=== PATIENT | male | born 1945 | race Caucasian/White ===

== ENCOUNTER → 2018-09-05 10:24 | Outpatient (CLI) | payer MEDICARE, SELFPAY ==
[2018-09-05 10:59] LABS: Basophils % 0.5 % (0.1-2.0); Eosinophils # 0.1 K/mm3 (0.0-0.4); Eosinophils % 1.2 % (0.1-12.0); Hematocrit 35.9 % (42.0-52.0); Hemoglobin 11.7 g/dL (14.1-18.0); Lymphocytes # 1.4 K/mm3 (0.7-4.5); Lymphocytes % 18.4 % (10-50); Mean Corpuscular HGB Conc 32.4 g/dL (31.8-35.4); Mean Corpuscular Hemoglobin 28.2 pg (27.0-31.2); Mean Corpuscular Volume 86.8 fl (80-94); Monocytes # 0.5 K/mm3 (0.1-1.0); Monocytes % 6.3 % (1.7-9.3); Neutrophils # 5.6 K/mm3 (1.8-7.8); Neutrophils % 73.6 % (37.0-80.0); Platelet Count 295 K/mm3 (142-424); Red Blood Count 4.14 M/mm3 (4.60-6.20); Red Cell Distribution Width 14.1 % (11.5-17.5); White Blood Count 7.6 K/mm3 (4.8-10.8)
[2018-09-05 14:27] LABS: Alanine Aminotransferase 19 U/L (12-78); Albumin/Globulin Ratio 0.5 (1.1-1.8); Alkaline Phosphatase 158 U/L (46-116); Anion Gap 16.7 mEq/L (5-15); Aspartate Amino Transferase 15 U/L (15-37); Bilirubin,Total 0.5 mg/dL (0.2-1.0); Blood Urea Nitrogen 9 mg/dL (7-18); Carbon Dioxide 27 mmol/L (21.0-32.0); Chloride 102 mmol/L (98-107); Creatinine,Serum 1.06 mg/dL (0.70-1.30); Estimated Glomerular Filt Rate 68 ml/min (>60); GFR (African American) 83 ML/MIN (>60); Globulin 3.7 gm/dl (1.3-3.2); Glucose 90 mg/dL (74-106); Potassium 3.7 mmoL/L (3.5-5.1); Sodium 142 mmol/L (136-145); Total Protein,Serum 5.7 gm/dL (6.4-8.2)
== END ==
PROVIDERS: Visit Provider Family Medicine
DX: K57.90 Diverticulosis of intestine, part unspecified, without perforation or abscess without bleeding (principal); L02.91 Cutaneous abscess, unspecified
CPT/HCPCS: 80053; 85025

== ENCOUNTER → 2019-05-04 12:18 | Outpatient (CLI) | payer MEDICARE, SELFPAY ==
--- NOTE | 2019-05-04 12:24 | XR_ITS ---
PROCEDURE: XR KNEE LT 3V CLINICAL INDICATION: KNEE PAIN COMPARISON: No exams were available for comparison FINDINGS: No fracture or dislocation. No lytic or blastic change. There is normal mineralization. There are moderate osteoarthritic changes of the medial compartment and patellofemoral joint with mild osteoarthritis of the lateral compartment. There is a small loose body in the suprapatellar region which measures 12 mm. There is generalized vascular calcification. Other findings:None. IMPRESSION: Osteoarthritis. Small loose body in the suprapatellar region Dictated by: Abhijeet Ledezma MD 05/04/2019 13:02 Electronically signed by Abhijeet Ledezma MD in [place] 05/04/2019 13:02
== END ==
PROVIDERS: PCP Nurse Practitioner Family; Visit Provider Nurse Practitioner Family
DX: M25.562 Pain in left knee (principal)
CPT/HCPCS: 73562

== ENCOUNTER → 2019-05-07 14:49 | Outpatient (CLI) | payer MEDICARE, SELFPAY ==
--- NOTE | 2019-05-07 14:52 | MR_ITS ---
PROCEDURE: MR KNEE LT WO CON CLINICAL INDICATION: KNEE PAIN Medial left knee pain, prior surgery with crunching sound, limited range of motion COMPARISON: XR KNEE LT 3V from 05/04/2019 TECHNIQUE: Routine multiplanar multi echo sequences are performed without gadolinium enhancement. FINDINGS: The posterior cruciate ligament is intact in his slightly hyper buckled with some thickening along the inferior aspect of the PCL. There is abnormal orientation of the ACL not having the normal oblique course on the sagittal images. Superior fibers are not well delineated. These findings are consistent with tear of the ACL. This may be chronic as there is not much edema in this area. The collateral ligaments have an unremarkable appearance. There is a complex tear involving the posterior horn of the medial meniscus. There are severe osteoarthritic changes. There is some thinning of the patellar cartilage. Moderate-sized knee joint effusion is present. The patellar tendon and quadriceps tendon are intact. No lateral meniscus tear. Bone marrow edema is present involving the proximal and medial aspect of the tibia which could be due to an area of bone bruising or edema from the underlying osteoarthritic change. Prominent osteophytes are present involving all 3 compartments. Subarticular cystic changes are present at the proximal tibia anteriorly and posteriorly. There are loose bodies noted within the suprapatellar effusion 1 of which measures 8 mm and another which measures 14 mm. These are along the medial aspect of the distal femur IMPRESSION: 1. Abnormal orientation of the ACL with discontinuous fibers superiorly consistent with tear of the ACL. 2. Complex tear of the posterior horn of the medial meniscus 3. Osteoarthritic change with knee joint effusion, subarticular cystic changes, and bone marrow edema of the proximal tibia medially. 4. Loose intra-articular bodies. Dictated by: Abhijeet Ledezma MD 05/08/2019 16:30 Electronically signed by Abhijeet Ledezma MD in [place] 05/09/2019 11:06
== END ==
PROVIDERS: PCP Family Medicine; Visit Provider Nurse Practitioner Family
DX: M25.562 Pain in left knee (principal)
CPT/HCPCS: 73721

== ENCOUNTER → 2019-05-21 09:59 | Outpatient (CLI) | payer MEDICARE, SELFPAY ==
--- NOTE | 2019-05-21 10:03 | XR_ITS ---
PROCEDURE: XR KNEE LT 4V CLINICAL INDICATION: Left knee pain Left knee pain COMPARISON: XR KNEE LT 3V from 05/04/2019 FINDINGS: No fracture or dislocation. No lytic or blastic change. There is normal mineralization. Osteoarthritic changes are present involving all 3 compartments greater at the medial compartment and patellofemoral joint. There is a loose body in the suprapatellar region which measures 9 mm. There may also be a loose body overlying the medial femoral condyle versus an area of sclerosis. Other findings:Vascular calcification IMPRESSION: Osteoarthritic change with at least 1 and possible 2 loose bodies Dictated by: Abhijeet Ledezma MD 05/21/2019 10:53 Electronically signed by Abhijeet Ledezma MD in [place] 05/21/2019 10:53
== END ==
PROVIDERS: PCP Family Medicine; Visit Provider Orthopaedic Surgery
DX: M25.562 Pain in left knee (principal)
CPT/HCPCS: 73564

== ENCOUNTER → 2021-06-22 06:41 | Outpatient (CLI) | payer MEDICARE, SELFPAY ==
--- NOTE | 2021-06-22 06:56 | CT_ITS ---
PROCEDURE: CT SINUS WO CON CLINICAL HISTORY: PERIORBITAL Cellulitis LT EYE COMPARISON: No exams were available for comparison TECHNIQUE: Axial images obtained with sagittal and coronal reformats. All CT scans at the facility use one or more dose reduction, viz: automated exposure control, ma/kV adjustment per patient size (including targeted exams where dose is matched to indication, i.e. head), or iterative reconstruction technique. FINDINGS: No sinus air-fluid level or significant mucosal thickening of the paranasal sinuses. No acute bony findings. No evidence of fracture or dislocation or osteomyelitis. There is mild soft tissue swelling in the left periorbital region. No postseptal soft tissue swelling. No abscess, foreign body, or other significant anomaly. IMPRESSION: Minimal soft tissue swelling in the left periorbital region. No evidence of abscess or postseptal inflammatory change. Dictated by: Abhijeet Ledezma MD 06/22/2021 13:33 Abhijeet Ledezma MD in [place] 06/22/2021 13:33
== END ==
PROVIDERS: PCP Family Medicine; Visit Provider Family Medicine
DX: L03.213 Periorbital cellulitis (principal)
CPT/HCPCS: 70486

== ENCOUNTER 2021-08-06 09:39 | Emergency (ER) | payer MEDICARE, SELFPAY ==
[2021-08-06 09:39] VITALS: BP 151/104; PULSE 98; RESP 16; TEMP 36.8; O2SAT 100; BMI 28.2
[2021-08-06 10:55] VITALS: BP 151/104; PULSE 98; RESP 16; TEMP 36.8; O2SAT 100; BMI 28.1
--- NOTE | 2021-08-06 10:56 | HMH.EDUTC ---
[facility] [place] Clinical Impression: Allergic reaction Qualifiers: Encounter type: initial encounter Qualified Code(s): T78.40XA - Allergy, unspecified, initial encounter Disposition: Home, Self-Care Condition on Discharge: Good Instructions: DI for General Allergic Reactions Additional Instructions: Drink plenty of fluids. Take tylenol or ibuprofen for pain or fever. Take the medications as directed. Follow up with your regular doctor. GO TO THE ER FOR ANY WORSENING SYMPTOMS Take benedryl regularly for the next few days. Stop the cefdinir that you started yesterday. We should hold off on any antibiotics for right now until we have a more clear explanation about what's going on with you. You really need to follow up with your primary care physician tomorrow to be reevaluated. Prescriptions: methylPREDNISolone [Medrol] 4 mg PO DIRECTED 6 Days #21 packet Transmission Status: Received by [facility] #[id number] Famotidine [Pepcid 20mg Tablet] 20 mg PO BID 10 Days #20 tab Transmission Status: Received by [facility] #[id number] Referrals: Ayush Muro MD [Primary Care Provider] - Time of Disposition: 11:38 Medical Decision Making - Medical Records Medical records reviewed: No: I reviewed the patient's medical records. - Camron Inquiry Pt receiving controlled substance: No Vital Signs: 08/06/21 09:39 08/06/21 10:55 Temperature 98.3 F 98.3 F Temperature Source Oral Oral Pulse Rate [Right Radial] 98 H 98 H Respiratory Rate 16 16 Blood Pressure [Left Arm] 151/104 H 151/104 H Blood Pressure Mean [Left Arm] 119 119 Blood Pressure Source [Left Arm] Automatic Cuff Blood Pressure Position [Left Arm] Sitting 02 Sat by Pulse Oximetry 100 100 Oxygen Delivery Method Room Air Orders (Tests/Meds): ED MEDICATIONS Discontinued Medications Generic Name Dose Route Start Last Admin Trade Name Freq PRN Reason Stop Dose Admin Diphenhydramine HCl 25 mg 08/06/21 10:57 08/06/21 11:09 Diphenhydramine 50mg/Ml Vial IM 08/06/21 10:58 25 mg ONCE ONE Administration Methylprednisolone Sodium Succinate 125 mg 08/06/21 10:57 08/06/21 11:09 Methylprednisolone Sod Succ 125mg Vial IM 08/06/21 10:58 125 mg ONCE ONE Administration [facility] [place] - General Stated complaint: facial swelling possible medication reaction Time Seen by Provider: 08/06/21 10:58 Mode of Arrival: Ambulatory Source of Information: Patient Limitations: No Limitations Description of Symptoms (Recalled from Triage Doc. by RN): Pt presents with facial swelling since Saturday night. Pt states that it worsened after taking two doses of Keflex yesterday. - History of Present Illness Provider Complaint: He states that he has been having facial swelling for the past 3 days. His swelling has been localized around both eyes. He denies any mouth or lip swelling. He saw Dr. Jacobsen yesterday for this yesterday and he was started on cefdinir. He states that after he took 2 doses of this his swelling began to worsen significantly - Related Data Previous Rx's Medication Instructions Recorded azithromycin 250 mg tablet 250 mg PO QDAY 5 Days #6 tab 07/11/19 fluticasone propionate 50 1 spray INTRANASAL QDAY #9.9 ml 07/11/19 mcg/actuation nasal spray,suspension Famotidine [Pepcid 20mg Tablet] 20 mg PO BID 10 Days #20 tab 08/06/21 methylPREDNISolone [Medrol] 4 mg PO DIRECTED 6 Days #21 08/06/21 packet Allergies Allergy/AdvReac Type Severity Reaction Status Date / Time cefdinir Allergy Other Verified 08/06/21 11:08 Sulfa (Sulfonamide Allergy Verified 08/06/21 11:08 Antibiotics) sulfacetamide AdvReac Intermediate Verified 07/11/19 13:08 [facility] History - Hepatitis A Screen Attestation statement:: This patient has been screened for Hepatitis A risk factors. I have reviewed the patient's past medical history: Yes Medical History: Denies:: Diabetes Mellitus Ty
[2021-08-06 11:39] VITALS: BP 151/104; PULSE 98; RESP 18; TEMP 36.6
== END 2021-08-06 11:50 | disposition home or self-care (01) ==
PROVIDERS: Emergency Provider Nurse Practitioner Family; PCP Family Medicine
DX: R22.0 Localized swelling, mass and lump, head (principal); T36.1X5A Adverse effect of cephalosporins and other beta-lactam antibiotics, initial encounter; Y92.019 Unspecified place in single-family (private) house as the place of occurrence of the external cause
CPT/HCPCS: 96372; 99202; G0463

== ENCOUNTER 2022-06-02 12:04 | Emergency (ER) | payer MEDICARE, SELFPAY ==
[2022-06-02 14:30] VITALS: BP 119/84; PULSE 74; RESP 18; TEMP 36.7; O2SAT 98; BMI 32.1
--- NOTE | 2022-06-02 14:48 | EXP.UTC ---
Discharge Plan Disposition Patient Disposition: Home, Self-Care Condition: Good Prescriptions Prescriptions: New clindamycin HCl 300 mg capsule 300 mg PO TID 7 Days Qty: 21 0RF Referrals Follow up/Referrals: Ayush Muro MD [Primary Care Provider] - See instructions Activity Restrictions/Add. Instructions Additional Instructions/Restrictions: Take medicaiton as prescribed Gargle warm salt water may help with mouth irritation and pain Follow up with your Dentist as soon as possible Return if needed Straight to ER if any life threatening symptoms Clinical Impressions Clinical Impression: Dental infection Instructions Patient Instructions: Clindamycin, Tooth Abscess Discharge ED Provider: Josefina Cruz [facility] HPI General Stated complaint: inflammation in lips Mode of Arrival: Ambulatory Source of Information: Patient and Spouse Limitations: No Limitations Time Seen by Provider: 06/02/22 14:48 Description of Symptoms (Recalled from Triage Doc. by RN): PATIENT C/O INFLAMMATION TO LIPS X 3 DAYS HEENT Symptoms (Recalled from RN notes): Yes Resp Symptoms (Recalled from RN notes): No Skin Symptoms (Recalled from RN notes): No MS Symptoms (Recalled from RN notes): No Functional Status (Recalled from RN notes): WNL History of Present Illness Provider Complaint: Patient state that he had his teeth cleaned last week States that after that they found he had a tooth that was going have to extracted and has an appointment with the dentist coming up but for the last 3 days he has been having some swelling and tenderness in his gum area that is swollen and starting to get worse States that he has been using peroxide in his mouth but hasnt helped much and today the swelling looked a little worse and he wanted to come in and get some antibiotics to help with the infection until he can see his dentist States that he has been using oragel for the pain and it has helped Related Data Previous Rx's Medication Instructions Recorded clindamycin HCl 300 mg capsule 300 mg PO TID 7 days #21 caps 06/02/22 Allergies Allergy/AdvReac Type Severity Reaction Status Date / Time cefdinir Allergy Other Verified 08/06/21 11:08 Sulfa (Sulfonamide Allergy Verified 08/06/21 11:08 Antibiotics) sulfacetamide AdvReac Intermediate Verified 07/11/19 13:08 Worker's Comp Is this a Worker's Comp case?: No PFSH PFS Surgical History (Updated 06/02/22 @ 14:40 by Flor Diaz RN) History of cholecystectomy Social History (Updated 06/02/22 @ 14:40 by Flor Diaz RN) Smoking Status: Never smoker alcohol intake: current substance use type: denies use current occupational status: retired and other Travel in the last 8 weeks: None household members: family housing: house caffeine: Yes ROS Obtained: Yes All systems reviewed & no additional complaints except as documented and Yes Systems reviewed as appropriate & no additional complaints except as documented Constitutional Constitutional: Reports system reviewed and no additional complaints, except as documented and Reports as per HPI ENT Ears, Nose, Mouth, and Throat: Reports system reviewed and no additional complaints, except as documented, Reports as per HPI and Reports dental pain Cardiovascular Cardiovascular: Reports system reviewed and no additional complaints, except as documented and Reports as per HPI Respiratory Respiratory: Reports system reviewed and no additional complaints, except as documented and Reports as per HPI Physical Exam General General appearance: alert and in no apparent distress Expanded ENT Exam Teeth exam: Present dental caries, gingival swelling and other (mild swelling noted in left lower gumline no swelling in lips with black tooth pain/swelling started after dental cleaning) Respiratory Respiratory exam: Present normal lung sounds bilaterally; Absent respiratory distress or wheezes Cardiovascular Card
[2022-06-02 14:57] VITALS: BP 119/84; PULSE 74; RESP 18; TEMP 36.7; O2SAT 98
== END 2022-06-02 15:20 | disposition home or self-care (01) ==
PROVIDERS: Emergency Provider Nurse Practitioner; PCP Family Medicine
DX: K04.7 Periapical abscess without sinus (principal)
CPT/HCPCS: 99212; G0463

== ENCOUNTER → 2022-10-26 09:37 | Outpatient (CLI) | payer MEDICARE, SELFPAY ==
--- NOTE | 2022-10-26 | CA_ITS ---
FINAL REPORT TECHNIQUE: Color Doppler, duplex Doppler and ugalde scale sonography of the bilateral neck arterial vasculature was performed. Velocities were measured in the carotid arteries. Stenosis evaluation based on the validated velocity criteria. CLINICAL HISTORY: Single episode of slurred speech with possible TIA. GERD. FINDINGS: The peak systolic velocity of the right common carotid artery is 92 cm/s. The peak systolic velocity of the right internal carotid artery is 82 cm/s and end diastolic velocity 15 cm/s. The ICA/CCA ratio is 1.7. A minimal amount of plaque is present. The right external carotid artery is patent. The right vertebral artery is patent with antegrade flow. The peak systolic velocity of the left common carotid artery is 68 cm/s. The peak systolic velocity of the left internal carotid artery is 82 cm/s and end diastolic velocity 21 cm/s. The ICA/CCA ratio is 1.4. A minimal amount of plaque is present. The left external carotid artery is patent.The left vertebral artery is patent with antegrade flow. IMPRESSION: Less than 50% bilateral carotid stenoses. Bilateral patent vertebral arteries with antegrade flow. If indicated, CTA or MRA could further evaluate. Reviewed, Interpreted and Dictated by Scar Raymond MD Transcribed by Vannessa Pope Authenticated and [facility]
[2022-10-26 10:25] LABS: Basophils % 0.4 % (0.1-2.0); Eosinophils # 0.1 K/mm3 (0.0-0.4); Eosinophils % 1.6 % (0.1-12.0); Hematocrit 46.3 % (42.0-52.0); Lymphocytes # 1.7 K/mm3 (0.7-4.5); Mean Corpuscular HGB Conc 32.4 g/dL (31.8-35.4); Mean Corpuscular Hemoglobin 28.8 pg (27.0-31.2); Mean Corpuscular Volume 88.7 fl (80-94); Mean Platelet Volume 7.9 fl (7.4-10.4); Monocytes # 0.3 K/mm3 (0.1-1.0); Monocytes % 5.2 % (1.7-9.3); Neutrophils # 3.9 K/mm3 (1.8-7.8); Neutrophils % 64.8 % (37.0-80.0); Platelet Count 178 K/mm3 (142-424); Red Blood Count 5.21 M/mm3 (4.60-6.20); Red Cell Distribution Width 14.2 % (11.5-17.5); White Blood Count 6.1 K/mm3 (4.8-10.8)
[2022-10-26 10:36] LABS: Alanine Aminotransferase 17 U/L (12-78); Albumin Level 3.7 g/dl (3.5-5.0); Albumin/Globulin Ratio 1.4 (1.1-1.8); Alkaline Phosphatase 65 U/L (38-126); Anion Gap 5.6 mEq/L (5-15); Aspartate Amino Transferase 21 U/L (17-59); Bilirubin,Total 1.6 mg/dl (0.2-1.3); Blood Urea Nitrogen 22 mg/dl (9-20); Calcium 8.2 mg/dl (8.4-10.2); Carbon Dioxide 29 mmol/L (22.0-30.0); Chloride 106 mmol/L (98-107); Chol/HDL Ratio 3.3 (1-3.5); Cholesterol 154 mg/dl (140-200); Estimated Glomerular Filt Rate 65 ml/min (>60); GFR (African American) 78 ML/MIN (>60); Globulin 2.6 g/dL (1.3-3.2); Glucose 189 mg/dl (74-100); HDL Cholesterol 47 mg/dl (40-60); Potassium 3.6 mmoL/L (3.5-5.1); Sodium 137 mmol/L (136-145); Total Protein,Serum 6.3 g/dl (6.3-8.2); Triglycerides 96 mg/dl (30-150); VLDL Cholesterol 19 mg/dL (0-40)
[2022-10-26 10:48] LABS: Direct LDL Cholesterol 84.71 mg/dL (100-129)
[2022-10-26 11:08] LABS: Prostate Specific Ag Screen 3.1 ng/ml (0.0-4.0); Thyroid Stimulating Hormone 3.58 uIU/mL (0.465-4.68)
== END ==
PROVIDERS: PCP Family Medicine; Visit Provider Family Medicine
DX: G45.8 Other transient cerebral ischemic attacks and related syndromes (principal); R60.9 Edema, unspecified; Z12.5 Encounter for screening for malignant neoplasm of prostate
CPT/HCPCS: 36415; 80053; 80061; 84443; 85025; 93880; G0103

== ENCOUNTER → 2022-11-12 09:32 | Outpatient (CLI) | payer MEDICARE, SELFPAY ==
--- NOTE | 2022-11-12 09:35 | ECG_ITS ---
APPROVED REPORT Exam: Resting ECG HR:66 bpm ECG Measurements Heart Rate 66 AXES NC 137 P 23 QRSd 95 QRS -16 QT 411 T 34 QTc 425 Conclusion SINUS RHYTHM MINIMAL VOLTAGE CRITERIA FOR LVH, CONSIDER NORMAL VARIANT [MEETS CRITERIA IN ONE OF: R(aVL), S(V1), R(V5), R(V5/V6)+S(V1)] NONSPECIFIC T-WAVE ABNORMALITY BORDERLINE ECG UNCONFIRMED REPORT Electronically signed by : Sam Guerrero MD 11/12/2022 19:43:26
== END ==
LOC: RT 09:35
PROVIDERS: PCP Family Medicine; Visit Provider Specialist
DX: G45.9 Transient cerebral ischemic attack, unspecified
CPT/HCPCS: 93005; 93270

== ENCOUNTER → 2022-11-20 08:48 | Outpatient (CLI) | payer MEDICARE, SELFPAY ==
--- NOTE | 2022-11-20 08:48 | MR_ITS ---
FINAL REPORT CLINICAL HISTORY: TIA/stroke. EPISODE OF DIZZINESS AND SLURRED SPEECH 3 WEEKS AGO. FINDINGS: Multi planar MR imaging was obtained through the brain without contrast. The midline structures appear intact. There is no evidence of Chiari malformation. There is moderate abnormal signal throughout the deep white matter bilaterally. There is localized abnormal signal in the deep white matter of the anterior left parietal lobe measuring up to 2.2 cm in greatest dimension. There is no corresponding decreased signal on the ADC map images. The visualized paranasal sinuses demonstrate normal signal voids. The seventh and eighth nerve root complexes are intact. IMPRESSION: 1. Moderate changes of chronic microvascular ischemia. 2. Localized focus of abnormal restricted diffusion in the deep white matter of the anterior left parietal lobe. This is favored to represent sequela of subacute ischemia. No definite evidence of acute ischemia is seen. Reviewed, Interpreted and Dictated by Scar Raymond MD Transcribed by Vanessa Childs Authenticated and [facility]
== END ==
PROVIDERS: PCP Family Medicine; Visit Provider Specialist
DX: G45.9 Transient cerebral ischemic attack, unspecified (principal)
CPT/HCPCS: 70551

== ENCOUNTER → 2022-11-23 09:29 | Outpatient (CLI) | payer MEDICARE, SELFPAY | LOC: RT 09:29 | PROVIDERS: PCP Family Medicine; Visit Provider Specialist | DX: T50.905A Adverse effect of unspecified drugs, medicaments and biological substances, initial encounter (principal); G45.8 Other transient cerebral ischemic attacks and related syndromes | CPT/HCPCS: 93306 ==

== ENCOUNTER 2023-12-04 07:21 | Day surgery (SDC) | payer MEDICARE, SELFPAY ==
[2023-12-02 12:05] VITALS: BMI 27.3
[2023-12-04 07:58] VITALS: BP 150/80; PULSE 75; RESP 18; TEMP 36.6; O2SAT 99
--- NOTE | 2023-12-04 08:07 | ECG_ITS ---
APPROVED REPORT Exam: Resting ECG HR:65 bpm ECG Measurements Heart Rate 65 AXES QRSd 106 QRS -21 QT 430 T 28 QTc 442 Conclusion ATRIAL FIBRILLATION LOW QRS VOLTAGE IN PRECORDIAL LEADS [QRS DEFLECTION < 1.0 mV IN CHEST LEADS] INCOMPLETE RIGHT BUNDLE BRANCH BLOCK [90+ ms QRS DURATION, TERMINAL R IN V1/V2, 40+ ms S IN I/aVL/V4/V5/V6] INFERIOR MYOCARDIAL INFARCTION , PROBABLY OLD [40+ ms Q WAVE AND/OR ST/T ABNORMALITY IN II/aVF] ABNORMAL ECG UNCONFIRMED REPORT Electronically signed by : Sam Guerrero MD 12/06/2023 12:25:42
--- NOTE | 2023-12-04 08:12 | CA_ITS ---
APPROVED REPORT EXAM: Comprehensive 2D, Doppler, and color-flow Echocardiogram Senior Sql Developer: RT Ragini(R) Ht: 6 ft 0 in Wt: 202lbs BSA: 2.14 BP: 142/84 mmHg Indications: AFIB, HTN, GERD Procedure After obtaining informed consent, patient underwent transesophageal echo in the [facility]. Type of Sedation : MAC Sedation was administered by Liang VillafuerteR.N.AShaheen Sedation start time: 10:10 Case end Time: 10:25 Propofol () Transesophageal probe was inserted and advanced into esophagus without difficulty by Dr. Kyree Rodriguez. The JARED was performed without complications. Synchronized Cardioversion acheived with 150 Joules after 1 attempt(s). Rhythm following Synchronized Cardioversion: Normal Sinus Rhythm Throughout the procedure, the blood pressure, pulse oximetry, cardiac rhythm, and rate were monitored. The patient tolerated the procedure without adverse effects. Recovery from conscious sedation was uneventful and vital signs were stable. Left Ventricle The left ventricle is normal size. The left ventricular systolic function is normal. The left ventricular ejection fraction is within the normal range. There is increased LV wall thickness. There is normal LV segmental wall motion. LVEF is 55%. Right Ventricle The right ventricle is normal size. The right ventricular systolic function is normal. Atria The left atrium size is normal. No thrombus is visualized in the left atrium or appendage. The right atrium size is normal. Interatrial septum is intact without evidence of ASD or PFO. Aortic Valve The aortic valve is mildly thickened. Trace aortic regurgitation. There is no aortic valvular stenosis. Mitral Valve The mitral valve leaflets are mildly thickened. No evidence of mitral valve stenosis. Mild mitral regurgitation. Tricuspid Valve The tricuspid valve leaflets are thin and pliable. Mild tricuspid regurgitation. RVSP is 17 mmHg + RA pressure. Pulmonic Valve The pulmonary valve is normal in structure. Trace pulmonic regurgitation. Great Vessels The aortic root is normal in size. The ascending aorta is normal in size. Pericardium There is no pericardial effusion. Other Information Study Quality: Adequate Conclusion Normal biventricular systolic function. Mild MR, mild TR. No evidence of LA or TOAN thrombus. Once JARED demonstrated no evidence of thrombus, the patient underwent successful DCCV with 150 J, after which she converted to normal sinus rhythm after the first shock. Post procedurally, he recovered well with no issues. He was discharged in stable condition. Electronically signed by : Lawanda Rodriguez MD 12/05/2023 00:27:50
[2023-12-04] MEDS: LACTATED RINGERS 1000ML 1,000 ML 25 ML IV (08:28)
[2023-12-04 08:54] LABS: Basophils # 0.1 K/mm3 (0-0.2); Basophils % 1.4 % (0.1-2.0); Eosinophils # 0.3 K/mm3 (0.0-0.4); Eosinophils % 4.7 % (0.1-12.0); Hematocrit 44.3 % (42.0-52.0); Hemoglobin 14.6 g/dL (14.1-18.0); Lymphocytes # 2.3 K/mm3 (0.7-4.5); Lymphocytes % 40.5 % (10-50); Mean Corpuscular Hemoglobin 29.7 pg (27.0-31.2); Mean Corpuscular Volume 89.8 fl (80-94); Mean Platelet Volume 7.7 fl (7.4-10.4); Monocytes # 0.4 K/mm3 (0.1-1.0); Monocytes % 6.6 % (1.7-9.3); Neutrophils # 2.6 K/mm3 (1.8-7.8); Neutrophils % 46.8 % (37.0-80.0); Platelet Count 178 K/mm3 (142-424); Red Blood Count 4.93 M/mm3 (4.60-6.20); Red Cell Distribution Width 14.7 % (11.5-17.5); White Blood Count 5.6 K/mm3 (4.8-10.8)
[2023-12-04 08:59] LABS: INR 1.03 (0.9-1.1); Prothrombin Time 11.1 seconds (10.1-12.5)
[2023-12-04 09:01] LABS: Anion Gap 12.7 mEq/L (5-15); Blood Urea Nitrogen 16 mg/dl (9-20); Calcium 8.6 mg/dl (8.4-10.2); Carbon Dioxide 26 mmol/L (22.0-30.0); Chloride 104 mmol/L (98-107); Creatinine Clearance Estimated 71 mL/min (50-200); Estimated Glomerular Filt Rate 65 ml/min (>60); GFR (African American) 78 ML/MIN (>60); Glucose 127 mg/dl (74-100); Potassium 3.7 mmoL/L (3.5-5.1); Sodium 139 mmol/L (136-145)
--- NOTE | 2023-12-04 09:47 | EXP.ANES.CKL ---
[facility] Disclaimer: The information contained in this section may have been updated after the patient was seen, as this information can be updated by other users. Medical History Atrial fibrillation History of gastroesophageal reflux (GERD) Hypertension Surgical History H/O removal of cyst History of surgery History of knee surgery History of cholecystectomy Family History Other Cancer Stroke Social History Smoking Status: Former smoker alcohol intake: never substance use type: denies use current occupational status: retired Travel in the last 8 weeks: None household members: family and other housing: house marital status: caffeine: Yes [facility] Anesthesia Checklist Patient Identification Patient Identification: Arm Band Structural Data Admitted From: Home Planned Operative Procedure/s: JARED/Cardioversion Consent for Planned Operative Procedure(s) Verified: Yes Verified Documents: Surgical Consent and History and Physical NPO Status Verified Time NPO: 03:00 (water) Additional verifications Anesthesia Reactions: No Airway Assessment Mallampati Score:: Class II C-Spine Mobility Assessed: Yes TMJ Mobility Assessed: Yes Dentition: Edentulous Neurological Assessment Level of Consciousness: Awake, Alert and Appropriate Anesthesia Plan Anesthesia Risk discussed: Yes Anesthesia Plan: Verified ASA Class: III Anesthesia Type: MAC
[2023-12-04] MEDS: APIXABAN 5MG TABLET 5 MG PO (09:56)
[2023-12-04 10:06] VITALS: O2SAT 100
--- NOTE | 2023-12-04 10:15 | SUR.OPER ---
1014- pt cardioverted at this time at 150j per MD. stantons
[2023-12-04 10:20] VITALS: BP 119/72; PULSE 48; RESP 16; TEMP 36.6; O2SAT 93
[2023-12-04 10:30] VITALS: BP 118/75; PULSE 48; RESP 16; O2SAT 94
[2023-12-04 10:40] VITALS: BP 139/71; PULSE 52; RESP 16; O2SAT 97
[2023-12-04 10:50] VITALS: BP 123/75; PULSE 49; RESP 18; O2SAT 97
== END 2023-12-04 10:50 | disposition home or self-care (01) ==
PROVIDERS: PCP Family Medicine; Visit Provider Internal Medicine
DX: I48.91 Unspecified atrial fibrillation (principal); I10 Essential (primary) hypertension; R90.82 White matter disease, unspecified; I99.8 Other disorder of circulatory system; I49.1 Atrial premature depolarization; G45.9 Transient cerebral ischemic attack, unspecified; Z87.891 Personal history of nicotine dependence
CPT/HCPCS: 80048; 85025; 85610; 92960; 93005; 93270; 93312; 93319

== ENCOUNTER 2024-09-21 18:05 | Emergency (ER) | payer MEDICARE, SELFPAY ==
--- NOTE | 2024-09-21 18:09 | CT_ITS ---
PROCEDURE INFORMATION: Exam: CT Head Without Contrast Exam date and time: 09/21/2024 6:41 PM Age: 78 years old Clinical indication: Other: Syncope; Additional info: Syncope, seizure like activity TECHNIQUE: Imaging protocol: Computed tomography of the head without contrast. Radiation optimization: All CT scans at this facility use at least one of these dose optimization techniques: automated exposure control; mA and/or kV adjustment per patient size (includes targeted exams where dose is matched to clinical indication); or iterative reconstruction. COMPARISON: MR HEAD/BRAIN WO CON 11/20/2022 8:58 AM FINDINGS: Brain: Atrophy and chronic small vessel ischemic changes. No hemorrhage. No mass effect or midline shift. Remote lacunar infarct in the left basal ganglia. Tiny remote right basal ganglia calcifications. Cerebral ventricles: No ventriculomegaly. Paranasal sinuses: Visualized sinuses are unremarkable. No fluid levels. Mastoid air cells: Visualized mastoid air cells are well aerated. Bones: Unremarkable. No acute fracture. Soft tissues: Unremarkable. IMPRESSION: Chronic changes in the brain but no acute intracranial abnormality.
--- NOTE | 2024-09-21 18:09 | CT_ITS ---
PROCEDURE INFORMATION: Exam: CTA Head With Contrast, Arteriography Exam date and time: 09/21/2024 6:43 PM Age: 78 years old Clinical indication: Other: Syncope, seizure like activity TECHNIQUE: Imaging protocol: Computed tomographic angiography of the head with contrast. Exam focused on the arteries. 3D rendering (Not supervised by radiologist): MIP and/or 3D reconstructed images were created by the technologist. Radiation optimization: All CT scans at this facility use at least one of these dose optimization techniques: automated exposure control; mA and/or kV adjustment per patient size (includes targeted exams where dose is matched to clinical indication); or iterative reconstruction. Contrast material: ISOVUE; Contrast volume: 80 ml; Contrast route: INTRAVENOUS (IV); COMPARISON: CT HEAD/BRAIN WO CON 09/21/2024 6:41 PM FINDINGS: ANTERIOR CIRCULATION: Right internal carotid artery: Intracranial segment is patent with no significant stenosis. No aneurysm. Right middle cerebral artery: No occlusion or significant stenosis. No aneurysm. Right anterior cerebral artery: No occlusion or significant stenosis. No aneurysm. Left internal carotid artery: Intracranial segment is patent with no significant stenosis. No aneurysm. Left middle cerebral artery: No occlusion or significant stenosis. No aneurysm. Left anterior cerebral artery: No occlusion or significant stenosis. No aneurysm. POSTERIOR CIRCULATION: Right vertebral artery: No occlusion or significant stenosis. No aneurysm. Left vertebral artery: No occlusion or significant stenosis. No aneurysm. Basilar artery: No occlusion or significant stenosis. No aneurysm. Right posterior cerebral artery: No occlusion or significant stenosis. No aneurysm. Left posterior cerebral artery: No occlusion or significant stenosis. No aneurysm. Brain: No definite mass, mass effect, or midline shift. Cerebral ventricles: No ventriculomegaly. Bones/joints: Unremarkable. No acute fracture. Soft tissues: Unremarkable. IMPRESSION: No large vessel stenosis or occlusion.
--- NOTE | 2024-09-21 18:09 | CT_ITS ---
PROCEDURE INFORMATION: Exam: CTA Chest With Contrast Exam date and time: 09/21/2024 6:47 PM Age: 78 years old Clinical indication: Other: Syncope; Additional info: Syncope, seizure like activity TECHNIQUE: Imaging protocol: Computed tomographic angiography of the chest with contrast. Exam focused on the arteries. 3D rendering (Not supervised by radiologist): MIP and/or 3D reconstructed images were created by the technologist. Radiation optimization: All CT scans at this facility use at least one of these dose optimization techniques: automated exposure control; mA and/or kV adjustment per patient size (includes targeted exams where dose is matched to clinical indication); or iterative reconstruction. Contrast material: ISOVUE; Contrast volume: 70 ml; Contrast route: INTRAVENOUS (IV); COMPARISON: CR CXR2V XR chest 2V 08/09/2018 4:11 AM FINDINGS: Pulmonary arteries: Normal. No pulmonary emboli. Aorta: Unremarkable. No aortic aneurysm. No aortic dissection. Lungs: Biapical scarring. No pneumonia. Pleural spaces: Unremarkable. No pneumothorax. No pleural effusion. Heart: Unremarkable. No cardiomegaly. No pericardial effusion. Lymph nodes: Unremarkable. No enlarged lymph nodes. Bones/joints: Unremarkable. No acute fracture. Soft tissues: Unremarkable. IMPRESSION: No acute findings.
--- NOTE | 2024-09-21 18:09 | CT_ITS ---
PROCEDURE INFORMATION: Exam: CTA Neck With Contrast Exam date and time: 09/21/2024 6:43 PM Age: 78 years old Clinical indication: Other: Syncope, seizure like activity TECHNIQUE: Imaging protocol: Computed tomographic angiography of the neck with contrast. Exam focused on the cervical segments of the vasculature. 3D rendering (Not supervised by radiologist): MIP and/or 3D reconstructed images were created by the technologist. Radiation optimization: All CT scans at this facility use at least one of these dose optimization techniques: automated exposure control; mA and/or kV adjustment per patient size (includes targeted exams where dose is matched to clinical indication); or iterative reconstruction. Contrast material: ISOVUE; Contrast volume: 80 ml; Contrast route: INTRAVENOUS (IV); COMPARISON: CT HEAD/BRAIN WO CON 09/21/2024 6:41 PM FINDINGS: Right common carotid artery: No stenosis. No dissection or occlusion. Right internal carotid artery: No stenosis of the extracranial segment. No dissection or occlusion. Right external carotid artery: No occlusion or stenosis of the origin. Left common carotid artery: No stenosis. No dissection or occlusion. Left internal carotid artery: No stenosis of the extracranial segment. No dissection or occlusion. Left external carotid artery: No occlusion or stenosis of the origin. Right vertebral artery: No stenosis. No dissection or occlusion. Left vertebral artery: No stenosis. No dissection or occlusion. Soft tissues: Normal. No significant soft tissue swelling. Bones/joints: No acute fracture. IMPRESSION: No stenosis or occlusion. REFERENCES: NASCET CRITERIA. The degree of stenosis in the cervical segment of the internal carotid artery is based on NASCET criteria. Normal is no stenosis. Mild is less than 50% stenosis. Moderate is 50-69% stenosis. Severe is 70% to 99% stenosis. Total occlusion is no detectable patent lumen.
[2024-09-21 18:10] VITALS: BP 159/88; PULSE 90; RESP 16; TEMP 36.6; O2SAT 97; BMI 27.5
--- NOTE | 2024-09-21 18:10 | ECG_ITS ---
APPROVED REPORT Exam: Resting ECG HR:85 bpm ECG Measurements Heart Rate 85 AXES CA 133 P 55 QRSd 93 QRS 9 QT 339 T 60 QTc 382 Conclusion SINUS RHYTHM INCOMPLETE RIGHT BUNDLE BRANCH BLOCK [90+ ms QRS DURATION, TERMINAL R IN V1/V2, 40+ ms S IN I/aVL/V4/V5/V6] NONSPECIFIC T-WAVE ABNORMALITY BORDERLINE ECG UNCONFIRMED REPORT Electronically signed by : DINO MARINA, 09/21/2024 23:05:03
[2024-09-21 18:17] LABS: Basophils # 0.1 K/mm3 (0-0.2); Basophils % 0.6 % (0.1-2.0); Eosinophils # 0.1 K/mm3 (0.0-0.4); Eosinophils % 1.3 % (0.1-12.0); Hematocrit 40.7 % (42.0-52.0); Hemoglobin 13.4 g/dL (14.1-18.0); Lymphocytes # 1.1 K/mm3 (0.7-4.5); Lymphocytes % 13.4 % (10-50); Mean Corpuscular HGB Conc 32.9 g/dL (31.8-35.4); Mean Corpuscular Hemoglobin 28.2 pg (27.0-31.2); Mean Corpuscular Volume 85.7 fl (80-94); Mean Platelet Volume 9.9 fl (7.4-10.4); Monocytes # 0.3 K/mm3 (0.1-1.0); Neutrophils # 6.6 K/mm3 (1.8-7.8); Neutrophils % 80.5 % (37.0-80.0); Platelet Count 161 K/mm3 (142-424); Red Blood Count 4.75 M/mm3 (4.60-6.20); Red Cell Distribution Width 13.6 % (11.5-17.5); White Blood Count 8.2 K/mm3 (4.8-10.8)
[2024-09-21 18:21] LABS: Albumin Level 4.3 g/dl (3.5-5.0); Chloride 102 mmol/L (98-107)
--- NOTE | 2024-09-21 18:21 | ED_ITS ---
Discharge Plan Disposition Chief Complaint: Syncope Prescriptions Prescriptions: No Action esomeprazole magnesium [Nexium] 20 mg capsule,delayed release(DR/EC) 20 mg PO DAILY amlodipine [Norvasc] 2.5 mg tablet 2.5 mg PO DAILY Qty: 30 3RF Eliquis 5 mg tablet 0RF Referrals Follow up/Referrals: Ayush Muro MD [Primary Care Provider] - See instructions Instructions Patient Instructions: DI for Syncope in Adults (Fainting), DI for Syncope in Children (Fainting) Print Language Print Language: Telugu Discharge ED Provider: Nikole Parrish General Adult HPI General Chief complaint: Syncope Stated complaint: Fall, Syncope, Lightheaded Time Seen by Provider: 09/21/24 18:09 Mode of Arrival: EMS Source of Information: Patient Description of Symptoms (Recalled from ER Triage Doc. by RN): States he was at a visitation when he got dizzy and the next thing he remembers is having a crowd around him. Per EMS patient had a syncopal episode and was caught by family. Related Data Home Medications ?Medication ?Instructions ?Recorded ?Confirmed esomeprazole magnesium 20 mg 20 mg PO DAILY 07/09/24 07/09/24 capsule,delayed release (Nexium) Previous Rx's ?Medication ?Instructions ?Recorded amlodipine 2.5 mg tablet (Norvasc) 2.5 mg PO DAILY #30 tabs 07/09/24 Allergies Allergy/AdvReac Type Severity Reaction Status Date / Time cefdinir Allergy Other Verified 07/09/24 13:19 Sulfa (Sulfonamide Allergy Verified 07/09/24 13:19 Antibiotics) sulfacetamide AdvReac Intermediate Verified 07/09/24 13:19 [facility] Disclaimer: The information contained in this section may have been updated after the patient was seen, as this information can be updated by other users. Medical History Atrial fibrillation History of gastroesophageal reflux (GERD) Hypertension Surgical History H/O removal of cyst History of surgery COLLAR BONE SURGERY History of knee surgery LEFT History of cholecystectomy Family History Other Cancer Stroke Social History Smoking Status: Former smoker alcohol intake: never substance use type: denies use current occupational status: retired Travel in the last 8 weeks: None household members: family and other housing: house marital status: caffeine: Yes Have you lived/traveled outside [place] in past 30 days?: No Contact w/someone who lives/traveled outside [place] past 30 days?: No Exposure to someone with infectious disease in past 14 days?: No Do you have a fever (greater than 100.4 F or 38 C)?: No Have you tested positive for COVID-19: No Exposed to someone with COVID-19 in past 14 days?: No Do you have a sore throat?: No Do you have a cough?: No Do you have any weakness?: No Do you have any diarrhea?: No Are you experiencing any unusual bleeding?: No Do you have any muscle aches/pain?: No Do you have any abdominal pain?: No Are you experiencing loss of taste or smell?: No Other Medical History Have you received the Pneumonia Vaccine: No Medical Decision Making Medical Records Screening: Per USPSTF and CDC recommendations, given the prevalence of disease in our region, it is our hospital?s policy to screen for HIV and viral Hepatitis for all patients aged 18 and over and those with ongoing risk factors. Vital Signs: 09/21/24 18:10 Temperature 97.9 F Temperature Source Oral Pulse Rate [Radial] 90 Respiratory Rate 16 Blood Pressure [Right Arm] 159/88 H Blood Pressure Mean [Right Arm] 111 Blood Pressure Source [Right Arm] Automatic Cuff Blood Pressure Position [Right Arm] Sitting 02 Sat by Pulse Oximetry 97 Oxygen Delivery Method Room Air Lab Data Lab Results 09/21/24 17:51: WBC 8.2, RBC 4.75, Hgb 13.4 L, Hct 40.7 L, MCV 85.7, MCH 28.2, MCHC 32.9, RDW 13.6, Plt Count 161, MPV 9.9, Neut % (Auto) 80.5 H, Lymph % (Auto) 13.4, [place] % (Auto) 4.0, Eos % (Auto) 1.3, Baso % (Auto) 0.6, Neut # (Auto) 6.6, Lymph # (Auto) 1.1, [place] # (Auto) 0.3, Eos # (Auto) 0.1, Baso # (Auto) 0.1, Sodium 137, Potassium 4.1, Chloride 102, Carbon Dioxide 27, Anion Gap 12.1, BUN 21 H, Creatinine 1.50 H, Estimated Creat Clear 52, Estimated GFR 45 L, Est GFR ( Amer) 55 L, Glucose 146 H, Calcium 8.6, Magnesium 1.9, T otal Bilirubin 1.4 H, AST 23, ALT 19, Alkaline Phosphatase 91, Troponin I < 0.01, NT-Pro-B Natriuret Pep 304, Total Protein 7.2, Albumin 4.3, Globulin 2.9, Albumin/Globulin Ratio 1.5 09/21/24 17:51 09/21/24 17:51 Orders (Tests/Meds): ED MEDICATIONS Generic Name Dose Route Start Last Admin Trade Name Freq PRN Reason Stop Dose Admin Sodium Chloride 10 ml 09/21/24 18:48 09/21/24 18:48 Sodium Chloride 0.9% 10ml Syr (Rad Only) IV 10/21/24 18:47 10 ml NEEDED PRN Administration Maintain IV Site Discontinued Medications Generic Name Dose Route Start Last Admin Trade Name Freq PRN Reason Stop Dose Admin Iopamidol 150 ml 09/21/24 18:48 09/21/24 18:49 Iopamidol-370 (76%);100ml Bottle IV 09/21/24 18:49 150 ml ONCE ONE Administration Sodium Chloride 100 ml 09/21/24 18:48 09/21/24 18:49 0.9 % Sodium Chloride 50 Ml Vial IV 09/21/24 18:49 100 ml ONCE ONE Administration ORDERS Category Date Time Status CT angio chest PE protocol Stat Cat Scan 09/21/24 18:[address] angio head Stat Cat Scan 09/21/24 18:[address] angio neck Stat Cat Scan 09/21/24 18:[address] head/brain wo con Stat Cat Scan 09/21/24 18:09 Taken BNP [NT Pro Brain Natriuretic Pep.] Stat Lab 09/21/24 17:51 Completed Complete Blood Count Auto Diff Stat Lab 09/21/24 17:51 Completed Comprehensive Metabolic Panel Stat Lab 09/21/24 17:51 Completed MAG [Magnesium] Stat Lab 09/21/24 17:51 Completed Trop I [Troponin I] Stat Lab 09/21/24 17:51 Completed Troponin I Q3H Lab 09/21/24 21:15 Ordered Troponin I Q3H Lab 09/22/24 00:15 Ordered
[2024-09-21 18:22] LABS: Potassium 4.1 mmoL/L (3.5-5.1); Sodium 137 mmol/L (136-145)
[2024-09-21 18:24] LABS: Alanine Aminotransferase 19 U/L (12-78); Albumin/Globulin Ratio 1.5 (1.1-1.8); Alkaline Phosphatase 91 U/L (38-126); Anion Gap 12.1 mEq/L (5-15); Aspartate Amino Transferase 23 U/L (17-59); Bilirubin,Total 1.4 mg/dl (0.2-1.3); Blood Urea Nitrogen 21 mg/dl (9-20); Carbon Dioxide 27 mmol/L (22.0-30.0); Creatinine Clearance Estimated 52 mL/min (50-200); Estimated Glomerular Filt Rate 45 ml/min (>60); GFR (African American) 55 ML/MIN (>60); Globulin 2.9 g/dL (1.3-3.2); Total Protein,Serum 7.2 g/dl (6.3-8.2)
[2024-09-21 18:25] LABS: Calcium 8.6 mg/dl (8.4-10.2); Glucose 146 mg/dl (74-100); Magnesium 1.9 mg/dl (1.6-2.3)
--- NOTE | 2024-09-21 18:25 | PC.NURSE ---
Dr Parrish at bedside. Also notified Daniela in Radiology that MD does not want to wait on lab, want to go to scan papa
[2024-09-21 18:30] VITALS: BP 161/91; PULSE 85; O2SAT 97
[2024-09-21 18:34] LABS: NT Pro Brain Natriuretic Pep. 304 pg/mL (0-450)
[2024-09-21 18:37] LABS: Troponin I < 0.01 ng/ml (0.00-0.034)
[2024-09-21] MEDS: SODIUM CHLORIDE 0.9% 10ML SYR (RAD ONLY) 10 ML IV (18:48)
[2024-09-21] MEDS: 0.9 % SODIUM CHLORIDE 50 ML VIAL 100 ML IV (18:49)
[2024-09-21] MEDS: IOPAMIDOL-370 (76%);100ML BOTTLE 150 ML IV (18:49)
[2024-09-21 19:01] VITALS: BP 176/94; PULSE 89; O2SAT 97
--- NOTE | 2024-09-21 19:01 | HMH.EDGENADL ---
Discharge Plan Disposition Patient Disposition: Home, Self-Care Condition: Good Prescriptions Prescriptions: No Action esomeprazole magnesium [Nexium] 20 mg capsule,delayed release(DR/EC) 20 mg PO DAILY amlodipine [Norvasc] 2.5 mg tablet 2.5 mg PO DAILY Qty: 30 3RF Eliquis 5 mg tablet 0RF Referrals Follow up/Referrals: Ayush Muro MD [Primary Care Provider] - See instructions Kyree Rodriguez MD [Staff Physician] - See instructions Activity Restrictions/Add. Instructions Additional Instructions/Restrictions: You were evaluated in the emergency department today. As we discussed, your workup so far is reassuring. We did not obtain a second heart enzyme as we discussed, so we cannot definitively exclude cardiac event as a cause of this. Because of this, it is very very important that you follow-up closely with cardiology as well as with your primary care provider. Return to the emergency department right away for new or worsening symptoms. Clinical Impressions Clinical Impression: Syncope Instructions Patient Instructions: DI for Syncope in Adults (Fainting) Print Language Print Language: German Discharge ED Provider: Nikole Parrish General Adult HPI General Chief complaint: Syncope Stated complaint: Fall, Syncope, Lightheaded Time Seen by Provider: 09/21/24 18:09 Mode of Arrival: EMS Source of Information: Patient Description of Symptoms (Recalled from ER Triage Doc. by RN): States he was at a visitation when he got dizzy and the next thing he remembers is having a crowd around him. Per EMS patient had a syncopal episode and was caught by family. History of Present Illness HPI narrative: This patient is a 78-year-old male with a history of atrial fibrillation on Eliquis, prior TIA, GERD, hypertension presenting to the emergency department for evaluation with concern for syncopal episode. Patient was at a tonight surrounded by family when his son notes that he stumbled while walking in. Son notes that he had to grab his arm to help hold him up, as he was going down. He states that they lowered him down into a seated position and he was drooling, and then they lowered him all the way to the ground to lie down. He was very out of it. He was assessed by family member who is a nurse and they said they did not think that he was having a stroke, but recommended eval by EMS. EMS was called to the scene where fingerstick glucose and EKG were normal according to EMS. Family notes that shortly after this episode, he snapped out of it and returned to his baseline immediately with no concerns or complaints. Patient tells me that he has been fine all day with no issues and is not sure exactly what happened. He notes that he is feeling fine now and has no concerns or complaints. He does note that he has had 2-3 syncopal episodes in the last year, and has been seen by cardiology, had echo, had other workup and has been told he has atrial fibrillation but states he has not been told of any other issues. Related Data Home Medications ?Medication ?Instructions ?Recorded ?Confirmed esomeprazole magnesium 20 mg 20 mg PO DAILY 07/09/24 07/09/24 capsule,delayed release (Nexium) Previous Rx's ?Medication ?Instructions ?Recorded amlodipine 2.5 mg tablet (Norvasc) 2.5 mg PO DAILY #30 tabs 07/09/24 Allergies Allergy/AdvReac Type Severity Reaction Status Date / Time cefdinir Allergy Other Verified 07/09/24 13:19 Sulfa (Sulfonamide Allergy Verified 07/09/24 13:19 Antibiotics) sulfacetamide AdvReac Intermediate Verified 07/09/24 13:19 [facility] PFS Disclaimer: The information contained in this section may have been updated after the patient was seen, as this information can be updated by other users. Medical History Atrial fibrillation History of gastroesophageal reflux (GERD) Hypertension Surgical History H/O removal of cyst History of surgery History of knee surgery History of cholecystectomy Family History Other Cancer Stroke Social History Smoking Status: Never smoker alcohol intake: never substance use type: denies use current occupational status: retired Travel in the last 8 weeks: None household members: family and other housing: house marital status: caffeine: Yes Have you lived/traveled outside US in past 30 days?: No Contact w/someone who lives/traveled outside US past 30 days?: No Exposure to someone with infectious disease in past 14 days?: No Do you have a fever (greater than 100.4 F or 38 C)?: No Have you tested positive for COVID-19: No Exposed to someone with COVID-19 in past 14 days?: No Do you have a sore throat?: No Do you have a cough?: No Do you have any weakness?: No Do you have any diarrhea?: No Are you experiencing any unusual bleeding?: No Do you have any muscle aches/pain?: No Do you have any abdominal pain?: No Are you experiencing loss of taste or smell?: No Other Medical History Have you received the Pneumonia Vaccine: No ROS Obtained: Yes All systems reviewed & no additional complaints except as documented Physical Exam General General appearance: alert and in no apparent distress Head Head exam: atraumatic and normocephalic Eye Eye exam: Present normal appearance, PERRL and EOMI ENT ENT exam: Present normal exam, normal oropharynx, mucous membranes moist and normal external ear exam Neck Neck exam: Present normal inspection, full ROM and trachea midline; Absent tenderness Chest Chest inspection: Present normal inspection and symmetric chest wall rise; Absent tenderness Respiratory Respiratory exam: Present normal lung sounds bilaterally; Absent respiratory distress, wheezes, stridor or accessory muscle use Cardiovascular Cardiovascular exam: Present regular rate and normal rhythm Abdominal Exam Abdominal exam: Present soft; Absent distention, tenderness or guarding Extremities Exam Extremities exam: Present normal inspection, full ROM and normal capillary refill; Absent tenderness or edema Back Exam Back exam: Present normal inspection and full ROM; Absent tenderness Neurological Exam Neurological exam: Present alert, oriented X3, CN II-XII intact and normal gait; Absent motor sensory deficit Psychiatric Psychiatric exam: Present normal affect and normal mood Skin Skin exam: Present warm and dry Medical Decision Making Medical Records Medical records reviewed: Yes I reviewed the patient's medical records. Screening: Per USPSTF and CDC recommendations, given the prevalence of disease in our region, it is our hospital?s policy to screen for HIV and viral Hepatitis for all patients aged 18 and over and those with ongoing risk factors. Camron Inquiry Pt receiving controlled substance: No Vital Signs: 09/21/24 18:10 09/21/24 18:30 09/21/24 19:01 Temperature 97.9 F Temperature Source Oral Pulse Rate 85 89 Pulse Rate [Radial] 90 Respiratory Rate 16 Blood Pressure 161/91 H 176/94 H Blood Pressure [Right Arm] 159/88 H Blood Pressure Mean [Right Arm] 111 Blood Pressure Source [Right Arm] Automatic Cuff Blood Pressure Position [Right Arm] Sitting 02 Sat by Pulse Oximetry 97 97 97 Oxygen Delivery Method Room Air 09/21/24 19:31 09/21/24 20:00 09/21/24 20:32 Temperature 98.1 F Temperature Source Pulse Rate 97 H 86 95 H Pulse Rate [Radial] Respiratory Rate 18 Blood Pressure 160/84 H 165/97 H 160/97 H Blood Pressure [Right Arm] Blood Pressure Mean [Right Arm] Blood Pressure Source [Right Arm] Blood Pressure Position [Right Arm] 02 Sat by Pulse Oximetry 98 95 Oxygen Delivery Method Room Air Lab Data Lab results reviewed: Yes I reviewed the patient's lab results. Lab Results 09/21/24 17:51: WBC 8.2, RBC 4.75, Hgb 13.4 L, Hct 40.7 L, MCV 85.7, MCH 28.2, MCHC 32.9, RDW 13.6, Plt Count 161, MPV 9.9, Neut % (Auto) 80.5 H, Lymph % (Auto) 13.4, [place] % (Auto) 4.0, Eos % (Auto) 1.3, Baso % (Auto) 0.6, Neut # (Auto) 6.6, Lymph # (Auto) 1.1, [place] # (Auto) 0.3, Eos # (Auto) 0.1, Baso # (Auto) 0.1, Sodium 137, Potassium 4.1, Chloride 102, Carbon Dioxide 27, Anion Gap 12.1, BUN 21 H, Creatinine 1.50 H, Estimated Creat Clear 52, Estimated GFR 45 L, Est GFR ( Amer) 55 L, Glucose 146 H, Calcium 8.6, Magnesium 1.9, Total Bilirubin 1.4 H, AST 23, ALT 19, Alkaline Phosphatase 91, Troponin I < 0.01, NT-Pro-B Natriuret Pep 304, Total Protein 7.2, Albumin 4.3, Globulin 2.9, Albumin/Globulin Ratio 1.5 09/21/24 17:51 09/21/24 17:51 Orders (Tests/Meds): ED MEDICATIONS Discontinued Medications Generic Name Dose Route Start Last Admin Trade Name Freq PRN Reason Stop Dose Admin Iopamidol 150 ml 09/21/24 18:48 09/21/24 18:49 Iopamidol-370 (76%);100ml Bottle IV 09/21/24 18:49 150 ml ONCE ONE Administration Sodium Chloride 100 ml 09/21/24 18:48 09/21/24 18:49 0.9 % Sodium Chloride 50 Ml Vial IV 09/21/24 18:49 100 ml ONCE ONE Administration Sodium Chloride 10 ml 09/21/24 18:48 09/21/24 18:48 Sodium Chloride 0.9% 10ml Syr (Rad Only) IV 10/21/24 18:47 10 ml NEEDED PRN Administration Maintain IV Site ORDERS Category Date Time Status CT angio chest PE protocol Stat Cat Scan 09/21/24 18:[address] angio head Stat Cat Scan 09/21/24 18:[address] angio neck Stat Cat Scan 09/21/24 18:[address] head/brain wo con Stat Cat Scan 09/21/24 18:09 Completed BNP [NT Pro Brain Natriuretic Pep.] Stat Lab 09/21/24 17:51 Completed Complete Blood Count Auto Diff Stat Lab 09/21/24 17:51 Completed Comprehensive Metabolic Panel Stat Lab 09/21/24 17:51 Completed MAG [Magnesium] Stat Lab 09/21/24 17:51 Completed Trop I [Troponin I] Stat Lab 09/21/24 17:51 Completed ECG Data Tracing #1: I reviewed this ECG and interpreted as documented below: Normal sinus rhythm with a ventricular rate of 85 bpm. Incomplete right bundle branch block. Nonspecific T wave abnormality without acute STEMI. ECG initial impression date: 09/21/24 ECG initial impression time: 18:13 Medical Decision Narrative: In summary, this patient is a 78-year-old male presenting to the Emergency Department for evaluation of syncopal episode. Differential diagnoses considered include but are not limited to ACS, dysrhythmia, CVA, TIA, vasovagal syncope, dehydration. Ruling out the most morbid conditions drove assessment. It should be noted patient's history includes atrial fibrillation, GERD, prior TIA which may or may not be at goal therapy. This complicates all aspects of care by increasing patient's risk for morbidity. I reviewed patient's past medical records and noted previous cardiology evaluations, most recently he was noted to be in sinus rhythm and was doing well on Eliquis with no evidence of bleeding. He had had a history of JARED with cardioversion back to normal sinus rhythm.. On exam, the patient is sitting upright in no acute distress. He is completely neurologically intact with no complaints of any neurologic deficits. He also has no complaints of any chest or abdominal pain. Cardiopulmonary and abdominal exams are reassuring, and vitals are normal on cardiac telemetry with exception of mild hypertension. Workup included lab evaluation to evaluate for metabolic and cardiac etiologies of his symptoms as well as CT head, CT angiogram of the head and neck, and CT angiogram of the chest. I independently interpreted CT scans prior to the radiologist read and noted no intracranial hemorrhage or space-occupying lesion, no PE. Please see their read for final interpretation. Labs were obtained that demonstrated reassuring CBC with no significant leukocytosis or anemia. He has mild JAYESH chemistry is otherwise reassuring. Troponin negative. On reassessment, patient continues to be resting comfortably. He continues to have no concerns or complaints, and vitals are reassuring on cardiac telemetry. I advised him that I would recommend obtaining second troponin to make sure that this was not cardiac, as it takes a while before troponins become elevated in bloodstream. He states that the syncope episodes of happened to him before and he feels fine. He states that he will go home and follow-up outpatient with cardiology as well as his primary care provider. Given this, he was discharged via patient directed discharge. Strict return precautions were given Critical Care Critical Care Time Critical Care Time: No
[2024-09-21 19:31] VITALS: BP 160/84; PULSE 97; O2SAT 98
[2024-09-21 20:00] VITALS: BP 165/97; PULSE 86; O2SAT 95
[2024-09-21 20:32] VITALS: BP 160/97; PULSE 95; RESP 18; TEMP 36.7; O2SAT 95
== END 2024-09-21 20:36 | disposition home or self-care (01) ==
PROVIDERS: Emergency Provider Emergency Medicine; PCP Family Medicine
DX: R55 Syncope and collapse (principal); R42 Dizziness and giddiness
CPT/HCPCS: 70450; 70496; 70498; 71275; 80053; 83735; 83880; 84484; 85025; 93005; 99285; Q9967

== ENCOUNTER 2024-09-23 14:51 | Inpatient (IN) | payer MEDICARE, SELFPAY ==
[2024-09-23] VITALS (8 sets, daily range): BP systolic 120–168; BP diastolic 62–103; PULSE 66–90; RESP 16–20; TEMP 36.6–37.3; O2SAT 93–100; BMI 27.9; BMI 28.0
--- NOTE | 2024-09-23 | ECG_ITS ---
APPROVED REPORT Exam: Resting ECG HR:65 bpm ECG Measurements Heart Rate 65 AXES WI 132 P 35 QRSd 94 QRS -9 QT 394 T 36 QTc 405 Conclusion SINUS RHYTHM NONSPECIFIC T-WAVE ABNORMALITY BORDERLINE ECG UNCONFIRMED REPORT Electronically signed by : DINO MARINA, 09/24/2024 06:51:26
[2024-09-23 15:14] LABS: Basophils # 0.1 K/mm3 (0-0.2); Basophils % 0.7 % (0.1-2.0); Eosinophils % 0.4 % (0.1-12.0); Hematocrit 38.8 % (42.0-52.0); Hemoglobin 12.9 g/dL (14.1-18.0); Lymphocytes # 2.2 K/mm3 (0.7-4.5); Lymphocytes % 30.3 % (10-50); Mean Corpuscular HGB Conc 33.2 g/dL (31.8-35.4); Mean Corpuscular Hemoglobin 28.7 pg (27.0-31.2); Mean Corpuscular Volume 86.2 fl (80-94); Monocytes # 0.8 K/mm3 (0.1-1.0); Monocytes % 11.5 % (1.7-9.3); Neutrophils # 4.1 K/mm3 (1.8-7.8); Neutrophils % 56.8 % (37.0-80.0); Platelet Count 150 K/mm3 (142-424); Red Cell Distribution Width 14.2 % (11.5-17.5); White Blood Count 7.2 K/mm3 (4.8-10.8)
[2024-09-23 15:16] LABS: Lactate Venous 1.6 mmol/L (0.4-2.0); VBG Base Excess -2.5 mmol/L (-2.4-2.3); VBG HCO3 23.5 mmol/L (23-30); VBG Oxygen Saturation 52.1 % (50-70); VBG PCO2 45.5 mmol/L (35-51); VBG PH 7.33 mmol/L (7.31-7.41); VBG PO2 29.3 mmol/L (28-40); VBG Total CO2 24.8 mmol/L (23-27)
--- NOTE | 2024-09-23 15:17 | PC.NURSE ---
Orthostatic vitals laying- BP 137/81 pulse 69 sitting- BP 133/75 pulse 67 standing- BP 121/62 pulse 89
--- NOTE | 2024-09-23 15:27 | XR_ITS ---
FINAL REPORT CLINICAL HISTORY: cough, congestion, syncope COMPARISON: None FINDINGS: PA and lateral views of the chest were obtained. No acute pulmonary density is evident. There is no evidence of effusion or other pleural disease. The mediastinum has a normal appearance. There is mild levoscoliosis of the upper thoracic spine. The cardiac silhouette is unremarkable. IMPRESSION: Unremarkable chest exam. Reviewed, Interpreted and Dictated by Ashkan Sanabria MD Transcribed by Nunu Kamara Authenticated and [facility]
--- NOTE | 2024-09-23 15:27 | CT_ITS ---
FINAL REPORT TECHNIQUE: Noncontrast exam This study was performed with techniques to keep radiation doses as low as reasonably achievable, (ALARA). Individualized dose reduction techniques using automated exposure control or adjustment of mA and/or kV according to the patient''s size were employed. CLINICAL HISTORY: fall on blood thinners, syncope COMPARISON: 09/21/2024 FINDINGS: There is atrophy and chronic small vessel ischemic change. Chronic lacunar infarcts are seen in the basal ganglia. No abnormal density is seen. Ventricles are normal. There is no hemorrhage. No mass effect is seen. Bone windows show no evidence of fracture. IMPRESSION: Chronic findings without acute intracranial abnormality. Reviewed, Interpreted and Dictated by Ashkan Sanabria MD Transcribed by Shahnaz Pineda Authenticated and [facility]
--- NOTE | 2024-09-23 15:27 | CT_ITS ---
FINAL REPORT TECHNIQUE: Thin section axial CT with sagittal reconstruction without contrast This study was performed with techniques to keep radiation doses as low as reasonably achievable, (ALARA). Individualized dose reduction techniques using automated exposure control or adjustment of mA and/or kV according to the patient''s size were employed. CLINICAL HISTORY: fall on blood thinners, syncope FINDINGS: No fracture is seen. Alignment is normal. There is fusion of the C2-3 vertebral body and partial fusion at C3-4. There are moderate to severe degenerative changes with multilevel bony neuroforaminal narrowing. IMPRESSION: Degenerative disc disease without fracture or malalignment Reviewed, Interpreted and Dictated by Ashkan Sanabria MD Transcribed by Shahnaz Pineda Authenticated and [facility]
[2024-09-23 15:32] LABS: Albumin Level 3.9 g/dl (3.5-5.0); Chloride 102 mmol/L (98-107); Potassium 4.3 mmoL/L (3.5-5.1); Sodium 133 mmol/L (136-145)
[2024-09-23 15:34] LABS: Blood Urea Nitrogen 25 mg/dl (9-20); Creatinine Clearance Estimated 47 mL/min (50-200); Estimated Glomerular Filt Rate 39 ml/min (>60); GFR (African American) 47 ML/MIN (>60)
[2024-09-23 15:35] LABS: Alanine Aminotransferase 19 U/L (12-78); Albumin/Globulin Ratio 1.3 (1.1-1.8); Alkaline Phosphatase 82 U/L (38-126); Anion Gap 7.3 mEq/L (5-15); Aspartate Amino Transferase 30 U/L (17-59); Bilirubin,Total 1.2 mg/dl (0.2-1.3); Calcium 8.6 mg/dl (8.4-10.2); Carbon Dioxide 28 mmol/L (22.0-30.0); Globulin 2.9 g/dL (1.3-3.2); Glucose 111 mg/dl (74-100); Magnesium 2.2 mg/dl (1.6-2.3); Phosphorous 3.5 mg/dl (2.5-4.5); Total Protein,Serum 6.8 g/dl (6.3-8.2)
--- NOTE | 2024-09-23 15:41 | HMH.EDGENADL ---
Discharge Plan Disposition Patient Disposition: Admitted Condition: Fair Clinical Impressions Clinical Impression: Syncope, JAYESH (acute kidney injury), URI (upper respiratory infection) Discharge ED Provider: Nikole Parrish General Adult HPI General Chief complaint: Syncope Stated complaint: SYNCOPE Time Seen by Provider: 09/23/24 15:05 Mode of Arrival: Wheelchair Source of Information: Patient Description of Symptoms (Recalled from ER Triage Doc. by RN): pt presents to ED for syncopal episode. pt was in [facility], md states pt has seizure like activity for approx 5 minutes. pt reports he has this happen sometimes. History of Present Illness HPI narrative: This patient is a 78-year-old male with a history of hypertension, hyperlipidemia, atrial fibrillation on Eliquis, TIA presenting to the emergency department for evaluation with concern for syncopal episode. I evaluated the patient here 09/21/2024 for syncope as well and he elected to be discharged prior to obtaining second troponin. He had had multiple syncopal episodes in the past and is seeing cardiology without definitive etiology. He states has been sick for 2 days with URI symptoms, primarily cough and congestion. He went to PCP clinic to be evaluated for this when he passed out in the clinic and was sent to the ED for further evaluation. I had an interactive discussion with the provider and they noted concern for possible vasovagal episode with no notable seizure activity, no postictal state. Patient also notes that he had a fall patient currently states he is feeling okay with the exception of cough and congestion, body aches. He denies any other concerns or complaints Related Data Home Medications ?Medication ?Instructions ?Recorded ?Confirmed esomeprazole magnesium 20 mg 20 mg PO DAILY 07/09/24 09/23/24 capsule,delayed release (Nexium) Previous Rx's ?Medication ?Instructions ?Recorded amlodipine 2.5 mg tablet (Norvasc) 2.5 mg PO DAILY #30 tabs 07/09/24 Allergies Allergy/AdvReac Type Severity Reaction Status Date / Time cefdinir Allergy Other Verified 07/09/24 13:19 Sulfa (Sulfonamide Allergy Verified 07/09/24 13:19 Antibiotics) sulfacetamide AdvReac Intermediate Verified 07/09/24 13:19 [facility] Disclaimer: The information contained in this section may have been updated after the patient was seen, as this information can be updated by other users. Medical History Syncope History of CVA (cerebrovascular accident) Atrial fibrillation History of gastroesophageal reflux (GERD) Hypertension Surgical History History of colon resection History of colonoscopy History of esophagogastroduodenoscopy (EGD) H/O removal of cyst History of surgery History of knee surgery History of cholecystectomy Family History Other Cancer Stroke Social History Smoking Status: Never smoker alcohol intake: never substance use type: denies use current occupational status: retired Travel in the last 8 weeks: None household members: family and other housing: house marital status: caffeine: Yes Have you lived/traveled outside US in past 30 days?: No Contact w/someone who lives/traveled outside US past 30 days?: No Exposure to someone with infectious disease in past 14 days?: No Do you have a fever (greater than 100.4 F or 38 C)?: No Have you tested positive for COVID-19: No Exposed to someone with COVID-19 in past 14 days?: No Do you have a sore throat?: No Do you have a cough?: No Do you have any weakness?: Yes Do you have any diarrhea?: No Are you experiencing any unusual bleeding?: No Do you have any muscle aches/pain?: No Do you have any abdominal pain?: No Are you experiencing loss of taste or smell?: No Other Medical History Have you received the Pneumonia Vaccine: No ROS Obtained: Yes All systems reviewed & no additional complaints except as documented Physical Exam General General appearance: alert and in no apparent distress Head Head exam: atraumatic and normocephalic Eye Eye exam: Present normal appearance, PERRL and EOMI ENT ENT exam: Present normal exam, normal oropharynx, mucous membranes moist and normal external ear exam Neck Neck exam: Present normal inspection, full ROM and trachea midline; Absent tenderness Chest Chest inspection: Present normal inspection and symmetric chest wall rise; Absent tenderness Respiratory Respiratory exam: Present normal lung sounds bilaterally; Absent respiratory distress, wheezes, stridor or accessory muscle use Cardiovascular Cardiovascular exam: Present regular rate and normal rhythm Abdominal Exam Abdominal exam: Present soft; Absent distention, tenderness or guarding Extremities Exam Extremities exam: Present normal inspection, full ROM and normal capillary refill; Absent tenderness or edema Back Exam Back exam: Present normal inspection and full ROM; Absent tenderness Neurological Exam Neurological exam: Present alert, oriented X3, CN II-XII intact and normal gait; Absent motor sensory deficit Psychiatric Psychiatric exam: Present normal affect and normal mood Skin Skin exam: Present warm and dry Medical Decision Making Medical Records Medical records reviewed: Yes I reviewed the patient's medical records. Screening: Per USPSTF and CDC recommendations, given the prevalence of disease in our region, it is our hospital?s policy to screen for HIV and viral Hepatitis for all patients aged 18 and over and those with ongoing risk factors. Camron Inquiry Pt receiving controlled substance: No Vital Signs: 09/23/24 15:00 09/23/24 15:16 09/23/24 16:30 Temperature 97.9 F Temperature Source Oral Pulse Rate 74 Pulse Rate [Left Radial] 66 Pulse Rate [Orthostatic Lying Left] 69 Pulse Rate [Orthostatic Sitting Left] 67 Pulse Rate [Orthostatic Standing Left] 89 Respiratory Rate 19 20 Blood Pressure 168/91 H Blood Pressure [Orthostatic Lying Right Arm] 137/81 Blood Pressure [Orthostatic Sitting Right Arm] 133/75 Blood Pressure [Orthostatic Standing Right Arm] 121/62 Blood Pressure [Right Arm] 120/70 Blood Pressure Mean [Right Arm] 86 02 Sat by Pulse Oximetry 100 94 L Oxygen Delivery Method Room Air Room Air 09/23/24 17:00 09/23/24 17:17 09/23/24 17:17 Temperature 97.9 F Temperature Source Oral Pulse Rate 72 72 Pulse Rate [Left Radial] Pulse Rate [Orthostatic Lying Left] Pulse Rate [Orthostatic Sitting Left] Pulse Rate [Orthostatic Standing Left] Respiratory Rate 20 16 Blood Pressure 165/103 H 165/103 H Blood Pressure [Orthostatic Lying Right Arm] Blood Pressure [Orthostatic Sitting Right Arm] Blood Pressure [Orthostatic Standing Right Arm] Blood Pressure [Right Arm] Blood Pressure Mean [Right Arm] 02 Sat by Pulse Oximetry 95 Oxygen Delivery Method Room Air Room Air Room Air Lab Data Lab results reviewed: Yes I reviewed the patient's lab results. Lab Results 09/23/24 15:00: WBC 7.2, RBC 4.50 L, Hgb 12.9 L, Hct 38.8 L, MCV 86.2, MCH 28.7, MCHC 33.2, RDW 14.2, Plt Count 150, MPV 10.0, Neut % (Auto) 56.8, Lymph % (Auto) 30.3, [place] % (Auto) 11.5 H, Eos % (Auto) 0.4, Baso % (Auto) 0.7, Neut # (Auto) 4.1, Lymph # (Auto) 2.2, [place] # (Auto) 0.8, Eos # (Auto) 0.0, Baso # (Auto) 0.1, Sodium 133 L, Potassium 4.3, Chloride 102, Carbon Dioxide 28, Anion Gap 7.3, BUN 25 H, Creatinine 1.70 H, Estimated Creat Clear 47, Estimated GFR 39 L, Est GFR ( Amer) 47 L, Glucose 111 H, Calcium 8.6, Phosphorus 3.5, Magnesium 2.2 D, Total Bilirubin 1.2, AST 30 D, ALT 19, Alkaline Phosphatase 82, Troponin I < 0.01, Total Protein 6.8, Albumin 3.9, Globulin 2.9, Albumin/Globulin Ratio 1.3, TSH 2.89, Thyroxine (T4) 6.4 09/23/24 15:08: VBG pH 7.33, VBG pCO2 45.5, VBG pO2 29.3, VBG HCO3 23.5, VBG Total CO2 24.8, VBG O2 Saturation 52.1, VBG Base Excess -2.5 L, VBG Lactic Acid 1.6 09/23/24 17:02: SARS-CoV-2 (PCR) Not detected, Influenza A Untype (PCR) Detected A, Influenza Type B (PCR) Not detected 09/23/24 15:00 09/23/24 15:00 Orders (Tests/Meds): ED MEDICATIONS Generic Name Dose Route Start Last Admin Trade Name Freq PRN Reason Stop Dose Admin Acetaminophen 650 mg 09/23/24 16:44 Acetaminophen 325mg Tab PO 10/23/24 16:43 Q6HP PRN Fever or Mild Pain (1-3) Guaifenesin 10 ml 09/23/24 19:20 09/23/24 21:01 Guaifenesin/Dextromethorphan 200mg/20mg 10ml Udc PO 10/23/24 19:19 10 ml Q4HP PRN Administration Cough Lactated Ringer's 1,000 mls @ 100 mls/hr 09/23/24 19:30 09/23/24 19:56 Lactated Ringer's 1000 Ml Bag IV 09/24/24 05:29 100 mls/hr .Q10H LAI Administration Melatonin 5 mg 09/23/24 21:45 09/23/24 21:49 Melatonin 5mg Tablet PO 10/23/24 21:44 5 mg HS LIA Administration Ondansetron HCl 4 mg 09/23/24 19:20 Ondansetron 4mg/2ml Vial IV 10/23/24 19:19 Q8HP PRN Nausea Oseltamivir Phosphate 75 mg 09/23/24 21:00 09/23/24 21:01 Oseltamivir 75mg Capsule PO 09/28/24 09:01 75 mg BID LAI Administration Sodium Chloride 10 ml 09/23/24 19:20 Sodium Chloride 0.9% 10ml Flush Syringe IV 10/23/24 19:19 NEEDED PRN Maintain IV Site Discontinued Medications Generic Name Dose Route Start Last Admin Trade Name Freq PRN Reason Stop Dose Admin Lactated Ringer's 1,000 mls @ 999 mls/hr 09/23/24 16:44 09/23/24 17:31 Lactated Ringer's 1000 Ml Bag IV 09/23/24 17:44 999 mls/hr .Q1H1M ONE Administration ORDERS Category Date Time Status CT cervical spine wo con Stat Cat Scan 09/23/24 15:[address] head/brain wo con Stat Cat Scan 09/23/24 15:27 Completed CXR 2 view (NOT portable) [XR chest 2V] Stat Exams 09/23/24 15:27 Completed Complete Blood Count Auto Diff Stat Lab 09/23/24 15:00 Completed Comprehensive Metabolic Panel Stat Lab 09/23/24 15:00 Completed MAG [Magnesium] Stat Lab 09/23/24 15:00 Completed PHOS [Phosphorous] Stat Lab 09/23/24 15:00 Completed Rapid PCR Covid and Flu A/B Stat Lab 09/23/24 17:02 Completed T4 (Thyroxine) Stat Lab 09/23/24 15:00 Completed TSH [Thyroid Stimulating Hormone] Stat Lab 09/23/24 15:00 Completed Trop I [Troponin I] Stat Lab 09/23/24 15:00 Completed Troponin I Q3H Lab 09/23/24 18:14 Completed Troponin I Q3H Lab 09/23/24 21:44 Completed VBG [Venous Blood Gas] Stat RT 09/23/24 15:08 Completed ECG Data Tracing #1: I reviewed this ECG and interpreted as documented below: Sinus rhythm with a ventricular rate of [address] changes concerning for ischemia. Normal intervals. ECG initial impression date: 09/23/24 ECG initial impression time: 15:00 Medical Decision Narrative: In summary, this patient is a 78-year-old male presenting to the Emergency Department for evaluation of syncope. He also has URI symptoms and does note a fall that happened yesterday. Differential diagnoses considered include but are not limited to viral syndrome, pneumonia, respiratory failure, cardiogenic syncope, dysrhythmia, electrolyte derangements. Ruling out the most morbid conditions drove assessment. It should be noted patient's history includes atrial fibrillation, hypertension, GERD which may or may not be at goal therapy. This complicates all aspects of care by increasing patient's risk for morbidity. I reviewed patient's past medical records and noted evaluation by myself here 2 days ago for similar symptoms as detailed in HPI. On exam, the patient is lying in bed in no acute distress with reassuring vital signs and cardiac telemetry. Cardiopulmonary and abdominal exams are reassuring. He is neurologically intact. Workup included CBC, CMP, troponin, magnesium, phosphorus, TSH, T4, EKG, chest x-ray, CT head and C-spine. I independently interpreted CT scans prior to the radiologist read and noted no intracranial hemorrhage, no C-spine fracture. Please see their read for final interpretation. Labs were obtained that demonstrated reassuring CBC. He has worsening JAYESH and mild hyponatremia noted on chemistry, but otherwise labs are reassuring. Troponin negative. He is positive for flu A. Given multiple episodes of syncope, JAYESH in the setting of flu A, I feel he would benefit from admission for continued monitoring, rehydration. I had an interactive discussion with Dr. Jacobsen who admitted the patient in stable condition. Critical Care Critical Care Time Critical Care Time: No
[2024-09-23 15:58] LABS: T4 (Thyroxine) 6.4 ug/dl (5.53-11.0)
[2024-09-23 16:12] LABS: Thyroid Stimulating Hormone 2.89 uIU/mL (0.465-4.68)
[2024-09-23 16:25] LABS: Troponin I < 0.01 ng/ml (0.00-0.034)
--- NOTE | 2024-09-23 17:10 | PC.NURSE ---
I called report to Anoop LOPEZ
--- NOTE | 2024-09-23 17:10 | PC.NURSE ---
CLEMENT FROM OFFICE AT [facility] SPEAKING WITH PT AND FAMILY
[2024-09-23 17:11] LABS: Coronavirus 19, PCR Not Detected (NotDetected); Influenza B, PCR Not Detected (NotDetected)
--- NOTE | 2024-09-23 17:11 | P.HP_ITS ---
History of Present Illness *Admission Date: 09/23/24 *Reason for visit:: syncope *History of present illness: Mr. Patel is a 78-year-old male who presented to the office of [facility] today after a 2-day history of cough, congestion, body aches, and feeling poorly. He states he fell on Saturday and also fell again last night at home due to weakness. He has not been eating and drinking very well at home since he has been sick. While in the office, he had a CBC done and had a syncopal episode. His breathing was irregular but his systolic blood pressure remained above 100 and his oxygen was normal. Oxygen was placed and his mentation improved after about 5 minutes. He was transported to the emergency room for further evaluation and treatment. Of note he has had numerous episodes of syncope and also has cardiac dysrhythmia. He is followed by cardiology. He is supposed to have an appointment tomorrow with Dr. Webber. He did appear dehydrated in the ER with an elevated creatinine and will be admitted for further evaluation and treatment [facility] Disclaimer: The information contained in this section may have been updated after the patient was seen, as this information can be updated by other users. Medical History (Updated 09/23/24 @ 19:18 by Landry Jacobsen MD) Syncope History of CVA (cerebrovascular accident) Atrial fibrillation History of gastroesophageal reflux (GERD) Hypertension Surgical History History of colon resection History of colonoscopy History of esophagogastroduodenoscopy (EGD) H/O removal of cyst History of surgery History of knee surgery History of cholecystectomy Family History Other Cancer Stroke Social History (Updated 09/23/24 @ 17:55 by Shaka Lazo RN) Smoking Status: Never smoker alcohol intake: never substance use type: denies use current occupational status: retired Travel in the last 8 weeks: None household members: family and other housing: house marital status: caffeine: Yes Have you lived/traveled outside US in past 30 days?: No Contact w/someone who lives/traveled outside US past 30 days?: No Exposure to someone with infectious disease in past 14 days?: No Do you have a fever (greater than 100.4 F or 38 C)?: No Have you tested positive for COVID-19: No Exposed to someone with COVID-19 in past 14 days?: No Do you have a sore throat?: No Do you have a cough?: No Do you have any weakness?: Yes Do you have any diarrhea?: No Are you experiencing any unusual bleeding?: No Do you have any muscle aches/pain?: No Do you have any abdominal pain?: No Are you experiencing loss of taste or smell?: No Other Medical History Have you received the Pneumonia Vaccine: No Review of Systems Constitutional Constitutional: Reports body ache(s), Reports chills, Reports fatigue, Reports frequent falls, Reports headache(s), Reports poor appetite, Reports malaise and Reports weakness Eyes Eyes: Denies blurry vision and Denies diplopia ENT Ears, Nose, Mouth, and Throat: Reports headache(s), Reports nasal congestion, Reports sore throat and Reports vertigo *Cardiovascular Cardiovascular: Denies chest pain, Reports dyspnea and Reports syncope *Respiratory Respiratory: Reports cough, Reports dyspnea and Denies wheezing *Gastrointestinal Gastrointestinal: Reports constipation, Denies loose stools, Denies nausea and Denies vomiting *Genitourinary Genitourinary: Denies difficulty urinating and Denies dysuria *Musculoskeletal Musculoskeletal: Reports myalgias *Neurologic Neurologic: Reports frequent falls, Reports headache(s), Reports syncope, Reports vertigo and Reports weakness Endocrine Endocrine: Reports fatigue Allergic/Immunologic Allergic/Immunologic: Denies wheezing Meds Home Medications and Allergies Home Medications ?Medication ?Instructions ?Recorded ?Confirmed ?Type amlodipine 2.5 mg tablet (Norvasc) 2.5 mg PO DAILY #30 tabs 07/09/24 09/23/24 Rx esomeprazole magnesium 20 mg 20 mg PO DAILY 07/09/24 09/23/24 History capsule,delayed release (Nexium) New Prescriptions to Start Prescriptions: Allergies Allergy/AdvReac Type Severity Reaction Status Date / Time cefdinir Allergy Other Verified 07/09/24 13:19 Sulfa (Sulfonamide Allergy Verified 07/09/24 13:19 Antibiotics) sulfacetamide AdvReac Intermediate Verified 07/09/24 13:19 Exam Data for Last 24 hours Vital signs and Labs for Last 24 Hours: Temp Pulse Resp BP Pulse Ox O2 Del Method 97.9 F 69 19 137/81 100 Room Air 09/23/24 15:00 09/23/24 15:16 09/23/24 15:00 09/23/24 15:16 09/23/24 15:00 09/23/24 15:00 Laboratory Results - last 24 hr 09/23/24 15:00: WBC 7.2, RBC 4.50 L, Hgb 12.9 L, Hct 38.8 L, MCV 86.2, MCH 28.7, MCHC 33.2, RDW 14.2, Plt Count 150, MPV 10.0, Neut % (Auto) 56.8, Lymph % (Auto) 30.3, [place] % (Auto) 11.5 H, Eos % (Auto) 0.4, Baso % (Auto) 0.7, Neut # (Auto) 4.1, Lymph # (Auto) 2.2, [place] # (Auto) 0.8, Eos # (Auto) 0.0, Baso # (Auto) 0.1, Sodium 133 L, Potassium 4.3, Chloride 102, Carbon Dioxide 28, Anion Gap 7.3, BUN 25 H, Creatinine 1.70 H, Estimated Creat Clear 47, Estimated GFR 39 L, Est GFR ( Amer) 47 L, Glucose 111 H, Calcium 8.6, Phosphorus 3.5, Magnesium 2.2 D, Total Bilirubin 1.2, AST 30 D, ALT 19, Alkaline Phosphatase 82, Troponin I < 0.01, Total Protein 6.8, Albumin 3.9, Globulin 2.9, Albumin/Globulin Ratio 1.3, TSH 2.89, Thyroxine (T4) 6.4 09/23/24 15:08: VBG pH 7.33, VBG pCO2 45.5, VBG pO2 29.3, VBG HCO3 23.5, VBG Total CO2 24.8, VBG O2 Saturation 52.1, VBG Base Excess -2.5 L, VBG Lactic Acid 1.6 I & O for Last 24 hours: Intake & Output 09/21/24 09/22/24 09/23/24 09/24/24 11:59 11:59 11:59 11:59 Weight 206 lb Constitutional Constitutional: no acute distress *Routine HEENT Exam Head: Present normocephalic and atraumatic Eye: Present EOMI and PERRL ENT: Present mucous membranes dry *Routine Neck Exam Neck: Present supple and full ROM *Routine Respiratory Exam Respiratory: Present CTA bilaterally *Routine Cardiovascular Exam Cardiovascular: Present RRR *Routine Abdominal Exam Abdominal: Present soft and normoactive bowel sounds; Absent tenderness *Routine Rectal Exam Rectal:: deferred *Routine Genitalia Exam Genitalia:: deferred *Routine Extremities Exam Extremities: Absent cyanosis, clubbing or edema *Routine Skin Exam Skin: Present intact; Absent erythema *Routine Neurological Exam Neurological: Present alert and oriented X3 H&P: Result Impressions Cervical Spine CT - 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 Assessment and Plan *Assessment and plan (1) Syncope: Status: Acute Category: Medical Code(s): R55 - Syncope and collapse (2) URI (upper respiratory infection): Status: Acute Category: Medical Code(s): J06.9 - Acute upper respiratory infection, unspecified (3) JAYESH (acute kidney injury): Status: Acute Category: Medical Code(s): N17.9 - Acute kidney failure, unspecified (4) Atrial fibrillation: Status: Acute Qualifiers: Atrial fibrillation type: paroxysmal Qualified Code(s): I48.0 - Paroxysmal atrial fibrillation Category: Medical Code(s): I48.91 - Unspecified atrial fibrillation (5) 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 Patient was given IVF's in the ER and is still waiting to be transported to the 2nd floor. Dr. Jacobsen entry - Saw patient in office and here at [facility] today, will start Tamiflu and continue IVF overnight.
--- NOTE | 2024-09-23 17:18 | PC.NURSE ---
arrived by stretcher from ED
[2024-09-23] MEDS: LACTATED RINGERS 1000ML 1,000 ML 999 ML IV (17:31)
[2024-09-23 17:33] LABS: Influenza A, PCR Detected (NotDetected)
[2024-09-23] MEDS: LACTATED RINGERS 1000ML 1,000 ML 100 ML IV (19:56)
[2024-09-23] MEDS: OSELTAMIVIR 75MG CAPSULE 75 MG PO (21:01)
[2024-09-23] MEDS: GUAIFENESIN/DEXTROMETHORPHAN 200MG/20MG 10ML UDC 10 ML PO (21:01)
[2024-09-23 21:12] LABS: Troponin I < 0.01 ng/ml (0.00-0.034)
[2024-09-23] MEDS: MELATONIN 5MG TABLET 5 MG PO (21:49)
[2024-09-23 22:20] LABS: Troponin I < 0.01 ng/ml (0.00-0.034)
[2024-09-24] VITALS: BP 141/76; PULSE 70; PULSE 72; RESP 17; O2SAT 98
[2024-09-24 04:00] VITALS: BP 190/99; PULSE 90; PULSE 91; RESP 19; TEMP 37.6; O2SAT 95; BMI 28.4
--- NOTE | 2024-09-24 06:06 | PC.NURSE ---
Pt. was admitted yesterday for syncope, JAYESH, and Flu A. Pt. has been weak. He has had a hard time getting out of the bed to use the urinal . The bed alarm was on. at 0415 he was assisted to stand at bedside to use the urinal. He was helped back to bed. the call light was in reach. This RN forgot to turn the alarm back on. At 0505 another nusre heard a thump in patients room. This RN found patient sitting on the floor next to the bed. He said he was going to go to the bathroom. Pt. denied hitting head. Denies hip, and leg pain. states his left elbow hurts a little bit. Left elbow no deformities, old bruise to left elbow. Pt. has full ROM to elbow. Vss. Dr. Jacobsen was called and informed. only new order was to make sure the bed alarm was on. Charge nurse aware.
[2024-09-24 08:00] VITALS: BP 155/90; PULSE 110; PULSE 87; RESP 17; TEMP 38.1; O2SAT 93
--- NOTE | 2024-09-24 08:08 | HMH.PHAINT1 ---
Pharmacy Intervention Comments: home medication list verified using list from outpatient pharmacy and pt interview
--- NOTE | 2024-09-24 08:16 | P.PN_ITS ---
Subjective *Date: 09/24/24 *Time: 08:50 Interval history: Patient is feeling better today. He is still weak and has a sore throat. He has been up in the chair and slept and ate breakfast. He has not had any further syncopal episodes. His flu test was positive and he was started on [place] flu yesterday. Medical Exam Vital signs and Labs for Last 24 Hours: Vital Signs Temp Pulse Pulse Pulse Pulse Pulse Resp 09/24/24 06:53 09/24/24 05:00 09/24/24 04:00 90 09/24/24 04:00 99.6 F 91 H 19 09/24/24 03:00 09/24/24 01:00 09/24/24 00:00 72 17 09/24/24 00:00 70 09/23/24 23:00 09/23/24 21:00 09/23/24 20:00 09/23/24 20:00 80 09/23/24 20:00 98.7 F 72 17 09/23/24 17:51 09/23/24 17:43 99.2 F 78 17 09/23/24 17:29 90 09/23/24 17:17 09/23/24 17:17 97.9 F 72 16 09/23/24 17:00 72 20 09/23/24 16:30 74 20 09/23/24 15:16 69 67 89 09/23/24 15:00 97.9 F 66 19 BP BP BP BP BP Pulse Ox O2 Del Method 09/24/24 06:53 Room Air 09/24/24 05:00 Room Air 09/24/24 04:00 09/24/24 04:00 190/99 H 95 Room Air 09/24/24 03:00 Room Air 09/24/24 01:00 Room Air 09/24/24 00:00 141/76 H 98 Nasal Cannula 09/24/24 00:00 09/23/24 23:00 Room Air 09/23/24 21:00 Room Air 09/23/24 20:00 Room Air 09/23/24 20:00 09/23/24 20:00 140/78 95 Room Air 09/23/24 17:51 Room Air 09/23/24 17:43 154/89 H 93 L Room Air 09/23/24 17:29 09/23/24 17:17 Room Air 09/23/24 17:17 165/103 H Room Air 09/23/24 17:00 165/103 H 95 Room Air 09/23/24 16:30 168/91 H 94 L Room Air 09/23/24 15:16 137/81 133/75 121/62 09/23/24 15:00 120/70 100 Room Air Intake and Output 09/23/24 09/24/24 09/24/24 19:59 03:59 11:59 Intake Total 118 / 530 412 / 530 Output Total 200 / 400 200 / 400 Balance 118 / 130 212 / 130 -200 / 130 Intake: Intake, Oral Amount 118 / 118 Intake, Total IV Amount 412 / 412 Lactated Ringers 1000ML 1,000 412 / 412 ml @ 100 mls/hr IV .Q10H [facility] Rx #:[id number] Output: Output, Urine Amount 200 / 400 200 / 400 Other: Number of Unmeasured Voids 0 Weight 207 lb 5 oz 210 lb 1.6 oz Patient Weight 09/24/24 11:59 Weight 210 lb 1.6 oz Laboratory Results - last 24 hr 09/23/24 15:00: WBC 7.2, RBC 4.50 L, Hgb 12.9 L, Hct 38.8 L, MCV 86.2, MCH 28.7, MCHC 33.2, RDW 14.2, Plt Count 150, MPV 10.0, Neut % (Auto) 56.8, Lymph % (Auto) 30.3, [place] % (Auto) 11.5 H, Eos % (Auto) 0.4, Baso % (Auto) 0.7, Neut # (Auto) 4.1, Lymph # (Auto) 2.2, [place] # (Auto) 0.8, Eos # (Auto) 0.0, Baso # (Auto) 0.1, Sodium 133 L, Potassium 4.3, Chloride 102, Carbon Dioxide 28, Anion Gap 7.3, BUN 25 H, Creatinine 1.70 H, Estimated Creat Clear 47, Estimated GFR 39 L, Est GFR ( Amer) 47 L, Glucose 111 H, Calcium 8.6, Phosphorus 3.5, Magnesium 2.2 D, Total Bilirubin 1.2, AST 30 D, ALT 19, Alkaline Phosphatase 82, Troponin I < 0.01, Total Protein 6.8, Albumin 3.9, Globulin 2.9, Albumin/Globulin Ratio 1.3, TSH 2.89, Thyroxine (T4) 6.4 09/23/24 15:08: VBG pH 7.33, VBG pCO2 45.5, VBG pO2 29.3, VBG HCO3 23.5, VBG Total CO2 24.8, VBG O2 Saturation 52.1, VBG Base Excess -2.5 L, VBG Lactic Acid 1.6 09/23/24 17:02: SARS-CoV-2 (PCR) Not detected, Influenza A Untype (PCR) Detected A, Influenza Type B (PCR) Not detected 09/23/24 18:14: Troponin I < 0.01 09/23/24 21:44: Troponin I < 0.01 I & O for Labs for Last 24 Hours: Intake & Output 09/21/24 09/22/24 09/23/24 09/24/24 11:59 11:59 11:59 11:59 Intake Total 530 / 530 Output Total 400 / 400 Balance 130 / 130 Weight 210 lb 1.6 oz Constitutional: Present no acute distress Respiratory: Present CTA bilaterally Cardiac: Present Reg Rate and Rhythm GI: Present soft; Absent distention or tenderness Extremities: Absent edema Skin: Present intact Neuro: Present alert, awake and oriented x 3 Assessment and Plan *Assessment and plan (1) Syncope: Status: Acute Category: Medical Code(s): R55 - Syncope and collapse (2) Influenza A: Status: Acute Category: Medical Code(s): J10.1 - Influenza due to other identified influenza virus with other respiratory manifestations (3) URI (upper respiratory infection): Status: Acute Category: Medical Code(s): J06.9 - Acute upper respiratory infection, unspecified (4) JAYESH (acute kidney injury): Status: Acute Category: Medical Code(s): N17.9 - Acute kidney failure, unspecified (5) Atrial fibrillation: Status: Acute Qualifiers: Atrial fibrillation type: paroxysmal Qualified Code(s): I48.0 - Paroxysmal atrial fibrillation Category: Medical Code(s): I48.91 - Unspecified atrial fibrillation (6) 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 BP was high during the night. It is going to be checked this am. Can likely discharge home if labs and BP have improved. Dr. Jacobsen entry - Saw patient. He actually fell in his room last night. This is his third fall this week. No plans for discharge today, BP was high overnight. Cardiology and PT to see patient.
[2024-09-24 09:11] LABS: Basophils % 0.3 % (0.1-2.0); Hematocrit 35.4 % (42.0-52.0); Hemoglobin 11.8 g/dL (14.1-18.0); Lymphocytes # 0.8 K/mm3 (0.7-4.5); Lymphocytes % 10.3 % (10-50); Mean Corpuscular HGB Conc 33.3 g/dL (31.8-35.4); Mean Corpuscular Volume 84.1 fl (80-94); Mean Platelet Volume 10.1 fl (7.4-10.4); Monocytes # 0.6 K/mm3 (0.1-1.0); Monocytes % 8.2 % (1.7-9.3); Neutrophils # 6.1 K/mm3 (1.8-7.8); Neutrophils % 80.8 % (37.0-80.0); Platelet Count 120 K/mm3 (142-424); Red Blood Count 4.21 M/mm3 (4.60-6.20); Red Cell Distribution Width 14.1 % (11.5-17.5); White Blood Count 7.6 K/mm3 (4.8-10.8)
[2024-09-24 09:43] LABS: Chloride 101 mmol/L (98-107)
[2024-09-24 09:44] LABS: Albumin Level 3.4 g/dl (3.5-5.0); Sodium 133 mmol/L (136-145)
[2024-09-24 09:46] LABS: Blood Urea Nitrogen 21 mg/dl (9-20); Creatinine Clearance Estimated 58 mL/min (50-200); Estimated Glomerular Filt Rate 49 ml/min (>60); GFR (African American) 59 ML/MIN (>60)
[2024-09-24 09:47] LABS: Alanine Aminotransferase 21 U/L (12-78); Albumin/Globulin Ratio 1.2 (1.1-1.8); Alkaline Phosphatase 80 U/L (38-126); Aspartate Amino Transferase 34 U/L (17-59); Bilirubin,Total 1.1 mg/dl (0.2-1.3); Calcium 8.1 mg/dl (8.4-10.2); Carbon Dioxide 26 mmol/L (22.0-30.0); Globulin 2.8 g/dL (1.3-3.2); Glucose 139 mg/dl (74-100); Total Protein,Serum 6.2 g/dl (6.3-8.2)
[2024-09-24] MEDS: OSELTAMIVIR PHOSPHATE 6MG/ML ORAL SUSP 60ML 30 MG PO ×2 (10:01→20:31)
[2024-09-24] MEDS: AMLODIPINE 5MG TABLET 5 MG PO (10:01)
--- NOTE | 2024-09-24 10:17 | SW/DCPLANNER ---
Addendum entered by Pat Chiang 09/25/24 09:02: Patient is not interested in outpatient PT services at this time. Original Note: I spoke w/ this patient regarding plans once medically stable for discharge. PT evaluated patient and recommended returning home w/ home health services vs outpatient PT. Patient stated that he is agreeable to return to [facility] for outpatient PT services. Patient also stated that he has a walking stick at home and does not feel he needs any type of equipment prior to discharge. I will continue to follow up w/ this patient and MD regarding discharge plans. Discharge date is unknown at this time.
--- NOTE | 2024-09-24 11:32 | P.CONCA_ITS ---
History of Present Illness History of Present Illness Consult date: 09/24/24 Requesting physician: Landry Jacobsen Chief complaint: syncope History of present illness: This is a 78-year-old gentleman who presented to the emergency department due to a syncopal episode and not feeling well. The patient states that on Saturday he felt really bad. He was having cough, congestion, body aches and just overall feeling poorly. He fell on Saturday and came to the emergency department for evaluation. The patient states that he was discharged and then fell the next day due to weakness. He states that he felt very dizzy prior to those episodes. He states that he went to see his primary care provider yesterday and was not feeling well there as well. He was getting a CBC drawn in the office and had a syncopal episode. The patient reports that his systolic blood pressure dropped but on review of his primary care provider's note his systolic blood pressure remained above 100 after this syncopal episode. His oxygen levels were normal as well. The patient was placed on oxygen and his mentation improved after about 5 minutes. He was brought to the emergency department. The patient was found to be slightly dehydrated with an elevated creatinine and slightly lower sodium level so he was admitted to the hospital for further evaluation. Since being admitted the patient's blood pressure has remained elevated. He states that he did have a little pain in his chest on Saturday but he has had no chest pain or pressure since that time. He denies any shortness of breath. He denies any edema. He denies any racing of the heart. He denies any fever, nausea, vomiting or diarrhea. The patient was also positive for influenza A. [facility] Disclaimer: The information contained in this section may have been updated after the patient was seen, as this information can be updated by other users. Medical History (Updated 09/24/24 @ 11:41 by Gosia Mckeon APRN) Blood in stool Dehydration Syncope History of CVA (cerebrovascular accident) Atrial fibrillation History of gastroesophageal reflux (GERD) Hypertension Surgical History History of colon resection History of colonoscopy History of esophagogastroduodenoscopy (EGD) H/O removal of cyst History of surgery History of knee surgery History of cholecystectomy Family History Other Cancer Stroke Social History Smoking Status: Never smoker alcohol intake: never substance use type: denies use current occupational status: retired Travel in the last 8 weeks: None household members: family and other housing: house marital status: caffeine: Yes Have you lived/traveled outside [place] in past 30 days?: No Contact w/someone who lives/traveled outside US past 30 days?: No Exposure to someone with infectious disease in past 14 days?: No Do you have a fever (greater than 100.4 F or 38 C)?: No Have you tested positive for COVID-19: No Exposed to someone with COVID-19 in past 14 days?: No Do you have a sore throat?: No Do you have a cough?: No Do you have any weakness?: Yes Do you have any diarrhea?: No Are you experiencing any unusual bleeding?: No Do you have any muscle aches/pain?: No Do you have any abdominal pain?: No Are you experiencing loss of taste or smell?: No Review of Systems Review of Systems Review of systems:: pertinent systems reviewed and negative unless documented below Constitutional Constitutional: Reports system reviewed and no additional complaints, except as documented, Reports body ache(s), Reports fatigue, Reports frequent falls, Reports headache(s), Reports lethargy and Reports weakness Eyes Eyes: Reports system reviewed and no additional complaints, except as documented ENT Ears, Nose, Mouth, and Throat: Reports system reviewed and no additional complaints, except as documented, Reports headache(s) and Reports vertigo *Cardiovascular Cardiovascular: Reports system reviewed and no additional complaints, except as documented, Reports chest pain, Denies dyspnea and Reports syncope *Respiratory Respiratory: Reports system reviewed and no additional complaints, except as documented and Denies dyspnea *Gastrointestinal Gastrointestinal: Reports system reviewed and no additional complaints, except as documented *Genitourinary Genitourinary: Reports system reviewed and no additional complaints, except as documented *Musculoskeletal Musculoskeletal: Reports system reviewed and no additional complaints, except as documented Integumentary/Breasts Skin/Breast: Reports system reviewed and no additional complaints, except as documented *Neurologic Neurologic: Reports system reviewed and no additional complaints, except as documented, Reports frequent falls, Reports headache(s), Reports syncope, Reports vertigo and Reports weakness Psychiatric Psychiatric: Reports system reviewed and no additional complaints, except as documented Endocrine Endocrine: Reports system reviewed and no additional complaints, except as documented and Reports fatigue Hematologic/Lymphatic Hematologic/Lymphatic: Reports system reviewed and no additional complaints, except as documented Allergic/Immunologic Allergic/Immunologic: Reports system reviewed and no additional complaints, except as documented Exam Data for Last 24 hours Vital signs and Labs for Last 24 Hours: Temp Pulse Resp BP Pulse Ox O2 Del Method 100.6 F H 87 17 155/90 H 93 L Room Air 09/24/24 08:00 09/24/24 08:00 09/24/24 08:00 09/24/24 08:00 09/24/24 08:00 09/24/24 09:00 Laboratory Results - last 24 hr 09/23/24 15:00: WBC 7.2, RBC 4.50 L, Hgb 12.9 L, Hct 38.8 L, MCV 86.2, MCH 28.7, MCHC 33.2, RDW 14.2, Plt Count 150, MPV 10.0, Neut % (Auto) 56.8, Lymph % (Auto) 30.3, [place] % (Auto) 11.5 H, Eos % (Auto) 0.4, Baso % (Auto) 0.7, Neut # (Auto) 4.1, Lymph # (Auto) 2.2, [place] # (Auto) 0.8, Eos # (Auto) 0.0, Baso # (Auto) 0.1, Sodium 133 L, Potassium 4.3, Chloride 102, Carbon Dioxide 28, Anion Gap 7.3, BUN 25 H, Creatinine 1.70 H, Estimated Creat Clear 47, Estimated GFR 39 L, Est GFR ( Amer) 47 L, Glucose 111 H, Calcium 8.6, Phosphorus 3.5, Magnesium 2.2 D, Total Bilirubin 1.2, AST 30 D, ALT 19, Alkaline Phosphatase 82, Troponin I < 0.01, Total Protein 6.8, Albumin 3.9, Globulin 2.9, Albumin/Globulin Ratio 1.3, TSH 2.89, Thyroxine (T4) 6.4 09/23/24 15:08: VBG pH 7.33, VBG pCO2 45.5, VBG pO2 29.3, VBG HCO3 23.5, VBG Total CO2 24.8, VBG O2 Saturation 52.1, VBG Base Excess -2.5 L, VBG Lactic Acid 1.6 09/23/24 17:02: SARS-CoV-2 (PCR) Not detected, Influenza A Untype (PCR) Detected A, Influenza Type B (PCR) Not detected 09/23/24 18:14: Troponin I < 0.01 09/23/24 21:44: Troponin I < 0.01 09/24/24 08:46: WBC 7.6, RBC 4.21 L, Hgb 11.8 L, Hct 35.4 L, MCV 84.1, MCH 28.0, MCHC 33.3, RDW 14.1, Plt Count 120 L, MPV 10.1, Neut % (Auto) 80.8 H, Lymph % (Auto) 10.3, [place] % (Auto) 8.2, Eos % (Auto) 0.0 L, Baso % (Auto) 0.3, Neut # (Auto) 6.1, Lymph # (Auto) 0.8, [place] # (Auto) 0.6, Eos # (Auto) 0.0, Baso # (Auto) 0.0, Sodium 133 L, Potassium 4.0, Chloride 101, Carbon Dioxide 26, Anion Gap 10.0, BUN 21 H, Creatinine 1.40 H, Estimated Creat Clear 58, Estimated GFR 49 L, Est GFR ( Amer) 59 D, Glucose 139 H D, Calcium 8.1 L, Total Bilirubin 1.1, AST 34, ALT 21, Alkaline Phosphatase 80, Total Protein 6.2 L, Albumin 3.4 L D, Globulin 2.8, Albumin/Globulin Ratio 1.2 I & O for Last 24 hours: Intake & Output 09/21/24 09/22/24 09/23/24 09/24/24 23:59 23:59 23:59 23:59 Intake Total 118 / 530 652 / 652 Output Total 400 / 400 Balance 118 / 330 252 / 252 Weight 207 lb 5 oz 210 lb 1.6 oz Constitutional Constitutional: no acute distress and average body habitus *Routine HEENT Exam Head: Present normocephalic and atraumatic ENT: Present mucous membranes moist *Routine Neck Exam Neck: Present supple, full ROM and normal carotid upstroke; Absent JVD, carotid bruit or lymphadenopathy *Routine Respiratory Exam Respiratory: Present CTA bilaterally, normal respiratory effort, able to speak in complete sentences and symmetric chest movement *Routine Cardiovascular Exam Cardiovascular: Present RRR, Normal S1 and Normal S2; Absent murmur or gallop *Routine Abdominal Exam Abdominal: Present soft and normoactive bowel sounds; Absent tenderness, distended or organomegaly *Routine Extremities Exam Extremities: Present full ROM, pulses intact and normal capillary refill; Absent cyanosis, clubbing or edema *Routine Skin Exam Skin: Present intact and warm; Absent erythema *Routine Neurological Exam Neurological: Present alert, oriented X3 and CN II-XII intact; Absent sensory deficit or motor deficit Routine Psychiatric Exam Psychiatric: Present normal affect Meds Home Medications and Allergies Home Medications ?Medication ?Instructions ?Recorded ?Confirmed ?Type amlodipine 2.5 mg tablet (Norvasc) 2.5 mg PO DAILY #30 tabs 07/09/24 09/23/24 Rx esomeprazole magnesium 20 mg 20 mg PO DAILY 07/09/24 09/23/24 History capsule,delayed release (Nexium) New Prescriptions to Start Prescriptions: Allergies Allergy/AdvReac Type Severity Reaction Status Date / Time cefdinir Allergy Other Verified 07/09/24 13:19 Sulfa (Sulfonamide Allergy Verified 07/09/24 13:19 Antibiotics) sulfacetamide AdvReac Intermediate Verified 07/09/24 13:19 Assessment and Plan *Assessment and plan (1) Syncope: Status: Acute Qualifiers: Syncope type: vasovagal syncope Qualified Code(s): R55 - Syncope and collapse Category: Medical Code(s): R55 - Syncope and collapse (2) Influenza A: Status: Acute Category: Medical Code(s): J10.1 - Influenza due to other identified influenza virus with other respiratory manifestations (3) URI (upper respiratory infection): Status: Acute Qualifiers: URI type: unspecified URI Qualified Code(s): J06.9 - Acute upper respiratory infection, unspecified Category: Medical Code(s): J06.9 - Acute upper respiratory infection, unspecified (4) JAYESH (acute kidney injury): Status: Acute Category: Medical Code(s): N17.9 - Acute kidney failure, unspecified (5) Atrial fibrillation: Status: Acute Qualifiers: Atrial fibrillation type: paroxysmal Qualified Code(s): I48.0 - Paroxysmal atrial fibrillation Category: Medical Code(s): I48.91 - Unspecified atrial fibrillation (6) 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 Qualifiers: CVA mechanism: unspecified Qualified Code(s): I63.9 - Cerebral infarction, unspecified Category: Medical Code(s): I63.9 - Cerebral infarction, unspecified (7) HTN (hypertension): Status: Chronic Qualifiers: Hypertension type: unspecified Qualified Code(s): I10 - Essential (primary) hypertension Category: Medical Code(s): I10 - Essential (primary) hypertension (8) GERD (gastroesophageal reflux disease): Status: Acute Qualifiers: Esophagitis presence: esophagitis presence not specified Qualified Code(s): K21.9 - Gastro-esophageal reflux disease without esophagitis Category: Medical Code(s): K21.9 - Gastro-esophageal reflux disease without esophagitis (9) Dehydration: Status: Acute Category: Medical Code(s): E86.0 - Dehydration (10) Blood in stool: Status: Acute Category: Medical Code(s): K92.1 - Melena Plan Plan: 1. Patient was admitted to the hospital after syncopal episode which was most likely a vasovagal syncopal episode while getting his blood drawn. He maintained his blood pressure and oxygen saturations at that time per his primary care provider's note. 2. The patient is positive for influenza A. He has been started on Tamiflu. Will defer to his primary care provider. 3. The patient was slightly dehydrated on admission. He has been given IV fluids and states that he does feel better this morning. 4. The patient's blood pressure has remained elevated since being in the hospital. Will increase his Norvasc to 5 mg p.o. daily for better blood pressure control. 5. The patient does have a history of paroxysmal atrial fibrillation. He is currently in sinus rhythm. 6. The patient is on long-term anticoagulation with Eliquis. He does report noticing blood in his stool. We do recommend continuing Eliquis at this time. Will get a Hemoccult stool sample and consult GI. 7. Further recommendations will be made pending the patient's response to treatment. Thank you for the opportunity to help participate in the care of this patient. All recommendations and orders are per Dr. Rodriguez.
--- NOTE | 2024-09-24 11:36 | HMH.PTEV ---
Physical Therapy Evaluation Rehab PT IP Evaluation Start: 09/24/24 07:53 Freq: ONCE Status: Active Protocol: Document 09/24/24 09:15 BHUMIKA (Rec: 09/24/24 11:36 PHOJONO [id number]) Subjective/History History History 78-year-old male who presented to the office of [facility] today after a 2-day history of cough, congestion, body aches, and feeling poorly. He states he fell on Saturday and also fell again last night at home due to weakness. He has not been eating and drinking very well at home since he has been sick . While in the office, he had a CBC done and had a syncopal episode. His breathing was irregular but his systolic blood pressure remained above 100 and his oxygen was normal. Oxygen was placed and his mentation improved after about 5 minutes. He was transported to the emergency room for further evaluation and treatment. He reports he lives alone, [address] the home and he is generally independent with all mobility without AD at baseline. Subjective Subjective Pt has no c/o this am, agrees to mobility assessment, presents sitting in bedside chair. [facility] How much help from another person do you currently need... Turning from your back to your side None while in a flat bed without using bedrails? Moving from lying on back to sitting on None the side of a flat bed without using bedrails? Moving to and from a bed to a chair ( None including a wheelchair)? Standing up from a chair using your arms None ? (e.g., wheelchair, bedside chair) Walking in hospital room? None Climbing 3-5 steps with a railing? None Mobility Score 24 Mobility Level [facility] Mobility Calculator Mobility 8 Walk 250 feet or more Rehab PT IP Eval Objective Appearance Patient Behavior Appropriate Patient Orientation Person,Place,Time Difficulty following instructions none Speech Pattern Clear Ambulation Patient Able to Ambulate Yes Ambulation Observation IP General Gait Pattern Observation Decrease Stride Lngth (R), Decrease Stride Lngth (L) Ambulation Distance (feet) 50 Ambulation Assistive Device None Ambulation Ability Supervision/Stand by Balance Ability to Arise Able, uses arms to help Standing Balance Steady, wide stance Dynamic Sitting Balance Ability Good Dynamic Standing Balance Ability Fair Transfers Bed Transfer Ability Supervision/Stand by Chair Transfer Ability Supervision/Stand by Sit to Stand Bed Transfer Ability Supervision/Stand by Sit to Stand Chair Transfer Ability Supervision/Stand by ROM All Extremities PT ROM Status WFL MMT All Extremities PT MMT WFL Rehab PT IP prob,goals,plan Problems Date of Evaluation: 09/24/24 PT IP Problems Gait Rehab Potential Rehab Potential Good Plan PT Intervention Plan Gait,Therapeutic Exercise PT Plan Frequency Daily Duration LOS Discharge Goals Bed Transfer Ability Independent Sit to Stand Chair Transfer Ability Independent Ambulation Assistive Device None Ambulation Distance (feet) 100 Discharge Plan PT Discharge Plan Pt is currently most appropriate to return home once medically stable for d/c. Recommended pt use a cane as needed for ambulation to maintain safety in consideration of multiple recent falls. Inpatient acute skilled therapy is indicated to improve ambulation in order to return pt to [facility]. Eval Complexity Eval Charge Codes 17712 - High Complexity PHYSICIAN CERTIFICATION: I certify the specified therapy services for Rafat Patel are required, authorized, and reviewed every 30 days.
[2024-09-24 12:00] VITALS: BP 123/67; PULSE 76; PULSE 80; RESP 15; TEMP 36.9; O2SAT 95
[2024-09-24 16:00] VITALS: BP 140/76; PULSE 69; PULSE 70; RESP 17; TEMP 36.8; O2SAT 95
--- NOTE | 2024-09-24 17:40 | PC.NURSE ---
Alert and oriented x4. Pt worked with therapy today did well and was mostly independent with ambulation and was more steady as the day went on. Pt states he is feeling much better today. BP has been better since restarting BP meds. Family at bedside most of shift. Bed alarm is on and pt is resting comfortably in bed with call light in reach.
--- NOTE | 2024-09-24 17:48 | P.CONS_ITS ---
History of Present Illness *Admission Date: 09/23/24 *History of present illness: Mr. Patel is a 78-year-old gentleman who was admitted because of feeling poorly with weakness and some dyspnea on exertion. He has been on Eliquis for his atrial fibrillation. The patient has noted some change in bowel habits with some constipation recently. He also noted some blood in his stool which he feels is hemorrhoidal. The patient did have a colonoscopy with me in March 2018 and had 2 polyps (tubular adenomas x 2) removed. He reports no NSAIDs. He has no abdominal pain or weight loss. His hemoglobin hematocrit are 11.8 and 35.4 today with MCV of 84.1. He does have normal liver chemistries. His creatinine was 1.40. GI was consulted for further evaluation. [facility] Disclaimer: The information contained in this section may have been updated after the patient was seen, as this information can be updated by other users. Medical History (Updated 09/24/24 @ 17:49 by Az Fernando II, MD) Blood in stool Dehydration Syncope History of CVA (cerebrovascular accident) Atrial fibrillation History of gastroesophageal reflux (GERD) Hypertension Surgical History History of colon resection History of colonoscopy History of esophagogastroduodenoscopy (EGD) H/O removal of cyst History of surgery History of knee surgery History of cholecystectomy Family History Other Cancer Stroke Social History Smoking Status: Never smoker alcohol intake: never substance use type: denies use current occupational status: retired Travel in the last 8 weeks: None household members: family and other housing: house marital status: caffeine: Yes Have you lived/traveled outside [place] in past 30 days?: No Contact w/someone who lives/traveled outside US past 30 days?: No Exposure to someone with infectious disease in past 14 days?: No Do you have a fever (greater than 100.4 F or 38 C)?: No Have you tested positive for COVID-19: No Exposed to someone with COVID-19 in past 14 days?: No Do you have a sore throat?: No Do you have a cough?: No Do you have any weakness?: Yes Do you have any diarrhea?: No Are you experiencing any unusual bleeding?: No Do you have any muscle aches/pain?: No Do you have any abdominal pain?: No Are you experiencing loss of taste or smell?: No Review of Systems Constitutional Constitutional: Reports frequent falls, Reports headache(s) and Reports weakness ENT Ears, Nose, Mouth, and Throat: Reports headache(s) and Reports vertigo *Cardiovascular Cardiovascular: Reports syncope *Neurologic Neurologic: Reports system reviewed and no additional complaints, except as documented, Reports frequent falls, Reports headache(s), Reports syncope, Reports vertigo and Reports weakness Meds Home Medications and Allergies Home Medications ?Medication ?Instructions ?Recorded ?Confirmed ?Type amlodipine 2.5 mg tablet (Norvasc) 2.5 mg PO DAILY #30 tabs 07/09/24 09/23/24 Rx esomeprazole magnesium 20 mg 20 mg PO DAILY 07/09/24 09/23/24 History capsule,delayed release (Nexium) New Prescriptions to Start Prescriptions: Allergies Allergy/AdvReac Type Severity Reaction Status Date / Time cefdinir Allergy Other Verified 07/09/24 13:19 Sulfa (Sulfonamide Allergy Verified 07/09/24 13:19 Antibiotics) sulfacetamide AdvReac Intermediate Verified 07/09/24 13:19 Exam (Inpt) Vital signs and Labs for Last 24 Hours: Temp Pulse Resp BP Pulse Ox O2 Del Method 98.3 F 69 17 140/76 95 Room Air 09/24/24 16:00 09/24/24 16:00 09/24/24 16:00 09/24/24 16:00 09/24/24 16:00 09/24/24 17:00 Laboratory Results - last 24 hr 09/23/24 18:14: Troponin I < 0.01 09/23/24 21:44: Troponin I < 0.01 09/24/24 08:46: WBC 7.6, RBC 4.21 L, Hgb 11.8 L, Hct 35.4 L, MCV 84.1, MCH 28.0, MCHC 33.3, RDW 14.1, Plt Count 120 L, MPV 10.1, Neut % (Auto) 80.8 H, Lymph % (Auto) 10.3, [place] % (Auto) 8.2, Eos % (Auto) 0.0 L, Baso % (Auto) 0.3, Neut # (Auto) 6.1, Lymph # (Auto) 0.8, [place] # (Auto) 0.6, Eos # (Auto) 0.0, Baso # (Auto) 0.0, Sodium 133 L, Potassium 4.0, Chloride 101, Carbon Dioxide 26, Anion Gap 10.0, BUN 21 H, Creatinine 1.40 H, Estimated Creat Clear 58, Estimated GFR 49 L, Est GFR ( Amer) 59 D, Glucose 139 H D, Calcium 8.1 L, Total Bilirubin 1.1, AST 34, ALT 21, Alkaline Phosphatase 80, Total Protein 6.2 L, A lbumin 3.4 L D, Globulin 2.8, Albumin/Globulin Ratio 1.2 I & O for Labs for Last 24 Hours: Intake & Output 09/21/24 09/22/24 09/23/24 09/24/24 23:59 23:59 23:59 23:59 Intake Total 118 / 530 892 / 892 Output Total 400 / 400 Balance 118 / 330 492 / 492 Weight 207 lb 5 oz 210 lb 1.6 oz GI: Present soft Comments:: Normoactive bowel sounds, soft benign abdomen with no distention, abdominal pain, hernias or masses Results Labs 09/24/24 08:46 09/24/24 08:46 Labs: Laboratory Results - last 24 hr 09/23/24 18:14: Troponin I < 0.01 09/23/24 21:44: Troponin I < 0.01 09/24/24 08:46: WBC 7.6, RBC 4.21 L, Hgb 11.8 L, Hct 35.4 L, MCV 84.1, MCH 28.0, MCHC 33.3, RDW 14.1, Plt Count 120 L, MPV 10.1, Neut % (Auto) 80.8 H, Lymph % (Auto) 10.3, [place] % (Auto) 8.2, Eos % (Auto) 0.0 L, Baso % (Auto) 0.3, Neut # (Auto) 6.1, Lymph # (Auto) 0.8, [place] # (Auto) 0.6, Eos # (Auto) 0.0, Baso # (Auto) 0.0, Sodium 133 L, Potassium 4.0, Chloride 101, Carbon Dioxide 26, Anion Gap 10.0, BUN 21 H, Creatinine 1.40 H, Estimated Creat Clear 58, Estimated GFR 49 L, Est GFR ( Amer) 59 D, Glucose 139 H D, Calcium 8.1 L, Total Bilirubin 1.1, AST 34, ALT 21, Alkaline Phosphatase 80, Total Protein 6.2 L, A lbumin 3.4 L D, Globulin 2.8, Albumin/Globulin Ratio 1.2 Assessment and Plan *Assessment and plan (1) Blood in stool: Status: Acute Category: Medical Code(s): K92.1 - Melena (2) Anemia: Status: Acute Category: Medical Code(s): D64.9 - Anemia, unspecified Plan 1. Bright red blood in stool with his constipation. I do suspect hemorrhoidal disease. However, the patient does have new anemia which contributes to his weakness and dyspnea on exertion. His hemoglobin and hematocrit in October 2022 were 15.0 and 46.3. His hemoglobin and hematocrit today are 11.8 and 35.4. I do suspect this may be related to the Eliquis. Long-term exposure to certain medications especially blood thinners (oral anticoagulants?i.e. Plavix, Eliquis, Xarelto, etc.) is an associated independent risk factor for the development of iron deficiency anemia. Other medications associated with iron deficiency anemia include acid reflux medications (proton pump inhibitors?esomeprazole omeprazole, pantoprazole, etc.) which are also associated with iron deficiency and play a role with reduced iron absorption. The patient is on both. I am going to recommend Hemoccult testing and iron studies. If he is Hemoccult positive, I would recommend panendoscopy. If he is Hemoccult positive I would also consider the Watchman procedure for this patient. The Watchman Left Atrial Appendage Closure provides a new option for patients with non-valvular atrial fibrillation who may require an alternative to long-term use of blood thinners. This is especially important in persons that have chronic gastrointestinal blood loss with resulting iron deficiency anemia that is greatly exacerbated by the use of blood thinners (anticoagulation). I will be out of town until October 07.
[2024-09-24 20:00] VITALS: BP 141/76; PULSE 68; PULSE 70; RESP 16; RESP 17; TEMP 36.7; O2SAT 95
[2024-09-24] MEDS: MELATONIN 5MG TABLET 5 MG PO (20:31)
[2024-09-24 20:57] LABS: Iron 38 ug/dL (49-181)
[2024-09-24 21:07] LABS: Total Iron Binding Capacity 232 ug/dL (261-462)
[2024-09-24 21:34] LABS: Ferritin 305 ng/ml (17.9-464)
[2024-09-25] VITALS: BP 137/77; PULSE 69; PULSE 70; RESP 16; TEMP 36.9; O2SAT 94
[2024-09-25 04:00] VITALS: BP 150/78; PULSE 60; PULSE 74; RESP 16; TEMP 36.7; O2SAT 96; BMI 28.0
--- NOTE | 2024-09-25 04:15 | PC.NURSE ---
Patient is alert and oriented x4. Family members visited the patient yesterday evening and departed at bedtime. He was observed to have eyes closed, respirations even and unlabored on room air, and no apparent distress for the majority of the night. Patient has not had any complaints of dizziness nor lightheadedness this shift. Upon assessment, he stated that he feels much better tonight. Patient has been ambulating independently to the bathroom (gait satisfactory/steady) with standby assistance + supervision by staff this shift (post-fall precautions, history of frequent falls from syncope). Additional rounds on the patient were made, and encouragement to use the call light for needs were expressed by staff. A walker remains in his room as needed for steadying. Auscultation of his heart, bowels, and lungs were within normal findings. The patient has been having a dry, wispy cough. He has not had a bowel movement, nor expressed the urge to defecate thus far this shift (since the previous morning); occult blood stool sample remains uncollected at this time. Scheduled medications were administered as appropriately per SEP. Vital signs have been stable this shift; afebrile. At this time, the patient is resting in bed without any further complaints. No acute changes noted thus far. Seizure pads remain in place. Bed alarm on. Call light within reach. Droplet precautions ongoing for Influenza A (untype).
[2024-09-25 05:56] LABS: Basophils % 0.4 % (0.1-2.0); Eosinophils % 0.7 % (0.1-12.0); Hematocrit 33.1 % (42.0-52.0); Hemoglobin 11.1 g/dL (14.1-18.0); Lymphocytes # 1.5 K/mm3 (0.7-4.5); Lymphocytes % 33.7 % (10-50); Mean Corpuscular HGB Conc 33.5 g/dL (31.8-35.4); Mean Corpuscular Hemoglobin 28.2 pg (27.0-31.2); Mean Corpuscular Volume 84.2 fl (80-94); Mean Platelet Volume 10.3 fl (7.4-10.4); Monocytes # 0.5 K/mm3 (0.1-1.0); Monocytes % 11.2 % (1.7-9.3); Neutrophils # 2.5 K/mm3 (1.8-7.8); Neutrophils % 53.8 % (37.0-80.0); Platelet Count 120 K/mm3 (142-424); Red Blood Count 3.93 M/mm3 (4.60-6.20); Red Cell Distribution Width 13.9 % (11.5-17.5); White Blood Count 4.6 K/mm3 (4.8-10.8)
[2024-09-25 06:11] LABS: Alanine Aminotransferase 17 U/L (12-78); Albumin Level 3.1 g/dl (3.5-5.0); Albumin/Globulin Ratio 1.2 (1.1-1.8); Alkaline Phosphatase 65 U/L (38-126); Anion Gap 8.4 mEq/L (5-15); Aspartate Amino Transferase 38 U/L (17-59); Bilirubin,Total 0.8 mg/dl (0.2-1.3); Blood Urea Nitrogen 20 mg/dl (9-20); Carbon Dioxide 25 mmol/L (22.0-30.0); Chloride 105 mmol/L (98-107); Creatinine Clearance Estimated 66 mL/min (50-200); Estimated Glomerular Filt Rate 58 ml/min (>60); GFR (African American) 71 ML/MIN (>60); Globulin 2.5 g/dL (1.3-3.2); Glucose 95 mg/dl (74-100); Potassium 3.4 mmoL/L (3.5-5.1); Sodium 135 mmol/L (136-145); Total Protein,Serum 5.6 g/dl (6.3-8.2)
[2024-09-25 07:59] VITALS: BP 121/65; PULSE 71; RESP 16; TEMP 36.6; O2SAT 93
[2024-09-25 08:00] VITALS: BP 112/70; PULSE 108; PULSE 70; RESP 16; TEMP 36.4; O2SAT 98
--- NOTE | 2024-09-25 08:08 | P.PN_ITS ---
Subjective *Date: 09/25/24 *Time: 09:02 Interval history: Patient is feeling better this am and wants to go home. He has not had any further falls. He has been up and moving with and without his walker. He denies any pain. He slept and ate well. Medical Exam Vital signs and Labs for Last 24 Hours: Vital Signs Temp Pulse Pulse Resp BP Pulse Ox O2 Del Method 09/25/24 08:00 97.5 F L 108 H 16 112/70 98 Room Air 09/25/24 07:59 98 F 71 16 121/65 93 L Room Air 09/25/24 06:40 Room Air 09/25/24 05:00 Room Air 09/25/24 04:00 98.1 F 74 16 150/78 H 96 Room Air 09/25/24 04:00 60 09/25/24 03:00 Room Air 09/25/24 01:00 Room Air 09/25/24 00:00 98.4 F 69 16 137/77 94 L Room Air 09/25/24 00:00 70 09/24/24 23:00 Room Air 09/24/24 21:00 Room Air 09/24/24 20:00 70 09/24/24 20:00 98.0 F 68 16 141/76 H 95 Room Air 09/24/24 20:00 70 17 95 Room Air 09/24/24 18:54 Room Air 09/24/24 17:00 Room Air 09/24/24 16:00 70 09/24/24 16:00 98.3 F 69 17 140/76 95 Room Air 09/24/24 15:00 Room Air 09/24/24 13:00 Room Air 09/24/24 12:00 80 09/24/24 12:00 98.5 F 76 15 123/67 95 Room Air 09/24/24 11:00 Room Air 09/24/24 09:00 Room Air Intake and Output 09/24/24 09/25/24 09/25/24 19:59 03:59 11:59 Intake Total 600 / 1072 472 / 1072 Output Total 0 / 400 0 / 400 400 / 400 Balance 600 / 672 472 / 672 -400 / 672 Intake: Intake, Oral Amount 600 / 1072 472 / 1072 Output: Output, Urine Amount 0 / 400 0 / 400 400 / 400 Other: Number of Unmeasured Voids 1 1 1 Weight 207 lb 3.2 oz Patient Weight 09/25/24 11:59 Weight 207 lb 3.2 oz Laboratory Results - last 24 hr 09/24/24 08:46: WBC 7.6, RBC 4.21 L, Hgb 11.8 L, Hct 35.4 L, MCV 84.1, MCH 28.0, MCHC 33.3, RDW 14.1, Plt Count 120 L, MPV 10.1, Neut % (Auto) 80.8 H, Lymph % ( Auto) 10.3, [place] % (Auto) 8.2, Eos % (Auto) 0.0 L, Baso % (Auto) 0.3, Neut # (Auto) 6.1, Lymph # (Auto) 0.8, [place] # (Auto) 0.6, Eos # (Auto) 0.0, Baso # (Auto) 0.0, Sodium 133 L, Potassium 4.0, Chloride 101, Carbon Dioxide 26, Anion Gap 10.0, BUN 21 H, Creatinine 1.40 H, Estimated Creat Clear 58, Estimated GFR 49 L, Est GFR ( Amer) 59 D, Glucose 139 H D, Calcium 8.1 L, Total Bilirubin 1.1, AST 34, ALT 21, Alkaline Phosphatase 80, Total Protein 6.2 L, Albumin 3.4 L D, Globulin 2.8, Albumin/Globulin Ratio 1.2 09/24/24 19:59: Iron 38 L, TIBC 232 L, Iron Saturation 16.05254, Ferritin 305 09/25/24 05:30: WBC 4.6 L D, RBC 3.93 L, Hgb 11.1 L, Hct 33.1 L, MCV 84.2, MCH 28.2, MCHC 33.5, RDW 13.9, Plt Count 120 L, MPV 10.3, Neut % (Auto) 53.8, Lymph % (Auto) 33.7, [place] % (Auto) 11.2 H, Eos % (Auto) 0.7, Baso % (Auto) 0.4, Neut # (Auto) 2.5, Lymph # (Auto) 1.5, [place] # (Auto) 0.5, Eos # (Auto) 0.0, Baso # (Auto) 0.0, Sodium 135 L, Potassium 3.4 L, Chloride 105, Carbon Dioxide 25, Anion Gap 8.4, BUN 20, Creatinine 1.20, Estimated Creat Clear 66, Estimated GFR 58 L, Est GFR ( Amer) 71 D, Glucose 95 D, Calcium 8.0 L, Total Bilirubin 0.8, AST 38, ALT 17, Alkaline Phosphatase 65, Total Protein 5.6 L, Albumin 3.1 L, Globulin 2.5, Albumin/Globulin Ratio 1.2 I & O for Labs for Last 24 Hours: Intake & Output 09/22/24 09/23/24 09/24/24 09/25/24 11:59 11:59 11:59 11:59 Intake Total 770 / 770 1072 / 1072 Output Total 400 / 400 400 / 400 Balance 370 / 370 672 / 672 Weight 210 lb 1.6 oz 207 lb 3.2 oz Constitutional: Present no acute distress Respiratory: Present CTA bilaterally Cardiac: Present Reg Rate and Rhythm GI: Present soft; Absent distention or tenderness Extremities: Absent edema Skin: Present intact Neuro: Present alert, awake and oriented x 3 Assessment and Plan *Assessment and plan (1) Syncope: Status: Acute Qualifiers: Syncope type: vasovagal syncope Qualified Code(s): R55 - Syncope and collapse Category: Medical Code(s): R55 - Syncope and collapse (2) Influenza A: Status: Acute Category: Medical Code(s): J10.1 - Influenza due to other identified influenza virus with other respiratory manifestations (3) URI (upper respiratory infection): Status: Acute Qualifiers: URI type: unspecified URI Qualified Code(s): J06.9 - Acute upper respiratory infection, unspecified Category: Medical Code(s): J06.9 - Acute upper respiratory infection, unspecified (4) JAYESH (acute kidney injury): Status: Acute Category: Medical Code(s): N17.9 - Acute kidney failure, unspecified (5) Atrial fibrillation: Status: Acute Qualifiers: Atrial fibrillation type: paroxysmal Qualified Code(s): I48.0 - Paroxysmal atrial fibrillation Category: Medical Code(s): I48.91 - Unspecified atrial fibrillation (6) 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 Category: Medical Code(s): R90.82 - White matter disease, unspecified; I99.8 - Other disorder of circulatory system (9) GERD (gastroesophageal reflux disease): Status: Acute Qualifiers: Esophagitis presence: esophagitis presence not specified Qualified Code(s): K21.9 - Gastro-esophageal reflux disease without esophagitis Category: Medical Code(s): K21.9 - Gastro-esophageal reflux disease without esophagitis (10) Blood in stool: Status: Acute Category: Medical Code(s): K92.1 - Melena (11) Anemia: Status: Acute Category: Medical Code(s): D64.9 - Anemia, unspecified (12) Dehydration: Status: Acute Category: Medical Code(s): E86.0 - Dehydration (13) Hypokalemia: Status: Acute Category: Medical Code(s): E87.6 - Hypokalemia Plan Patient was seen by cardiology yesterday and his Norvasc dose was increased to 5 mg daily. He is on long-term anticoagulation with Eliquis and did report noticing blood in his stool. A Hemoccult was ordered and GI was consulted. He was seen by Dr. Fernando who suspected hemorrhoids. He has had a drop in his hemoglobin which could be due to Eliquis. He recommended Hemoccult testing and iron studies. His renal function has improved. Potassium is slightly low. Will give some potassium today. Can likely discharge home. Dr. Jacobsen entry - Saw patient, agree with above note. OK for discharge today, patient declines outpatient PT, will continue Tamiflu, plan outpatient GI evaluation.
[2024-09-25] MEDS: AMLODIPINE 5MG TABLET 5 MG PO (08:28)
[2024-09-25] MEDS: OSELTAMIVIR 75MG CAPSULE 75 MG PO (08:28)
[2024-09-25] MEDS: POTASSIUM CHLORIDE 20MEQ TAB 20 MEQ PO (08:28)
--- NOTE | 2024-09-25 11:11 | P.PN_ITS ---
Subjective Subjective Date: 09/25/24 Time: 09:30 Principal diagnosis: Syncope, HTN Interval history: This is a 78-year-old gentleman who presented to the emergency department after syncopal episode. He was diagnosed with influenza A. The patient had syncope while getting a CBC drawn in his primary care provider's office. This is most likely vasovagal. He had 2 falls prior to this as well but he did not lose consciousness but he was dizzy. The patient has had an elevated blood pressure which is likely contributing to this dizziness. Today he states that he feels great and he is ready to be discharged home. He denies any chest pain or pressure. He denies any shortness of breath or edema. He denies any palpitations or racing of the heart. He denies any fever, chills, nausea, vomiting or diarrhea. Exam Data for Last 24 hours Vital signs and Labs for Last 24 Hours: Temp Pulse Resp BP Pulse Ox O2 Del Method 97.5 F L 108 H 16 112/70 98 Room Air 09/25/24 08:00 09/25/24 08:00 09/25/24 08:00 09/25/24 08:00 09/25/24 08:00 09/25/24 09:00 Laboratory Results - last 24 hr 09/24/24 19:59: Iron 38 L, TIBC 232 L, Iron Saturation 16.33339, Ferritin 305 09/25/24 05:30: WBC 4.6 L D, RBC 3.93 L, Hgb 11.1 L, Hct 33.1 L, MCV 84.2, MCH 28.2, MCHC 33.5, RDW 13.9, Plt Count 120 L, MPV 10.3, Neut % (Auto) 53.8, Lymph % (Auto) 33.7, [place] % (Auto) 11.2 H, Eos % (Auto) 0.7, Baso % (Auto) 0.4, Neut # (Auto) 2.5, Lymph # (Auto) 1.5, [place] # (Auto) 0.5, Eos # (Auto) 0.0, Baso # (Auto) 0.0, Sodium 135 L, Potassium 3.4 L, Chloride 105, Carbon Dioxide 25, Anion Gap 8.4, BUN 20, Creatinine 1.20, Estimated Creat Clear 66, Estimated GFR 58 L, Est GFR ( Amer) 71 D, Glucose 95 D, Calcium 8.0 L, Total Bilirubin 0.8, AST 38, ALT 17, Alkaline Phosphatase 65, Total Protein 5.6 L, Albumin 3.1 L, Globulin 2.5, Albumin/Globulin Ratio 1.2 I & O for Last 24 hours: Intake & Output 09/22/24 09/23/24 09/24/24 09/25/24 23:59 23:59 23:59 23:59 Intake Total 118 / 530 1252 / 1724 952 / 952 Output Total 400 / 400 400 / 400 Balance 118 / 330 852 / 1324 552 / 552 Weight 207 lb 5 oz 210 lb 1.6 oz 207 lb 3.2 oz Constitutional Constitutional: no acute distress and average body habitus *Routine HEENT Exam Head: Present normocephalic and atraumatic ENT: Present mucous membranes moist *Routine Neck Exam Neck: Present supple, full ROM and normal carotid upstroke; Absent JVD, carotid bruit or lymphadenopathy *Routine Respiratory Exam Respiratory: Present CTA bilaterally, normal respiratory effort, able to speak in complete sentences and symmetric chest movement *Routine Cardiovascular Exam Cardiovascular: Present RRR, Normal S1 and Normal S2; Absent murmur or gallop *Routine Abdominal Exam Abdominal: Present soft and normoactive bowel sounds; Absent tenderness, distended or organomegaly *Routine Extremities Exam Extremities: Present full ROM, pulses intact and normal capillary refill; Absent cyanosis, clubbing or edema *Routine Skin Exam Skin: Present intact and warm; Absent erythema *Routine Neurological Exam Neurological: Present alert, oriented X3 and CN II-XII intact; Absent sensory deficit or motor deficit Routine Psychiatric Exam Psychiatric: Present normal affect Progress Note: A&P Assessment and plan (1) Syncope: Status: Acute (2) Influenza A: Status: Acute (3) URI (upper respiratory infection): Status: Acute (4) JAYESH (acute kidney injury): Status: Acute (5) Atrial fibrillation: Status: Acute (6) CVA (cerebrovascular accident): 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 Patient was admitted to the hospital after syncopal episode which was most likely a vasovagal syncopal episode while getting his blood drawn. He maintained his blood pressure and oxygen saturations at that time per his primary care provider's note. 2. The patient is positive for influenza A. He has been started on Tamiflu. Will defer to his primary care provider. 3. The patient was slightly dehydrated on admission. He did get IV fluids. His creatinine has improved and is down to 1.2 and approaching normal. 4. The patient's blood pressure is now well-controlled with increasing his Norvasc. 5. The patient does have a history of paroxysmal atrial fibrillation. He is currently in sinus rhythm. 6. The patient is on long-term anticoagulation with Eliquis. He does report noticing blood in his stool. Hemoccult stool is still pending. He did have a consult with GI who is further working up his anemia. If the patient does have a positive stool sample then we need to consider a watchman's device. 7. His LDL goal is less than 100. 8. No further recommendations at this time from a cardiac standpoint. The patient can be discharged home today from a cardiac standpoint. He will need follow-up in cardiology clinic in 1 to 2 weeks on an outpatient basis with Dr. Carbajal. 9. The patient will need to be discharged on the following cardiac medications: Amlodipine 5 mg p.o. daily and Eliquis 5 mg p.o. twice daily. Thank you for the opportunity to help participate in the care of this patient. All recommendations and orders are per Dr. Rodriguez.
[2024-09-25 11:59] LABS: Chol/HDL Ratio 2.9 (1-3.5); Cholesterol 100 mg/dl (140-200); HDL Cholesterol 35 mg/dl (40-60); Triglycerides 67 mg/dl (30-150); VLDL Cholesterol 13 mg/dL (0-40)
[2024-09-25 12:10] LABS: Direct LDL Cholesterol 37.99 mg/dL (100-129)
--- NOTE | 2024-09-28 12:04 | SW/DCPLANNER ---
Spoke with patient on the phone. Patient stated that he is glad to be feeling better. Patient stated that he is aware of his upcoming appointments. Patient stated that his son was able to picker tender helper his medicine from [facility]. Patient stated that he has no concerns or questions at this time. Yany Corona
--- NOTE | 2024-09-28 15:15 | EXP.DC.SUM ---
General Admission date:: 09/23/24 Discharge date: 09/25/24 HPI HPI HPI: Mr. Patel is a 78-year-old gentleman who was admitted because of feeling poorly with weakness and some dyspnea on exertion. He has been on Eliquis for his atrial fibrillation. The patient has noted some change in bowel habits with some constipation recently. He also noted some blood in his stool which he feels is hemorrhoidal. The patient did have a colonoscopy with me in March 2018 and had 2 polyps (tubular adenomas x 2) removed. He reports no NSAIDs. He has no abdominal pain or weight loss. His hemoglobin hematocrit are 11.8 and 35.4 today with MCV of 84.1. He does have normal liver chemistries. His creatinine was 1.40. GI was consulted for further evaluation. Hospital Course Hospital Course Hospital Course: Patient was started on Tamiflu on admission and IV fluids. He gradually felt better but continued with weakness and a sore throat. He had no further syncopal episodes. He was seen by cardiology who felt his near syncopal episode was very vasovagal. They agreed with IV fluids. With elevated blood pressure Norvasc was increased to 5 mg daily. He had converted to sinus rhythm and was to continue with Eliquis. He was also seen in consultation by Dr. Fernando survival equipment repairer with the following plan: Plan 1. Bright red blood in stool with his constipation. I do suspect hemorrhoidal disease. However, the patient does have new anemia which contributes to his weakness and dyspnea on exertion. His hemoglobin and hematocrit in October 2022 were 15.0 and 46.3. His hemoglobin and hematocrit today are 11.8 and 35.4. I do suspect this may be related to the Eliquis. Long-term exposure to certain medications especially blood thinners (oral anticoagulants?i.e. Plavix, Eliquis, Xarelto, etc.) is an associated independent risk factor for the development of iron deficiency anemia. Other medications associated with iron deficiency anemia include acid reflux medications (proton pump inhibitors?esomeprazole omeprazole, pantoprazole, etc.) which are also associated with iron deficiency and play a role with reduced iron absorption. The patient is on both. I am going to recommend Hemoccult testing and iron studies. If he is Hemoccult positive, I would recommend panendoscopy. If he is Hemoccult positive I would also consider the Watchman procedure for this patient. The Watchman Left Atrial Appendage Closure provides a new option for patients with non-valvular atrial fibrillation who may require an alternative to long-term use of blood thinners. This is especially important in persons that have chronic gastrointestinal blood loss with resulting iron deficiency anemia that is greatly exacerbated by the use of blood thinners (anticoagulation). The above as per Dr. Fernando By 09/25/2024 patient was wanting to go home. He was noted to Have been up and moving about with and without his walker. Hemoglobin was noted to be 11.8 with hematocrit of 35.4. Creatinine was 1.4 with a GFR of 49. Repeat H&H were 11.1 and 33.1 with stable kidney function. Potassium was 3.4 and he received p.o. potassium. On this date he was stable to be discharged. Patient was noted to decline outpatient PT. He was to continue with Tamiflu with plan for outpatient GI evaluation. Exam Data for Last 24 hours Vital signs and Labs for Last 24 Hours: Temp Pulse Resp BP Pulse Ox O2 Del Method 97.5 F L 108 H 16 112/70 98 Room Air 09/25/24 08:00 09/25/24 08:00 09/25/24 08:00 09/25/24 08:00 09/25/24 08:00 09/25/24 09:00 Narrative: [facility] aty discharge Constitutional: Present no acute distress Respiratory: Present CTA bilaterally Cardiac: Present Reg Rate and Rhythm GI: Present soft; Absent distention or tenderness Extremities: Absent edema Skin: Present intact Neuro: Present alert, awake and oriented x 3 Results Data Completed and Pending Completed studies during hospitalization [Text1]: 09/23/[address] FINDINGS: There is atrophy and chronic small vessel ischemic change. Chronic lacunar infarcts are seen in the basal ganglia. No abnormal density is seen. Ventricles are normal. There is no hemorrhage. No mass effect is seen. Bone windows show no evidence of fracture. IMPRESSION: Chronic findings without acute intracranial abnormality. 09/21/2024 Chest CTA FINDINGS: Pulmonary arteries: Normal. No pulmonary emboli. Aorta: Unremarkable. No aortic aneurysm. No aortic dissection. Lungs: Biapical scarring. No pneumonia. Pleural spaces: Unremarkable. No pneumothorax. No pleural effusion. Heart: Unremarkable. No cardiomegaly. No pericardial effusion. Lymph nodes: Unremarkable. No enlarged lymph nodes. Bones/joints: Unremarkable. No acute fracture. Soft tissues: Unremarkable. IMPRESSION: No acute findings. 09/21/2024 Head CTA FINDINGS: ANTERIOR CIRCULATION: Right internal carotid artery: Intracranial segment is patent with no significant stenosis. No aneurysm. Right middle cerebral artery: No occlusion or significant stenosis. No aneurysm. Right anterior cerebral artery: No occlusion or significant stenosis. No aneurysm. Left internal carotid artery: Intracranial segment is patent with no significant stenosis. No aneurysm. Left middle cerebral artery: No occlusion or significant stenosis. No aneurysm. Left anterior cerebral artery: No occlusion or significant stenosis. No aneurysm. POSTERIOR CIRCULATION: Right vertebral artery: No occlusion or significant stenosis. No aneurysm. Left vertebral artery: No occlusion or significant stenosis. No aneurysm. Basilar artery: No occlusion or significant stenosis. No aneurysm. Right posterior cerebral artery: No occlusion or significant stenosis. No aneurysm. Left posterior cerebral artery: No occlusion or significant stenosis. No aneurysm. Brain: No definite mass, mass effect, or midline shift. Cerebral ventricles: No ventriculomegaly. Bones/joints: Unremarkable. No acute fracture. Soft tissues: Unremarkable. IMPRESSION: No large vessel stenosis or occlusion. 09/21/2024 neck CTA FINDINGS: Right common carotid artery: No stenosis. No dissection or occlusion. Right internal carotid artery: No stenosis of the extracranial segment. No dissection or occlusion. Right external carotid artery: No occlusion or stenosis of the origin. Left common carotid artery: No stenosis. No dissection or occlusion. Left internal carotid artery: No stenosis of the extracranial segment. No dissection or occlusion. Left external carotid artery: No occlusion or stenosis of the origin. Right vertebral artery: No stenosis. No dissection or occlusion. Left vertebral artery: No stenosis. No dissection or occlusion. Soft tissues: Normal. No significant soft tissue swelling. Bones/joints: No acute fracture. IMPRESSION: No stenosis or occlusion. 09/23/[address] FINDINGS: No fracture is seen. Alignment is normal. There is fusion of the C2-3 vertebral body and partial fusion at C3-4. There are moderate to severe degenerative changes with multilevel bony neuroforaminal narrowing. IMPRESSION: Degenerative disc disease without fracture or malalignment 09/24/24 19:59: Iron 38 L, TIBC 232 L, Iron Saturation 16.94527, Ferritin 305 09/25/24 05:30: WBC 4.6 L D, RBC 3.93 L, Hgb 11.1 L, Hct 33.1 L, MCV 84.2, MCH 28.2, MCHC 33.5, RDW 13.9, Plt Count 120 L, MPV 10.3, Neut % (Auto) 53.8, Lymph % (Auto) 33.7, [place] % (Auto) 11.2 H, Eos % (Auto) 0.7, Baso % (Auto) 0.4, Neut # (Auto) 2.5, Lymph # (Auto) 1.5, [place] # (Auto) 0.5, Eos # (Auto) 0.0, Baso # (Auto) 0.0, Sodium 135 L, Potassium 3.4 L, Chloride 105, Carbon Dioxide 25, Anion Gap 8.4, BUN 20, Creatinine 1.20, Estimated Creat Clear 66, Estimated GFR 58 L, Est GFR ( Amer) 71 D, Glucose 95 D, Calcium 8.0 L, Total Bilirubin 0.8, AST 38, ALT 17, Alkaline Phosphatase 65, Total Protein 5.6 L, Albumin 3.1 L, Globulin 2.5, Albumin/Globulin Ratio 1.2 DS: Diagnosis Discharge Diagnosis (1) Syncope: Status: Acute Code(s): R55 - Syncope and collapse Qualifiers: Syncope type: vasovagal syncope Qualified Code(s): R55 - Syncope and collapse (2) Influenza A: Status: Acute Code(s): J10.1 - Influenza due to other identified influenza virus with other respiratory manifestations (3) URI (upper respiratory infection): Status: Acute Code(s): J06.9 - Acute upper respiratory infection, unspecified Qualifiers: URI type: unspecified URI Qualified Code(s): J06.9 - Acute upper respiratory infection, unspecified (4) JAYESH (acute kidney injury): Status: Acute Code(s): N17.9 - Acute kidney failure, unspecified (5) Atrial fibrillation: Status: Acute Code(s): I48.91 - Unspecified atrial fibrillation Qualifiers: Atrial fibrillation type: paroxysmal Qualified Code(s): I48.0 - Paroxysmal atrial fibrillation (6) CVA (cerebrovascular accident): Status: Chronic Code(s): I63.9 - Cerebral infarction, unspecified Qualifiers: CVA mechanism: unspecified Qualified Code(s): I63.9 - Cerebral infarction, unspecified Problem details: Left anterior parietal CVA. 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 Code(s): R90.82 - White matter disease, unspecified; I99.8 - Other disorder of circulatory system (9) GERD (gastroesophageal reflux disease): Status: Acute Code(s): K21.9 - Gastro-esophageal reflux disease without esophagitis Qualifiers: Esophagitis presence: esophagitis presence not specified Qualified Code(s): K21.9 - Gastro-esophageal reflux disease without esophagitis (10) Blood in stool: Status: Acute Code(s): K92.1 - Melena (11) Anemia: Status: Acute Code(s): D64.9 - Anemia, unspecified (12) Dehydration: Status: Acute Code(s): E86.0 - Dehydration (13) Hypokalemia: Status: Acute Code(s): E87.6 - Hypokalemia Meds Home Medications and Allergies Home Medications ?Medication ?Instructions ?Recorded ?Confirmed ?Type esomeprazole magnesium 20 mg 20 mg PO DAILY 07/09/24 09/23/24 History capsule,delayed release (Nexium) amlodipine 5 mg tablet 5 mg PO DAILY #30 tabs 09/25/24 Rx oseltamivir 75 mg capsule (Tamiflu) 75 mg PO BID #6 caps 09/25/24 Rx New Prescriptions to Start Prescriptions: amlodipine Landry Jacobsen oseltamivir [Tamiflu] Landry Jacobsen Allergies Allergy/AdvReac Type Severity Reaction Status Date / Time cefdinir Allergy Other Verified 07/09/24 13:19 Sulfa (Sulfonamide Allergy Verified 07/09/24 13:19 Antibiotics) sulfacetamide AdvReac Intermediate Verified 07/09/24 13:19 Discharge Plan Disposition Patient Disposition: Home, Self-Care Condition: Fair Discharge Order Discharge Orders: Discharge Order (Routine); Ordered 09/25/24 Ordered By: Landry Jacobsen Follow up Plan Follow up with: Az Fernando II, MD [Staff Physician] - 10/22/24 9:15 am Ayush Muro MD [Primary Care Provider] - 10/06/24 10:15 am Prescriptions/Medication Reconciliation: New amlodipine 5 mg Tablet 5 mg PO DAILY Qty: 30 0RF oseltamivir [Tamiflu] 75 mg Capsule 75 mg PO BID Qty: 6 0RF Continued esomeprazole magnesium [Nexium] 20 mg capsule,delayed release(DR/EC) 20 mg PO DAILY Eliquis 5 mg tablet 5 mg PO BID 0RF Discontinued amlodipine [Norvasc] 2.5 mg tablet 2.5 mg PO DAILY Qty: 30 3RF Problem Reconciliation Problems Reviewed?: Yes Patient Discharge Instructions ACTIVITY: Continue current activity DIET: continue same diet Patient Instructions: Fainting, Acute Kidney Injury Print Language: Vietnamese Providers Primary Care Provider: Ayush Muro Admit Provider: Landry Jacobsen Attending Provider: Landry Jacobsen
== END 2024-09-25 10:15 | disposition home or self-care (01) | DRG 312 ==
LOC: ER 16:45 → 2ND 17:18
PROVIDERS: Internal Medicine Gastroenterology; Nurse Practitioner Family; Physician Assistant; Admitting Provider Family Medicine; Emergency Provider Emergency Medicine; PCP Family Medicine; Visit Provider Family Medicine
DX: R55 Syncope and collapse (principal); N17.9 Acute kidney failure, unspecified; K92.1 Melena; I48.0 Paroxysmal atrial fibrillation; I10 Essential (primary) hypertension; R90.82 White matter disease, unspecified; K21.9 Gastro-esophageal reflux disease without esophagitis; J10.1 Influenza due to other identified influenza virus with other respiratory manifestations; E86.0 Dehydration; D64.9 Anemia, unspecified; E87.6 Hypokalemia; E78.5 Hyperlipidemia, unspecified; R29.6 Repeated falls; Z86.73 Personal history of transient ischemic attack (TIA), and cerebral infarction without residual deficits; K59.00 Constipation, unspecified; Z79.899 Other long term (current) drug therapy; Z79.01 Long term (current) use of anticoagulants; Z88.2 Allergy status to sulfonamides; Z88.3 Allergy status to other anti-infective agents; Z80.9 Family history of malignant neoplasm, unspecified; Z82.3 Family history of stroke
CPT/HCPCS: 36415; 70450; 71046; 72125; 80053; 80061; 82728; 82803; 83540; 83550; 83735; 84100; 84436; 84443; 84484; 85025; 87636; 93005; 97163; 99285; G0378; J7120

== ENCOUNTER 2025-05-24 09:45 | Outpatient (CLI) | payer MEDICARE, SELFPAY ==
--- OUTSIDE RECORDS SUMMARY | 2024-01-07 06:30 | XMS_ITS ---
[facility] [address] [facility] [address] [place] [id number] Care Team Providers Care Visual Merchandising Specialist Name Role Phone Zach Muro Primary Care Provider Landry Jacobsen Unavailable [phone] Allergies Allergen (clinical drug ingredient) Drug/Non Drug Allergy documented on EMR Reaction Allergy Type Onset Date Status Sulfamethoxazole rash Drug Allergy Active Results Component Value Reference Range Notes Urinalysis - Inhouse Reviewed date:01/07/2024 12:31:23 PM Interpretation: Performing Lab: Notes/Report: Color/Clarity straw Leuk neg Nitrite neg Urobili 3.2 Protein 1+ pH 5.5 Blood neg Sp. Gr. >=1.030 Ketone neg Bili 1+ Gluc neg REASON FOR VISIT ankles swollen ,lower pain Medications Medication SIG (Take, Route, Frequency, Duration) Notes Start Date End Date Status Indomethacin 50 MG 1 cap(s) orally 3 ti mes a day; Duration: 30 day(s) 11/17/2020 Active Bisoprolol Fumarate 10 MG 1 tablet Orall y Once a day Active Triamcinolone Acetonide 0.1 % 1 application Externally Two times a day 01/07/2024 Active Eliquis 5 MG 1 tablet Orally Twic e a day; Duration: 30 day(s) Active Problems Problem Type SNOMED Code ICD Code Onset Dates Problem Status W/U Status Risk Notes Problem Paroxysmal atrial fibrillation (196528691) Paroxysmal atrial fibrillation (I48.0) Active confirmed Vital Signs Weight 208.8 lbs 01/07/2024 Blood pressure systolic 158 mm Hg 01/07/20 24 Blood pressure diastolic 88 mm Hg 024 Heart Rate 62 /min 01/07/2024 Height 71.50 in 01/07/2024 BMI 28.71 kg/m2 01/07/2024 Encounters Encounter Location Date Provider Diagnosis [facility] [address] [place] [id number] 01/07/2024 Landry Jacobsen Acute bilateral low back pain without sciatica M54.50 ; Rash R21 ; Paroxysmal atrial fibrillation I48.0 and Elevated blood pressure reading R03.0 Assessments Encounter Date Diagnosis (ICD Code) Assessment Notes Treatment Notes Treatment Clinical Notes Section Notes 01/07/2024 Acute bilateral low back pain without sciatica (ICD-10 - M54.50) Patient declines further evaluation today. He will call if symptoms do not improve 01/07/2024 Rash (ICD-10 - R21) 01/07/2024 Paroxysmal atrial fibrillation (ICD-10 - I48.0) Encouraged patient to follow up with cardiology to resume treatment. He states he will call today for an appt. 01/07/2024 Elevated blood pressure reading (ICD-10 - R03.0) Blood pressure journal Plan Of Treatment Medication Medication Name Sig Start Date Stop Date Notes Triamcinolone Acetonide 0.1 % 1 applicat ion Externally Two times a day 01/07/2024 Treatment Notes Assessment Notes Acute bilateral low back delaney n without sciatica Patient declines further evaluation today. He will call if symptoms do not improve Paroxysmal atrial fibrillation Encourage d patient to follow up with cardiology to resume treatment. He states he will call today for an appt. Elevated blood pressure reading Blood pr essure journal Next Appt Details Follow Up: via phone to mirna christie progress, Reason: Progress Notes * PAWEL, RAKAN GDOB: 5 (79 yo M)Acc No.[id number]:01/07/2024 Progress Notes Patient: RAKAN SHEN Provider: Rocky Jacobsen M.D. :1945 A ge:78 Y S ex:Male Date:01/07/2024 Address:[address] [place] [address] , [id number] Pcp:Zach Muro Subjective: * Chief Complaints: * 1 . Ankles swollen ,lower pain. * HPI: M giovany Reproductive: 78 year old male presents with c/o flank pain P t complains of bilateral flank pain for about a week, states urine has been orange at times. Pt is concerned he may have a kidney infection. D ermatology: c/o rash P t complains of rash on rt ankle, states he has been using Cortisone cream and it does help with itching but rash has not improved. * ROS: D ERMATOLOGY: no R sage. n o H mónica. G ASTROENTEROLOGY: no N ausea. n o V omiting. U ROLOGY: no D ifficulty urinating. n o B lood in urine. * Medical History: C ardiac dysrhythmia - followed by cardiology, Atrial fibrillation, Dx: 2023, CVA, Dx: 2022 via MRI by neurology. * Surgical History: Kasey whitman , Rotator Cuff Repair , esophagogastrodenscopy for eosinophilic esophagitis, Dr. Bird, 03/16/11, 12/2006, Cholecystectomy 05/2009, C-scope/Dr. 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 * Hospitalization/Major Diagno stic Procedure: D rodríguez Past Hospitalization. * Family History: F ather: , colon cancer. M other: , pin stroke . P aternal Grand Father: . P aternal Grand Mother: . M aternal Grand Father: . M aternal Grand Mother: . 1 brother(s) , 1 sister(s) . 1 son(s) . . * Social History: C URRENT TOBACCO USE S moking Status: Patient does NOT smoke. C affeine: yes, frequency:. Exercise: yes. Home smoke detector use: yes. Marital Status: Single. New since last visit: none. Past smoking status: no. Occup. exposure: none. Recreational drug use: no. Alcohol: Type: , Frequency: ,Years: , Determination:. Travel ouside [place]: yes. * Medications: T aking Eliquis 5 MG Tablet 1 tablet Orally Twice a day , Taking Bisoprolol Fumarate 10 MG Tablet 1 tablet Orally Once a day , Taking Indomethacin 50 MG Capsule 1 cap(s) orally 3 times a day , Discontinued Cefdinir 300 MG Capsule 1 cap(s) orally every 12 hours , Discontinued Promethazine-DM 6.25-15 MG/5ML Syrup 5 ml orally every 6 hours as needed , Medication List reviewed and reconciled with the patient * Allergies: S ulfamethoxazole: rash - Allergy. Objective: * Vitals: W t:208.8, Temp:98.0, BP:158/88, HR:62, Nurse:sara, Ht: 71.50, BMI:28.71. * Examination: G eneral Examination: General Appearance: N AD. H eart: R SR. L ungs:?clear to auscultation. S kin: r ough dry, patches of skin over posterior portion of both lower legs, some skin redness on the right side. B ack: no CVA tenderness. ? Assessment: * Assessment: 1. A cute bilateral low back pain without sciatica - M54.50 (Primary) 2 . R sage - R21 3 . P aroxysmal atrial fibrillation - I48.0 4 . E levated blood pressure reading - R03.0 Plan: * Treatment: Value Reference Range C olor/Clarity straw * L euk neg * N itrite neg * U robili 3.2 * P rotein 1+ * p H 5.5 * B lood neg * S p. Gr. >=1.030 * K etone neg * B clif 1+ * G della neg * KarMaicolKaykay 01/07/2024 12:24:1 8 PM > , Provider reviewed results while patient in office. Notes: Patient declines further evaluation today. He will call if symptoms do not improve? 2.?Rash? Start Triamcinolone Acetonide Cream, 0.1 %, 1 application, Externally, Two times a day, 30 grams, Refills 0.??3.?Paroxysmal atrial fibrillation? Notes: Encouraged patient to follow up with cardiology to resume treatment. He states he will call today for an appt.??4.?Elevated blood pressure reading? Notes: Blood pressure journal?? * Procedure Codes: G 2211 Complex e/[place] [address] Urinalysis, no micro * Follow Up: v ia phone to report progress * Images: Billing Information: * Visit Code: 70816 Office Visit, Est Pt., Level 4. * Procedure Codes: G2211 Complex e/[place]. [address] Urinalysis, no micro. * Electronic signature of Cheri Jacobsen MD on 05/24/2025 at 09:55 AM EST Sign off status: Pending * Provider: Rocky Jacobsen M.D. Date: 0 01/07/2024 Generated for Aline ji/Alex/Deanneransmitting on: 07/24/2024 09:55 AM EST History and Physical Notes * HPI (History of Present Illness) Category Sub-Category Detail Notes Category Not es Dermatology rash Pt complains of rash on rt ankle, states he has been using Cortisone cream and it does help with itching but rash has not improved Male Reproductive flank pain Pt complains o f bilateral flank pain for about a week, states urine has been orange at times. Pt is concerned he may have a kidney infection Examination Category Sub-Category Detail Notes Category Not es General Examination Heart: RSR Lungs: clear to auscultatio n General Appearance: NAD Skin: rough dry, patches o f skin over posterior portion of both lower legs, some skin redness on the right side Back: no CVA tenderness
--- OUTSIDE RECORDS SUMMARY | 2024-09-23 09:15 | XMS_ITS ---
[facility] Organization [facility] Address [address] [place] [id number] Care Team Providers Care Knowledge Engineer Name Role Phone Zach Muro Primary Care Provider [phone] Delmar Landry Unavailable [phone] Allergies Allergen (clinical drug ingredient) Drug/Non Drug Allergy documented on EMR Reaction Allergy Type Onset Date Status Sulfamethoxazole rash Drug Allergy Active Results Component Value Reference Range Notes CBC Fingerstick (in house) Reviewed date:09/24/2024 10:13:06 AM Interpretation:Normal Performing Lab: Notes/Report: Normal wbc 6.1 3.5 - 10 lym 21.4% 15 - 50 mid 6.3% 2 - 15 gran 72.3% 35 - 80 rbc 4.44 3.5 - 5.5 hgb 12.9 11.5 - 16.5 hct 37.6 35 - 55 mcv 84.7 75 - 100 mch 29.0 25 - 35 mchc 34.2 31 - 38 plat 133 100 - 400 REASON FOR VISIT sore throat, headache Medications Medication SIG (Take, Route, Frequency, Duration) Notes Start Date End Date Status Eliquis 5 MG 1 tablet Orally Twic e a day; Duration: 30 day(s) Active Bisoprolol Fumarate 10 MG 1 tablet Orall y Once a day Active Triamcinolone Acetonide 0.1 % 1 application Externally Two times a day 01/07/2024 Active Indomethacin 50 MG 1 cap(s) orally 3 ti mes a day; Duration: 30 day(s) 11/17/2020 Active Problems Problem Type SNOMED Code ICD Code Onset Dates Problem Status W/U Status Risk Notes Problem Recurrent falls (374529976) Frequent falls (R29.6) Active confirmed Vital Signs Weight 206.4 lbs 09/23/2024 Blood pressure systolic 90 mm Hg 09/24/19 25 Blood pressure diastolic 60 mm Hg 025 Heart Rate 81 /min 09/23/2024 Height 71.50 in 09/23/2024 BMI 28.38 kg/m2 09/23/2024 Encounters Encounter Location Date Provider Diagnosis [facility] [address] [place], [place] [id number] 09/23/2024 Landry Jacobsen Acute URI J06.9 ; Vasovagal syncope R55 and Frequent falls R29.6 Assessments Encounter Date Diagnosis (ICD Code) Assessment Notes Treatment Notes Treatment Clinical Notes Section Notes 09/23/2024 Acute URI (ICD-10 - J06.9) 09/23/2024 Vasovagal syncope (ICD-10 - R55) Patient was sent to the ER for further evaluation and was eventually admitted to [facility] with dehydration/JAYESH and influenza A 09/23/2024 Frequent falls (ICD-10 - R29.6) Plan Of Treatment Treatment Notes Assessment Notes Vasovagal syncope Patient was sent to the ER for further evaluation and was eventually admitted to [facility] with dehydration/JAYESH and influenza A Next Appt Details Follow Up: prn, Reason: Progress Notes * RAKAN ARMAS GDOB: 5 (79 yo M)Acc No.[id number]:09/23/2024 Progress Notes Patient: RAKAN SHEN Provider: Rocky Jacobsen M.D. :1945 A ge:78 Y S ex:Male Date:09/23/2024 Address:[address] [place] [address] , [id number] Pcp:Zach Muro Subjective: * Chief Complaints: * 1 . Sore throat, headache. * HPI: E NT/respiratory: The patient is here today with c/o fever,cough, sore throat and headache for about 5 days. 78 year old male presents with c/o sore throat. c/o cough. c/o Fever. c/o Short of Breath. c/o headache. c/o chest congestion. * ROS: D ERMATOLOGY: no R sage. n o H mónica. G ASTROENTEROLOGY: no N ausea. n o V omiting. n o D iarrhea.? U ROLOGY: no D ifficulty urinating. n o B lood in urine. * Medical History: C ardiac dysrhythmia - followed by cardiology, Atrial fibrillation, Dx: 2023, CVA, Dx: 2022 via MRI by neurology. * Surgical History: K j carlos , Rotator Cuff Repair , esophagogastrodenscopy for eosinophilic esophagitis, Dr. Bird, 03/16/11, 12/2006, Cholecystectomy 05/2009, C-scope/Dr. 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 * Family History: F ather: , colon [...] tablet Orally Once a day , Taking Triamcinolone Acetonide 0.1 % Cream 1 application Externally Two times a day , Taking Indomethacin 50 MG Capsule 1 cap(s) orally 3 times a day , Medication List reviewed and reconciled with the patient * Allergies: S ulfamethoxazole: rash - Allergy. Objective: * Vitals: W t:206.4, Temp:98.3, BP:90/60, HR:81, O2 Sat:98% onRA, Nurse:TRUDI, Ht: 71.50, BMI:28.38. * Examination: G eneral Examination: P atient had a prolonged vasovagal reaction to the blood draw. O2 sats stayed above 90%, HR was in the 60's and BP was 100's/60's. Assessment: * Assessment: 1. A cute URI - J06.9 (Primary) 2 . V asovagal syncope - R55 ?3. F requent falls - R29.6 Plan: * Treatment: * Labs: * L ab: CBC Fingerstick (in house) (Collection Date & Time - 09/23/2024) N ormal Value Reference Range w bc 6.1 3.5 - 10 * l ym 21.4% 15 - 50 * m id 6.3% 2 - 15 * g ran 72.3% 35 - 80 * r bc 4.44 3.5 - 5.5 * h gb 12.9 11.5 - 16.5 * h ct 37.6 35 - 55 * m cv 84.7 75 - 100 * m ch 29.0 25 - 35 * m chc 34.2 31 - 38 * p lat 133 100 - 400 * Kaykay Lakhani 09/23/2024 4:04:22 PM >Carolina Naidu 09/24/2024 10:12:59 AM > patient sent to ER. * Procedure Codes: 9 47[address] [place], [address] CAPILLARY BLOOD DRAW, 73956 CBC WITH AUTO DIFF * Follow Up: p rn * Images: Billing Information: * Visit Code: * Procedure Codes: [address] [place]. [address] CAPILLARY BLOOD DRAW. 08871 CBC WITH AUTO DIFF. * Electronic signature of Cheri Jacobsen MD on 05/24/2025 at 09:55 AM EST Sign off status: Pending * Provider: Rocky Jacobsen M.D. Date: 0 09/23/2024 Generated for Aline ji/Alex/Glao on: 1 07/24/2024 09:55 AM EST History and Physical Notes * HPI (History of Present Illness) Category Sub-Category Detail Notes Category Not es ENT/respiratory sore throat Short of Breath cough Fever headache chest congestion Examination Category Sub-Category Detail Notes Category Not es General Examination Patient had a prolonged vasovagal reaction to the blood draw. O2 sats stayed above 90%, HR was in the 60's and BP was 100's/60's
--- OUTSIDE RECORDS SUMMARY | 2024-10-06 05:15 | XMS_ITS ---
Author Organization [facility] Address [address] [facility] [address] [place] [id number] Care Team Providers Care Electrical Solderer Name Role Phone Zach Muro Primary Care Provider Allergies Allergen (clinical drug ingredient) Drug/Non Drug Allergy documented on EMR Reaction Allergy Type Onset Date Status Sulfamethoxazole rash Drug Allergy Active REASON FOR VISIT F/U [facility] Medications Medication SIG (Take, Route, Frequency, Duration) [...] a day; Duration: 30 day(s) 11/17/2020 Active amLODIPine Besylate 5 MG 1 tablet Orally Once a day; Duration: 30 day(s) Active Vital Signs Weight 200.8 lbs 10/06/2024 Blood pressure systolic 110 mm Hg 10/07/19 25 Blood pressure diastolic 80 mm Hg 025 Heart Rate 86 /min 10/06/2024 Height 71.50 in 10/06/2024 BMI 27.61 kg/m2 10/06/2024 Encounters Encounter Location Date Provider Diagnosis [place] [address] [facility] [address] [place] [id number] 10/06/2024 Zach Muro Influenza A J10.1 an d Episode of syncope R55 Assessments Encounter Date Diagnosis (ICD Code) Assessment Notes Treatment Notes Treatment Clinical Notes Section Notes 10/06/2024 Influenza A (ICD-10 - J10.1) 10/06/2024 Episode of syncope (ICD-10 - R55) 10/06/2024 Other Discharge summary with available lab/diagnostic imaging results obtained and reviewed. Discharge medication list reconciled. Appropriate counseling provided. Moderate Complexity Plan Of Treatment Treatment Notes Assessment Notes Other Discharge summary wi th available lab/diagnostic imaging results obtained and reviewed. Discharge medication list reconciled. Appropriate counseling provided. Moderate Complexity Next Appt Details Follow Up: With cardiology a nd GI, Reason: Progress Notes * RAKAN ARMAS GDOB: 5 (79 yo M)Acc No.[id number]:10/06/2024 Progress Notes Patient: RAKAN SHEN Provider: Zach Muro M.D. :1945 A ge:79 Y S ex:Male Date:10/06/2024 Address:[address] [place] [address], [facility] [id number] Subjective: * Chief Complaints: * 1 . F/U [facility]. * HPI: H PI: Patient is here today for a Transition of Care Visit. Discharge from the following Facility: [facility] ,Discharge date: Saturday09/25/2024 ,Date of phone contact following discharge: Saturday09/28/2024. . He was hospitalized with flu syndrome, dehydration and syncope. He is subjectively feeling better but still generally weak. Appetite is improving. He has been hydrating well. No further syncope. He is scheduled to follow-up with cardiology and is also to follow-up with GI for workup of anemia. * ROS: D ERMATOLOGY: no R sage. [...] Repair , esophagogastrodenscopy for eosinophilic esophagitis, Dr. Bidr, 03/16/11, 12/2006, Cholecystectomy 05/2009, C-scope/Dr. Fernando/ adenomatous [...] ouside US: yes. * Medications: T aking amLODIPine Besylate 5 MG Tablet 1 tablet Orally Once a day , Taking Eliquis 5 MG Tablet 1 tablet Orally [...] rash - Allergy. Objective: * Vitals: W t:200.8, Temp:97.8, BP:110/80, HR:86, O2 Sat:98% on RA, Nurse:[facility], Ht: 71.50, BMI:27.61. * Examination: G eneral Examination: General Appearance: N AD. O ral cavity: n o lesions, mucosa moist and WNL, no erythema. H eart: R SR. L ungs: c lear to auscultation.?Extremities: n o leg edema. Assessment: * Assessment: 1. I nfluenza A - J10.1 (Primary) 2 . E pisode of syncope - R55 ? Plan: * Treatment: * Procedure Codes: 9 9495 TRANS CARE MGMT 14 DAY DISCH, 1111F DSCHR MED/CURENT MED MERGE, G2211 Complex [place], [address] P[place], 3074F SYST BP LT 130 MM HG, 3079F DIAST BP 80- 89 MM HG * Follow Up: W ith cardiology and GI * Images: Billing Information: * Visit Code: 51848 Office Visit, Est Pt., Level 3. * Procedure Codes: 68586 TRANS CARE MGMT 14 DAY DISCH. 1111F DSCHR MED/CURENT MED MERGE. G2211 Complex e/[place]. [address] P[place]SE [place]. 3074F SYST BP LT 130 MM HG. 3079F DIAST BP 80-89 MM HG. * Electronic signature of Zach Muro MD on 05/24/2025 at 09:55 AM EST Sign off status: Pending * Provider: Zach Muro M.D. Date: 0 10/06/2024 Generated for Paigei margy/Alex/eTransmitting on: 07/24/2024 09:55 AM EST History and Physical Notes * HPI (History of Present Illness) Category Sub-Category Detail Notes Category Not es HPI Patient is here toda y for a Transition of Care Visit. Discharge from the following Facility: [facility] ,Discharge date: Saturday09/25/2024 ,Date of phone contact following discharge: Saturday09/28/2024. He was hospitalized with flu syndrome, dehydration and syncope. He is subjectively feeling better but still generally weak. Appetite is improving. He has been hydrating well. No further syncope. He is scheduled to follow-up with cardiology and is also to follow-up with GI for workup of anemia. Examination Category Sub-Category Detail Notes Category Not es General Examination Heart: RSR Lungs: clear to auscultatio n Extremities: no leg edema General Appearance: NAD Oral cavity: no lesions, mucosa m oist and WNL, no erythema
--- OUTSIDE RECORDS SUMMARY | 2024-12-28 06:15 | XMS_ITS ---
Author Organization [facility] Address [address] [facility] [address] [place] [id number] Care Team Providers Care Supervisor Carding Name Role Phone Zach Muro Primary Care Provider Alma Watters Unavailable [phone] Allergies Allergen (clinical drug ingredient) Drug/Non Drug Allergy documented on EMR Reaction Allergy Type Onset Date Status Sulfamethoxazole rash Drug Allergy Active Results Component Value Reference Range Notes P-Uric Acid Reviewed date:12/30/2024 12:22:33 PM Interpretation:8.3 Performing Lab: Notes/Report: Test performed by [facility] [address] [place] [address] , [address], [place] [address] Benji Sharma MD, Centrifugal Spinner CLIA: [id number] Uric Acid 8.3 3.4-8.0 mg/dL REASON FOR VISIT swelling in feet Medications Medication SIG (Take, Route, Frequency, Duration) Notes Start Date End Date Status Etodolac 400 MG 1 tablet with food Orally Twice a day; Duration: 30 days 11/17/2024 Not-Taking Triamcinolone Acetonide 0.1 % 1 application Externally Two times a day 01/07/2024 Active Bisoprolol Fumarate 10 MG 1 tablet Orall y Once a day Not-Taking Eliquis 5 MG 1 tablet Orally Twic e a day; Duration: 30 day(s) Not-Taking amLODIPine Besylate 5 MG 1 tablet Orally Once a day; Duration: 30 day(s) Not-Taking NexIUM 40 MG 1 capsule 1/2 to 1 h our before morning meal Orally Once a day Active Indomethacin 50 MG 1 capsule with food or milk Orally 3 times a day prn Active Medrol 4 MG as directed orally daily; Duration: 6 days 12/28/2024 Active Problems Problem Type SNOMED Code ICD Code Onset Dates Problem Status W/U Status Risk Notes Problem Acute gout (748014163) Acute gout (M10.9) Active confirmed Vital Signs Weight 209.4 lbs 12/28/2024 Blood pressure systolic 120 mm Hg 12/29/19 25 Blood pressure diastolic 80 mm Hg 025 Heart Rate 66 /min 12/28/2024 Height 71.50 in 12/28/2024 BMI 28.8 kg/m2 12/28/2024 Encounters Encounter Location Date Provider Diagnosis [facility] [address] [facility] [address] [place] [id number] 12/28/2024 Alma Watters Acute gout M10.9 and BMI 28.0-28.9,adult Z68.28 Assessments Encounter Date Diagnosis (ICD Code) Assessment Notes Treatment Notes Treatment Clinical Notes Section Notes 12/28/2024 Acute gout (ICD-10 - M10.9) Get a uric acid level today to check since one has not been done in awhile. Start Medrol dose pack and continue Indomethicin for gout. Updated medication list and instructed to take a baby aspirin since he quit his eliquis. Continue to monitor BP as he has quit those medications as well. Follow up as needed 12/28/2024 BMI 28.0-28.9,adul t (ICD-10 - Z68.28) Plan Of Treatment Medication Medication Name Sig Start Date Stop Date Notes Medrol 4 MG as directed orally daily; Duration: 6 days 03/2025 Treatment Notes Assessment Notes Acute gout Get a uric acid leve l today to check since one has not been done in awhile. Start Medrol dose pack and continue Indomethicin for gout. Updated medication list and instructed to take a baby aspirin since he quit his eliquis. Continue to monitor BP as he has quit those medications as well. Follow up as needed Next Appt Details Follow Up: prn, Reason: Progress Notes * RAKAN ARMAS GDOB: 5 (79 yo M)Acc No.[id number]:12/28/2024 Progress Notes Patient: RAKAN HSEN Provider: CHIOMA Goodwin :1945 A ge:79 Y S ex:Male Date:12/28/2024 Address:[address] [place] [address] , [place], [id number] Pcp:Zach Muro Subjective: * Chief Complaints: * 1 . Swelling in feet. * HPI: A nkle/Foot: 79 year old male presents with c/o Swelling P t is here with c/o swelling in both feet. Pt sts he has had gout before and sts he has been taking the Indomicin, but sts itjis not helping. Pt sts they have been swelling for about a week now. * ROS: D ERMATOLOGY: no R sage. [...] ouside US: yes. * Medications: T aking Indomethacin 50 MG Capsule 1 capsule with food or milk Orally 3 times a day prn , Taking NexIUM 40 MG Capsule Delayed Release 1 capsule 1/2 to 1 hour before morning meal Orally Once a day , Taking Triamcinolone Acetonide 0.1 % Cream 1 application Externally Two times a day , Not-Taking amLODIPine Besylate 5 MG Tablet 1 tablet Orally Once a day , Not-Taking Eliquis 5 MG Tablet 1 tablet Orally Twice a day , Not-Taking Bisoprolol Fumarate 10 MG Tablet 1 tablet Orally Once a day , Not- Taking Etodolac 400 MG Tablet 1 tablet with food Orally Twice a day , Medication List reviewed and reconciled with the patient * Allergies: S ulfamethoxazole: rash - Allergy. Objective: * Vitals: W t: 209.4, Temp: 97.5, BP: 120/80, HR: 66, O2 Sat: 98% on RA, Nurse: negin, Ht: 71.50, BMI:28.8. * Examination: G eneral Examination: General Appearance: N AD, appears healthy. H eart: R RR. L ungs: n ormal, clear to auscultation. P eripheral pulses: n ormal (2+) bilaterally. E xtremities: m inimal bilateral ankle edema right > left; some erythema of he great toes; not TTP. R heumatology: Lower extremity: R ight great toe joint swelling and redness. Assessment: * Assessment: 1. A cute gout - M10.9 (Primary) 2 . B ID 28.0-28.9,adult - Z68.28 ? Plan: * Treatment: Value Reference Range U enoch Acid 8.3 H 3.4-8.0 - mg/dL * Alma Watters 12/30/2024 12:22:15 PM EDT > See phone encounter Notes: Get a uric acid level today to check since one has not been done in awhile. Start Medrol dose pack and continue Indomethicin for gout. Updated medication list and instructed to take a baby aspirin since he quit his eliquis. Continue to monitor BP as he has quit those medications as well. Follow up as needed?? * Procedure Codes: G 2211 Complex e/m visit add on, 1036F TOBACCO NON-USER, G8420 BMI<30 AND >=22 CALC & DOCU, G8783 BP SCR PRFRM RCMDD DEFIND SCR INTVL, G8752 MOST RECENT SYSTOLIC BP < 140MM HG, G8754 MOST RECENT DIASTOLIC BP < 90MM HG * Follow Up: p rn * Images: Billing Information: * Visit Code: 96011 Office Visit, Est Pt., Level 3. * Procedure Codes: G2211 Complex e/m visit add on. 1036F TOBACCO NON-USER. G8420 BMI<30 AND >=22 CALC & DOCU. G8783 BP SCR PRFRM RCMDD DEFIND SCR INTVL. G8752 MOST RECENT SYSTOLIC BP < 140MM HG. G8754 MOST RECENT DIASTOLIC BP < 90MM HG. * Electronic signature of Lorraine Watters APRN on 05/24/2025 at 09:54 AM EST Sign off status: Pending * Provider: CHIOMA Goodwin Date: 0 12/28/2024 Generated for Aline ji/Alex/Lizzitting on: 07/24/2024 09:54 AM EST History and Physical Notes * HPI (History of Present Illness) Category Sub-Category Detail Notes Category Not es Ankle/Foot Swelling Pt is here with c/o swelling in both feet. Pt sts he has had gout before and sts he has been taking the Indomicin, but sts itjis not helping. Pt sts they have been swelling for about a week now Examination Category Sub-Category Detail Notes Category Not es General Examination Heart: RRR Lungs: normal, clear to aus cultation Extremities: minimal bilateral an kle edema right > left; some erythema of he great toes; not TTP General Appearance: NAD, appears healthy Peripheral pulses: normal (2+) bilatera lly Rheumatology Lower extremity: Right great toe joint sw elling and redness
--- OUTSIDE RECORDS SUMMARY | 2025-05-10 06:30 | XMS_ITS ---
Author Organization [facility] Address [address] [place], [place] [id number] Care Team Providers Care Toy Assembly Supervisor Name Role Phone Zach Muro Primary Care Provider Alma Watters Unavailable [phone] Allergies Allergen (clinical drug ingredient) Drug/Non Drug Allergy documented on EMR Reaction Allergy Type Onset Date Status Sulfamethoxazole rash Drug Allergy Active Results Component Value Reference Range Notes CBC Fingerstick (in house) Reviewed date:05/10/2025 01:32:35 PM Interpretation: Performing Lab: Notes/Report: wbc 6.7 3.5 - 10 lym 26.9 15 - 50 mid 7.9 2 - 15 gran 65.2 35 - 80 rbc 4.92 3.5 - 5.5 hgb 14.2 11.5 - 16.5 hct 42.7 35 - 55 mcv 86.6 75 - 100 mch 28.8 25 - 35 mchc 33.2 31 - 38 plat 127 100 - 400 REASON FOR VISIT Sore Throat Medications Medication SIG (Take, Route, Fr equency, Duration) Notes Start Date End Date Status Allopurinol 100 MG 1 tablet Orally Once a day; Duration: 30 days Active Vital Signs Weight 214.4 lbs 05/10/2025 Blood pressure systolic 120 mm Hg 05/10/20 25 Blood pressure diastolic 82 mm Hg 025 Heart Rate 62 /min 05/10/2025 Height 71.50 in 05/10/2025 BMI 29.48 kg/m2 05/10/2025 Encounters Encounter Location Date Provider Diagnosis [facility] [address] [place] [id number] 05/10/2025 Alma Watters Abdominal pain R10.9 and Upper respiratory symptom R09.89 Assessments Encounter Date Diagnosis (ICD Code) Assessment Notes Treatment Notes Treatment Clinical Notes Section Notes 05/10/2025 Abdominal pain (ICD-10 - R10.9) 05/10/2025 Upper respiratory symptom (ICD-10 - R09.89) fluids, rest, supportive measures for fever/symptom relief gargles q2h while awake with hot salt water Plan Of Treatment Treatment Notes Assessment Notes Upper respiratory symptom fluids, rest, supportive measures for fever/symptom relief gargles q2h while awake with hot salt water Pending Test Test Name Order Date CT scan : Abdomen and pelvis with contra st 05/10/2025 Next Appt Details Follow Up: after test, [place] n: Progress Notes * RAKAN ARMAS GDOB: 5 (79 yo M)Acc No.[id number]:05/10/2025 Progress Notes Patient: RAKAN SHEN Provider: CHIOMA Goodwin :1945 A ge:79 Y S ex:Male Date:05/10/2025 Address:[address] [place] [address] , [id number] Pcp:Zach Muro Subjective: * Chief Complaints: * 1 . Sore Throat. * HPI: E NT/respiratory: Pt states these symptoms started a week ago. Pt states his stomach hurts at times since he had surgery a few years ago. 79 year old male presents with c/o sore throat f eels scratchy. c/o Short of Breath. c/o headache. Denies : cough. D enies : nasal congestion. D enies : Fever. D enies : ear pain. D enies : rhinorrhea. D enies : post nasal drainage. D enies : Chest Pain. D enies : chest congestion. D enies : smoking. D enies : dizziness.?Denies : body aches. 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 c/o Abdominal Pain c onstant hurt/ache mid abdomen for about 1 month; movement or food does not make worse; has awakened him from sleep. Denies : Acid Reflux. D enies : Nausea. D enies : Vomiting. D enies : Diarrhea. D enies : Fever. D enies : Abdominal Distension. D enies : Blood in Stool. D enies : Hemetemesis. D enies : Belching. D enies : loose stools. D enies : Constipation. D enies : constipation. D enies : melena. D enies : Indigestion.?Denies : Bloating. Colonoscopy l ast 2018. * ROS: D ERMATOLOGY: no R sage. [...] ouside US: yes. * Medications: T aking Allopurinol 100 MG Tablet 1 tablet Orally Once a day , Discontinued NexIUM 40 MG Capsule Delayed Release 1 capsule 1/2 to 1 hour before morning meal Orally Once a day , Discontinued Triamcinolone Acetonide 0.1 % Cream 1 application Externally Two times a day , Discontinued Medrol 4 MG Tablet Therapy Pack as directed orally daily , Discontinued Etodolac 400 MG Tablet 1 tablet with food Orally Twice a day , Discontinued amLODIPine Besylate 5 MG Tablet 1 tablet Orally Once a day , Discontinued Eliquis 5 MG Tablet 1 tablet Orally Twice a day , Discontinued Bisoprolol Fumarate 10 MG Tablet 1 tablet Orally Once a day , Medication List reviewed and reconciled with the patient * Allergies: S ulfamethoxazole: rash - Allergy. Objective: * Vitals: W t: 214.4, Temp: 97.8, BP: 120/82, HR: 62, Nurse: simi, Ht: 71.50, BMI:29.48. * Examination: G eneral Examination: General Appearance: N AD, appears healthy, alert, pleasant, well nourished and hydrated. H EENT: s clera and conjunctiva clear, PERRLA, TM's normal, translucent. O ral cavity: m ucosa moist and WNL, no erythema. N drake: s upple, no lymphadenopathy. H eart: R RR. L ungs: C TAB A&P. A bdomen: b owel sounds present, soft; periumbilical tenderness around previous surgical site, no guarding or rigidity, no organomegaly or masses. N eurologic Exam: a lert and oriented. Assessment: * Assessment: 1. A bdominal pain - R10.9 (Primary) S pecify :with H/O previous bowel perforation/abscess 2 . U pper respiratory symptom - R09.89 Plan: * Treatment: 2.?Upper respiratory symptom? Notes: fluids, rest, supportive measures for fever/symptom relief gargles q2h while awake with hot salt water?? * Labs: * L ab: CBC Fingerstick (in house) (Collection Date & Time - 05/10/2025) Value Reference Range w bc 6.7 3.5 - 10 * l ym 26.9 15 - 50 * m id 7.9 2 - 15 * g ran 65.2 35 - 80 * r bc 4.92 3.5 - 5.5 * h gb 14.2 11.5 - 16.5 * h ct 42.7 35 - 55 * m cv 86.6 75 - 100 * m ch 28.8 25 - 35 * m chc 33.2 31 - 38 * p lat 127 100 - 400 * Ciarra Ross 05/10/2025 12:31:56 PM EDT > Provider reviewed results while patient in office.Alam Watters 05/10/2025 01:32:32 PM EDT > * Procedure Codes: G 2211 Complex e/[place], [address] CAPILLARY BLOOD DRAW, 40994 CBC WITH AUTO DIFF, 1036F TOBACCO NON-USER, G8783 BP SCR PRFRM RCMDD DEFIND SCR INTVL, G8752 MOST RECENT SYSTOLIC BP < 140MM HG, G8754 MOST RECENT DIASTOLIC BP < 90MM HG, 3074F SYST BP LT 130 MM HG, 3079F DIAST BP 80-89 MM HG * Follow Up: a fter test * Images: Billing Information: * Visit Code: 74196 Office Visit, Est Pt., Level 4. * Procedure Codes: G2211 Complex e/[place]. [address] CAPILLARY BLOOD DRAW. 48061 CBC WITH AUTO DIFF. 1036F TOBACCO NON-USER. G8783 BP SCR PRFRM RCMDD DEFIND SCR INTVL. G8752 MOST RECENT SYSTOLIC BP < 140MM HG. G8754 MOST RECENT DIASTOLIC BP < 90MM HG. 3074F SYST BP LT 130 MM HG. 3079F DIAST BP 80-89 MM HG. * Electronic signature of Lorraine Watters APRN on 05/24/2025 at 09:56 AM EST Sign off status: Pending * Provider: CHIOMA Goodwin Date: Generated for Aline ji/Alex/eTransmitting on: 07/24/2024 09:56 AM EST History and Physical Notes * HPI (History of Present Illness) Category Sub-Category Detail Notes Category Not es ENT/respiratory sore throat feels scratchy ear pain Short of Breath Chest Pain cough Fever post nasal drainage headache chest congestion rhinorrhea nasal congestion smoking dizziness body aches Gastroenterology Fever Vomiting Abdominal Pain constant hurt/ache m id abdomen for about 1 month; movement or food does not make worse; has awakened him from sleep Diarrhea Blood in Stool Hemetemesis Nausea Abdominal Distension Acid Reflux Constipation Belching loose stools constipation melena Indigestion Bloating Colonoscopy last 2019 Examination Category Sub-Category Detail Notes Category Not es General Examination HEENT: sclera and c onjunctiva clear, PERRLA, TM's normal, translucent Heart: RRR Lungs: CTAB A&P Abdomen: bowel sounds present , soft; periumbilical tenderness around previous surgical site, no guarding or rigidity, no organomegaly or masses General Appearance: NAD, appears healthy , alert, pleasant, well nourished and hydrated Neurologic Exam: alert and oriented Neck: supple, no lymphaden opathy Oral cavity: mucosa moist and WNL , no erythema
--- NOTE | 2025-05-24 09:49 | CT_ITS ---
FINAL REPORT TECHNIQUE: Thin section axial images are obtained through the abdomen and pelvis after intravenous contrast. Reconstruction images were obtained from the axial data. Exam was performed using dose reduction techniques. CLINICAL HISTORY: ABD PAIN COMPARISON: None FINDINGS: LUNG BASES: Lung bases are clear. Heart size is normal. LIVER: There is diffuse fatty infiltration of the liver. No focal lesion. GALLBLADDER/BILIARY SYSTEM: The gallbladder is surgically absent. No biliary dilatation. SPLEEN: Unremarkable. PANCREAS: Unremarkable. ADRENALS: Unremarkable. KIDNEYS/URETERS/BLADDER: No hydronephrosis, renal mass, or renal stone. Unremarkable urinary bladder. GI TRACT: There is an anastomosis between small bowel loops in the left upper quadrant of the abdomen. No small bowel obstruction or dilatation. There are nonspecific fluid-filled small bowel loops noted in the lower abdomen, which may be seen with enteritis. Normal appendix. Diverticulosis is noted without evidence of diverticulitis. PELVIC ORGANS: The prostate is mildly enlarged. LYMPH NODES/RETROPERITONEUM/MESENTERY: No lymphadenopathy. No abdominal aortic aneurysm. ABDOMINAL WALL: The abdominal wall is intact. FREE FLUID: No ascites. BONES: No acute osseous abnormality. IMPRESSION: Nonspecific fluid-filled small bowel loops in the lower abdomen, which may be seen with enteritis. Diffuse fatty infiltration of the liver. Reviewed, Interpreted and Dictated by Rayna Hansen MD Transcribed by Arielle Kong Authenticated and [facility]
--- OUTSIDE RECORDS SUMMARY | 2025-05-24 09:55 | XMS_ITS | Encounter Summary ---
Author Organization [facility] ([place], [place], [place], [place], [place]) Address [address] [place] [address] Care Team Providers Care Batch Operator Name Role Phone Unavailable Primary Care Provider Unavailabl e Encounter Details Date Type Department Care Team (Late st Contact Info) Description 08/30/2018 Transcribed Document [facility] Family Medicine [facility] [place] [address] ProviderCindi MD [address] [place] [address] Social History Tobacco Use Types Packs/Day Years Used Date Smoking Tobacco: Never Assessed Sex and Gender Information Value Date Recorded Sex Assigned at Male 01/16/2022 11:42 AM CDT Legal Sex Male 11:42 AM CDT Gender Identity Male 01/16/2022 11:42 AM CDT Sexual Orientation Not on file documented as of this encounter Miscellaneous Notes * Cerner Conversion Note - Historical ProviderMD - 08/30/2018 9:50 AM ORACLE BPM CONSULTANT [facility] Charges Entered On: 08/30/2018 9:50 EST Performed On: 08/30/2018 9:50 EST by OSCAR MULTANI PT [facility] Charges Physical Therapy Screen : 1 OSCAR MULTANI PT - 08/30/2018 9:50 EST Electronically signed by Tavia [facility] Conversion Food Porter Cerner at 11/04/2022 10:22 AM CDT documented in this encounter Plan of Treatment Not on file documented as of this encounter Visit Diagnoses Not on filedocumented in this encounter
--- OUTSIDE RECORDS SUMMARY | 2025-05-24 09:55 | XMS_ITS | Encounter Summary ---
Author Organization [facility] ([place], [place], [place], [place], [place]) Address [address] [place] [address] Care Team Providers Care Risk Adjustment Specialist Name Role Phone Unavailable Primary Care Provider Unavailabl e Encounter Details Date Type Department Care Team (Late st Contact Info) Description 08/26/2018 Transcribed Document [facility] [place] [facility] [place] [address] ProviderCindi MD [address] [place] [address] Social History Tobacco Use Types Packs/Day Years Used Date Smoking Tobacco: Never Assessed Sex and Gender Information Value Date Recorded Sex Assigned at Male 01/16/2022 11:42 AM CDT Legal Sex Male 11:42 AM CDT Gender Identity Male 01/16/2022 11:42 AM CDT Sexual Orientation Not on file documented as of this encounter Miscellaneous Notes * Cerner Conversion Note - Historical ProviderMD - 08/26/2018 8:36 PM 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 Admission History, Adult Entered On: 08/26/2018 20:42 EST Performed On: 08/26/2018 20:36 EST by Mary Farrar RN Advance Directive Patient has Advance Directive *Q : No, patient refuses Advance Directive information Mary Farrar RN - 08/26/2018 20:36 EST Anesthesia/Transfusion History Family History of Anesthesia Reaction : No prior transfusion(s) Transfusion History : Prior anesthesia without reaction Family History of Anesthesia Reaction : None Mary Farrar RN - 08/26/2018 20:36 EST Functional Assessment Living Situation : Home Current Home Treatments : None Mary Farrar RN - 08/26/2018 20:36 EST General Info Want Family/Rep/Phys Notified of Admit : No Emergency Contact #1 : Devonte arriaga Emergency Contact #1 Emergency Contact #1 Relationship : son Emergency Contact #2 : Narciso Lima Emergency Contact #2 Emergency Contact #2 Relationship : brother in law Primary Language : Vietnamese Communication Barrier : None Mary Farrar RN - 08/26/2018 20:36 EST Fall Risk Scales ABCs Fall Injury Risk Identification : None CHAVIS Hx Falls Immediate/Within 3 Months : No Chavis Secondary Diagnosis : No CHAVIS Use of Ambulatory Aid : None CHAVIS IV Therapy or IV Access : Yes Chavis Gait/Transferring : Normal, bedrest, immobile Chavis Mental Status : Oriented to own ability Chavis Fall Risk Score : 20 CHAVIS Fall Scale Risk Level : 0-24 Low Risk [place] Fall Interventions : Adequate lighting, Assistive devices within reach, Bed in low position, Call device within reach, Fall prevention handout/education per facility policy, Frequent orientation to call device, Frequent orientation to surroundings, Hourly comfort/safety rounds, Non-slip footwear, Personal items within reach, Reinforced to call for assistance before getting out of bed, Room free of clutter/spills, Upper side-rails up, Wheels locked, Wires/Cords secured Mary Farrar RN - 08/26/2018 20:36 EST Health Histories Smoking Status : Never (less than 100 in lifetime; none in last 30 days) Smokeless Tobacco Status : Never Mary Farrar RN - 08/26/2018 20:36 EST Social History (As Of: 08/26/2018 20:42:49 EST) Height and Weight, Clinical Dosing Height Source : Stated Height Entry Format : [place] Height, Feet : 6 ft(Converted to: 183 cm, 72 Inch) Height, Inches : 0 Inch(Converted to: 0 ft 0 Inch, 0.00 cm) Clinical Height : 182.88 cm Weight Source : Standing scale Weight Entry Format : [place] Clinical Dosing Weight : 95.45 kg Weight, Pounds : 210 lb Body Surface Area (BSA) : 2.18 m2 Body Mass Index : 28.5 kg/m2 (HI) [place] Body Weight : 77 kg Mary Farrar RN - 08/26/2018 20:36 EST Infectious Disease History Infectious Disease History : Measles Fever/Chills Last 48 Hours : No Travel To Regions with Travel Advisories : No Travel Outside [place] Within Last 30 Days : No Contact With Traveler to Advisory Region : No Tuberculosis Symptoms : None Mary Farrar RN - 08/26/2018 20:36 EST Influenza Vaccine Asmt, Adult Previous Vaccines from Immunization Schedule : No qualifying data available. Influenza Immunization, Current Season : No Inactivated Flu Vaccine Contraindications : No contraindications to inactivated influenza vaccine Transplant Workup/Recent Transplant : No Order for Influenza Vaccine : Declined Vaccination Mary Farrar RN - 08/26/2018 20:36 EST Pneumococcal Vaccine Previous Vaccines from Immunization Schedule : No qualifying data available. Pneumonia Immunization Received : No Pneumococcal Risk Assessment < Age 65 : N/A- Patient 65 years of age or older Pneumococcal Vaccine Contraindications : No contraindications to pneumococcal vaccine Transplant Workup/Recent Transplant : No Order for Pneumococcal Vaccine : Declined Vaccination Mary Farrar RN - 08/26/2018 20:36 EST Nutrition History Eating Poorly Due to Decreased Appetite : No Unplanned Weight Loss in Past 3-6 Months : No Malnutrition Screening Tool Total(mal) : 0 Malnutrition Screening Tool Risk Level : Patient not at risk Mary Farrar RN - 08/26/2018 20:36 EST Psychosocial History Currently in Unsafe Situation : No Tried to Harm Yourself in the Past? : No Thoughts of Harming/Killing Yourself : No Mary Farrar RN - 08/26/2018 20:36 EST Sleep Apnea Risk Assmt BMI Greater Than 35 kg/m2 : No Neck Circumference Measured (cms) : 17 cm STOP-BANG Sleep Apnea Risk Level Score : 1 Asim Alvarenga RN - 08/31/2018 18:30 EST Hx of Obstructive Sleep Apnea Diagnosis : No Snore Loudly : No Tired, Fatigued, or Sleepy During Day : No Observed Stopping Breathing During Sleep : No Have/Are Being Treated for Hypertension : No STOP Sleep Apnea Risk Level Score : 0 STOP Sleep Apnea Risk Level : Low Age over 50 Years Old : No Gender Male : Yes Neck Circumference Greater Than 40 cm : No Mary Farrar RN - 08/26/2018 20:36 EST Valuables and Belongings Valuables and Belongings : Clothing Clothing : Common streetwear Clothing Disposition : Bedside Mary Farrar RN - 08/26/2018 20:36 EST documented in this encounter Plan of Treatment Not on file documented as of this encounter Visit Diagnoses Not on filedocumented in this encounter
--- OUTSIDE RECORDS SUMMARY | 2025-05-24 09:55 | XMS_ITS | Encounter Summary ---
Author Organization [employer] ([place], [place], [place], [place], [place]) Address [address] [place] [address] Care Team Providers Care Computer System Technician Name Role Phone Unavailable Primary Care Provider Unavailabl e Encounter Details Date Type Department Care Team (Late st Contact Info) Description 09/01/2018 Transcribed Document [facility] [place] Family Medicine [facility] [place] [address] ProviderCindi MD [address] [place] [address] Social History Tobacco Use Types Packs/Day Years Used Date Smoking Tobacco: Never Assessed Sex and Gender Information Value Date Recorded Sex Assigned at Male 01/16/2022 11:42 AM CDT Legal Sex Male 11:42 AM CDT Gender Identity Male 01/16/2022 11:42 AM CDT Sexual Orientation Not on file documented as of this encounter Miscellaneous Notes * Cerner Conversion Note - Historical ProviderMD - 09/01/2018 5:26 AM PENSION EXAMINER Patient: RAFAT ARMAS Age: 72 Years Sex: Male : 1945 Subjective Post Op SB resection Intake & Output Intake & Output Totals Last 24 Hours (7a-7a) Intake (12 Events) Continuous Infusions (587.5 mL) Medications (50 mL) Oral Fluids (600 mL) Output (6 Events) Urine Voided (Volume) (1430 mL) Input Total: 1237.5 mL Output Total: 1430 mL Balance: -192.5 mL Vital Signs T: 36.8 ??C TMIN: 36.7 ??C TMAX: 36.9 ??C HR: 81(Monitored) RR: 16 BP: 153/96 SpO2: 96% Physical Exam ABD soft wound OK VTE Risk Total Score VTE Prophylaxis - Surgical Heparin 5,000 Units, SubCutaneous, Inj, [id number], Routine, Start 08/26/18 20:00:00 EST (LILY VILLAFANA) Sequential Compression Device Start: 08/26/18 19:58:00 EST, Bilateral, Length: Knee High, While patient is in bed, Continuous Order (LILY VILLAFANA) Sequential Compression Device Start: 08/26/18 19:58:00 EST, Bilateral, Continuous Order (LILY VILLAFANA) Assessment/Plan Path still pending recovered advance diet DC Home Cutaneous abscess, unspecified L02.91, Cutaneous abscess, unspecified L02.91 Orders: Communication to Nursing Diet, Adult Medications Inpatient acetaminophen-HYDROcodone 325 mg-5 mg oral tablet, 1 Tab, Oral, Q4H, PRN alteplase + sterile water 1 mL cloNIDine 50 mcg + dexamethasone 4 mg + bupivacaine-EPINEPHrine 0.25%-1:200,000 injectable solution Colace, 100 mg= 1 Cap, Oral, BID Flagyl, 500 mg= 1 Tab, Oral, TID heparin, 5000 Units= 1 mL, SubCutaneous, [id number] insulin lispro sliding scale, Scale A:, SubCutaneous, AC and at Bedtime lisinopril, 10 mg= 1 Tab, Oral, BID MiraLax, 17 Gram= 1 Packet, Oral, Daily, PRN Normal Saline Flush, 10 mL, IntraCATHeter, Q12H Rocephin Sodium Chloride 0.9% intravenous solution 1,000 mL, 1000 mL, IntraVENous Tylenol, 650 mg= 2 Tab, Oral, Q4H, PRN Zofran, 4 mg= 2 mL, IV Push, Q4H, PRN Home Flomax 0.4 mg oral capsule, 0.4 mg= 1 Cap, Oral, Daily hydrOXYzine pamoate 25 mg oral capsule, 25 mg= 1 Cap, Oral, At Bedtime, PRN Routine Labs - Last 24 Hours AUG 30 08:20 139 107 16 / 77 4.1 23 0.80 \ No qualifying data available. Imaging Results (Last 24 Hours) No Radiology Results Found Problem List/Past Medical History Ongoing Kidney stones Historical No qualifying data Procedure/Surgical History CHOLECYSTECTOMY, collarbone sx, knee sx, rotator cuff sx. Allergies sulfa drugs Electronically signed by Interface, [facility] Conversion Print Traffic Manager Cerner at 11/04/2022 10:06 AM CDT documented in this encounter Plan of Treatment Not on file documented as of this encounter Visit Diagnoses Not on filedocumented in this encounter
--- OUTSIDE RECORDS SUMMARY | 2025-05-24 09:55 | XMS_ITS | Encounter Summary ---
Author Organization [employer] ([place], [place], [place], [place], [place]) Address [address] [place] [address] Care Team Providers Care Head Golf Professional Name Role Phone Unavailable Primary Care Provider Unavailabl e Encounter Details Date Type Department Care Team (Late st Contact Info) Description 08/31/2018 Transcribed Document [facility] [place] [facility] [place] [address] ProviderCindi MD [facility] [place] [place] [address] Social History Tobacco Use Types Packs/Day Years Used Date Smoking Tobacco: Never Assessed Sex and Gender Information Value Date Recorded Sex Assigned at Male 01/16/2022 11:42 AM CDT Legal Sex Male 11:42 AM CDT Gender Identity Male 01/16/2022 11:42 AM CDT Sexual Orientation Not on file documented as of this encounter Miscellaneous Notes * Cerner Conversion Note - Cindi ProviderMD - 08/31/2018 2:57 PM MANUGRAPHER Patient: RAFAT ARMAS Age: 72 years Sex: Male : 1945 Associated Diagnoses: None Author: ZOEY BERGER MD Subjective 72 yo male was admitted for abd pain and possible abscess ct showed perforation and abscess s/p small bowel resection and abscess draing saw him today in am awake, no cp or sob, said he feel better on CLD now and will advance diet he has picc line per ID, will need iv rocephine and flagyl as outpatient his BP is high ROS: no fever, no cp or osb, feel nause and abd pain Health Status Allergies: Allergic Reactions (Selected) Severity Not Documented Sulfa drugs- No reactions were documented., Allergies (1) Active Reaction sulfa drugs None Documented Current medications: (Selected) Inpatient Medications Ordered Colace: 100 mg, Oral, BID Flagyl: 500 mg, Oral, TID MiraLax: 17 Gram, Oral, Daily, PRN: Constipation Normal Saline Flush: 10 mL, IntraCATHeter, Q12H Rocephin: 2 Gram, 100 mL/Hr, IV Piggyback, [id number] Sodium Chloride 0.9% intravenous solution 1,000 mL: 50 mL/Hr, IntraVENous Tylenol: 650 mg, Oral, Q4H, PRN: Pain (Mild 1-3) Zofran: 4 mg, IV Push, Q4H, PRN: Nausea acetaminophen-HYDROcodone 325 mg-5 mg oral tablet: 1 Tab, Oral, Q4H, PRN: Pain (Mild 1-3) alteplase + sterile water 1 mL: 1 mg, 60 mL/Hr, IntraCATHeter, 1-Time, PRN: Other (See Comment) cloNIDine 50 mcg + dexamethasone 4 mg + bupivacaine-EPINEPHrine 0.25%-1:200,000 injectable solution...: 50 mcg, 0.5 mL, 0 mL/Hr, Nerve Root Block, 1-Time heparin: 5,000 Units, SubCutaneous, [id number] insulin lispro sliding scale: Scale A:, SubCutaneous, AC and at Bedtime lisinopril: 10 mg, Oral, BID Documented Medications Documented Flomax 0.4 mg oral capsule: 1 Cap, Oral, Daily, 0 Refill(s) hydrOXYzine pamoate 25 mg oral capsule: 1 Cap, Oral, At Bedtime, PRN: for sleep, 40 Cap, 0 Refill(s), Home Medications (2) Active Flomax 0.4 mg oral capsule 0.4 mg = 1 Cap, Oral, Daily hydrOXYzine pamoate 25 mg oral capsule 25 mg = 1 Cap, PRN, Oral, At Bedtime , Medications (14) Active Scheduled: (8) #NaCl 0.9% *FLUSH* inj 10 mL 10 mL, IntraCATHeter, Q12H cefTRIAXone 2 Gram, IV Piggyback, [id number] cloNIDine 50 mcg + dexamethasone 4 mg + bupivac 0.25% w/epi 1: 28.5 mL 50 mcg 0.5 mL, Nerve Root Block, 1-Time docusate sodium 100 mg cap 100 mg 1 Cap, Oral, BID heparin 5,000 units/1 mL inj 5,000 Units 1 mL, SubCutaneous, [id number] insulin lispro 1 unit/0.01 mL inj Scale A:, SubCutaneous, AC and at Bedtime lisinopril 10 mg tab 10 mg 1 Tab, Oral, BID metroNIDAZOLE 500 mg tab 500 mg 1 Tab, Oral, TID Continuous: (1) NaCl 0.9% 1,000 mL 1,000 mL, IntraVENous, 50 mL/Hr PRN: (5) acetaminophen 325 mg tab 650 mg 2 Tab, Oral, Q4H acetaminophen/HYDROcodone 325/5 mg tab 1 Tab, Oral, Q4H alteplase + sterile water 1 mL 1 mg, IntraCATHeter, 1-Time ondansetron 4 mg/2 mL inj 4 mg 2 mL, IV Push, Q4H polyethylene glycol 3350 pwd 17 g pkt 17 Gram 1 Packet, Oral, Daily Problem list: No problem items selected or recorded., Active Problems (1) Kidney stones Objective VS/Measurements Vitals Signs (last 24 hrs) Last Charted Minimum Maximum Temp 98.3 (AUG 31 06:28) 97.5 (AUG 30 18:10) 98.5 (AUG 30 23:45) Mon HR 62 (AUG 31 12:20) 61 (AUG 31 03:15) 73 (AUG 30 18:10) Resp Rate 16 (AUG 31 06:28) 16 (AUG 30 18:00) 17 (AUG 30 16:30) SBP H 152 (AUG 31 12:20) H 145 (AUG 30 18:10) H 168 (AUG 31 11:10) DBP H 96 (AUG 31 12:20) 83 (AUG 30 23:45) H 98 (AUG 31 11:10) MAP 110 (AUG 31 12:20) 110 (AUG 31 12:10) 140 (AUG 31 11:10) SpO2 96 (AUG 31 08:00) 95 (AUG 31 03:15) 97 (AUG 30 23:45) General: Alert and oriented, No acute distress. Neck: Supple, Non-tender, No jugular venous distention. Respiratory: Respirations are non-labored, Breath sounds are equal, Symmetrical chest wall expansion, No chest wall tenderness. Cardiovascular: Normal rate, No murmur, No gallop. Gastrointestinal: Soft, Normal bowel sounds, packed , s/p surgery. Musculoskeletal: No tenderness, No deformity. Integumentary: Warm, Intact, No pallor. Neurologic: Alert, Oriented, No focal deficits. Psychiatric: Cooperative, anxiety, Not appropriate mood & affect. Results Review Lab and test: Labs (Last four charted values) WBC 8.6 (AUG 31) H 10.8 (AUG 30) H 13.0 (AUG 29) H 15.1 (AUG 28) HB L 11.5 (AUG 31) L 11.6 (AUG 30) L 12.7 (AUG 29) L 12.8 (AUG 28) HCT L 35.4 (AUG 31) L 36.9 (AUG 30) L 39.3 (AUG 29) L 39.0 (AUG 28) Plt 236 (AUG 31) 231 (AUG 09) 243 (AUG 08) 260 (AUG 28) Na 139 (AUG 30) 137 (AUG 28) 139 (AUG 27) 140 (AUG 26) K 4.1 (AUG 30) 4.7 (AUG 07) 4.3 (AUG 27) 4.1 (AUG 05) Cl 107 (AUG 30) 105 (AUG 28) 107 (AUG 27) 106 (AUG 05) CO2 23 (AUG 30) 25 (AUG 28) 24 (AUG 27) 26 (AUG 26) BUN 16 (AUG 30) 20 (AUG 28) H 23 (AUG 27) H 23 (AUG 26) Cr 0.80 (AUG 30) 1.10 (AUG 07) 1.30 (AUG 06) 1.29 (AUG 05) Glu R 77 (AUG 30) H 137 (AUG 07) 98 (AUG 06) 104 (AUG 05) Ca L 7.3 (AUG 09) L 7.8 (AUG 07) L 7.7 (AUG 06) L 7.8 (B 05) PT 11.9 (B 05) 11.9 (B 05) INR 1.1 (AUG 26) 1.1 (AUG 05) AST 18 (AUG 28) 35 (AUG 27) H 74 (AUG 26) H 73 (AUG 26) ALT 34 (AUG 28) 41 (AUG 27) 53 (AUG 26) 47 (AUG 26) ALK P 118 (AUG 28) 124 (AUG 27) H 163 (AUG 26) H 157 (AUG 26) T Bili 0.9 (AUG 28) H 1.5 (AUG 27) H 1.6 (AUG 26) H 1.6 (AUG 26) PTN L 5.6 (AUG 28) L 5.4 (AUG 27) L 6.3 (AUG 26) L 6.1 (AUG 26) ALB L 1.8 (AUG 28) L 1.9 (AUG 27) L 2.2 (AUG 26) L 2.1 (AUG 26) No Radiology Results Found Diagnosis / problem perforation of proximal jejunum and mesenteric bowel, s/p resection sepsis on admit- resolved intra-abd abscess BPH HTN Plan: 1. see above medication list for treatment. 2. add lisinooril 10 mg bid 3. cont iv abx rocephin and flagyl , f/u ID 4. pain control, advance diet 5. f/u final culture mixed bacteria 6. heparin sq 7. d/w pat and plan d/c to rehab or infusuion center on saturday with iv abx also, then f/u ID dr. [email or web address] in 1 week documented in this encounter Plan of Treatment Not on file documented as of this encounter Visit Diagnoses Not on filedocumented in this encounter
--- OUTSIDE RECORDS SUMMARY | 2025-05-24 09:55 | XMS_ITS | Encounter Summary ---
Author Organization [employer] ([place], [place], [place], [place], [place]) Address [address] [place] [address] Care Team Providers Care Integrated Circuit Ic Layout Designer Name Role Phone Unavailable Primary Care Provider Unavailabl e Encounter Details Date Type Department Care Team (Late st Contact Info) Description 08/26/2018 Transcribed Document [facility] [place] [facility] [place] [address] ProviderCindi MD [address] [place] [address] Social History Tobacco Use Types [...] Conversion Note - Historical ProviderMD - 08/26/2018 7:58 PM PATIENT SERVICES CLERK Consult Phone Call Documentation Entered On: 08/26/2018 20:24 EST Performed On: 08/26/2018 19:58 EST by MIKEY ADEN Phone Call for Consults Consult Phone Call/Page Attempt : Other: already seen by doctor MIKEY Tapia - 08/26/2018 20:24 EST Electronically signed by Jill Squires Conversion Community Health Education Coordinator Cerner at 11/04/2022 10:27 AM CDT documented in this encounter Plan of Treatment Not on file documented as of this encounter Visit Diagnoses Not on filedocumented in this encounter
--- OUTSIDE RECORDS SUMMARY | 2025-05-24 09:55 | XMS_ITS | Encounter Summary ---
Author Organization [employer] ([place], [place], [place], [place], [place]) Address [address] [place] [address] Care Team Providers Care Armored Truck Driver Name Role Phone Unavailable Primary Care Provider Unavailabl e Encounter Details Date Type Department Care Team (Late st Contact Info) Description 08/31/2018 Transcribed Document [facility] [place] [address] [place] [address] ProviderCindi MD [address] [place] [address] Social History Tobacco Use Types Packs/Day Years Used Date Smoking Tobacco: Never Assessed Sex and Gender Information Value Date Recorded Sex Assigned at Male 01/16/2022 11:42 AM CDT Legal Sex Male 11:42 AM CDT Gender Identity Male 01/16/2022 11:42 AM CDT Sexual Orientation Not on file documented as of this encounter Miscellaneous Notes * Cerner Conversion Note - Historical ProviderMD - 08/31/2018 2:[address] Operations Clerk Details Entered On: 08/31/2018 0:16 EST Performed On: 08/31/2018 2:00 EST by JORGE ALBERTO CARDONA RN Order Details Transport Mode Order Detail : Wheelchair Isolation Precautions Order Detail : Standard Precautions Order Detail : N/A IV Order Detail : 1 Oxygen Order Detail : 0 Nurse Collect Order Detail : 0 Lift/Transfer : Independent Central Line Order Detail : Yes Room Service : Not Appropriate Arterial Line : No JORGE ALBERTO CARDONA RN - 08/31/2018 0:16 EST Electronically signed by Tavia [facility] Conversion Software Intern Cerner at 11/04/2022 10:21 AM CDT documented in this encounter Plan of Treatment Not on file documented as of this encounter Visit Diagnoses Not on filedocumented in this encounter
--- OUTSIDE RECORDS SUMMARY | 2025-05-24 09:55 | XMS_ITS | Encounter Summary ---
Author Organization [employer] ([place], [place], [place], [place], [place]) Address [address] [place] [address] Care Team Providers Care Manager Technical Services Name Role Phone Unavailable Primary Care Provider Unavailabl e Encounter Details Date Type Department Care Team (Late st Contact Info) Description 08/26/2018 Transcribed Document [facility] [place] [facility] [place] [address] ProviderCindi MD [address] [place] [id number] Social History Tobacco Use Types Packs/Day Years Used Date Smoking Tobacco: Never Assessed Sex and Gender Information Value Date Recorded Sex Assigned at Male 01/16/2022 11:42 AM CDT Legal Sex Male 11:42 AM CDT Gender Identity Male 01/16/2022 11:42 AM CDT Sexual Orientation Not on file documented as of this encounter Miscellaneous Notes * Cerner Conversion Note - Historical ProviderMD - 08/26/2018 8:42 PM AUTO MECHANIC SUPERVISOR Care Management Assessment/Plan Entered On: 08/27/2018 11:09 EST Performed On: 08/27/2018 11:05 EST by ESTHER GRIFFIN Care Management Note Care Management Note : Received from [facility] due to intra-abdominal abscess, being admitted with the same. Pt off the floor for surgery during IDT rounds. CM will follow. Documentation Status Complete : Yes ESTHER GRIFFIN - 08/27/2018 11:05 EST documented in this encounter Plan of Treatment Not on file documented as of this encounter Visit Diagnoses Not on filedocumented in this encounter
--- OUTSIDE RECORDS SUMMARY | 2025-05-24 09:55 | XMS_ITS | Clinical Summary ---
Author Organization [employer] ([place], [place], [place], [place], [place]) Address [address] [place] [address] Care Team Providers Care Technical Sales Specialist Name Role Phone Unavailable Primary Care Provider Unavailabl e Social History Tobacco Use Types Packs/Day Years Used Date Smoking Tobacco: Never Assessed Sex and Gender Information Value Date Recorded Sex Assigned at Male 01/16/2022 11:42 AM CDT Legal Sex Male 11:42 AM CDT Gender Identity Male 01/16/2022 11:42 AM CDT Sexual Orientation Not on file Plan of Treatment Not on file
--- OUTSIDE RECORDS SUMMARY | 2025-05-24 09:55 | XMS_ITS | Encounter Summary ---
Author Organization [employer] ([place], [place], [place], [place], [place]) Address [address] [place] [address] Care Team Providers Care Marketing Lead Name Role Phone Unavailable Primary Care Provider Unavailabl e Encounter Details Date Type Department Care Team (Late st Contact Info) Description 08/31/2018 Transcribed Document [facility] [place] [address] [place] [address] ProviderCindi MD [address] [place] [address] Social History Tobacco Use Types [...] Conversion Note - Historical ProviderMD - 08/31/2018 5:00 AM WAFER MOUNTER Chart Check - Review Order Profile Entered On: 08/31/2018 3:04 EST Performed On: 08/31/2018 5:00 EST by JORGE ALBERTO CARDONA RN Chart Check Chart Reviewed Date and Time : 08/31/2018 4:00 EST Powerplans Initiated/Discontinued as Appropriate : Yes All Active Orders Reviewed : Yes JORGE ALBERTO CARDONA RN - 08/31/2018 3:04 EST documented in this encounter Plan of Treatment Not on file documented as of this encounter Visit Diagnoses Not on filedocumented in this encounter
--- OUTSIDE RECORDS SUMMARY | 2025-05-24 09:55 | XMS_ITS | Encounter Summary ---
Author Organization [employer] ([place], [place], [place], [place], [place]) Address [address] [place] [address] Care Team Providers Care Wine Consultant Name Role Phone Unavailable Primary Care Provider Unavailabl e Encounter Details Date Type Department Care Team (Late st Contact Info) Description 08/31/2018 Transcribed Document [facility] [place] [facility] [place] [address] ProviderCindi MD [address] [place] [address] Social History Tobacco Use Types [...] Conversion Note - Historical ProviderMD - 08/31/2018 11:16 AM SENIOR WATER RESOURCES ENGINEER Patient: RAFAT ARMAS Age: 72 Years Sex: Male : 1945 Subjective Post OP SB resection Intake & Output Intake & Output Totals Last 24 Hours (7a-7a) Intake (27 Events) Continuous Infusions (3000 mL) Medications (50 mL) Oral Fluids (720 mL) Output (7 Events) Urine Voided (Volume) (1665 mL) Input Total: 3770 mL Output Total: 1665 mL Balance: 2105 mL Vital Signs T: 36.8 ??C TMIN: 36.4 ??C TMAX: 36.9 ??C HR: 71(Monitored) RR: 16 BP: 157/90 SpO2: 96% HT: 182.88 cm WT: 98.27 kg BMI: 29.38 Physical Exam ABD soft ND wound OK VTE Risk Total Score VTE Prophylaxis - Surgical Heparin 5,000 Units, SubCutaneous, Inj, [id number], Routine, Start 08/26/18 20:00:00 EST (LILY VILLAFANA) Sequential Compression Device Start: 08/26/18 19:58:00 EST, Bilateral, Length: Knee High, While patient is in bed, Continuous Order (LILY VILLAFANA) Sequential Compression Device Start: 08/26/18 19:58:00 EST, Bilateral, Continuous Order (LILY VILLAFANA) Assessment/Plan candelario fulls adv diet s tolerated DC soon Cutaneous abscess, unspecified L02.91, Cutaneous abscess, unspecified [...] TID heparin, 5000 Units= 1 mL, SubCutaneous, [id number] insulin lispro sliding scale, Scale A:, SubCutaneous, AC and at Bedtime MiraLax, 17 Gram= 1 Packet, Oral, Daily, [...] sx. Allergies sulfa drugs Electronically signed by Tavia [facility] Conversion Yard Stocker Cerner at 11/04/2022 10:29 AM CDT documented in this encounter Plan of Treatment Not on file documented as of this encounter Visit Diagnoses Not on filedocumented in this encounter
--- OUTSIDE RECORDS SUMMARY | 2025-05-24 09:55 | XMS_ITS | Encounter Summary ---
Author Organization [employer] ([place], [place], [place], [place], [place]) Address [address] [place] [address] Care Team Providers Care Air Pollution Control Engineer Name Role Phone Unavailable Primary Care Provider Unavailabl e Encounter Details Date Type Department Care Team (Late st Contact Info) Description 08/26/2018 Transcribed Document [facility] [place] [facility] [place] [address] ProviderCindi MD [address] [place] [address] Social History Tobacco Use Types [...] Conversion Note - Historical ProviderMD - 08/26/2018 8:16 PM DISTRICT SALES LEADER Patient: RAFAT ARMAS Age: 72 Years Sex: Male : 1945 dictated intrabd abscess leann sepsis? documented in this encounter Plan of Treatment Not on file documented as of this encounter Visit Diagnoses Not on filedocumented in this encounter
--- OUTSIDE RECORDS SUMMARY | 2025-05-24 09:55 | XMS_ITS | Encounter Summary ---
Author Organization [employer] ([place], [place], [place], [place], [place]) Address [address] [place] [address] Care Team Providers Care Motorcycle Engine Assembler Name Role Phone Unavailable Primary Care Provider Unavailabl e Encounter Details Date Type Department Care Team (Late st Contact Info) Description 08/30/2018 Transcribed Document [facility] [place] [address] [place] [address] ProviderCindi MD [address] [place] [address] Social History Tobacco Use Types [...] Conversion Note - Historical ProviderMD - 08/30/2018 9:30 AM EXAMINATION SCORER Patient: RAFAT ARMAS Age: 72 Years Sex: Male : 1945 Subjective Post Op SB resection Intake & Output Intake & Output Totals Last 24 Hours (7a-7a) Intake (15 Events) Continuous Infusions (1200 mL) Medications (74.44 mL) Output (5 Events) Ferrer Catheter (800 mL) Urine Voided (Volume) (675 mL) Input Total: 1274.44 mL Output Total: 1475 mL Balance: -200.56 mL Vital Signs T: 36.8 ??C TMIN: 36.8 ??C TMAX: 37.1 ??C HR: 70(Monitored) RR: 18 BP: 153/80 SpO2: 96% Physical Exam ABd soft ND wound OK + flatus VTE Risk Total Score VTE Prophylaxis - Surgical Heparin 5,000 Units, SubCutaneous, Inj, [id number], Routine, Start 08/26/18 20:00:00 EST (LILY VILLAFANA) Sequential Compression Device Start: 08/26/18 19:58:00 EST, Bilateral, Length: Knee High, While patient is in bed, Continuous Order (LILY VILLAFANA) Sequential Compression Device Start: 08/26/18 19:58:00 EST, Bilateral, Continuous Order (LILY VILLAFANA) Assessment/Plan Ambulating looks good start liquids Cutaneous abscess, unspecified L02.91, Cutaneous abscess, unspecified L02.91 Orders: cloNIDine 50 mcg + dexamethasone 4 mg + bupivacaine-epinephrine 28.5 mL, Nerve Root Block, 1-Time, Administer over 0 Hour(s), Start 08/27/18 8:00:00 EST, Stop 08/27/18 8:00:00 EST, 0 mL/Hr Diet, Adult Medications Inpatient acetaminophen-HYDROcodone 325 mg-5 mg oral tablet, 1 Tab, Oral, Q4H, PRN alteplase + sterile water 1 mL cloNIDine 50 mcg + dexamethasone 4 mg + bupivacaine-EPINEPHrine 0.25%-1:200,000 injectable solution Colace, 100 mg= 1 Cap, Oral, BID Flagyl, 500 mg= 1 Tab, Oral, TID heparin, 5000 Units= 1 mL, SubCutaneous, [id number] insulin lispro sliding scale, Scale A:, SubCutaneous, [...] 16 / 77 4.1 23 0.80 \ Anion Gap: 13 Calcium Level: 7.3 mg/dL Low Imaging Results (Last 24 Hours) No Radiology Results Found Problem List/Past Medical History Ongoing Kidney stones Historical No qualifying data Procedure/Surgical History CHOLECYSTECTOMY, collarbone sx, knee sx, rotator cuff sx. Allergies sulfa drugs Electronically signed by Tavia [id number] Conversion Violin Repairer Cerner at 11/04/2022 10:23 AM CDT documented in this encounter Plan of Treatment Not on file documented as of this encounter Visit Diagnoses Not on filedocumented in this encounter
--- OUTSIDE RECORDS SUMMARY | 2025-05-24 09:55 | XMS_ITS | Encounter Summary ---
Author Organization [employer] ([place], [place], [place], [place], [place]) Address [address] [place] [address] Care Team Providers Care Security System Technician Name Role Phone Unavailable Primary Care Provider Unavailabl e Encounter Details Date Type Department Care Team (Late st Contact Info) Description 08/26/2018 Transcribed Document [facility] [place] Family Medicine [facility] [place] [address] ProviderCindi MD [address], [place] [id number] Social History Tobacco Use Types Packs/Day Years Used Date Smoking Tobacco: Never Assessed Sex and Gender Information Value Date Recorded Sex Assigned at Male 01/16/2022 11:42 AM CDT Legal Sex Male 11:42 AM CDT Gender Identity Male 01/16/2022 11:42 AM CDT Sexual Orientation Not on file documented as of this encounter Miscellaneous Notes * Cerner Conversion Note - Historical ProviderMD - 08/26/2018 7:06 PM ROLL ON WORKER DATE OF CONSULTATION: REFERRING PHYSICIAN: Gianni Castro MD REASONS: Intra-abdominal abscess. HISTORY OF PRESENT ILLNESS: Mr. Patel is a 72-year-old gentleman who is an absolutely terrible historian. Evidently about three weeks ago, he developed some form of abdominal pain, also had some sort of spider bite under his right eye. He states that he was started on steroids and then changed to a SULFA drug, which gave him a total-body reaction with a rash and this was stopped. He was restarted on his steroids and has since tapered. He seems to claim that the steroids never went over 20 mg 2 or 3 times a day, but there is absolutely no actual documentation to back up anything the gentleman says. Nevertheless over the course of the last three weeks the patient has had progressive abdominal pain with nausea. He has also had more constipation and difficulty eating. He has been trying to take soup. The pain did not improve over the last three weeks and ultimately presented to the emergency room today where CT scan of the abdomen and pelvis was performed, which identified an irregular collection of gas and fluid density measuring 6 x 4 x 5.7 cm consistent with an abscess in the left mid abdomen, loops of small bowel around the collection. No bowel obstruction. This is not amenable to percutaneous drainage. It was not involving any solid organs or colon. He was transferred to this facility for further management. ALLERGIES: Include SULFA. CURRENT MEDICATIONS: Include dextrose. HOME MEDICATIONS: Essentially none. PAST MEDICAL HISTORY: Negative for diabetes, high blood pressure, heart disease, liver or kidney disease. PAST SURGICAL HISTORY: Includes knee surgery, gallbladder surgery, no other significant abdominal surgery. SOCIAL HISTORY: Patient denies tobacco use. Does socially use alcohol. Denies any illicit drug use. FAMILY HISTORY: Positive for heart disease. Negative for hypertension, diabetes, liver, kidney or pulmonary disease. REVIEW OF SYSTEMS: GENERAL: Patient has a three-week history of general malaise, abdominal discomfort, and dizziness. HEENT: Ocular, no change in vision. No blurred vision. Nasal, no discharge or stuffed up nose. Oropharynx, there is no issues with swallowing. HEMATOLOGIC/LYMPHATICS: No enlarged nodes. No bleeding dyscrasias. CARDIAC: No chest pain, palpitations, racing heart. PULMONARY: No shortness of breath, productive cough. ABDOMINAL: As per HPI. : No dysuria or hematuria. ORTHOPEDIC: No neck pain, joint pain, muscle pain or weakness. NEUROLOGIC: There is no focal motor or sensory deficits. PSYCHOLOGIC: He is a terrible historian, but no psychiatric history. INTEGUMENTARY: No rashes except for that associated with SULFA drugs, but otherwise in good order, possible spider bite in the neck. Remaining 14-point review is noncontributory. PHYSICAL EXAMINATION: VITAL SIGNS: Respirations are 16, pulse is 87, blood pressure 140/70. GENERAL: A well-developed gentleman, alert, and oriented x3 in no distress. HEENT: Normocephalic, atraumatic. Extraocular muscles intact. No scleral icterus. Nares patent. No discharge. Oropharynx is clear. NECK: Soft, supple, without bilateral cervical adenopathy or JVD. CHEST: No accessory muscle use. LUNGS: Clear to auscultation. HEART: Regular rate and rhythm without murmur. ABDOMEN: Soft, nontender, nondistended. Positive bowel sounds. No hepatosplenomegaly. There is some tenderness, but no masses. : Grossly normal male without inguinal adenopathy or herniation. EXTREMITIES: Positive pulse. No cyanosis, clubbing, or edema. NEURO: Cranial nerves 2 through 12 are grossly intact. No focal motor or sensory deficits. LABORATORY VALUES: On transfer showed a white count of 14,000, hemoglobin of 15. Sodium of 134, potassium of 4.2, chloride 98, creatinine is 1.6, bilirubin is 1.3, amylase is 18, lipase is 69. ASSESSMENT/PLAN: I have a 72-year-old gentleman with intra-abdominal abscess surrounded by small bowel, probably he has had some sort of perforation of the small bowel likely. The patient has been started recently, but does not sound like he has been on high-dose steroids. Nevertheless, this could be a cause. The patient has had three weeks worth of abdominal pain. Reportedly the abscess is nowhere near his colon or his appendix and involving no solid organs. It is possible this could represent some sort of small bowel diverticulum with rupture or even a Meckel diverticulum or could be some sort of foreign body reaction and perforation from something else. Nevertheless, patient is not toxic. Going to go ahead and recheck all of his laboratories, make him nothing by mouth. I have discussed situation and we will recommend that we are probably going to have to explore this gentleman, to see what is going on. We discussed technical aspects of exploratory laparotomy, possible bowel resection, possible colostomy. Discussed risks of surgery including bleeding, infection, heart attack, stroke, bowel injury, etc. After a detailed discussion the patient has agreed to proceed. I will go ahead and get him preopped with some enemas tonight and IV fluids. We will review the films once we get these loaded up and I will continue to make adjustments as we go forward. However, unless anything would dramatically changes, I think we will probably on for exploration tomorrow. Ayush Keita M.D. Dict: 08/26/2018 19:06:33 Trans: 08/26/2018 23:56:47 CC1: Ayush Keita M.D. documented in this encounter Plan of Treatment Not on file documented as of this encounter Visit Diagnoses Not on filedocumented in this encounter
--- OUTSIDE RECORDS SUMMARY | 2025-05-24 09:55 | XMS_ITS | Encounter Summary ---
Author Organization [employer] ([place], [place], [place], [place], [place]) Address [address] [place] [address] Care Team Providers Care Black Leather Trimmer Name Role Phone Unavailable Primary Care Provider Unavailabl e Encounter Details Date Type Department Care Team (Late st Contact Info) Description 08/31/2018 Transcribed Document [facility] Family Medicine [facility] [place] [address] ProviderCindi MD [address] [place] [address] Social History Tobacco Use Types [...] Conversion Note - Historical ProviderMD - 08/31/2018 4:00 AM PLANT SENIOR MANAGER Height and Weight, Routine Entered On: 08/31/2018 7:17 EST Performed On: 08/31/2018 4:00 EST by Fern Rice [facility] Unit Coord Height and Weight, Routine Routine Weight Source : Standing scale Routine Weight Entry Format : [place] Routine Weight, Pounds : 216 lb Routine Weight, Ounces : 3 oz Routine Weight Calculation : 98.27 kg Height Source : Stated Height Entry Format : [place] Height, Feet : 6 ft Height, Inches : 0 Inch Clinical Height : 182.88 cm Body Surface Area (BSA), Routine : 2.2 m2 Body Mass Index (BMI), Routine : 29.38 kg/m2 [facility] - 08/31/2018 7:17 EST documented in this encounter Plan of Treatment Not on file documented as of this encounter Visit Diagnoses Not on filedocumented in this encounter
--- OUTSIDE RECORDS SUMMARY | 2025-05-24 09:55 | XMS_ITS | Encounter Summary ---
Author Organization [employer] ([place], [place], [place], [place], [place]) Address [address] [place] [address] Care Team Providers Care Billiard Parlor Manager Name Role Phone Unavailable Primary Care Provider Unavailabl e Encounter Details Date Type Department Care Team (Late st Contact Info) Description 08/30/2018 Transcribed Document [facility] [place] Family Medicine [address] [place] [address] ProviderCindi MD [address], [place] [id number] Social History Tobacco Use Types Packs/Day Years Used Date Smoking Tobacco: Never Assessed Sex and Gender Information Value Date Recorded Sex Assigned at Male 01/16/2022 11:42 AM CDT Legal Sex Male 11:42 AM CDT Gender Identity Male 01/16/2022 11:42 AM CDT Sexual Orientation Not on file documented as of this encounter Miscellaneous Notes * Cerner Conversion Note - Historical ProviderMD - 08/30/2018 9:35 AM MANAGER INVESTMENT BANKING Therapy Screen, PT Entered On: 08/30/2018 9:36 EST Performed On: 08/30/2018 9:35 EST by OSCAR MULTANI, PT Therapy Screen, PT Medical Chart Reviewed : Yes Person Providing Information : Nurse, Patient Screen Completed : Yes Recommendation for Evaluation, PT : None Recommendations Upon Discharge : None Additional Therapy Screen Comment : Nursing reports pt ambulated >400' this morning. Pt reports no issues with mobility that he feels requires physical therapy. He will let nursing know if any problems arise. OSCAR MULTANI, PT - 08/30/2018 9:35 EST Electronically signed by [facility] Conversion Loading Unit Operator Crimping Cerner at 11/04/2022 10:11 AM CDT documented in this encounter Plan of Treatment Not on file documented as of this encounter Visit Diagnoses Not on filedocumented in this encounter
--- OUTSIDE RECORDS SUMMARY | 2025-05-24 09:55 | XMS_ITS | Encounter Summary ---
Author Organization [employer] ([place], [place], [place], [place], [place]) Address [address] [place] [address] Care Team Providers Care Hydraulic Spinner Name Role Phone Unavailable Primary Care Provider Unavailabl e Encounter Details Date Type Department Care Team (Late st Contact Info) Description 09/01/2018 Transcribed Document [facility] [place] Family Medicine [address] [place] [address] ProviderCindi MD [address] [place] [address] Social History Tobacco Use Types [...] Conversion Note - Historical ProviderMD - 09/01/2018 5:00 PM GRANULATOR Chart Check - Review Order Profile Entered On: 09/01/2018 15:12 EST Performed On: 09/01/2018 17:00 EST by Eileen Yan RN Chart Check Chart Reviewed Date and Time : 09/01/2018 15:11 EST Powerplans Initiated/Discontinued as Appropriate : Yes All Active Orders Reviewed : Yes Eileen Yan RN - 09/01/2018 15:11 EST documented in this encounter Plan of Treatment Not on file documented as of this encounter Visit Diagnoses Not on filedocumented in this encounter
--- OUTSIDE RECORDS SUMMARY | 2025-05-24 09:55 | XMS_ITS | Encounter Summary ---
Author Organization [employer] ([place], [place], [place], [place], [place]) Address [address] [place] [address] Care Team Providers Care Drivers License Examiner Name Role Phone Unavailable Primary Care Provider Unavailabl e Encounter Details Date Type Department Care Team (Late st Contact Info) Description 08/30/2018 Transcribed Document [facility] [place] [address] [place] [address] ProviderCindi MD [address] [place] [address] Social History Tobacco Use Types [...] Conversion Note - Historical ProviderMD - 08/30/2018 5:00 PM SINTER MACHINE OPERATOR Chart Check - Review Order Profile Entered On: 08/30/2018 20:38 EST Performed On: 08/30/2018 17:00 EST by Asim Alvarenga, RN Chart Check Chart Reviewed Date and Time : 08/30/2018 20:38 EST Powerplans Initiated/Discontinued as Appropriate : Yes All Active Orders Reviewed : Yes Asim Alvarenga, RN - 08/30/2018 20:38 EST documented in this encounter Plan of Treatment Not on file documented as of this encounter Visit Diagnoses Not on filedocumented in this encounter
--- OUTSIDE RECORDS SUMMARY | 2025-05-24 09:55 | XMS_ITS | Encounter Summary ---
Author Organization [employer] ([place], [place], [place], [place], [place]) Address [address] [place] [address] Care Team Providers Care Coil Cleaner Name Role Phone Unavailable Primary Care Provider Unavailabl e Encounter Details Date Type Department Care Team (Late st Contact Info) Description 08/30/2018 Transcribed Document [facility] [place] [facility] [address] ProviderCindi MD [facility] [place] [address] Social History Tobacco Use Types Packs/Day Years Used Date Smoking Tobacco: Never Assessed Sex and Gender Information Value Date Recorded Sex Assigned at Male 01/16/2022 11:42 AM CDT Legal Sex Male 11:42 AM CDT Gender Identity Male 01/16/2022 11:42 AM CDT Sexual Orientation Not on file documented as of this encounter Miscellaneous Notes * Cerner Conversion Note - Cindi ProviderMD - 08/30/2018 2:21 PM STEEL RULE DIE MAKER APPRENTICE Patient: RAFAT ARMAS Age: 72 years Sex: Male : 1945 Associated Diagnoses: None Author: ZOEY BERGER MD Subjective 72 yo male was admitted for abd pain and possible abscess ct showed perforation and abscess s/p small bowel resection and abscess draing saw him today in am sit in chair awake, no cp or sob, said he feel better on CLD now ROS: no fever, no cp or osb, [...] Rocephin: 2 Gram, 100 mL/Hr, IV Piggyback, [id number] Sodium Chloride 0.9% intravenous solution 1,000 mL: 75 mL/Hr, IntraVENous Tylenol: 650 mg, Oral, Q4H, [...] Root Block, 1-Time heparin: 5,000 Units, SubCutaneous, [id number] insulin lispro sliding scale: Scale A:, SubCutaneous, AC and at Bedtime Documented Medications Documented Flomax 0.4 mg oral [...] Cap, PRN, Oral, At Bedtime , Medications (13) Active Scheduled: (7) #NaCl 0.9% *FLUSH* inj 10 mL 10 mL, IntraCATHeter, Q12H cefTRIAXone 2 Gram, IV Piggyback, [id number] cloNIDine 50 mcg + dexamethasone 4 mg + bupivac 0.25% w/epi 1: 28.5 mL 50 mcg 0.5 mL, Nerve Root Block, 1-Time docusate sodium 100 mg cap 100 mg 1 Cap, Oral, BID heparin 5,000 units/1 mL inj 5,000 Units 1 mL, SubCutaneous, [id number] insulin lispro 1 unit/0.01 mL inj Scale A:, SubCutaneous, AC and at Bedtime metroNIDAZOLE 500 mg tab 500 mg 1 Tab, Oral, TID Continuous: (1) NaCl 0.9% 1,000 mL 1,000 mL, IntraVENous, 75 mL/Hr PRN: (5) acetaminophen 325 mg tab [...] Last Charted Minimum Maximum Temp 98.3 (AUG 30:00) 98.3 (AUG 30:00) 98.2 (AUG 29:00) Mon HR 70 (AUG 30 06:00) 64 (AUG 29:00) 92 (AUG 29 18:34) Resp Rate 18 (AUG 30:00) 18 (AUG 29:00) 18 (AUG 29:00) SBP H 153 (AUG 30 06:00) 109 (AUG 29 15:00) H 159 (AUG 30:00) DBP 80 (AUG 30:00) 68 (AUG 29 23:00) 83 (AUG 29:00) MAP 102 (AUG 30:00) 89 (AUG 29 23:00) 102 (AUG 30:00) SpO2 96 (AUG 30:00) 94 (AUG 29:00) 97 (AUG 29 23:00) General: Alert and oriented, Mild distress. Neck: Supple, Non-tender, No jugular venous [...] test: Labs (Last four charted values) WBC H 10.8 (B 09) H 13.0 (B 08) H 15.1 (B 07) 9.1 (B 06) HB L 11.6 (B 09) L 12.7 (B 08) L 12.8 (B 07) L 12.1 (B 06) HCT L 36.9 (B 09) L 39.3 (B 08) L 39.0 (B 07) L 37.9 (B 06) Plt 231 (B 09) 243 (B 08) 260 (B 07) 244 (B 06) Na 139 (B 09) 137 (B 07) 139 (B 06) 140 (B 05) K 4.1 (B 09) 4.7 (B 07) 4.3 (B 06) 4.1 (B 05) Cl 107 (B 09) 105 (B 07) 107 (B 06) 106 (B 05) CO2 23 (B 09) 25 (B 07) 24 (B 06) 26 (B 05) BUN 16 (B 09) 20 (B 07) H 23 (B 06) H 23 (B 05) Cr 0.80 (B 09) 1.10 (B 07) 1.30 (B 06) 1.29 (B 05) Glu R 77 (B 09) H 137 (B 07) 98 (B 06) 104 (FEB 05) Ca L 7.3 (B 09) L 7.8 (B 07) L 7.7 (B 06) L 7.8 (B 05) PT 11.9 (B 05) 11.9 (FEB 05) INR 1.1 (FEB 05) 1.1 (FEB 05) AST 18 (B 07) 35 (FEB 06) H 74 (FEB 05) H 73 (FEB 05) ALT 34 (FEB 07) 41 (FEB 06) 53 (FEB 05) 47 (FEB 05) ALK P 118 (FEB 07) 124 (AUG 27) H 163 (AUG 26) [...] and mesenteric bowel, s/p resection sepsis on admit intra-abd abscess BPH Plan: 1. see above medication list for treatment. 2. start CLD 3. cont iv abx rocephin and flagyl , f/u ID for duration of iv abx 4. pain control 5. f/u culture 6. heparin sq 7. d/w pat and f/u surgeon also documented in this encounter Plan of Treatment Not on file documented as of this encounter Visit Diagnoses Not on filedocumented in this encounter
--- OUTSIDE RECORDS SUMMARY | 2025-05-24 09:55 | XMS_ITS | Encounter Summary ---
Author Organization [employer] ([place], [place], [place], [place], [place]) Address [address] [place] [address] Care Team Providers Care Hospice Fellow Name Role Phone Unavailable Primary Care Provider Unavailabl e Encounter Details Date Type Department Care Team (Late st Contact Info) Description 08/27/2018 Transcribed Document [facility] [place] [facility] [place] [address] ProviderCindi MD [facility] [place] [address] Social History Tobacco Use Types Packs/Day Years Used Date Smoking Tobacco: Never Assessed Sex and Gender Information Value Date Recorded Sex Assigned at Male 01/16/2022 11:42 AM CDT Legal Sex Male 11:42 AM CDT Gender Identity Male 01/16/2022 11:42 AM CDT Sexual Orientation Not on file documented as of this encounter Miscellaneous Notes * Cerner Conversion Note - Cindi ProviderMD - 08/27/2018 11:38 AM QUARTER LINING SMOOTHER [facility] Main OR IntraOp Summary Primary Physician: VISHAL SHEARER MD-SUR Finalized Date/Time: 08/28/18 14:22:42 Pt. Name: RAKAN ARMAS /Sex: 1945 Male Med Rec #: [id number] Physician: MEGHAN DAVIS MD-INT Financial #: [id number] Pt. Type: I Room/Bed: [facility]/ Admit/Disch: 08/26/18 18:06:00 - Institution: [facility] IntraOp Case Attendance Entry 1 Entry 2 Entry 3 Case Attendee SHEARER, VISHAL, TENISHA, WASHINGTON B, MD KATHLEEN, MIMI, CRNFA MD-JASPAL Role Performed Surgeon/Proceduralist, Anesthesiologist Floor Winder, First First Time In 08/27/18 11:15:00 08/27/18 11:15:00 08/27/18 11:15:00 Time Out 08/27/18 12:38:00 08/27/18 12:38:00 08/27/18 12:38:00 Procedure Laparotomy Exploratory, Laparotomy Exploratory, Laparotomy Exploratory, Small Bowel Resection Small Bowel Resection Small Bowel Resection Other Attendee Superficial Wound Closed By: Last Modified By: Devonte Kahn, Devonte Alberto, Devonte Alberto, JESSICA 08/27/18 12:38:21 08/27/18 12:38:21 08/27/18 12:38:21 Entry 4 Entry 5 Entry 6 Case Attendee Diana Shearer, CARYL XIAO Scott, JESSICA Role Performed Field Specialist, First Scrub, First Field Specialist, Second Time In 08/27/18 11:15:00 08/27/18 11:15:00 08/27/18 11:15:00 Time Out 08/27/18 12:38:00 08/27/18 12:38:00 08/27/18 12:38:00 Procedure Laparotomy Exploratory, Laparotomy Exploratory, Laparotomy Exploratory, Small Bowel Resection Small Bowel Resection Small Bowel Resection Other Attendee Superficial Wound Closed By: Last Modified By: Devonte Kahn, Devonte Alberto, Devonte Alberto, JESSICA 08/27/18 12:38:21 08/27/18 12:38:21 08/27/18 12:38:21 [facility] IntraOp Case Attendance Audit 08/27/18 12:38:21 Java Designer: RAZS Modifier: PANTANOS 1 <+> Time Out 1 <*> Procedure Laparotomy Exploratory, Small Bowel Resection 2 <+> Time Out 2 <*> Procedure Laparotomy Exploratory, Small Bowel Resection 3 <+> Time Out 3 <*> Procedure Laparotomy Exploratory, Small Bowel Resection 4 <+> Time Out 4 <*> Procedure Laparotomy Exploratory, Small Bowel Resection 5 <+> Time Out 5 <*> Procedure Laparotomy Exploratory, Small Bowel Resection 6 <+> Time Out 6 <*> Procedure Laparotomy Exploratory, Small Bowel Resection 08/27/18 12:16:36 Java Designer: JOE Modifier: PANTANOS <+> 1 Time In <+> 1 Procedure 2 <+> Time In 2 <*> Procedure Laparotomy Exploratory, Small Bowel Resection 3 <+> Time In 3 <*> Procedure Laparotomy Exploratory, Small Bowel Resection 4 <+> Time In 4 <*> Procedure Laparotomy Exploratory, Small Bowel Resection 5 <+> Time In 5 <*> Procedure Laparotomy Exploratory, Small Bowel Resection 6 <+> Time In 6 <*> Procedure Laparotomy Exploratory, Small Bowel Resection [facility] IntraOp Case Times Entry 1 Patient In Room Time 08/27/18 11:15:00 Out Room Time 08/27/18 12:38:00 Anesthesia Start Time 08/27/18 11:15:00 Stop Time 08/27/18 12:38:00 Surgery / Procedure Times Start Time 08/27/18 11:38:00 Stop Time 08/27/18 12:31:00 Last Modified By: Devonte Kahn RN 08/27/18 12:38:05 [facility] IntraOp Case Times Audit 08/27/18 12:38:05 Java Designer: PANTANOS Modifier: PANTANOS <+> 1 Out Room Time <+> 1 Stop Time 08/27/18 12:31:40 Java Designer: PANTANOS Modifier: PANTANOS <+> 1 Stop Time 08/27/18 11:38:27 Java Designer: PANTANOS Modifier: PANTANOS <+> 1 Start Time [facility] IntraOp Cautery Entry 1 ESU Identification Cautery Type Monopolar ESU ID Number [id number] ID Type Hospital Number Cautery Settings Cut Setting 30 Coag Setting 30 ESU Grounding Pad Ground Pad Type Adult Grounding Pad Site Left thigh Grounding Pad Diana Shearer RN Applied By Grounding Pad Site Warm, Dry, Intact Skin Condition Before Cautery Grounding Pad Site Unchanged Skin Condition After Cautery Last Modified By: Devonte Kahn RN 08/27/18 11:23:19 [facility] IntraOp Cautery Audit 08/27/18 11:23:19 Java Designer: PANTANOS Modifier: PANTANOS <+> 1 ID Number [facility] IntraOp Communication Entry 1 Entry 2 Communication To Family/Significant other Family/Significant other Comment Communication By Diana Shearer, RN Diana Shearer, JESSICA Date and Time 08/27/18 12:16:00 Last Modified By: Devonte Kahn RN Pantano, Scott, RN 08/27/18 11:07:46 08/27/18 12:16:22 [facility] IntraOp Communication Audit 08/27/18 12:16:22 Java Designer: JOE Modifier: PANTANOS <+> 2 Communication By <+> 2 Date and Time <+> 2 Communication To [facility] IntraOp Counts Verification Entry 1 Entry 2 Procedure Laparotomy Exploratory, Laparotomy Exploratory, Small Bowel Resection Small Bowel Resection Count Info Count Type Sponge, Sharps, Sponge, Sharps, Instrument, Instrument, Miscellaneous Miscellaneous Counts Verification Baseline/pre-procedure Before wound closure Sequence Count Results Correct, surgeon Correct, surgeon notified notified If Incorrect or Waived complete the Counts Action Taken form: If Intentional Retention, complete the Intential Retention form: Counts Performed By Count Performed By CARYL ARELLANO LORI J. (Scrub) Count Performed By Devonte Kahn RN Pantano, Scott, RN (RN) Last Modified By: Devonte Kahn RN Pantano, Scott, RN 08/27/18 11:05:06 08/27/18 12:13:50 [facility] IntraOp Counts Verification Audit 08/27/18 12:13:50 Java Designer: JOE Modifier: PANTANOS <+> 2 Procedure <+> 2 Count Type <+> 2 Counts Verification Sequence <+> 2 Count Results <+> 2 Count Performed By (Scrub) <+> 2 Count Performed By (RN) [facility] IntraOp Counts Final Entry 1 Procedure Laparotomy Exploratory, Small Bowel Resection Final Count Info Count Type Sponge, Sharps, Instrument, Miscellaneous Counts Verification Skin Closure/end of Sequence procedure Count Results Correct, surgeon notified Counts Performed By Count Performed By CARYL ARELLANO (Scrub) Count Performed By Diana Shearer RN (RN) Last Modified By: Devonte Kahn RN 08/27/18 12:16:56 [facility] IntraOp Counts Final Audit 08/27/18 12:16:56 Java Designer: JOE Modifier: PANTANOS 1 <*> Procedure Laparotomy Exploratory, Small Bowel Resection 1 <+> Count Performed By (RN) [facility] IntraOp Cultures and Spec Summary Entry 1 Cultrures and Specimens Specimen Ordered: Yes Specimens Types Culture(s), Pathology Specimen(s) Labeled Pathology and Sent to Last Modified By: Devonte Kahn RN 08/27/18 11:56:30 [facility] IntraOp Departure from OR Entry 1 Integumentary Assessment Integumentary WDL Assessment WDL Transfer/Handoff Transfer to PACU Phase I Handoff Method Phone call Post-op Transport Stretcher/Gurney Via Patient Transport WASHINGTON STEVEN MD, Accompanied by MIMI WANG CRNFA Last Modified By: Devonte Kahn RN 08/27/18 11:05:23 [facility] IntraOp Dressing and Packing Entry 1 Type Packing Wound Dressing Item Skin Closure Glue Applied By MIMI WANG CRNFA Last Modified By: Devonte Kahn RN 08/27/18 11:07:03 [facility] IntraOp Fire Risk Assessment Entry 1 Fire Info Surgical Site or 0- No Incision Above the Xyphoid Open O2 Source 0- No (Mask or Cannula) Available Ignition 1- Yes (ESU, Laser, Light Source) Fire Risk 1 Assessment Score Fire Score Fire Risk Yes Assessment Complete Fire Risk Diana Shearer RN Assessment Verified By Fire Risk 08/27/18 11:03:00 Assessment Verified Date/Time Fire Risk Standard Fire Yes Safety Precautions Followed Last Modified By: Devonte Kahn RN 08/27/18 11:03:51 [facility] IntraOp General Case Wiping Cloth Cutter 1 Case Information OR [address] Case Level 1 Room Verified Yes Wound Class II - Clean-Contaminated Specialty SN General Anesthesia Type General ASA Class 3 Diagnosis Preop Diagnosis CUTANEOUS ABSCESS, UNSPECIFIED Postop Same As Preop Yes Postop Diagnosis CUTANEOUS ABSCESS, UNSPECIFIED Last Modified By: Devonte Kahn RN 08/27/18 11:11:31 [facility] IntraOp Intraoperative Assessment Entry 1 Handoff Method Online nursing summary Valid History / Yes Physical in Chart Preoperative Yes Checklist Reviewed/Evaluated Allergies Reviewed Yes Patient is Latex No Sensitive Isolation Not applicable Precautions Noted Level of WDL Consciousness (WDL = Alert, Oriented to Person, Place, and Time) Skin Assessment No Verified Present Upon IVs, Oxygen Arrival to OR Last Modified By: Devonte Kahn RN 08/27/18 11:04:42 [facility] IntraOp Intraoperative Equipment Entry 1 Type Monitoring Equipment Equipment German Suction System Intraop Monitoring Electrocardiogram Three lead placement (ECG) Electrode Placement Blood Pressure Non-Invasive BP Device Source Blood Pressure Arm, right upper Location Pulse Oximeter Hand, left Probe Site Antiembolic Devices Antiembolic Devices Sequential compression device, knee high Antiembolic Device Bilateral Location Antiembolic Device SCD'S ON AND WORKING Setting PRIOR TO INDUCTION Scopes Photo/Video Documentation Last Modified By: Devonte Kahn RN 08/27/18 11:08:28 [facility] IntraOp Medication Admin Entry 1 Medication/Irrigant STERILE WATER Route of IRRIGATION Administration Dose Administered By VISHAL SHEARER MD-SUR Procedure Irrigation Irrigant Volume In 400 Last Modified By: Devonte Kahn RN 08/27/18 12:14:09 [facility] IntraOp Patient Positioning Entry 1 Procedure Laparotomy Exploratory Body Position Supine Left Arm Position Secured on padded arm board Right Arm Position Secured on padded arm board Left Leg Position Uncrossed, parallel Right Leg Position Uncrossed, parallel Feet Uncrossed Yes Pressure Points Yes Checked Positioning Devices Arm Board, Head Rest, Pad, Elbow, Safety Strap, Thighs Positioned By Diana Shearer RN, VISHAL SHEARER MD-SUR Position Verified Positioning Yes Verified by Anesthesia Positioning Yes Verified by Surgeon Last Modified By: Devonte Kahn RN 08/27/18 11:03:45 [facility] IntraOp Sign In Entry 1 Patient, Site, Yes Procedure Identified Surgical Consent Yes Confirmed Relevant Surgical Yes Documents Available Surgical Site N/A Marked by person performing procedure Anesthesia Machine Yes Check Completed Medication Checks Yes Completed Allergies Yes Airway Difficult Yes Airway/Aspiration Risk Difficult Yes Airway/Aspiration Intervention Equipment Available Blood Loss Risk Yes Blood Loss Yes Intervention Equipment Prepared and Ready Blood Identifiers Yes Verified Per Policy Hypothermia Risk Yes Warming Measures Yes Taken Last Modified By: Devonte Kahn RN 08/27/18 11:08:45 [facility] IntraOp Sign In Audit 08/27/18 11:08:45 Java Designer: JOE Modifier: PANTANOS <+> 1 Difficult Airway/Aspiration Intervention Equipment Available <+> 1 Blood Loss Risk <+> 1 Blood Loss Intervention Equipment Prepared and Ready <+> 1 Hypothermia Risk <+> 1 Warming Measures Taken <+> 1 Blood Identifiers Verified Per Policy [facility] IntraOp Sign Out Entry 1 RN Confirmation Surgical Yes Procedure(s) Identified Instrument, Sponge Yes and Sharps Counts Correct/Documented Equipment Problems N/A Documented Specimen Labeled Yes Correctly Urinary Catheter Yes Documented in IView Leonardo Patient Yes Recovery Concerns Reviewed with Anesthesia Provider, Surgeon and RN Leonardo Patient Yes Management Concerns Reviewed with Anesthesia Provider, Surgeon and RN Safety Checklist Yes Elements Complete? RN Sign Out Diana Shearer RN Signature RN Sign Out 08/27/18 12:38:00 Signature Date/Time Plan of Care Outcome - Fire Risk OUTCOME STATEMENT: Goal met Patient is free from injury related to surgical fire Plan of Care Outcome - Pt Positioning OUTCOME STATEMENT: Goal met Absence of signs and symptoms of positioning injury. Plan of Care Outcome - Skin Prep OUTCOME STATEMENT: Goal met Intraoperative care is consistent with measures to prevent infection Plan of Care Outcome - Xray/Images OUTCOME STATEMENT: N/A Absence of observable signs or symptoms of radiation injury Plan of Care Outcome - Counts OUTCOME STATEMENT: Goal met Absence of signs and symptoms of injury related to extraneous objects Last Modified By: Devonte Kahn RN 08/27/18 12:38:01 [facility] IntraOp Sign Out Audit 08/27/18 12:38:01 Java Designer: JOE Modifier: RAZS <+> 1 RN Sign Out Signature Date/Time [facility] IntraOp Skin Prep Entry 1 Procedure Laparotomy Exploratory Prescribed Yes Pre-Surgical Prep Completed Prep Area ABDOMEN Intraop Prep Prep Agents Chloraprep Prep by Diana Shearer RN Hair Removal Last Modified By: Devonte Kahn RN 08/27/18 11:14:18 [facility] IntraOp Surgical Procedures Entry 1 Entry 2 Procedure Laparotomy Exploratory Small Bowel Resection Modifiers Additional (EXPLORATORY Procedure LAPAROTOMY, BOWEL Description RESECTION) Primary Procedure Yes No Primary Surgeon VISHAL SHEARER, VISHAL SHEARER MD-JASPAL CARO-JASPAL Start 08/27/18 11:38:00 08/27/18 11:38:00 Stop 08/27/18 12:31:00 08/27/18 12:31:00 Physician States Cecum Reached Anesthesia Type General General Specialty SN General SN General Wound Class I - Clean II - Clean-Contaminated Last Modified By: Devonte Kahn RN Pantano, Scott, RN 08/27/18 12:31:52 08/27/18 12:31:52 General Comments: PATIENT ON SCHEDULED ANTIBIOTICS [facility] IntraOp Surgical Procedures Audit 08/27/18 12:31:52 Java Designer: JOE Modifier: PANTANOS 1 <*> Procedure Laparotomy Exploratory 1 <*> Procedure Laparotomy Exploratory 1 <*> Stop 1 <*> Additional Procedure Description (EXPLORATORY LAPAROTOMY, POSS BOWEL RESECTION) 1 <*> Additional Procedure Description (EXPLORATORY LAPAROTOMY, POSS BOWEL RESECTION) 2 <*> Stop 08/27/18 12:17:14 Java Designer: JOE Modifier: FLASHANOS 1 <*> Procedure Laparotomy Exploratory 1 <*> Procedure Laparotomy Exploratory 08/27/18 12:16:44 Java Designer: RAZMarielle Modifier: FLASHANOS 1 <*> Start 1 <*> Start 2 <*> Start 2 <*> Start [facility] IntraOp Temp Regulation Devices Entry 1 Temp Regulation Temperature Forced Air Warming Regulation Device device, IV Fluid warmer, Room temperature, Warm blankets Temperature Upper body Regulation Site Temperature Device PER ANESTHESIA Setting Last Modified By: Devonte Kahn RN 08/27/18 11:08:33 [facility] IntraOP Time Out Entry 1 Procedure to be Laparotomy Exploratory, Performed Small Bowel Resection Time Out Time Out Pause Time 08/27/18 11:37:00 All activity Yes suspended (unless life threatening emergency) Team Verbally Correct patient Confirms Information identity, Correct side and site are marked, Consent form is present and accurate, Agreement on the procedure to be done, Correct patient position, Relevant images/results properly labeled/appropriately displayed, Confirm antibiotics have been administered, Confirm the skin prep has dried, Confirm prosthesis/implant/devic e is present, Performed in location of procedure after prepped/draped Antibiotic Yes Prophylaxis Administered Or In Progress Within the Last 60 Minutes Beta Dillon N/A Administered Venous N/A Thromboembolism Prophylaxis Required Anticipated Critical Events Surgeon None expected, Critical or unexpected steps, Anticipated blood loss Anesthesia Provider Patient specific concerns, None expected Nursing Assures Sterility of instruments, Equipment concerns or issues, Implant Availability Essential Imaging Yes Labeled and Displayed Last Modified By: Devonte Kahn RN 08/27/18 11:38:41 [facility] IntraOP Time Out Audit 08/27/18 11:38:41 Java Designer: JOE Modifier: RAZS 1 <+> Time Out Pause Time 1 <*> Procedure to be Performed Laparotomy Exploratory, Small Bowel Resection Case Comments <None> Finalized By: ANAMIKA RUEDA Document Signatures Signed By: Devonte Kahn RN 08/27/18 12:38 ANAMIKA RUEDA 08/28/18 14:22 Unfinalized History Date/Time Username Reason for Unfinalizing Freetext Reason for Unfinalizing 08/28/18 14:19 [email or web address] Correct Billing documented in this encounter Plan of Treatment Not on file documented as of this encounter Visit Diagnoses Not on filedocumented in this encounter
--- OUTSIDE RECORDS SUMMARY | 2025-05-24 09:55 | XMS_ITS | Encounter Summary ---
Author Organization [employer] ([place], [place], [place], [place], [place]) Address [address] [place] [address] Care Team Providers Care Hydraulic Bull Riveter Operator Name Role Phone Unavailable Primary Care Provider Unavailabl e Encounter Details Date Type Department Care Team (Late st Contact Info) Description 09/01/2018 Transcribed Document [facility] [place] Family Medicine [address] [place] [address] ProviderCindi MD [address] [place] [address] Social History Tobacco Use Types [...] Note - Historical ProviderMD - 09/01/2018 5:00 AM TOURS CAPTAIN Chart Check - Review Order Profile Entered On: 09/01/2018 3:04 EST Performed On: 09/01/2018 5:00 EST by JORGE ALBERTO CARDONA RN Chart Check Chart Reviewed Date and Time : 09/01/2018 4:00 EST Powerplans Initiated/Discontinued as Appropriate : Yes All Active Orders Reviewed : Yes JORGE ALBERTO CARDONA RN - 09/01/2018 3:04 EST documented in this encounter Plan of Treatment Not on file documented as of this encounter Visit Diagnoses Not on filedocumented in this encounter
--- OUTSIDE RECORDS SUMMARY | 2025-05-24 09:55 | XMS_ITS | Encounter Summary ---
Author Organization [employer] ([place], [place], [place], [place], [place]) Address [address] [place] [address] Care Team Providers Care Chute Tapper Name Role Phone Unavailable Primary Care Provider Unavailabl e Encounter Details Date Type Department Care Team (Late st Contact Info) Description 08/27/2018 Transcribed Document [facility] [place] [facility] [place] [address] ProviderCindi MD [address] [place] [address] Social History Tobacco Use Types Packs/Day Years Used Date Smoking Tobacco: Never Assessed Sex and Gender Information Value Date Recorded Sex Assigned at Male 01/16/2022 11:42 AM CDT Legal Sex Male 11:42 AM CDT Gender Identity Male 01/16/2022 11:42 AM CDT Sexual Orientation Not on file documented as of this encounter Miscellaneous Notes * Cerner Conversion Note - Historical ProviderMD - 08/27/2018 7:28 AM PRECAST WORKER Patient: RAFAT ARMAS Age: 72 Years Sex: Male : 1945 [address] with contrast shows perforation of proximal jejunum and mesenteric air and abscess. On schedule this AM; NPO Long DW PT again about situation and need for or today > 20 minutes discussion documented in this encounter Plan of Treatment Not on file documented as of this encounter Visit Diagnoses Not on filedocumented in this encounter
--- OUTSIDE RECORDS SUMMARY | 2025-05-24 09:55 | XMS_ITS | Encounter Summary ---
Author Organization [email or web address] ([place], [place], [place], [place], [place]) Address [address] [place] [address] Care Team Providers Care Air Technician Name Role Phone Unavailable Primary Care Provider Unavailabl e Encounter Details Date Type Department Care Team (Late st Contact Info) Description 09/01/2018 Transcribed Document [facility] [place] [address] [place] [address] ProviderCindi MD [address] [place] [address] Social History Tobacco Use Types [...] Conversion Note - Historical ProviderMD - 09/01/2018 2:00 AM GUARD IMMIGRATION Hot Billet Shear Operator Details Entered On: 09/01/2018 3:04 EST Performed On: 09/01/2018 2:00 EST by JORGE ALBERTO CARDONA RN [...] : No JORGE ALBERTO CARDONA RN - 09/01/2018 3:04 EST Electronically signed by Tavia [facility] Conversion Senior Sales Operations Manager Cerner at 11/04/2022 10:04 AM CDT documented in this encounter Plan of Treatment Not on file documented as of this encounter Visit Diagnoses Not on filedocumented in this encounter
--- OUTSIDE RECORDS SUMMARY | 2025-05-24 09:55 | XMS_ITS | Encounter Summary ---
Author Organization [employer] ([place], [place], [place], [place], [place]) Address [address] [place] [address] Care Team Providers Care Automatic Wheel Line Operator Name Role Phone Unavailable Primary Care Provider Unavailabl e Encounter Details Date Type Department Care Team (Late st Contact Info) Description 08/27/2018 Transcribed Document [facility] [place] [facility] [place] [address] ProviderCindi MD [address] [place] [address] Social History Tobacco Use Types [...] - Cindi ProviderMD - 08/27/2018 11:38 AM UPHOLSTERER HELPER [facility] Main OR Preop Summary Primary Physician: VISHAL SHEARER MD-JASPAL Finalized Date/Time: 08/27/18 14:18:34 Pt. Name: RAFAT ARMAS /Sex: 1945 Male Med Rec #: [id number] Physician: MEGHAN DAVIS MD-INT Financial #: [id number] Pt. Type: I Room/Bed: [facility]/1 Admit/Disch: 08/26/18 18:06:00 - Institution: [facility] PreOp Case Times Entry 1 In Preop 08/27/18 08:40:00 Ready for Holding n/a Room Patient Ready for 08/27/18 09:42:00 Surgery Patient Out of Preop 08/27/18 11:12:00 Patient Out of n/a Holding Room Last Modified By: KAREN IRAHETA RN 08/27/18 14:18:30 [facility] PreOp Case Times Audit 08/27/18 14:18:30 Watch Parts Grinder: MARILEE Modifier: [email or web address] <+> 1 Patient Out of Preop Finalized By: KAREN IRAHETA, RN Document Signatures Signed By: KAREN IRAHETA RN 08/27/18 14:18 Electronically signed by Tavia [facility] Conversion Diamond Cutter Cerner at 11/04/2022 10:15 AM CDT documented in this encounter Plan of Treatment Not on file documented as of this encounter Visit Diagnoses Not on filedocumented in this encounter
--- OUTSIDE RECORDS SUMMARY | 2025-05-24 09:55 | XMS_ITS | Encounter Summary ---
Author Organization [employer] ([place], [place], [place], [place], [place]) Address [address] [place] [address] Care Team Providers Care Paving And Surfacing Labourer Name Role Phone Unavailable Primary Care Provider Unavailabl e Encounter Details Date Type Department Care Team (Late st Contact Info) Description 08/31/2018 Transcribed Document [facility] [place] Family Medicine [address] [place] [address] ProviderCindi MD [address] [place] [address] Social History Tobacco Use Types [...] Note - Historical ProviderMD - 08/31/2018 5:00 PM SUPERVISOR SALVAGE Chart Check - Review Order Profile Entered On: 08/31/2018 20:13 EST Performed On: 08/31/2018 17:00 EST by Asim Alvarenga, RN Chart Check Chart Reviewed Date and Time : 08/31/2018 20:12 EST Powerplans Initiated/Discontinued as Appropriate : Yes All Active Orders Reviewed : Yes Asim Alvarenga, RN - 08/31/2018 20:12 EST documented in this encounter Plan of Treatment Not on file documented as of this encounter Visit Diagnoses Not on filedocumented in this encounter
--- OUTSIDE RECORDS SUMMARY | 2025-05-24 09:55 | XMS_ITS | Clinical Summary ---
Demographics Address [address] [facility] [place] [address] Home Phone Mobile Phone Home Phone Email Address Preferred Language Unknown Marital Status Samaritan Affiliation Unknown Race White Ethnic Group Not or Lati no Author Organization [facility] Address [address] [place] [address] Care Team Providers Care Fertilizer Mixer Name Role Phone Unavailable Primary Care Provider Unavailabl e Social History Tobacco Use Types Packs/Day Years Used Date Smoking Tobacco: Never Assessed Sex and Gender Information Value Date Recorded Sex Assigned at Not on file Legal Sex Male 8:50 PM EDT Gender Identity Not on file Sexual Orientation Not on file Plan of Treatment Health Maintenance Due Date Last Done Comments [facility]-Depression Screening 1945 [facility]-Infant/Child/Adol SDOH Screenings 1945 [facility]- SDOH Screenings 1962 [facility]-Adult SDOH Screenings 1962 [facility]-DTaP,Tdap,and Td Vaccines (1 - Tdap) 09/28/1963 [facility]-Pneumococcal Vaccine: 50+ Years (1 of 1 - PCV) 1994 [facility]-Zoster Vaccines (1 of 2) 1994 [facility]-RSV Vaccine: 60+ Years or (1 - 1-dose 75+ series) 09/28/2019 [facility]W-DTWNO-22 Vaccine ( season) 2025 05/30/2021, 09/28/2020, 08/31/2020 [facility]-Influenza Vaccine (#1) 2025 HPV Vaccines Aged Out No longer eligi ble based on patient's age to complete this topic [facility]-HIB Vaccines Aged Out No longer e ligible based on patient's age to complete this topic [facility]Y-Hepatitis A Vaccines Aged Out No longer eligible based on patient's age to complete this topic [facility]Y-IPV Vaccines Aged Out No longer e ligible based on patient's age to complete this topic UKY-Rotavirus Vaccines Aged Out No lo nger eligible based on patient's age to complete this topic Insurance MEDICARE
--- OUTSIDE RECORDS SUMMARY | 2025-05-24 09:55 | XMS_ITS | Encounter Summary ---
Author Organization [employer] ([place], [place], [place], [place], [place]) Address [address] [place] [address] Care Team Providers Care Carburetor Expert Name Role Phone Unavailable Primary Care Provider Unavailabl e Encounter Details Date Type Department Care Team (Late st Contact Info) Description 08/27/[address] [facility] [place] [facility] [place] [address] ProviderCindi MD [address] [place] [address] Social History Tobacco Use Types [...] - Cindi ProviderMD - 08/27/2018 11:38 AM INSTRUMENTATION SPECIALIST [facility] Main OR PACU Summary Primary Physician: VISHAL SHEARER MD-JASPAL Finalized Date/Time: 08/27/18 14:15:45 Pt. Name: RAFAT ARMAS /Sex: 1945 Male Med Rec #: [id number] Physician: MEGHAN DAVIS MD-INT Financial #: [id number] Pt. Type: I Room/Bed: [facility]/ Admit/Disch: 08/26/18 18:06:00 - Institution: [facility] Main OR PACU I Case Times Entry 1 In PACU I 08/27/18 12:40:00 Ready for PACU 08/27/18 13:45:00 Discharge Discharge from PACU 08/27/18 13:45:00 I Last Modified By: DEVAN VOGEL RN 08/27/18 14:15:31 Finalized By: DEVAN VOGEL, RN Document Signatures Signed By: DEVAN VOGEL RN 08/27/18 14:15 Electronically signed by Tavia [facility] Conversion Historiographer Cerner at 11/04/2022 10:17 AM CDT documented in this encounter Plan of Treatment Not on file documented as of this encounter Visit Diagnoses Not on filedocumented in this encounter
--- OUTSIDE RECORDS SUMMARY | 2025-05-24 09:55 | XMS_ITS | Encounter Summary ---
Author Organization [employer] ([place], [place], [place], [place], [place]) Address [address] [place] [address] Care Team Providers Care Stone Polisher Machine Name Role Phone Unavailable Primary Care Provider Unavailabl e Encounter Details Date Type Department Care Team (Late st Contact Info) Description 08/26/2018 Transcribed Document [facility] [place] Family Medicine [facility] [place] [address] ProviderCindi MD [address] [place] [address] Social History Tobacco Use Types Packs/Day Years Used Date Smoking Tobacco: Never Assessed Sex and Gender Information Value Date Recorded Sex Assigned at Male 01/16/2022 11:42 AM CDT Legal Sex Male 11:42 AM CDT Gender Identity Male 01/16/2022 11:42 AM CDT Sexual Orientation Not on file documented as of this encounter Miscellaneous Notes * [employer]ner Conversion Note - Cindi ProviderMD - 08/26/2018 7:58 PM SALON MANAGER Pain Assessment Entered On: 08/31/2018 10:38 EST Performed On: 08/31/2018 7:24 EST by Asim Alvarenga RN Intervention Information: acetaminophen-HYDROcodone Performed by JORGE ALBERTO CARDONA RN on 08/31/2018 06:24:00 EST acetaminophen-HYDROcodone,1Tab Oral,Pain (Mild 1-3) Pain Assessment Pain Assessment : Follow-up assessment Pain Scale Goal : 3 Pain Scale Used : 0-10 Scale Asim Alvarenga RN - 08/31/2018 10:38 EST Pain Scale Intensity : 3 Asim Alvarenga RN - 08/31/2018 10:38 EST Image 4 - Images currently included in the form version of this document have not been included in the text rendition version of the form. documented in this encounter Plan of Treatment Not on file documented as of this encounter Visit Diagnoses Not on filedocumented in this encounter
--- OUTSIDE RECORDS SUMMARY | 2025-05-24 09:55 | XMS_ITS | Encounter Summary ---
Author Organization [employer] ([place], [place], [place], [place], [place]) Address [address] [place] [address] Care Team Providers Care E Commerce Architect Name Role Phone Unavailable Primary Care Provider Unavailabl e Encounter Details Date Type Department Care Team (Late st Contact Info) Description 08/26/2018 Transcribed Document [facility] [place] [address] ProviderCindi MD [place] [address] Social History Tobacco Use Types [...] Conversion Note - Historical ProviderMD - 08/26/2018 7:45 PM MIXING PICKER TENDER DATE OF ADMISSION: 08/26/2018 CHIEF COMPLAINT: Abdominal pain. HISTORY OF PRESENT ILLNESS: This is a 72-year-old male with no significant past medical history, who presents with abdominal pain three weeks in left lower quadrant. He denies any precipitating or alleviating factors, is associated with poor oral intake and appetite and weight loss without diarrhea, without bleeding per rectum. He had two colonoscopies, one in 2004 and second 2012. He had diverticulosis without history of diverticulitis. He had family history of colon cancer, but no personal history of cancer. Evaluation at [facility] where patient has been evaluated initially showed evidence of an intra-abdominal abscess that was not amenable to intervention at the facility and recommended transfer to our facility for evaluation by Dr. Keita of General Surgery and Dr. Castro accepted the patient for transfer. Patient now in 347 and he denies any abdominal pain. He had poor oral intake and the last bowel movement was about three days ago and he said it only responded to Metamucil. He denies any vomiting. He denies any fever or chills. REVIEW OF SYSTEMS: All systems reviewed and negative except as stated per HPI. Specifically, patient denies any injury or trauma to the abdomen. No recent fever or abdominal infection. SURGICAL HISTORY: Includes rotator cuff surgery. MEDICAL HISTORY: Denies any diabetes, hypertension, cancers. He has colon polyps that were removed. ALLERGIES: NKDA. MEDICATIONS: None. SOCIAL HISTORY: Denies alcohol, drugs, or tobacco. Currently retired. FAMILY HISTORY: Positive for colon cancer as mentioned earlier. PHYSICAL EXAMINATION: VITAL SIGNS: Temperature of 98.1, heart rate of 101, blood pressure 99/71 and 107/65 with O2 sats 100% on room air. Patient received ertapenem at outlying facility. GENERAL: Patient is alert and oriented x3. No acute distress. HEENT/NECK: Extraocular movements intact. No icterus. No pallor. Mucous membranes moist without JVD or lymphadenopathy. CARDIOVASCULAR: S1, S2 heard. No extra sounds or murmurs. RESPIRATORY: Adequate air entry bilaterally. GI: Abdomen is soft. Not tender at all in the abdomen. There is no organomegaly. No masses noted in the abdomen. RECTAL: Exam is deferred. MUSCULOSKELETAL: No edema. No clubbing. NEUROLOGICAL: Nonfocal examination. SKIN: No rash. LYMPHATIC SYSTEM: Negative for lymphadenopathy. DIAGNOSTIC TESTS: Patient had at outlying facility leukocytosis 14.6, hemoglobin 15.4, platelets 377. Sodium 134, potassium 4.2, chloride 98, bicarb 25, his BUN is 25, creatinine 1.6, and glucose was 195. CT abdomen and pelvis shows hepatic steatosis, post cholecystectomy. Spleen is normal. Adrenal glands, kidneys also are unremarkable. Mild diffuse fatty infiltration of the pancreas. Left mid abdominal region shows irregular collection of gas and fluid density measuring 6 x 4 x 5.7 cm consistent with an abscess. There are loops of small bowel around the collection and no bowel obstruction. The collection is not amenable to percutaneous drainage due to overlying small bowel loops and mesenteric vessels, no adjacent diverticulitis located adjacent to the small bowel loops and not immediately adjacent to the large bowels or pancreas. Some mild stranding in the fat around the collection is noted. There was scattered diverticula in the descending and sigmoid colon. Lipomatous involvement noted in the inguinal canals with calcifications. No pelvic masses or abnormal fluid collections and no changes in the pelvis. The patient also was noted to have previous treatment or prescriptions with prednisone for unknown reason. ASSESSMENT: 1. Subacute abdominal pain of three weeks' duration with evidence of collection/abscess on the left lower abdomen with weight loss, poor intake, and evidence of acute kidney injury. 2. Unexplained hyperglycemia without history of diabetes. Of note, the patient had amylase level of 18 and lipase level of 69. 3. History of cholecystectomy, shoulder and knee surgery. 4. Leukocytosis and tachycardia suggestive of sepsis, present on admission, probably related to abscess or collection. PLAN: 1. IV fluids. 2. IV antibiotics with Zosyn. 3. Patient is n.p.o. for surgical intervention. The abscess or collection is not amenable for aspiration by CT scan or CT-guided. 4. Check A1c level and monitor glucose level. 5. Consult Dr. Keita. 6. Repeat labs. 7. Monitor renal function closely. no family available at bedside. 8. DVT prophylaxis with SCDs. 9. GI prophylaxis with PPI. Vinicius Ellsworth M.D. Dict: 08/26/2018 19:45:59 Trans: 08/27/2018 01:27:30 CC1: Vinicius Ellsworth M.D. documented in this encounter Plan of Treatment Not on file documented as of this encounter Visit Diagnoses Not on filedocumented in this encounter
--- OUTSIDE RECORDS SUMMARY | 2025-05-24 09:55 | XMS_ITS | Encounter Summary ---
Author Organization [employer] ([place], [place], [place], [place], [place]) Address [address] [place] [address] Care Team Providers Care Medical Lab Specialist Name Role Phone Unavailable Primary Care Provider Unavailabl e Encounter Details Date Type Department Care Team (Late st Contact Info) Description 08/30/2018 Transcribed Document [facility] [facility] [place] [address] [place] [address] ProviderCindi MD [address] [place] [address] Social History Tobacco Use Types [...] Conversion Note - Historical ProviderMD - 08/30/2018 2:00 AM COMMISSARY MANAGER Fruit Harvest Machine Operator Details Entered On: 08/30/2018 4:02 EST Performed On: 08/30/2018 2:00 EST by JORGE ALBERTO CARDONA RN [...] : No JORGE ALBERTO CARDONA RN - 08/30/2018 4:02 EST Electronically signed by Tavia [facility] Conversion Bleacher [employer] Cerner at 11/04/2022 10:05 AM CDT documented in this encounter Plan of Treatment Not on file documented as of this encounter Visit Diagnoses Not on filedocumented in this encounter
--- OUTSIDE RECORDS SUMMARY | 2025-05-24 09:55 | XMS_ITS | Encounter Summary ---
Author Organization [employer] ([place], [place], [place], [place], [place]) Address [address] [place] [address] Care Team Providers Care Food Service Worker Name Role Phone Unavailable Primary Care Provider Unavailabl e Encounter Details Date Type Department Care Team (Late st Contact Info) Description 08/27/2018 Transcribed Document [facility] [place] [facility] [place] [address] ProviderCindi MD [address] [place] [address] Social History Tobacco Use Types Packs/Day Years Used Date Smoking Tobacco: Never Assessed Sex and Gender Information Value Date Recorded Sex Assigned at Male 01/16/2022 11:42 AM CDT Legal Sex Male 11:42 AM CDT Gender Identity Male 01/16/2022 11:42 AM CDT Sexual Orientation Not on file documented as of this encounter Miscellaneous Notes * [employer]ner Conversion Note - Cindi ProviderMD - 08/27/2018 12:17 PM OBIEE CONSULTANT DATE OF PROCEDURE:08/27/2018 SURGEON: Ayush Keita MD AIR BAG CURER: Vannessa Nguyễn. PREOPERATIVE DIAGNOSIS(ES): Intra-abdominal mesenteric abscess, possible small bowel perforation. POSTOPERATIVE DIAGNOSIS(ES): Small-bowel mesenteric abscess, likely mesenteric adenitis. No obvious perforation. PROCEDURE: 1. Exploratory laparotomy, 2. Intraoperative drainage of abscess. 3. Small bowel resection with small bowel lymphadenectomy. ANESTHESIA: General. 22 modifier. COMPLICATIONS: None. INDICATIONS FOR PROCEDURE: Mr. Patel is a 72-year-old gentleman with a three-week history of abdominal pain. The patient has been recently seen in the emergency room where CT scan identified intra-abdominal abscess surrounded by small bowel involving the small bowel mesentery of the proximal jejunum. The patient is here for exploration. SUMMARY OF PROCEDURE: Patient was taken to the operating room and laid in supine position. After satisfactory induction of general anesthesia, he was prepped and draped in usual sterile fashion. A small midline incision was made and the abdomen was explored. A dense fibrotic mass, phlegmon mass involving the root of the mesentery and the proximal jejunum was encountered, a very time consuming tedious dissection was required to ultimately break down the small bowel attachments as well as identify this as primarily an abscess cavity within the small bowel. We were able to free up the small bowel and free up the mesentery by breaking down the external component of the abscess cavity, drained a significant amount of pus and sent this for culture. Ultimately, we were able after a very difficult dissection, ultimately free up enough small bowel to gain access to the inflamed or involved area proximally and distally. Small bowel Endo VINNIE was then fired across the small bowel proximally and distally and lymphadenectomy was carried out taking a good portion of the abscess cavity with it. The specimen was then inspected. No obvious perforation was noted, but there was a significant abscess cavity involving the central portion the mesentery. This was passed off the table and sent to Pathology. At this time, a hznb-co-yvts stapled anastomosis was performed using a VINNIE and completed with a TA 60. The mesentery was closed with interrupted 3-0 silk. Abdominal contents returned to their normal position. Abdomen was irrigated with copious saline solution until clear. Inspection of the remainder of the abdomen identified no other significant abnormalities. Wound was then closed using #1 PDS internal retention sutures and looped #1 PDS on the fascia. Skin was closed using subcutaneous tissue on the subdermal elements, 4-0 Monocryl on the skin. Dermabond, silver dressing, and then a sterile dressing. Wound was cleaned. Dry sterile bandage was placed. All sponge and needle counts were correct x2. Ayush Keita M.D. Dict: 08/27/2018 12:17:21 Trans: 08/27/2018 17:10:11 CC1: Ayush Keita M.D. documented in this encounter Plan of Treatment Not on file documented as of this encounter Visit Diagnoses Not on filedocumented in this encounter
--- OUTSIDE RECORDS SUMMARY | 2025-05-24 09:55 | XMS_ITS | Clinical Summary ---
Author Organization [facility] Address [address] [place] [address] Phone Care Team Providers Care Mechatronics Technician Name Role Phone Josue Hernandez MD [ ] Conditions or Problems Problem Name Problem Code Onset Date Status Entry Date Provider Comment Standard Description Annotate Abscess, intra-abdominal 92041175 (SNOMED CT) 09/08 Active 09/08 Marine Hussein Acute bacterial peritonitis Enterococcal infection B95.2 (ICD-10-CM) 09/08 Active 09/08 Marine Hussein Enterococcus as the cause of diseases classified elsewhere Group D streptococcus infection 672609712 (SNOMED CT) 09/08 Active 09/08 Marine Hussein Infection caused by Streptococcus group D Klebsiella infection B96.1 (ICD-10-CM) 09/08 Active 09/08 Marine Hussein Klebsiella pneumoniae [K. pneumoniae] as the cause of diseases classified elsewhere E. coli infection, non-shiga toxing-producin g B96.29 (ICD-10-CM) 09/08 Active 09/08 Marine Hussein Other Escherichia coli [E. coli] as the cause of diseases classified elsewhere Medications Medication Instructions Start Date Stop Date Generic Name [facility] Provider UNASYN 3 (2-1) GM SOLR Unasyn 3gm IV Q12hrs- [place] [phone] AMPICILLIN-SUL BACTAM SODIUM [id number] Tish Allen RN AUGMENTIN 500-125 MG ORAL TABLET Take one pill twice daily. 6 AMOXICILLIN-PO T CLAVULANATE [id number] Josue Hernandez MD HYDROXYZINE PAMOATE 25 MG CAPS Take one by mouth daily at bedtime 5 HYDROXYZINE PAMOATE [id number] Yocasta Burciaga FLOMAX 0.4 MG ORAL CAPSULE Take one by mouth daily 5 TAMSULOSIN HCL [id number] Yocasta Burciaga UNASYN 3 (2-1) GM SOLR Unasyn 3gm IV Q12hrs- HH [place] [phone] 3 AMPICILLIN-SUL BACTAM SODIUM [id number] Stephanie Hanley UNASYN 3 (2-1) GM SOLR Unasyn 3gm IV Q12hrs- HH Bibi [phone] 3 AMPICILLIN-SUL BACTAM SODIUM [id number] Stephanie Hanley Medications Administered No information available. Allergies, Adverse Reactions, Alerts Allergy Name Reaction Description Start Date Severity Statu s Provider SULFA ANTIBIOTICS Moderate Active B ethany Burciaga Results Date Name Value Unit Range Flag Description Clinical Lists Update: Prelo ad HGBA1C 7.40 % Hemoglobin A1c/Hemoglobin, total in Blood - % Chart Maintenance: cbc, cmp BASO# 0.3 Basophils [#/ volume] in Blood % EOS AUTO 1.2 % Eosinophil s/100 leukocytes in Blood by Automated count MONOCYTE % 6.3 % Monocytes/ 100 leukocytes in Blood by Automated count LYMPHS % 18.4 % Lymphocytes/ 100 leukocytes in Blood by Automated count PMN % 73.6 % Neutrophils/1 00 leukocytes in Blood by Automated count PLATELETS 295 10*3/mm3 Platelets [#/volume] in Blood by Automated count HCT 35.9 % Hematocrit [V olume Fraction] of Blood by Automated count HGB 11.7 g/dL Hemoglobin [Mass/volume] in Blood RBC 4.14 10*6/mm3 Erythrocytes [#/volume] in Blood by Automated count WBC 7.6 10*3/mm3 Leukocytes [ #/volume] in Blood by Automated count BILI TOTAL 0.5 mg/dL Bilirubin. total [Mass/volume] in Serum or Plasma SGOT (AST) 15 U/L Aspartate aminotransferase [Enzymatic activity/volume] in Serum or Plasma SGPT (ALT) 19 U/L Alanine aminotransferase [Enzymatic activity/volume] in Serum or Plasma ALK PHOS 156 U/L Alkaline james sphatase [Enzymatic activity/volume] in Blood CREATININE 1.06 mg/dL Creatinine [Mass/volume] in Serum or Plasma BUN 9 mg/dL Urea nitrogen [Mass/volume] in Serum or Plasma CALCIUM 8.0 mg/dL Calcium [Mole s/volume] in Serum or Plasma POTASSIUM 3.7 mmol/L Potassium [Moles/volume] in Serum or Plasma SODIUM 142 mmol/L Sodium [Moles /volume] in Serum or Plasma GLUCOSE SER 90 mg/dL Glucose [ Mass/volume] in Serum or Plasma External Other: Patient port al update - EmailStatusBrill Street + [place] [facility] ... PATPORTALPIN Linked This smiley l be used to establish a PIN number for patients to register in the Patient Portal. External Other: Patient port al update - Email [employer] [facility] ... PAT E-MAIL [email or web address] patient's e-mail address Office Visit: 5 MEDS REVIEW Done Documenta tion of current medications (procedure) ORALTOBACUSE Never Tobacco smoking status SMOK STATUS Never smoker Toba senior accounting associate smoking status Plan of Care Type Date Detail Pending order Discontinue IV a ntibiotics Pending order PICC Removal Pending order New Oral Antibio tic Pending order Continue IV anti biotics Pending order Ampicillin/Sulba ctam Pending order Weekly PICC Line Care Patient education Medications Procedures No information available. Vital Signs Date Name Value Unit Description BMI (Body Mass Index) 26.85 kg/m2 Bod y Mass Index (Ratio) Body Temperature 97.9 [degF] temperat ure E&M BP Diastolic 82 mm[Hg] blood pressu re, diastolic BP Systolic 126 mm[Hg] blood pressur e, systolic Heart Rate 76 /min pulse rate Height 72 [in_us] height E&M Respiratory Rate 12 /min respirat ory rate E&M Weight Measured 198 [lb_av] weight E& M Weight Measured 198 [lb_av] weight E& M Immunizations No information available. Advance Directives Directive Description Start Date LIVING WILL -NOT ON FILE WITH CB POWER OF HEALTH COMPANION
--- OUTSIDE RECORDS SUMMARY | 2025-05-24 09:55 | XMS_ITS | Encounter Summary ---
Author Organization [employer] ([place], [place], [place], [place], [place]) Address [address] [place] [address] Care Team Providers Care Packer Dried Beef Name Role Phone Unavailable Primary Care Provider Unavailabl e Encounter Details Date Type Department Care Team (Late st Contact Info) Description 08/30/2018 Transcribed Document [facility] [place] [facility] [place] [address] ProviderCindi MD [address] [place] [address] Social History Tobacco Use Types [...] Conversion Note - Historical ProviderMD - 08/30/2018 4:00 AM CHEMICAL LABORATORY ASSISTANT Height and Weight, Routine Entered On: 08/31/2018 7:16 EST Performed On: 08/30/2018 4:00 EST by Fern Rice Care [facility] Unit Coord Height and Weight, Routine Routine Weight Source : Standing scale Routine Weight Entry Format : [place] Routine Weight, Pounds : 215 lb Routine Weight, Ounces : 7 oz Routine Weight Calculation : 97.93 kg Height Source : Stated Height Entry Format : [place] Height, Feet : 6 ft Height, Inches : 0 Inch Clinical Height : 182.88 cm Body Surface Area (BSA), Routine : 2.2 m2 Body Mass Index (BMI), Routine : 29.28 kg/m2 [facility] - 08/31/2018 7:16 EST Electronically signed by Tavia [facility] Conversion Track Template Maker Cerner at 11/04/2022 10:12 AM CDT documented in this encounter Plan of Treatment Not on file documented as of this encounter Visit Diagnoses Not on filedocumented in this encounter
--- OUTSIDE RECORDS SUMMARY | 2025-05-24 09:56 | XMS_ITS | Encounter Summary ---
Author Organization [employer] ([place], [place], [place], [place], [place]) Address [address] [place] [address] Care Team Providers Care Computer Forwarding System Markup Clerk Name Role Phone Unavailable Primary Care Provider Unavailabl e Encounter Details Date Type Department Care Team (Late st Contact Info) Description 09/02/2018 Transcribed Document [facility] [place] [address] [place] [address] ProviderCindi MD [address] [place] [address] Social History Tobacco Use Types Packs/Day Years Used Date Smoking Tobacco: Never Assessed Sex and Gender Information Value Date Recorded Sex Assigned at Male 01/16/2022 11:42 AM CDT Legal Sex Male 11:42 AM CDT Gender Identity Male 01/16/2022 11:42 AM CDT Sexual Orientation Not on file documented as of this encounter Miscellaneous Notes * Cerner Conversion Note - Cindi ProviderMD - 09/02/2018 3:24 PM RN OR LPN Patient Education Materials Follows: Exploratory Laparotomy, Adult Introduction Exploratory laparotomy is a surgical procedure to examine the organs inside your belly (abdomen). Another name for this is abdominal exploration. You may have this procedure if you have abdominal pain, trauma, bleeding, infection, or obstruction. The procedure may be done if your health care provider cannot make a diagnosis from only an exam and testing. Exploratory laparotomy may be a planned procedure or an emergency procedure. You may have surgical treatment as part of the laparotomy, or you may have additional treatment after your laparotomy. This will depend on what your surgeon finds during the procedure. Tell a health care provider about: ??? Any allergies you have. ??? All medicines you are taking, including vitamins, herbs, eye drops, creams, and flzb-nma-pupdjid medicines. ??? Any problems you or family members have had with anesthetic medicines. ??? Any blood disorders you have. ??? Any surgeries you have had. ??? Any medical conditions you have. What are the risks? Generally, this is a safe procedure. However, problems can occur and include:??? Bleeding. ??? Infection. ??? A blood clot that forms in your leg and travels to your lungs. ??? Damage to organs inside your abdomen. ??? Scar tissue that blocks your digestive tract. What happens before the procedure? Ask your health care provider about:? Changing or stopping your regular medicines. This is especially important if you are taking diabetes medicines or blood thinners. ? Taking medicines such as aspirin and ibuprofen. These medicines can thin your blood. Do not take these medicines before your procedure if your health care provider instructs you not to. ??? Do noteat or drink anything after midnight on the night before the procedure or as directed by your health care provider. ??? You may be given instructions for clearing out your bowel before surgery (bowel prep). If you are already in the hospital, the bowel prep may be done there. What happens during the procedure? An IV tube may be inserted into a vein. You may receive fluids and medicine through the IV tube. This may include antibiotic medicine to treat or prevent infection. ??? You will be given a medicine that makes you go to sleep (general anesthetic). ??? You may have a tube placed through your nose and into your stomach (nasogastric tube) to drain your stomach fluids. ??? You may have a tube placed into your bladder (urinary catheter) to drain urine. ??? Your abdomen will be cleaned with a germ-killing solution (antiseptic). ??? The surgeon will make a surgical cut (incision) in your abdomen. This is usually an up-and-down incision in the midsection of your abdomen. The incision will go through the inside lining of your abdomen (peritoneum). ??? Your surgeon will spread the incision wide enough to examine the inside of your abdomen. ??? The rest of the procedure will depend on what the surgeon finds:? The surgeon will check all organs in your abdomen for damage or obstruction. Repairs will be made when possible. ? If there is blood in the abdomen, the surgeon will look for the source of the bleeding in order to stop it. ? If there is yellowish-white fluid (pus) or gastric fluids in your abdomen, the surgeon will check for an infection or a hole (perforation) in your digestive tract. ? If the surgeon finds infection, a drain may be placed to empty fluid that can build up in your abdomen after surgery. ? If there is a growth (tumor) inside your abdomen, the surgeon may remove a piece of the growth (biopsy) to examine it under a microscope. ??? When all procedures are complete, the surgeon will close your abdomen with layers of stitches (sutures). ??? The incision through the skin of your abdomen will be closed with sutures or bennett. What happens after the procedure? Your blood pressure, heart rate, breathing rate, and blood oxygen level will be monitored often until the medicines you were given have worn off. ??? You will continue to receive fluids and nutrition through your IV tube. This will stop when you can eat and drink on your own. ??? You may also get antibiotic medicine and pain medicine through your IV tube. ??? Your nasogastric tube may be removed when you start to pass gas. ??? Your urinary catheter may be removed when the anesthetic wears off. This information is not intended to replace advice given to you by your health care provider. Make sure you discuss any questions you have with your health care provider. Document Released: 04/02/2002 Document Revised: 12/13/2016 Document Reviewed: 02/23/2015 ? 2017 [employer] Procedures PICC Home Guide A peripherally inserted central catheter (PICC) is a long, thin, flexible tube that is inserted into a vein in the upper arm. It is a form of intravenous (IV) access. It is considered to be a central line because the tip of the PICC ends in a large vein in your chest. This large vein is called the superior vena cava (SVC). The PICC tip ends in the SVC because there is a lot of blood flow in the SVC. This allows medicines and IV fluids to be quickly distributed throughout the body. The PICC is inserted using a sterile technique by a specially trained nurse or physician. After the PICC is inserted, a chest X-ray exam is done to be sure it is in the correct place. A PICC may be placed for different reasons, such as: ??? To give medicines and liquid nutrition that can only be given through a central line. Examples are: ? Certain antibiotic treatments. ? Chemotherapy. ? Total parenteral nutrition (TPN). ??? To take frequent blood samples. ??? To give IV fluids and blood products. ??? If there is difficulty placing a peripheral intravenous (PIV) catheter. If taken care of properly, a PICC can remain in place for several months. A PICC can also allow a person to go home from the hospital early. Medicine and PICC care can be managed at home by a family member or home health care team. What problems can happen when I have a PICC? Problems with a PICC can occasionally occur. These may include the following: ??? A blood clot (thrombus) forming in or at the tip of the PICC. This can cause the PICC to become clogged. A clot-dissolving medicine called tissue plasminogen activator (tPA) can be given through the PICC to help break up the clot. ??? Inflammation of the vein (phlebitis) in which the PICC is placed. Signs of inflammation may include redness, pain at the insertion site, red streaks, or being able to feel a cord in the vein where the PICC is located. ??? Infection in the PICC or at the insertion site. Signs of infection may include fever, chills, redness, swelling, or pus drainage from the PICC insertion site. ??? PICC movement (malposition). The PICC tip may move from its original position due to excessive physical activity, forceful coughing, sneezing, or vomiting. ??? A break or cut in the PICC. It is important to not use scissors near the PICC. ??? Nerve or tendon irritation or injury during PICC insertion. What should I keep in mind about activities when I have a PICC? You may bend your arm and move it freely. If your PICC is near or at the bend of your elbow, avoid activity with repeated motion at the elbow. ??? Rest at home for the remainder of the day following PICC line insertion. ??? Avoid lifting heavy objects as instructed by your health care provider. ??? Avoid using a crutch with the arm on the same side as your PICC. You may need to use a walker. What should I know about my PICC dressing? Keep your PICC bandage (dressing) clean and dry to prevent infection. ? Ask your health care provider when you may shower. Ask your health care provider to teach you how to wrap the PICC when you do take a shower. ??? Change the PICC dressing as instructed by your health care provider. ??? Change your PICC dressing if it becomes loose or wet. What should I know about PICC care? Check the PICC insertion site daily for leakage, redness, swelling, or pain. ??? Do nottake a bath, swim, or use hot tubs when you have a PICC. Cover PICC line with clear plastic wrap and tape to keep it dry while showering. ??? Flush the PICC as directed by your health care provider. Let your health care provider know right away if the PICC is difficult to flush or does not flush. Do not use force to flush the PICC. ??? Do notuse a syringe that is less than 10 mL to flush the PICC. ??? Never pull or tug on the PICC. ??? Avoid blood pressure checks on the arm with the PICC. ??? Keep your PICC identification card with you at all times. ??? Do nottake the PICC out yourself. Only a trained clinical professional should remove the PICC. Get help right away if: ??? Your PICC is accidentally pulled all the way out. If this happens, cover the insertion site with a bandage or gauze dressing. Do not throw the PICC away. Your health care provider will need to inspect it. ??? Your PICC was tugged or pulled and has partially come out. Do not push the PICC back in. ??? There is any type of drainage, redness, or swelling where the PICC enters the skin. ??? You cannot flush the PICC, it is difficult to flush, or the PICC leaks around the insertion site when it is flushed. ??? You hear a flushing sound when the PICC is flushed. ??? You have pain, discomfort, or numbness in your arm, shoulder, or jaw on the same side as the PICC. ??? You feel your heart racing or skipping beats. ??? You notice a hole or tear in the PICC. ??? You develop chills or a fever. This information is not intended to replace advice given to you by your health care provider. Make sure you discuss any questions you have with your health care provider. Document Released: 01/12/2004 Document Revised: 01/25/2017 Document Reviewed: 04/30/2014 Elsevier Interactive Patient Education ? 2017 [employer] documented in this encounter Plan of Treatment Not on file documented as of this encounter Visit Diagnoses Not on filedocumented in this encounter
--- OUTSIDE RECORDS SUMMARY | 2025-05-24 09:56 | XMS_ITS | Encounter Summary ---
Author Organization [employer] ([place], [place], [place], [place], [place]) Address [address] [place] [address] Care Team Providers Care Business Account Leader Name Role Phone Unavailable Primary Care Provider Unavailabl e Encounter Details Date Type Department Care Team (Late st Contact Info) Description 09/02/2018 Transcribed Document [facility] [place] [facility] [place] [address] ProviderCindi MD [address] [place] [address] Social History Tobacco Use Types Packs/Day Years Used Date Smoking Tobacco: Never Assessed Sex and Gender Information Value Date Recorded Sex Assigned at Male 01/16/2022 11:42 AM CDT Legal Sex Male 11:42 AM CDT Gender Identity Male 01/16/2022 11:42 AM CDT Sexual Orientation Not on file documented as of this encounter Miscellaneous Notes * Cerner Conversion Note - Historical ProviderMD - 09/02/2018 7:19 AM PUBLIC RELATIONS WRITER Patient: RAFAT ARMAS Age: 72 Years Sex: Male : 1945 Subjective Post OP SB resectiojn Intake & Output Intake & Output Totals Last 24 Hours (7a-7a) Intake (21 Events) Continuous Infusions (600 mL) Medications (200 mL) Oral Intake (1035 mL) Output (7 Events) Urine Voided (Volume) (1775 mL) Input Total: 1835 mL Output Total: 1775 mL Balance: 60 mL Vital Signs T: 37 ??C TMIN: 36.8 ??C TMAX: 37.1 ??C HR: 79(Monitored) RR: 17 BP: 159/97 SpO2: 95% HT: 182.88 cm WT: 95.45 kg BMI: 28.54 Physical Exam ABD soft + Flatus VTE Risk Total Score VTE Prophylaxis - Surgical Heparin 5,000 Units, SubCutaneous, Inj, [id number], Routine, Start 08/26/18 20:00:00 EST (LILY VILLAFANA) Sequential Compression Device Start: 08/26/18 19:58:00 EST, Bilateral, Length: Knee High, While patient is in bed, Continuous Order (LILY VILLAFANA) Sequential Compression Device Start: 08/26/18 19:58:00 EST, Bilateral, Continuous Order (LILY VILLAFANA) Assessment/Plan DC home Cutaneous abscess, unspecified L02.91, Cutaneous abscess, unspecified L02.91 Medications Inpatient acetaminophen-HYDROcodone 325 mg-5 mg oral tablet, 1 Tab, Oral, Q4H, PRN alteplase + sterile water 1 mL ampicillin-sulbactam cloNIDine 50 mcg + dexamethasone 4 mg + bupivacaine-EPINEPHrine 0.25%-1:200,000 injectable solution Colace, 100 mg= 1 Cap, Oral, BID heparin, 5000 Units= 1 mL, SubCutaneous, [id number] insulin lispro sliding scale, Scale A:, SubCutaneous, AC and at Bedtime lisinopril, 10 mg= 1 Tab, Oral, BID MiraLax, 17 Gram= 1 Packet, Oral, Daily, PRN Normal Saline Flush, 10 mL, IntraCATHeter, Q12H Norvasc, 5 mg= 1 Tab, Oral, Daily Sodium Chloride 0.9% intravenous solution 1,000 mL, [...] 16 / 77 4.1 23 0.80 \ Albumin Level: 1.7 Gram/dL Low Alk Phos: 263 Units/Liter High ALT: 16 Units/Liter Anion Gap: 9 AST: 21 Units/Liter Bilirubin Total: 0.4 mg/dL Calcium Level: 7.2 mg/dL Low Protein Total: 5 Gram/dL Low Imaging Results (Last 24 Hours) No Radiology Results Found Problem List/Past Medical History Ongoing Kidney stones Historical No qualifying data Procedure/Surgical History CHOLECYSTECTOMY, collarbone sx, knee sx, rotator cuff sx. Allergies sulfa drugs Electronically signed by Tavia [facility] Conversion Heater Mechanic Cerner at 11/04/2022 10:28 AM CDT documented in this encounter Plan of Treatment Not on file documented as of this encounter Visit Diagnoses Not on filedocumented in this encounter
--- OUTSIDE RECORDS SUMMARY | 2025-05-24 09:56 | XMS_ITS | Encounter Summary ---
Author Organization [employer] ([place], [place], [place], [place], [place]) Address [address] [place] [address] Care Team Providers Care Firer Automatic Stoker Name Role Phone Unavailable Primary Care Provider Unavailabl e Encounter Details Date Type Department Care Team (Late st Contact Info) Description 08/28/2018 Transcribed Document [facility] [place] [facility] [place] [address] ProviderCindi MD [facility] [place] [address] Social History Tobacco Use Types Packs/Day Years Used Date Smoking Tobacco: Never Assessed Sex and Gender Information Value Date Recorded Sex Assigned at Male 01/16/2022 11:42 AM CDT Legal Sex Male 11:42 AM CDT Gender Identity Male 01/16/2022 11:42 AM CDT Sexual Orientation Not on file documented as of this encounter Miscellaneous Notes * Cerner Conversion Note - Cindi ProviderMD - 08/28/2018 2:43 PM CUPOLA MELTING SUPERVISOR Patient: RAFAT ARMAS Age: 72 years Sex: Male : 1945 Associated Diagnoses: None Author: ZOEY BERGER MD Subjective 72 yo male was admitted for abd pain and possible abscess ct showed perforation and abscess s/p small bowel resection and abscess draing saw him today in am sit in chasir awake, no cp or sob, said he feel better stil npo no pass gas yet, no BM yet ROS: no fever, no cp or osb, feel nause and abd pain Health Status Allergies: Allergic Reactions (Selected) Severity Not Documented Sulfa drugs- No reactions were documented., Allergies (1) Active Reaction sulfa drugs None Documented Current medications: (Selected) Inpatient Medications Ordered Colace: 100 mg, Oral, BID MiraLax: 17 Gram, Oral, Daily, PRN: Constipation Sodium Chloride 0.9% intravenous solution 1,000 mL: 75 mL/Hr, IntraVENous Tylenol: 650 mg, Oral, Q4H, PRN: Pain (Mild 1-3) Zofran: 4 mg, IV Push, Q4H, PRN: Nausea Zosyn + Sodium Chloride 0.9% intravenous solution 100 mL: 3.375 Gram, 33.33 mL/Hr, IV Piggyback, Q6HInt acetaminophen-HYDROcodone 325 mg-5 mg oral tablet: 1 Tab, Oral, Q4H, PRN: Pain (Mild 1-3) heparin: 5,000 Units, SubCutaneous, [id number] insulin lispro sliding scale: Scale A:, SubCutaneous, [...] Cap, PRN, Oral, At Bedtime , Medications (9) Active Scheduled: (4) docusate sodium 100 mg cap 100 mg 1 Cap, Oral, BID heparin 5,000 units/1 mL inj 5,000 Units 1 mL, SubCutaneous, [id number] insulin lispro 1 unit/0.01 mL inj Scale A:, SubCutaneous, AC and at Bedtime piperacillin-tazobactam + NaCl 0.9% 100 mL 3.375 Gram, IV Piggyback, Q6HInt Continuous: (1) NaCl 0.9% 1,000 mL 1,000 mL, IntraVENous, 75 mL/Hr PRN: (4) acetaminophen 325 mg tab 650 mg 2 Tab, Oral, Q4H acetaminophen/HYDROcodone 325/5 mg tab 1 Tab, Oral, Q4H ondansetron 4 mg/2 mL inj 4 mg 2 mL, IV Push, Q4H polyethylene glycol 3350 pwd 17 g pkt 17 Gram 1 Packet, Oral, Daily Problem list: No problem items selected or recorded., Active Problems (1) Kidney stones Objective VS/Measurements Vitals Signs (last 24 hrs) Last Charted Minimum Maximum Temp 98.5 (AUG 28 11:30) 97.6 (AUG 28 06:45) 98.4 (AUG 27 18:31) Mon HR 75 (AUG 28 11:30) 57 (AUG 28 03:00) 75 (AUG 28 11:30) Resp Rate 20 (AUG 28 11:30) 14 (AUG 28 06:45) 20 (AUG 27 15:30) SBP 110 (AUG 28:30) 110 (AUG 28:30) 140 (AUG 27 18:31) DBP 72 (AUG 28:30) 72 (AUG 28:30) 88 (AUG 27 18:31) MAP 82 (AUG 28:30) 82 (AUG 28:30) 114 (AUG 27 18:31) SpO2 97 (AUG 28:30) 97 (AUG 27 23:15) 99 (AUG 27 15:30) General: Alert and oriented, Mild distress. Neck: [...] Labs (Last four charted values) WBC H 15.1 (AUG 28) 9.1 (AUG 27) H 11.0 (AUG 26) H 11.8 (AUG 26) HB L 12.8 (AUG 28) L 12.1 (AUG 27) L 13.4 (AUG 26) L 13.6 (AUG 26) HCT L 39.0 (AUG 28) L 37.9 (AUG 27) 42.7 (AUG 26) 42.4 (AUG 26) Plt 260 (AUG 28) 244 (FEB 06) 271 (FEB 05) 282 (FEB 05) Na 137 (FEB 07) 139 (FEB 06) 140 (FEB 05) 138 (FEB 05) K 4.7 (FEB 07) 4.3 (FEB 06) 4.1 (FEB 05) 4.0 (FEB 05) Cl 105 (FEB 07) 107 (FEB 06) 106 (FEB 05) 105 (FEB 05) CO2 25 (FEB 07) 24 (FEB 06) 26 (FEB 05) 26 (FEB 05) BUN 20 (FEB 07) H 23 (FEB 06) H 23 (FEB 05) H 24 (FEB 05) Cr 1.10 (FEB 07) 1.30 (FEB 06) 1.29 (FEB 05) 1.24 (FEB 05) Glu R H 137 (FEB 07) 98 (FEB 06) 104 (FEB 05) H 107 (FEB 05) Ca L 7.8 (FEB 07) L 7.7 (FEB 06) L 7.8 (FEB 05) L 7.9 (FEB 05) PT 11.9 (FEB 05) 11.9 (FEB 05) INR 1.1 (FEB 05) 1.1 (FEB 05) AST 18 (FEB 07) 35 (FEB 06) H 74 (FEB 05) H 73 (FEB 05) ALT 34 (FEB 07) 41 (FEB 06) 53 (FEB 05) 47 (FEB 05) ALK P 118 (B 07) 124 (FEB 06) H 163 (FEB 05) H 157 (FEB 05) T Bili 0.9 (FEB 07) H 1.5 (FEB 06) H 1.6 (FEB 05) H 1.6 (FEB 05) PTN L 5.6 (FEB 07) L 5.4 (FEB 06) L 6.3 (FEB 05) L 6.1 (FEB 05) ALB L 1.8 (FEB 07) L 1.9 (FEB 06) L 2.2 (FEB 05) L 2.1 (FEB 05) Radiology Results (Last 48 hours) [id number] -- 08/26/2018 18:06 CT Abdomen Pelvis W (08/26/2018 23:24) Result: CT the abdomen and pelvis with contrastINDICATION: Generalized abdominal pain, evaluate for abscessTECHNIQUE: Following the administration of intravenous contrasthelically acquired axial multidetector CT images were obtained from thelung bases through the pelvis. Dose reduction techniques were employed.In the mesentery of the left upper quadrant there is an irregular gasand fluid collection.Additionally there are a few scattered tiny bubbles of freeintraperitoneal air in the central mesentery. There also may be a smallamount of oral contrast within the collection.The collection appears to be associated with the small bowel. It isdistant from the colon.The solid organs are unremarkable.IMPRESSION: Irregular gas and fluid collection in the left upperquadrant mesentery which measures up to at least 7 cm. There are a fewtiny scattered bubbles of free intraperitoneal air and there may be someoral contrast in this collection via this is suggestive of a perforatedviscus. Diagnosis / problem perforation of proximal jejunum and mesenteric bowel, s/p resection sepsis on admit intra-abd abscess BPH Plan: 1. see above medication list for treatment. 2. npo and cont ivf 3. cont iv abx zosyn, ask ID for duration of iv abx 4. pain control 5. f/u culture 6. heparin sq 7. d/w pat and family, f/u surgeon also documented in this encounter Plan of Treatment Not on file documented as of this encounter Visit Diagnoses Not on filedocumented in this encounter
--- OUTSIDE RECORDS SUMMARY | 2025-05-24 09:56 | XMS_ITS | Encounter Summary ---
Author Organization [employer] ([place], [place], [place], [place], [place]) Address [address] [place] [address] Care Team Providers Care Licensed Electrician Name Role Phone Unavailable Primary Care Provider Unavailabl e Encounter Details Date Type Department Care Team (Late st Contact Info) Description 09/01/2018 Transcribed Document [facility] [place] [facility] [place] [address] ProviderCindi MD [address] [place] [address] Social History Tobacco Use Types [...] Conversion Note - Historical ProviderMD - 09/01/2018 12:01 PM MUTUAL FUND ACCOUNTANT Care Management Assessment/Plan Entered On: 09/01/2018 12:02 EST Performed On: 09/01/2018 12:01 EST by ESTHER GRIFFIN Care Management Note Care Management Note : Met with Pt on IDT rounds. Resting quietly. IVF's infusing, receiving IV Ampicillin-Sulbactam. Tolerating PO and voiding without difficulty. Per Dr Castro, plans are home tomorrow. CM will follow. Care Management Note Report : ESTHER GRIFFIN - 08/29/18 10:53:32 Chart reviewed. Per notes, remains NPO, waiting bowel function to return. Ferrer to be dc'd today. IVF's infusing. CM will follow. ESTHER GRIFFIN - 08/28/18 11:30:40 Pt had colon surgery yesterday. Met with the Pt at the bedside. Resting quietly, sitting up in the chair. IVF's infusing, receiving IV Flagyl and Zosyn. Ferrer intact and patent. Pt remains NPO. Pt states that he is ADL independent, denies DME/HH/Rehab. Plans are to return home at discharge. No needs anticipated/verbalized at this time. RRS is high @ 60 ESTHER GRIFFIN - 08/28/18 11:33:44 Pt had colon surgery yesterday. Met with the Pt at the bedside. Resting quietly, sitting up in the chair. IVF's infusing, receiving IV Flagyl and Zosyn. Ferrer intact and patent. Pt remains NPO. Pt states that he is ADL independent, denies DME/HH/Rehab. Plans are to return home at discharge. No needs anticipated/verbalized at this time. RRS is high @ 60. CM will follow. ESTHER GRIFFIN - 08/27/18 11:09:14 Received from [facility] due to intra-abdominal abscess, being admitted with the same. Pt off the floor for surgery during IDT rounds. CM will follow. Documentation Status Complete : Yes ESTHER GRIFFIN - 09/01/2018 12:01 EST documented in this encounter Plan of Treatment Not on file documented as of this encounter Visit Diagnoses Not on filedocumented in this encounter
--- OUTSIDE RECORDS SUMMARY | 2025-05-24 09:56 | XMS_ITS | Encounter Summary ---
Author Organization [employer] ([place], [place], [place], [place], [place]) Address [address] [place] [address] Care Team Providers Care Financial Secretary Name Role Phone Unavailable Primary Care Provider Unavailabl e Encounter Details Date Type Department Care Team (Late st Contact Info) Description 08/29/2018 Transcribed Document [facility] [place] Family Medicine [facility] [place] [address] ProviderCindi MD [facility] [place] [address] Social History Tobacco Use Types Packs/Day Years Used Date Smoking Tobacco: Never Assessed Sex and Gender Information Value Date Recorded Sex Assigned at Male 01/16/2022 11:42 AM CDT Legal Sex Male 11:42 AM CDT Gender Identity Male 01/16/2022 11:42 AM CDT Sexual Orientation Not on file documented as of this encounter Miscellaneous Notes * Cerner Conversion Note - Cindi ProviderMD - 08/29/2018 7:05 PM HOSIERY BAGGER Central Line Checklist Entered On: 08/29/2018 19:08 EST Performed On: 08/29/2018 19:05 EST by Josefina Escamilla RN Central Line Checklist History and Physical on Chart : Yes Central Line Insertion Facility : [facility] Central Line Insertion Start Date/Time : 08/29/2018 18:35 EST Central Catheter Type : Power injection PICC Central Line Lot Number : [id number] Central Line Vessel Cannulated : Brachial vein Central Line Laterality : Left Central Line Number of Lumens : 1 Central Line Insertion Site : Upper arm, left Central Line Insertion Reason : New indication PICC Line Exclusion Criteria : None CL Number of Insertion Attempts: : 1 Modified Seldinger Used : Yes Portable Ultrasound Device : Yes Central Line Clean Hands : Yes Site Preparation Procedure : Chlorhexidine (Chloraprep) if patient is 2 months or older Central IV Full Body Drape Used : Yes Proper Use of Sterile Apparel per Policy : Yes Procedure to be Performed : picc line insertion Time Out Pause Time : 08/29/2018 18:33 EST All Activity Suspended : Yes Team Verbally Confirms Information : Correct patient identity, Correct side and site are marked, Consent form is present and accurate, Agreement on the procedure to be done, Correct patient position, Confirm the skin prep has dried, Performed in location of procedure after prepped/draped CL Time Out Additional Attendees : Maisha Lopez RN/Josefina Escamilla RN/MARLEY Bailey 1% Lidocaine Amt Used as Anesthetic : 3 mL Central IV Sterile Field Maintained : Yes Central IV Sterile Technique Maintained : Yes Central Line Secure with : Stabilization device Central Line Dressing Dated : Yes RN Notified CL is Approved to be Used : Yes Central Line Tip Location in SVC : Yes Nurse Notified Name : Paige Velazco, Josefina Bauer RN - 08/29/2018 19:05 EST Electronically signed by [facility] Conversion Network Systems Analyst Cerner at 11/04/2022 10:26 AM CDT documented in this encounter Plan of Treatment Not on file documented as of this encounter Visit Diagnoses Not on filedocumented in this encounter
--- OUTSIDE RECORDS SUMMARY | 2025-05-24 09:56 | XMS_ITS | Encounter Summary ---
Author Organization [employer] ([place], [place], [place], [place], [place]) Address [address] [place] [address] Care Team Providers Care Area Plant Manager Name Role Phone Unavailable Primary Care Provider Unavailabl e Encounter Details Date Type Department Care Team (Late st Contact Info) Description 08/29/2018 Transcribed Document [facility] [place] Family Medicine [address] [place] [address] ProviderCindi MD [address] [place] [address] Social History Tobacco Use Types Packs/Day Years Used Date Smoking Tobacco: Never Assessed Sex and Gender Information Value Date Recorded Sex Assigned at Male 01/16/2022 11:42 AM CDT Legal Sex Male 11:42 AM CDT Gender Identity Male 01/16/2022 11:42 AM CDT Sexual Orientation Not on file documented as of this encounter Miscellaneous Notes * [employer]ner Conversion Note - Historical ProviderMD - 08/29/2018 2:38 PM STAFF ELECTRONIC WARFARE OFFICER Attempt to Treat, PT Entered On: 08/29/2018 14:39 EST Performed On: 08/29/2018 14:38 EST by JAYDE GARSIA, Physical Therapist Attempt to Treat Unable to Treat Due To : Fatigue Inability to Treat Comment : Pt just got back from [facility] with his aide and requested we hold until tomorrow to do PT eval. Pt is pleasant and eager to work with therapy. Will f/u tomorrow. Notification : RNMaisha NIKISHA S, Physical Therapist - 08/29/2018 14:38 EST documented in this encounter Plan of Treatment Not on file documented as of this encounter Visit Diagnoses Not on filedocumented in this encounter
--- OUTSIDE RECORDS SUMMARY | 2025-05-24 09:56 | XMS_ITS | Encounter Summary ---
Author Organization [employer] ([place], [place], [place], [place], [place]) Address [address] [place] [address] Care Team Providers Care Rattlesnake Farmer Name Role Phone Unavailable Primary Care Provider Unavailabl e Encounter Details Date Type Department Care Team (Late st Contact Info) Description 08/28/2018 Transcribed Document [facility] [place] Family Medicine [facility] [place] [address] ProviderCindi MD [address] [place] [address] Social History Tobacco Use Types Packs/Day Years Used Date Smoking Tobacco: Never Assessed Sex and Gender Information Value Date Recorded Sex Assigned at Male 01/16/2022 11:42 AM CDT Legal Sex Male 11:42 AM CDT Gender Identity Male 01/16/2022 11:42 AM CDT Sexual Orientation Not on file documented as of this encounter Miscellaneous Notes * Cerner Conversion Note - Historical ProviderMD - 08/28/2018 11:25 AM MEDICAL INSTRUMENT CABLE FABRICATOR Care Management Assessment/Plan Entered On: 08/28/2018 11:30 EST Performed On: 08/28/2018 11:25 EST by ESTHER GRIFFIN Care Management Note Care Management Note : Pt had colon surgery yesterday. Met with [...] 60. CM will follow. ESTHER GRIFFIN - 08/28/2018 11:32 EST Care Management Note Report : ESTHER GRIFFIN - 08/27/18 11:09:14 Received from [facility] due to intra-abdominal abscess, being admitted with the same. Pt off the floor for surgery during IDT rounds. CM will follow. Documentation Status Complete : Yes ESTHER GRIFFIN - 08/28/2018 11:25 EST Patient History Information Obtained from, Care Mgt : Patient, Medical Record Current Primary Care Physician : Moraima Muro Emergency Contact #1 : Devonte arriaga Emergency Contact #1 Emergency Contact #1 Relationship : son Emergency Contact #2 : Narciso Lima Emergency Contact #2 Emergency Contact #2 Relationship : brother in law Living Situation : Home Patient Lives With : Alone Mobility Assistance Prior to Admission : Independent Current Daily Living Assistance : None Sensory Deficits : None Professional Skilled Services : None Current Home Treatments : None Home Equipment : None ESTHER GRIFFIN - 08/28/2018 11:32 EST Discharge Planning Details Discharge Home : Home with self ESTHER GRIFFIN - 08/28/2018 11:32 EST documented in this encounter Plan of Treatment Not on file documented as of this encounter Visit Diagnoses Not on filedocumented in this encounter
--- OUTSIDE RECORDS SUMMARY | 2025-05-24 09:56 | XMS_ITS | Encounter Summary ---
Author Organization [employer] ([place], [place], [place], [place], [place]) Address [address] [place] [address] Care Team Providers Care General Utility Worker Name Role Phone Unavailable Primary Care Provider Unavailabl e Encounter Details Date Type Department Care Team (Late st Contact Info) Description 09/02/2018 Transcribed Document [facility] [place] Family Medicine On [facility] of [facility] [place] [address] ProviderCindi MD On [place] [facility] [place] [address] Social History Tobacco Use Types [...] Conversion Note - Historical ProviderMD - 09/02/2018 4:00 AM FIBERGLASS PRODUCT TESTER Height and Weight, Routine Entered On: 09/02/2018 5:37 EST Performed On: 09/02/2018 4:00 EST by ANNE MARIE SHEPPARD Patient Mud Mixer Operator Height and Weight, Routine Routine Weight Source : Bed scale Routine Weight Entry Format : Dixon Routine Weight, Pounds : 210 lb Routine Weight, Ounces : 0.01 oz Routine Weight Calculation : 95.45 kg Height Source : Stated Height Entry Format : Dixon Height, Feet : 6 ft Height, Inches : 0 Inch Clinical Height : 182.88 cm Body Surface Area (BSA), Routine : 2.18 m2 Body Mass Index (BMI), Routine : 28.54 kg/m2 ANNE MARIE SHEPPARD, Patient Mud Mixer Operator - 09/02/2018 5:37 EST documented in this encounter Plan of Treatment Not on file documented as of this encounter Visit Diagnoses Not on filedocumented in this encounter
--- OUTSIDE RECORDS SUMMARY | 2025-05-24 09:56 | XMS_ITS | Encounter Summary ---
Author Organization [employer] ([place], [place], [place], [place], [place]) Address [address] [place] [address] Care Team Providers Care Dental Front Office Assistant Name Role Phone Unavailable Primary Care Provider Unavailabl e Encounter Details Date Type Department Care Team (Late st Contact Info) Description 08/29/2018 Transcribed Document [facility] [place] [address] [place] [address] ProviderCindi MD [address] [place], [place] [id number] Social History Tobacco Use Types Packs/Day Years Used Date Smoking Tobacco: Never Assessed Sex and Gender Information Value Date Recorded Sex Assigned at Male 01/16/2022 11:42 AM CDT Legal Sex Male 11:42 AM CDT Gender Identity Male 01/16/2022 11:42 AM CDT Sexual Orientation Not on file documented as of this encounter Miscellaneous Notes * Cerner Conversion Note - Historical ProviderMD - 08/29/2018 2:00 AM SYRUP BLENDER Fingernail Former Details Entered On: 08/29/2018 5:24 EST Performed On: 08/29/2018 2:00 EST by Diony Meade RN Order Details Transport Mode Order Detail : Ambulatory Isolation Precautions Order Detail : Standard Precautions Order Detail : N/A IV Order Detail : 1 Oxygen Order Detail : 0 Nurse Collect Order Detail : 0 Lift/Transfer : Independent Central Line Order Detail : No Room Service : Not Appropriate Arterial Line : No Diony Meade, JESSICA - 08/29/2018 5:24 EST documented in this encounter Plan of Treatment Not on file documented as of this encounter Visit Diagnoses Not on filedocumented in this encounter
--- OUTSIDE RECORDS SUMMARY | 2025-05-24 09:56 | XMS_ITS | Encounter Summary ---
Author Organization [employer] ([place], [place], [place], [place], [place]) Address [address] [place] [address] Care Team Providers Care Purchasing Engineer Name Role Phone Unavailable Primary Care Provider Unavailabl e Encounter Details Date Type Department Care Team (Late st Contact Info) Description 09/02/2018 Transcribed Document [facility] [place] [address] [place] [address] ProviderCindi MD [address] [place] [id number] Social History Tobacco Use Types Packs/Day Years Used Date Smoking Tobacco: Never Assessed Sex and Gender Information Value Date Recorded Sex Assigned at Male 01/16/2022 11:42 AM CDT Legal Sex Male 11:42 AM CDT Gender Identity Male 01/16/2022 11:42 AM CDT Sexual Orientation Not on file documented as of this encounter Miscellaneous Notes * Cerner Conversion Note - Historical ProviderMD - 09/02/2018 2:00 AM PATIENT ACCOUNTS CLERK Spring Machine Operator Details Entered On: 09/02/2018 2:20 EST Performed On: 09/02/2018 2:00 EST by Maria D Nolasco Order Details Transport Mode Order Detail : Wheelchair Isolation Precautions Order Detail : Standard Precautions Order Detail : N/A IV Order Detail : 1 Oxygen Order Detail : 0 Nurse Collect Order Detail : 0 Lift/Transfer : Independent Central Line Order Detail : Yes Room Service : Appropriate Arterial Line : No Maria D Nolasco - 09/02/2018 2:20 EST documented in this encounter Plan of Treatment Not on file documented as of this encounter Visit Diagnoses Not on filedocumented in this encounter
--- OUTSIDE RECORDS SUMMARY | 2025-05-24 09:56 | XMS_ITS | Encounter Summary ---
Author Organization [employer] ([place], [place], [place], [place], [place]) Address [address] [place] [address] Care Team Providers Care Corn Popper Name Role Phone Unavailable Primary Care Provider Unavailabl e Encounter Details Date Type Department Care Team (Late st Contact Info) Description 09/02/2018 Transcribed Document [facility] Radiology [address] [place] [address] Gianni Castro MD [address] [place] [address] [place] [address] Social History Tobacco Use Types Packs/Day Years Used Date Smoking Tobacco: Never Assessed Sex and Gender Information Value Date Recorded Sex Assigned at Male 01/16/2022 11:42 AM CDT Legal Sex Male 11:42 AM CDT Gender Identity Male 01/16/2022 11:42 AM CDT Sexual Orientation Not on file documented as of this encounter Miscellaneous Notes * Cerner Conversion Note - Gianni Castro MD - 09/02/2018 11:41 AM EST Patient: [facility]: [id number] Age: 72 years Sex: Male : 1945 Associated Diagnoses: None Author: GIANNI CASTRO MD-INT Subjective PCP: N/A DOA: 08/26/2018 DOD: 09/02/2018 HPI: This is a 72-year-old male with no [...] history of cancer. Evaluation at [facility] where patient has been evaluated initially showed evidence of an intra-abdominal abscess that was not amenable to intervention at the facility and recommended transfer to our facility for evaluation by Dr. Keita of General Surgery. CODE STATUS: FULL CODE CONSULTS: JADYN Cortes Surgery Infectious Disease - Hannah Hernandez WORKUP / PROCEDURES: 1- CT ABD/PELVIS: IMPRESSION: Irregular gas and fluid collection in the left upper quadrant mesentery which measures up to at least 7 cm. There are a few tiny scattered bubbles of free intraperitoneal air and there may be some oral contrast in this collection via this is suggestive of a perforated viscus. 2- EXPL. LAPRATOMY: DATE OF PROCEDURE:08/27/2018 SURGEON: Ayush Keita MD PROCEDURE: 1. Exploratory laparotomy, 2. Intraoperative drainage of abscess. 3. Small bowel resection with small bowel lymphadenectomy. HOSPITAL FOLLOWUP: 72 yo male admitted for abd pain and possible abscess ct showed perforation and abscess - Underwent small bowel resection and abscess drainge 09/01 Pt seen as first visit - Chart reviewed. Pt is awake and alert. Resting in bed. BP elevated. Tolerating diet. No BM but passing gas,. No Fever. No Dyspnea. No CP. 09/02 Tolerating diet. Ambulating and passing gas - No fever. Cleared by Surgery for Discharge. ID is arranging Outpt IV ABX. Health Status Allergies: Allergic Reactions (Selected) Severity Not Documented Sulfa drugs- No reactions were documented. Current medications: (Selected) Inpatient Medications Ordered Colace: 100 mg, Oral, BID MiraLax: 17 Gram, Oral, Daily, PRN: Constipation Normal Saline Flush: 10 mL, IntraCATHeter, Q12H Norvasc: 5 mg, Oral, Daily Sodium Chloride 0.9% intravenous solution 1,000 mL: 50 mL/Hr, IntraVENous Tylenol: 650 mg, Oral, Q4H, PRN: Pain (Mild 1-3) Zofran: 4 mg, IV Push, Q4H, PRN: Nausea acetaminophen-HYDROcodone 325 mg-5 mg oral tablet: 1 Tab, Oral, Q4H, PRN: Pain (Mild 1-3) alteplase + sterile water 1 mL: 1 mg, 60 mL/Hr, IntraCATHeter, 1-Time, PRN: Other (See Comment) ampicillin-sulbactam: 3 Gram, 200 mL/Hr, IV Piggyback, [id number] cloNIDine 50 mcg + dexamethasone 4 mg + bupivacaine-EPINEPHrine 0.25%-1:200,000 injectable solution...: 50 mcg, 0.5 mL, 0 mL/Hr, Nerve Root Block, 1-Time heparin: 5,000 Units, SubCutaneous, [id number] insulin lispro sliding scale: Scale A:, SubCutaneous, [...] = 1 Cap, PRN, Oral, At Bedtime Problem list: Active Problems (1) Kidney stones Objective VS/Measurements Vitals Signs (last 24 hrs) Last Charted Minimum Maximum Temp 98.6 (SEP 02 06:00) 98.6 (SEP 02 06:00) 98.5 (SEP 01:30) Mon HR 79 (SEP 02 06:00) 65 (SEP 01 22:56) 83 (SEP 01:30) Resp Rate 17 (SEP 02 06:00) 16 (SEP 01 22:56) 20 (SEP 01 16:00) SBP H 159 (SEP 02 06:00) 140 (SEP 02 02:30) H 162 (SEP 01 21:00) DBP H 97 (SEP 02 06:00) 87 (SEP 01 11:30) H 103 (SEP 01 21:00) MAP 118 (SEP 02 06:00) 101 (SEP 01 11:30) 132 (SEP 01 21:00) SpO2 95 (SEP 02 02:30) 95 (SEP 01 11:30) 97 (FEB 11 22:56) General: Alert and oriented, No acute distress. Respiratory: Respirations are non-labored. Breath sounds: Bilateral, Diminished. Cardiovascular: Normal rate, Regular rhythm. Gastrointestinal: Soft, Normal bowel sounds, s/p surgery - Dressing noted.. Musculoskeletal: No tenderness. Integumentary: Warm, No pallor. Neurologic: Alert, Oriented, No focal deficits. Results Review Lab and test: Labs (Last four charted values) WBC 7.3 (B 12) 8.6 (B 11) 8.6 (B 10) H 10.8 (B 09) HB L 11.8 (B 12) L 12.1 (B 11) L 11.5 (B 10) L 11.6 (B 09) HCT L 36.3 (B 12) L 36.7 (B 11) L 35.4 (B 10) L 36.9 (B 09) Plt 240 (B 12) 252 (FEB 11) 236 (FEB 10) 231 (B 09) Na 138 (B 12) 139 (FEB 09) 137 (B 07) 139 (B 06) K L 3.4 (B 12) 4.1 (B 09) 4.7 (B 07) 4.3 (B 06) Cl 103 (B 12) 107 (B 09) 105 (B 07) 107 (B 06) CO2 29 (B 12) 23 (B 09) 25 (B 07) 24 (B 06) BUN 7 (B 12) 16 (B 09) 20 (B 07) H 23 (B 06) Cr 0.70 (FEB 12) 0.80 (B 09) 1.10 (B 07) 1.30 (FEB 06) Glu R 99 (B 12) 77 (B 09) H 137 (B 07) 98 (FEB 06) Ca L 7.2 (B 12) L 7.3 (FEB 09) L 7.8 (FEB 07) L 7.7 (FEB 06) PT 11.9 (FEB 05) 11.9 (FEB 05) INR 1.1 (FEB 05) 1.1 (FEB 05) AST 21 (FEB 12) 18 (AUG 28) 35 (AUG 27) H 74 (AUG 26) ALT 16 (SEP 02) 34 (AUG 28) 41 (AUG 27) 53 (AUG 26) ALK P H 263 (SEP 02) 118 (AUG 28) 124 (AUG 27) H 163 (AUG 26) T Bili 0.4 (SEP 02) 0.9 (AUG 28) H 1.5 (AUG 27) H 1.6 (AUG 26) PTN L 5.0 (SEP 02) L 5.6 (AUG 28) L 5.4 (AUG 27) L 6.3 (AUG 26) ALB L 1.7 (SEP 02) L 1.8 (AUG 28) L 1.9 (AUG 27) L 2.2 (AUG 26) No Radiology Results Found DISCHARGE DIAGNOSIS : Acute Abdomen - POA Intra-Abdominal Abscess - POA Perforation of proximal jejunum and mesenteric bowel - S/PExpl. Lap and Resection. as listed above. Sepsis POA - Due to above and resolved. BPH / HTN DC INSTRUCTIONS: 1- DC to Rehab today. 2- Follow ID Instructions for IV ABX. 3- Follow Surgery instructions. 4- Follow with PCP in 1 week or as needed. Discharge Medications (8) Active acetaminophen-HYDROcodone 325 mg-5 mg oral tablet 1 Tab, PRN, Oral, TID - #6 ampicillin-sulbactam 3 Gram, IV Piggyback, [id number] - Follow ID instructions. Colace 100 mg oral capsule 100 mg = 1 Cap, Oral, BID - New Flomax 0.4 mg oral capsule 0.4 mg = 1 Cap, Oral, Daily hydrOXYzine pamoate 25 mg oral capsule 25 mg = 1 Cap, PRN, Oral, At Bedtime lisinopril 10 mg oral tablet 10 mg = 1 Tab, Oral, BID - New MiraLax oral powder for reconstitution 17 Gram, Oral, Daily x 2 weeks Norvasc 5 mg oral tablet 5 mg = 1 Tab, Oral, Daily - New DC TIME: 38 MINUTES. documented in this encounter Plan of Treatment Not on file documented as of this encounter Visit Diagnoses Not on filedocumented in this encounter
--- OUTSIDE RECORDS SUMMARY | 2025-05-24 09:56 | XMS_ITS | Encounter Summary ---
Author Organization [employer] ([place], [place], [place], [place], [place]) Address [address] [place] [address] Care Team Providers Care Solar Project Engineer Name Role Phone Unavailable Primary Care Provider Unavailabl e Encounter Details Date Type Department Care Team (Late st Contact Info) Description 08/29/2018 Transcribed Document [facility] [place] Family Medicine [address] [place] [address] ProviderCindi MD [address] [place] [address] Social History Tobacco Use Types Packs/Day Years Used Date Smoking Tobacco: Never Assessed Sex and Gender Information Value Date Recorded Sex Assigned at Male 01/16/2022 11:42 AM CDT Legal Sex Male 11:42 AM CDT Gender Identity Male 01/16/2022 11:42 AM CDT Sexual Orientation Not on file documented as of this encounter Miscellaneous Notes * [employer]ner Conversion Note - Historical ProviderMD - 08/29/2018 3:53 PM CONFECTIONERY MAKER Therapy Screen, OT Entered On: 08/29/2018 15:54 EST Performed On: 08/29/2018 15:53 EST by MIKE FAITH OTR/L Therapy Screen, OT Medical Chart Reviewed : Yes Person Providing Information : Nurse, Patient Screen Completed : Yes Additional Therapy Screen Comment : pt walking 600 feet in and out of bed. GIVen lawn mower repairer and shoe horn. Discussed use. If patient has any more questions please reorder. Defer to PTx MIKE FAITH OTR/L - 08/29/2018 15:53 EST Electronically signed by Tavia [facility] Conversion Well Driller Helper Cerner at 11/04/2022 10:10 AM CDT documented in this encounter Plan of Treatment Not on file documented as of this encounter Visit Diagnoses Not on filedocumented in this encounter
--- OUTSIDE RECORDS SUMMARY | 2025-05-24 09:56 | XMS_ITS | Encounter Summary ---
Author Organization [employer] ([place], [place], [place], [place], [place]) Address [address] [place] [address] Care Team Providers Care Tube Tester Name Role Phone Unavailable Primary Care Provider Unavailabl e Encounter Details Date Type Department Care Team (Late st Contact Info) Description 09/02/2018 Transcribed Document [facility] [place] [facility] [address] ProviderCindi MD [address] [place] [address] Social History Tobacco Use Types [...] Conversion Note - Cindi ProviderMD - 09/02/2018 1:23 PM NATURAL RESOURCES SPECIALIST Discharge Instructions Entered On: 09/02/2018 13:24 EST Performed On: 09/02/2018 13:23 EST by IVORY FREEDMAN RN DC Instructions [facility] : [facility] [phone] ESTHER GRIFFIN - 09/02/2018 14:37 EST Medical Equipment For Home Use : [facility] for antibiotics [phone] ESTHER GRIFFIN - 09/02/2018 14:28 EST Wound/Incision Care At Discharge Comment cision Care At Discharge Comment : pt discharging home with PICC line in place to recieve abx at home. IVORY FREEDMAN RN - 09/02/2018 13:24 EST Stroke/TIA Discharge Ins : N/A Heart Failure Discharge Ins : N/A Warfarin Discharge Ins : N/A Diet After Discharge : Resume usual diet as tolerated Activity After Discharge : As tolerated Driving After Discharge : Do not drive, Other: while taking narcotics Showering/Bathing : May shower Wound/Incision Care After Discharge : Keep operative site/wound site clean and dry IVORY FREEDMAN RN - 09/02/2018 13:23 EST Electronically signed by [facility] Conversion Collar Starcher Cerner at 11/04/2022 10:30 AM CDT documented in this encounter Plan of Treatment Not on file documented as of this encounter Visit Diagnoses Not on filedocumented in this encounter
--- OUTSIDE RECORDS SUMMARY | 2025-05-24 09:56 | XMS_ITS | Encounter Summary ---
Author Organization [employer] ([place], [place], [place], [place], [place]) Address [address] [place] [address] Care Team Providers Care Enamel Machine Operator Name Role Phone Unavailable Primary Care Provider Unavailabl e Encounter Details Date Type Department Care Team (Late st Contact Info) Description 09/02/2018 Transcribed Document [facility] [place] [facility] [place] [address] ProviderCindi MD [address] [place] [address] Social History Tobacco Use Types [...] Conversion Note - Cindi ProviderMD - 09/02/2018 1:22 PM POST EXCHANGE MANAGER Nursing Discharge Summary Entered On: 09/02/2018 13:23 EST Performed On: 09/02/2018 13:22 EST by IVORY FREEDMAN RN Discharge Documentation Discharge Date/Time : 09/02/2018 15:51 EST CLEMENT FOURNIER - 09/02/2018 15:51 EST Patient Disposition, General : Discharge Discharge To : Home with ambulatory/outpatient follow-up Mode Of Departure, General Discharge : Private vehicle Medications Given to Patient : Yes Personal Belongings With Patient : Yes Prescriptions Given to Patient : Yes Discharge Instructions Reviewed With, Opportunity For Questions Given : Patient, Spouse Patient Education Completed : Yes IVORY FREEDMAN RN - 09/02/2018 13:22 EST Number of Prescriptions Given : 5 IVORY FREEDMAN RN - 09/02/2018 13:24 EST Teaching Method : Demonstration, Explanation Teaching Evaluation : Verbalizes understanding IVORY FREEDMAN RN - 09/02/2018 13:22 EST Electronically signed by Tavia, [facility] Conversion Tile Sprayer Cerner at 11/04/2022 10:27 AM CDT documented in this encounter Plan of Treatment Not on file documented as of this encounter Visit Diagnoses Not on filedocumented in this encounter
--- OUTSIDE RECORDS SUMMARY | 2025-05-24 09:56 | XMS_ITS | Encounter Summary ---
Author Organization [employer] ([place], [place], [place], [place], [place]) Address [address] [place] [address] Care Team Providers Care Paint Pourer Name Role Phone Unavailable Primary Care Provider Unavailabl e Encounter Details Date Type Department Care Team (Late st Contact Info) Description 09/02/2018 Transcribed Document [facility] [place] [facility] [place] [address] ProviderCindi MD [address] [place] [address] Social History Tobacco Use Types [...] Conversion Note - Historical ProviderMD - 09/02/2018 3:07 PM SOAKING PIT OPERATOR Care Management Assessment/Plan Entered On: 09/02/2018 15:08 EST Performed On: 09/02/2018 15:07 EST by ESTHER GRIFFIN Care Management Note Care Management Note Report : ESTHER GRIFFIN - 09/01/18 12:02:19 Met with Pt on IDT rounds. Resting quietly. IVF's infusing, receiving IV Ampicillin-Sulbactam. Tolerating PO and voiding without difficulty. Per Dr Castro, plans are home tomorrow. CM will follow. ESTHER GRIFFIN - 08/29/18 10:53:32 Chart reviewed. Per MD notes, remains NPO, waiting bowel function to [...] ESTHER GRIFFIN - 08/27/18 11:09:14 Received from [facility] due to intra-abdominal abscess, being admitted with the same. Pt off the floor for surgery during IDT rounds. CM will follow. Documentation Status Complete : Yes ESTHER GRIFFIN - 09/02/2018 15:07 EST Info/List/Choices Provided Patient Offered Choice/Affiliations Explained : Yes List/Info Provided Pt/Fam/Support Person : Home health Important Medicare Message Reviewed With : Patient Important Medicare Message Reviewed D/T : 09/02/2018 11:00 EST Information/Lists/Choice Provided Note : Choice form signed for IAN, unable to verify referral acceptance, changed to [place] [place] ESTHER GRIFFIN - 09/02/2018 15:07 EST documented in this encounter Plan of Treatment Not on file documented as of this encounter Visit Diagnoses Not on filedocumented in this encounter
--- OUTSIDE RECORDS SUMMARY | 2025-05-24 09:56 | XMS_ITS | Encounter Summary ---
Author Organization [employer] ([place], [place], [place], [place], [place]) Address [address] [place] [address] Care Team Providers Care Air Grinder Name Role Phone Unavailable Primary Care Provider Unavailabl e Encounter Details Date Type Department Care Team (Late st Contact Info) Description 08/29/2018 Transcribed Document [facility] [place] [facility] [place] [address] ProviderCindi MD [facility] [place] [address] Social History Tobacco Use Types [...] Conversion Note - Cindi ProviderMD - 08/29/2018 1:09 PM GUARD CAPTAIN Patient: RAFAT ARMAS Age: 72 years Sex: [...] MiraLax: 17 Gram, Oral, Daily, PRN: Constipation Rocephin: 2 Gram, 100 mL/Hr, IV Piggyback, [id number] Sodium Chloride 0.9% intravenous solution 1,000 mL: 75 mL/Hr, IntraVENous Tylenol: 650 mg, Oral, Q4H, PRN: Pain (Mild 1-3) Zofran: 4 mg, IV Push, Q4H, PRN: Nausea acetaminophen-HYDROcodone 325 mg-5 mg oral tablet: 1 Tab, Oral, Q4H, PRN: Pain (Mild 1-3) heparin: 5,000 Units, SubCutaneous, [id number] insulin lispro sliding scale: Scale A:, SubCutaneous, [...] Cap, PRN, Oral, At Bedtime , Medications (10) Active Scheduled: (5) cefTRIAXone 2 Gram, IV Piggyback, [id number] docusate sodium 100 mg cap 100 mg 1 Cap, Oral, BID heparin 5,000 units/1 mL inj 5,000 Units 1 mL, SubCutaneous, [id number] insulin lispro 1 unit/0.01 mL inj Scale [...] 24 hrs) Last Charted Minimum Maximum Temp 98.7 (AUG 29 11:00) 98.7 (AUG 29 11:00) 98.3 (AUG 28 16:00) Mon HR 80 (AUG 29 11:00) 60 (AUG 28 16:00) 82 (AUG 29 06:56) Resp Rate 18 (AUG 29 11:00) 17 (AUG 28 23:30) 18 (AUG 28 16:00) SBP H 143 (AUG 29 11:00) 133 (AUG 28 18:09) H 153 (AUG 29 03:45) DBP H 93 (AUG 29 11:00) 78 (AUG 28 18:09) H 93 (AUG 29 11:00) MAP 112 (AUG 29:00) 97 (AUG 29 06:56) 112 (AUG 29 11:00) SpO2 98 (AUG 29:00) 96 (AUG 29 03:45) 98 (AUG 29 11:00) General: Alert and oriented, Mild distress. Neck: [...] Labs (Last four charted values) WBC H 13.0 (AUG 29) H 15.1 (AUG 28) 9.1 (AUG 27) H 11.0 (AUG 26) HB L 12.7 (AUG 29) L 12.8 (AUG 28) L 12.1 (AUG 27) L 13.4 (AUG 05) HCT L 39.3 (AUG 29) L 39.0 (AUG 28) L 37.9 (AUG 27) 42.7 (AUG 05) Plt 243 (AUG 29) 260 (FEB 07) 244 (FEB 06) 271 (B 05) Na 137 (B 07) 139 (B 06) 140 (B 05) 138 (B 05) K 4.7 (B 07) 4.3 (B 06) 4.1 (B 05) 4.0 (B 05) Cl 105 (B 07) 107 (B 06) 106 (B 05) 105 (B 05) CO2 25 (B ) 24 (B 06) 26 (B 05) 26 (B 05) BUN 20 (AUG 07) H 23 (B 06) H 23 (B 05) H 24 (B 05) Cr 1.10 (B ) 1.30 (B 06) 1.29 (AUG 05) 1.24 (B 05) Glu R H 137 (AUG 28) 98 (B 06) 104 (B 05) H 107 (B 05) Ca L 7.8 (AUG 28) L 7.7 (AUG 06) L 7.8 (AUG 05) L 7.9 (B 05) PT 11.9 (B 05) 11.9 (B 05) INR 1.1 (AUG 05) 1.1 (B 05) AST 18 (AUG 28) 35 (B 06) H 74 (B 05) H 73 (B 05) ALT 34 (AUG 07) 41 (B 06) 53 (FEB 05) 47 (B 05) ALK P 118 (AUG 28) 124 (B 06) H 163 (AUG 05) H 157 (AUG 05) T Bili 0.9 (AUG 07) H 1.5 (B 06) H 1.6 (B 05) H 1.6 (B 05) PTN L 5.6 (B 07) L 5.4 (B 06) L 6.3 (B 05) L 6.1 (B 05) ALB L 1.8 (B 07) L 1.9 (B 06) L 2.2 (B 05) L 2.1 (B 05) No Radiology Results Found Diagnosis / problem [...] d/w pat and family, f/u surgeon also Electronically signed by Tavia, [facility] Conversion Lawn Mower Repairer Cerner at 11/04/2022 10:20 AM CDT documented in this encounter Plan of Treatment Not on file documented as of this encounter Visit Diagnoses Not on filedocumented in this encounter
--- OUTSIDE RECORDS SUMMARY | 2025-05-24 09:56 | XMS_ITS | Encounter Summary ---
Author Organization [employer] ([place], [place], [place], [place], [place]) Address [address] [place] [address] Care Team Providers Care Learning Designer Name Role Phone Unavailable Primary Care Provider Unavailabl e Encounter Details Date Type Department Care Team (Late st Contact Info) Description 08/29/[address] [facility] [place] [facility] [place] [address] ProviderCindi MD [address], [place] [id number] Social History Tobacco Use Types Packs/Day Years [...] - Historical ProviderMD - 08/29/2018 3:53 PM AUTOMATIC VULCANIZING LEAD OPERATOR [facility] OT Charges Entered On: 08/29/2018 15:54 EST Performed On: 08/29/2018 15:53 EST by MIKE FAITH OTR/Piper Crum OT Charges Screen For Electrical Prospecting Engineer : 1 MIKE FAITH OTR/Piper - 08/29/2018 15:53 EST documented in this encounter Plan of Treatment Not on file documented as of this encounter Visit Diagnoses Not on filedocumented in this encounter
--- OUTSIDE RECORDS SUMMARY | 2025-05-24 09:56 | XMS_ITS | Encounter Summary ---
Author Organization [employer] ([place], [place], [place], [place], [place]) Address [address] [place] [address] Care Team Providers Care Break Up Worker Name Role Phone Unavailable Primary Care Provider Unavailabl e Encounter Details Date Type Department Care Team (Late st Contact Info) Description 09/04/2018 Transcribed Document [facility] [place] [address] ProviderCindi MD [address] [place] [address] Social History Tobacco Use Types Packs/Day Years Used Date Smoking Tobacco: Never Assessed Sex and Gender Information Value Date Recorded Sex Assigned at Male 01/16/2022 11:42 AM CDT Legal Sex Male 11:42 AM CDT Gender Identity Male 01/16/2022 11:42 AM CDT Sexual Orientation Not on file documented as of this encounter Miscellaneous Notes * Cerner Conversion Note - Historical ProviderMD - 09/04/2018 11:59 AM PROCESSING TECHNICIAN Post Visit Phone Call Entered On: 09/04/2018 12:02 EST Performed On: 09/04/2018 11:59 EST by Paige Israel Rn Post Visit Phone Call Post Visit Phone Call History : First call Contact Name : Rafat Emergency Room Visit Since DC : No Adequate Pain Control After Visit : Yes Symptoms of Fever : No Symptoms of Nausea or Vomiting : No Adequate Fluid Intake : Yes Food Intake, Post Visit : Good Bowel/Bladder Concerns : No Mobility Progressing or Maintained as Expected : Yes Discharge Instructions Understood : Yes Follow-Up Actions : None Paige Israel Rn - 09/04/2018 11:59 EST Electronically signed by Tavia [facility] Conversion Graduate Intern Camila at 11/04/2022 10:13 AM CDT documented in this encounter Plan of Treatment Not on file documented as of this encounter Visit Diagnoses Not on filedocumented in this encounter
--- OUTSIDE RECORDS SUMMARY | 2025-05-24 09:56 | XMS_ITS | Referral Summary ---
Author Organization [employer] ([place], [place], [place], [place], [place]) Address [address] [place] [address] Care Team Providers Care Probation And Patrol Agent Name Role Phone Unavailable Primary Care Provider [...]
--- OUTSIDE RECORDS SUMMARY | 2025-05-24 09:56 | XMS_ITS | Encounter Summary ---
Author Organization [employer] ([place], [place], [place], [place], [place]) Address [address] [place] [address] Care Team Providers Care Edge Setter Name Role Phone Unavailable Primary Care Provider Unavailabl e Encounter Details Date Type Department Care Team (Late st Contact Info) Description 08/28/2018 Transcribed Document [facility] [place] [facility] [place] [address] ProviderCindi MD [address] [place] [id number] Social History Tobacco Use Types Packs/Day Years Used Date Smoking Tobacco: Never Assessed Sex and Gender Information Value Date Recorded Sex Assigned at Male 01/16/2022 11:42 AM CDT Legal Sex Male 11:42 AM CDT Gender Identity Male 01/16/2022 11:42 AM CDT Sexual Orientation Not on file documented as of this encounter Miscellaneous Notes * [employer]ner Conversion Note - Cindi ProviderMD - 08/28/2018 2:22 PM BALL SHAGGER DATE OF CONSULTATION: 08/28/2018 REQUESTING PHYSICIAN: Gianni Castro MD PARTICIPATING PHYSICIAN: Ayush Keita MD, General Surgery. REASON FOR CONSULTATION: Intra-abdominal abscess. HISTORY OF PRESENT ILLNESS: This is a delightful 72-year-old gentleman, who resides in [place], [place]. 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 Three weeks ago, he began to develop left lower quadrant and periumbilical abdominal pain. He has recently had an episode of blepharitis for which he has been prescribed ocular steroids and trimethoprim sulfa. He apparently developed a maculopapular drug eruption while on SULFONAMIDES. He presented to the emergency department at [facility]. His peripheral leukocyte count was 14,600. CT scan of the abdomen revealed a 6 x 5.7 cm combined gas/fluid level in the left lower quadrant with surrounding fat stranding. This was not felt to be amenable to percutaneous drainage. The patient's last surveillance colonoscopy was in 2012, where he was noted to have diverticulosis, but has never had clinically active diverticulitis. Given the inability to approach this lesion percutaneously, the patient was taken to the operating room yesterday for exploratory laparotomy. He was found to have a complex abscess in the mesentery. This required meticulous dissection and small bowel resection. Operative Gram stains revealed gram-positive cocci in pairs and numerous wbc's. Aerobic and anaerobic cultures are incubating at the time of this dictation. Admission blood cultures from August 26 are negative x2. I was asked to assist with antimicrobial therapy and diagnostic evaluation in this context. PAST MEDICAL HISTORY: Unremarkable. Denies cardiac, pulmonary, hepatic, or renal disease. He does have a history of colonic polyposis that was dealt with endoscopically. SURGICAL HISTORY: Remarkable for right rotator cuff repair. CURRENT MEDICATIONS: MAR reviewed. Currently, on: 1. Piperacillin and tazobactam. 2. Metronidazole. 3. Of note, is proton pump inhibitor administration. ALLERGIES: To SULFONAMIDES, which produced a recent maculopapular drug eruption. Travel/exposures: Not known to be PPD positive. No recent dental manipulation. No recent outdoor activities of hunting, camping, fishing, or gardening. No tick or arthropod bites. No unusual food ingestions including raw shellfish, wild game, or unpasteurized milk products. REVIEW OF SYSTEMS: Outlined in the HPI. Otherwise, negative for fever, chills, or night sweats. Denies headache, visual change, photophobia, neck stiffness, sore throat, dysphagia, odynophagia, cough, sputum production, hemoptysis, pleuritic chest discomfort. Denies nausea, vomiting. Diminished oral intake over the last three weeks. Constipated. Denies dysuria, urinary frequency, flank discomfort, suprapubic pain, gross hematuria, unusual skin rashes, large joint effusions, or lateralizing neurologic findings. PHYSICAL EXAMINATION: VITAL SIGNS: T-max 97.9, currently 98.5, pulse 75, respiratory rate 20, blood pressure 110/72, O2 saturation 97%. GENERAL: Pleasant gentleman. Does not appear to be clinically toxic. HEENT: Normocephalic and atraumatic. Anicteric. No conjunctival petechiae. Extraocular muscles full. Sinuses nontender to percussion. Oropharynx free of thrush. Dentition in reasonable repair. NECK: Supple neck to anterior flexion. No jugular venous distention, carotid bruits, thyroid enlargement, or pathologic cervical lymphadenopathy. LUNGS: Clear to auscultation. Resonant to percussion. CARDIAC: Free of murmur, gallop, or pericardial rub. ABDOMEN: Midline incision from the suprapubic area to the umbilicus. Trace sanguinous discharge. Mild incisional tenderness. : Penis is uncircumcised. Ferrer to gravity in place. EXTREMITIES: Distal extremities warm and well perfused. No embolic stigmata. NEUROLOGICAL: Cranial nerves 3 through 12 intact and lucid mental status. IMPRESSION: 1. Three-week history of left lower quadrant abdominal pain. 2. 15-pound weight loss. 3. Complex gas fluid collection measuring 6 x 5.7 cm suspended in the mesentery. 4. Status post exploratory laparotomy with confirmed findings of intramesenteric abdominal abscess/small-bowel resection. 5. Leukocytosis to 15,100. 6. Protein-calorie malnutrition with serum albumin of 1.8. 7. SULFONAMIDE allergy. 8. Recent corticosteroids for ocular pathology. DISCUSSION: Delightful 72-year-old gentleman. Appears to be very physically fit. Three-week history of periumbilical abdominal pain. Denies fever, chills, or night sweats. Anorexia with decreased oral intake. Constipation. Found to have a leukocytosis approaching 15,000, with a complex intramesenteric 6 x 5.7 cm abscess. Exploratory laparotomy yesterday with small-bowel resection. Operative Gram stains with gram-positive cocci in pairs. Aerobic and anaerobic cultures pending. Currently, on piperacillin and tazobactam, and metronidazole. There is no need for concomitant Flagyl for anaerobic coverage and dual anaerobic coverage actually increases the risk of Clostridium difficile disease. We will discontinue metronidazole. I have taken the liberty to discontinue proton pump inhibitors for stress ulcer prophylaxis, as this is a confounding variable in terms of Clostridium difficile risk. Anticipate PICC catheter insertion and discharge home on ceftriaxone 2 g IV q.24 h. and metronidazole 500 mg p.o. b.i.d. with followup at seven days post discharge. Await histopathology as this is an unusual place for an intra-abdominal abscess and may portend underlying small-bowel pathology with microperforation. Josue Hernandez M.D. Dict: 08/28/2018 14:22:23 Trans: 08/28/2018 17:19:04 CC1: Josue Hernandez M.D. CC2: Ayush Keita MD Electronically signed by Tavia [facility] Conversion Payment Poster Cerner at 11/04/2022 10:16 AM CDT documented in this encounter Plan of Treatment Not on file documented as of this encounter Visit Diagnoses Not on filedocumented in this encounter
--- OUTSIDE RECORDS SUMMARY | 2025-05-24 09:56 | XMS_ITS | Encounter Summary ---
Author Organization [employer] ([place], [place], [place], [place], [place]) Address [address] [place] [address] Care Team Providers Care Orientation & Mobility Specialist Name Role Phone Unavailable Primary Care Provider Unavailabl e Encounter Details Date Type Department Care Team (Late st Contact Info) Description 09/02/2018 Transcribed Document [facility] [place] Medicine [facility] [place] [address] ProviderCindi MD [address] [place] [address] Social History Tobacco Use Types [...] Conversion Note - Historical ProviderMD - 09/02/2018 2:53 PM COPY ROOM TECHNICIAN Care Management Assessment/Plan Entered On: 09/02/2018 15:06 EST Performed On: 09/02/2018 14:53 EST by ESTHER GRIFFIN Care Management Note [...] Complete : Yes ESTHER GRIFFIN - 09/02/2018 14:53 EST Final Discharge Disposition Note-CM Final Discharge Disposition Note-CM : Discharged to home, agreeable. CM made aware during IDT rounds that the Pt had a PICC line and was going home on IV antibiotics. CM discussed with the Pt regarding home health and infusion company. [email or web address] and [facility] was chosen. Oneil called with [email or web address] and the cost of the antibiotics will be $5.00/day. Information sent to [employer] via [employer]. Pt will need to be seen tonight for pm abx as he is not very comfortable yet. CM called [facility] x2 to verify receipt of the referral, was directed to a voice mail and never spoke with a person. [facility] was called and they are able to see the Pt this evening, referral was then sent to [facility] via [employer]. RRS is high and follow-up appointments have been made. Son to transport home via private vehicle. No other needs verbalized at this time. Discharge To Care Management : Home/Residential/Correction or Self Care -01, Home Health Services (Related/SOC within 3 days)-06 Name of Receiving Facility/Provider-CM : [facility] ESTHER GRIFFIN - 09/02/2018 14:53 EST documented in this encounter Plan of Treatment Not on file documented as of this encounter Visit Diagnoses Not on filedocumented in this encounter
--- OUTSIDE RECORDS SUMMARY | 2025-05-24 09:56 | XMS_ITS | Encounter Summary ---
Author Organization [facility] ([place], [place], [place], [place], [place]) Address [address] [place] [address] Care Team Providers Care Director Of Global Marketing Name Role Phone Unavailable Primary Care Provider Unavailabl e Encounter Details Date Type Department Care Team (Late st Contact Info) Description 09/02/2018 Transcribed Document [facility] [place] [facility] [place] [address] ProviderCindi MD [facility] [address] Social History Tobacco Use Types [...] - Cindi ProviderMD - 09/02/2018 3:24 PM [facility] [address] [place] [address] Patient Copy Patient Information: Name: RAKAN ARMAS Current Date: 09/02/2018 15:24:36 : 1945 Patient Address: [facility] [place] [address] Patient Attending Physician: MEGHAN DAVIS MD-INT Primary Care Provider: BASILIO LUIS Primary Care Provider Discharge Diagnosis: Weight on Admission: 210 lb, 0 oz Weight at Discharge: 210 lb, 0.01 oz Comment: Follow-up Instructions: With: Address: When: LADARIUS HENSON [address], [address] [place] [address] Business (1) 9:00 AM Comments: Appointment has been made With: Address: When: BASILIO DA SILVA [facility], [address] [place] [address] Business (1) Within 2 to 3 days Comments: PCP Discharge Instructions: Diet after Discharge: Resume usual diet as tolerated Activity after Discharge: As tolerated Driving after Discharge: Do not drive, Other: while taking narcotics Showering/Bathing:May shower Wound/Incision Care after Discharge: Keep operative site/wound site clean and dry Wound/Incision Care after Discharge Comment: pt discharging home with PICC line in place to recieve abx at home. Medical Equipment for Home Use: Amerimed for antibiotics [phone] Home Health Services: [facility] [phone] Immunizations Documented During Stay: No Immunizations Found Heart Failure Discharge Instructions (if any): Stroke Related Discharge Instructions (if any): Warfarin Related Discharge Instructions (if any): Final Medication List: Printed Prescriptions amLODIPine (Norvasc 5 mg oral tablet) 1 Tablet(s) Oral Every Day. Refills: 0. Patient Instructions: New medication. Prescription provided. docusate (Colace 100 mg oral capsule) 1 Capsule(s) Oral Two Times A Day. Refills: 0. Patient Instructions: New medication. Prescription provided. lisinopril (lisinopril 10 mg oral tablet) 1 Tablet(s) Oral Two Times A Day. Refills: 0. Patient Instructions: New medication. Prescription provided. polyethylene glycol 3350 (MiraLax oral powder for reconstitution) 17 Gram(s) Oral Every Day for 14 Day(s). Refills: 0. Patient Instructions: New medication. Prescription provided. Other Medications acetaminophen-hydrocodone (acetaminophen-HYDROcodone 325 mg-5 mg oral tablet) 1 Tablet(s) Oral Three Times A Day as needed Pain (Mild 1-3) for 2 Day(s). Refills: 0. Patient Instructions: New medication. Prescription provided. ampicillin-sulbactam 3 Gram(s) IV Piggyback Interval Every 12 Hours. x 2 weeks. Patient Instructions: New medication. hydrOXYzine (hydrOXYzine pamoate 25 mg oral capsule) 1 Capsule(s) Oral At Bedtime as needed for sleep. tamsulosin (Flomax 0.4 mg oral capsule) 1 Capsule(s) Oral Every Day. Patient Allergies: sulfa drugs Medication Instructions: Take your medications faithfully. Do NOT skip medication. Do NOT stop taking medications without the direction of a physician. Carry a list of your medications with you at all times, and take this medication list with you to your first follow up visit. Report any side effects. Avoid herbal remedies unless discussed with your physician. As part of your treatment plan, your physician may have prescribed a limited course of a controlled substance. This medication may be given to help people with moderate or severe pain or for other medical conditions, but there are risks involved with treatment. Common side effects may include nausea, constipation, drowsiness, sweating, itching, dry mouth, and rash. More serious side effects may include cognitive and motor impairment, like problems with thinking, concentrating, alertness, and movement (e.g. slowed reflexes), and driving and operating heavy machinery can be dangerous. It is important for you to talk to your physician if you have these side effects or questions. These controlled substances can produce physical dependence and be habit-forming if taken for an extended period of time, which means that the body has gotten used to them and may experience withdrawal symptoms if they are abruptly stopped. Withdrawal symptoms can include runny nose, sweating, goose bumps, diarrhea, abdominal cramping, rapid heartbeat, difficulty sleeping, and nervousness. Patient education materials: PICC Home Guide A peripherally inserted central [...] 01/12/2004 Document Revised: 01/25/2017 Document Reviewed: 04/30/2014 [employer] Patient Education ? 2017 [email or web address]. Exploratory Laparotomy, Adult Introduction Exploratory laparotomy is [...] including vitamins, herbs, eye drops, creams, and injl-efn-rmvanaq medicines. ??? Any problems you or family [...] Revised: 12/13/2016 Document Reviewed: 02/23/2015 ? 2017 Elsevier Medication Leaflets: amlodipine (ken vasquez) [facility] What is the most important information I should know about amlodipine? Follow all directions on your medicine label and package. Tell each of your healthcare providers about all your medical conditions, allergies, and all medicines you use. What is amlodipine? Amlodipine is a calcium channel jose that dilates (widens) blood vessels and improves blood flow. Amlodipine is used to treat chest pain (angina) and other conditions caused by coronary artery disease. Amlodipine is also used to treat high blood pressure (hypertension). Lowering blood pressure may lower your risk of a stroke or heart attack. Amlodipine is for use in adults and children who are at least 6 years old. Amlodipine may also be used for purposes not listed in this medication guide. What should I discuss with my healthcare provider before taking amlodipine? You should not take amlodipine if you are allergic to it. To make sure amlodipine is safe for you, tell your doctor if you have: ? liver disease; or ?? a heart valve problem called aortic stenosis. It is not known whether this medicine will harm an unborn baby. Tell your doctor if you are or plan to become . Amlodipine can pass into breast milk, but effects on the nursing baby are not known. Tell your doctor if you are breast-feeding. Amlodipine is not approved for use by anyone younger than 6 years old. How should I take amlodipine? Follow all directions on your prescription label. Your doctor may occasionally change your dose. Do not use this medicine in larger or smaller amounts or for longer than recommended. You may take amlodipine with or without food. Take the medicine at the same time each day. Your blood pressure will need to be checked often. Your chest pain may become worse when you first start taking amlodipine or when your dose is increased. Call your doctor if your chest pain is severe or ongoing. If you are being treated for high blood pressure, keep using amlodipine even if you feel well. High blood pressure often has no symptoms. You may need to use blood pressure medicine for the rest of your life. Your hypertension or heart condition may be treated with a combination of drugs. Use all medications as directed by your doctor. Read the medication guide or patient instructions provided with each medication. Do not change your doses or stop taking any of your medications without your doctor's advice. This is especially important if you also take nitroglycerin. Amlodipine is only part of a complete program of treatment that may also include diet, exercise, weight control, and other medications. Follow your diet, medication, and exercise routines very closely. Store at room temperature away from moisture, heat, and light. What happens if I miss a dose? Take the missed dose as soon as you remember. If you are more than 12 hours late, skip the missed dose. Do not take extra medicine to make up the missed dose. What happens if I overdose? Seek emergency medical attention or call the Poison Help line at . Overdose symptoms may include rapid heartbeats, redness or warmth in your arms or legs, or fainting. What should I avoid while taking amlodipine? Avoid getting up too fast from a sitting or lying position, or you may feel dizzy. Get up slowly and steady yourself to prevent a fall. What are the possible side effects of amlodipine? Get emergency medical help if you have signs of an allergic reaction: hives; difficulty breathing; swelling of your face, lips, tongue, or throat. In rare cases, when you first start taking amlodipine, your angina may get worse or you could have a heart attack. Seek emergency medical attention or call your doctor right away if you have symptoms such as: chest pain or pressure, pain spreading to your jaw or shoulder, nausea, sweating. Call your doctor at once if you have: ? pounding heartbeats or fluttering in your chest; ?? worsening chest pain; ?? swelling in your feet or ankles; ?? severe drowsiness; or ?? a light-headed feeling, like you might pass out. Common side effects may include: ? dizziness; ?? feeling tired; ?? stomach pain, nausea; or ?? flushing (warmth, redness, or tingly feeling). This is not a complete list of side effects and others may occur. Call your doctor for medical advice about side effects. You may report side effects to FDA at 5-303-FIE-5495. What other drugs will affect amlodipine? Tell your doctor about all your current medicines and any you start or stop using, especially: ? nitroglycerin; ?? simvastatin (Zocor, Simcor, Vytorin); or ?? any other heart or blood pressure medications. This list is not complete. Other drugs may interact with amlodipine, including prescription and nvdp-jnv-jqeshrn medicines, vitamins, and herbal products. Not all possible interactions are listed in this medication guide. Where can I get more information? Your pharmacist can provide more information about amlodipine. Remember, keep this and all other medicines out of the reach of children, never share your medicines with others, and use this medication only for the indication prescribed. Every effort has been made to ensure that the information provided by [employer] ('[employer]') is accurate, up-to-date, and complete, but no guarantee is made to that effect. Drug information contained herein may be time sensitive. [employer] information has been compiled for use by healthcare practitioners and consumers in the [place] and therefore [employer] does not warrant that uses outside of the [place] are appropriate, unless specifically indicated otherwise. [employer] drug information does not endorse drugs, diagnose patients or recommend therapy. [employer] drug information is an informational resource designed to assist licensed healthcare practitioners in caring for their patients and/or to serve consumers viewing this service as a supplement to, and not a substitute for, the expertise, skill, knowledge and judgment of healthcare practitioners. The absence of a warning for a given drug or drug combination in no way should be construed to indicate that the drug or drug combination is safe, effective or appropriate for any given patient. [employer] does not assume any responsibility for any aspect of healthcare administered with the aid of information [employer] provides. The information contained herein is not intended to cover all possible uses, directions, precautions, warnings, drug interactions, allergic reactions, or adverse effects. If you have questions about the drugs you are taking, check with your doctor, nurse or pharmacist. Copyright 7547-7224 [employer]. Version: 14.01. Revision Date: 10/29/2016. acetaminophen and hydrocodone (a SEET a MIN oh fen and sonny droveronika KOE done) Hycet, Lorcet, [place], Verdrocet, Vicodin, Xodol, Zamicet What is the most important information I should know about acetaminophen and hydrocodone? MISUSE OF OPIOID MEDICINE CAN CAUSE ADDICTION, OVERDOSE, OR . Keep the medication in a place where others cannot get to it. An overdose of acetaminophen can damage your liver or cause . Call your doctor at once if you have pain in your upper stomach, loss of appetite, dark urine, or jaundice (yellowing of your skin or eyes). Taking opioid medicine during may cause life-threatening withdrawal symptoms in the . Fatal side effects can occur if you use opioid medicine with alcohol, or with other drugs that cause drowsiness or slow your breathing. Stop taking this medicine and call your doctor right away if you have skin redness or a rash that spreads and causes blistering and peeling. What is acetaminophen and hydrocodone? Hydrocodone is an opioid pain medication, sometimes called a narcotic. Acetaminophen is a less potent pain reliever that increases the effects of hydrocodone. Acetaminophen and hydrocodone is a combination medicine used to relieve moderate to severe pain. Acetaminophen and hydrocodone may also be used for purposes not listed in this medication guide. What should I discuss with my healthcare provider before taking acetaminophen and hydrocodone? You should not use this medicine if you are allergic to acetaminophen or hydrocodone, or if you have: ? severe asthma or breathing problems; or ?? a blockage in your stomach or intestines. Tell your doctor if you have ever had: ? liver disease; ?? a drug or alcohol addiction; ?? kidney disease; ?? a head injury or seizures; ?? urination problems; or ?? problems with your thyroid, pancreas, or gallbladder. If you use opioid medicine while you are , your baby could become dependent on the drug. This can cause life-threatening withdrawal symptoms in the baby after it is born. Babies born dependent on opioids may need medical treatment for several weeks. Do not breast-feed. This medicine can pass into breast milk and cause drowsiness, breathing problems, or in a nursing baby. How should I take acetaminophen and hydrocodone? Follow all directions on your prescription label. Never take this medicine in larger amounts, or for longer than prescribed. An overdose can damage your liver or cause . Tell your doctor if the medicine seems to stop working as well in relieving your pain. Always check your bottle to make sure you have received the correct pills (same brand and type) of medicine prescribed by your doctor. Never share this medicine with another person, especially someone with a history of drug abuse or addiction. MISUSE CAN CAUSE ADDICTION, OVERDOSE, OR . Keep the medicine in a place where others cannot get to it. Selling or giving away acetaminophen and hydrocodone is against the law. Measure liquid medicine carefully. Use the dosing syringe provided, or use a medicine dose-measuring device (not a kitchen spoon). If you need surgery or medical tests, tell the doctor ahead of time that you are using this medicine. You should not stop using this medicine suddenly. Follow your doctor's instructions about tapering your dose. Store at room temperature away from moisture and heat. Keep track of your medicine. You should be aware if anyone is using it improperly or without a prescription. Do not keep leftover opioid medication. Just one dose can cause in someone using this medicine accidentally or improperly. Ask your pharmacist where to locate a drug take-back disposal program. If there is no take-back program, flush the unused medicine down the toilet. What happens if I miss a dose? Since this medicine is used for pain, you are not likely to miss a dose. Skip any missed dose if it is almost time for your next dose. Do not use two doses at one time. What happens if I overdose? Seek emergency medical attention or call the Poison Help line at . An overdose of acetaminophen and hydrocodone can be fatal. The first signs of an acetaminophen overdose include loss of appetite, nausea, vomiting, stomach pain, sweating, and confusion or weakness. Later symptoms may include pain in your upper stomach, dark urine, and yellowing of your skin or the whites of your eyes. Overdose can also cause severe muscle weakness, pinpoint pupils, very slow breathing, extreme drowsiness, or coma. What should I avoid while taking acetaminophen and hydrocodone? Avoid driving or operating machinery until you know how this medicine will affect you. Dizziness or drowsiness can cause falls, accidents, or severe injuries. Do not drink alcohol. Dangerous side effects or could occur. Ask a doctor or pharmacist before using any other medicine that may contain acetaminophen (sometimes abbreviated as APAP). Taking certain medications together can lead to a fatal overdose. What are the possible side effects of acetaminophen and hydrocodone? Get emergency medical help if you have signs of an allergic reaction: hives; difficulty breathing; swelling of your face, lips, tongue, or throat. Opioid medicine can slow or stop your breathing, and may occur. A person caring for you should seek emergency medical attention if you have slow breathing with long pauses, blue colored lips, or if you are hard to wake up. In rare cases, acetaminophen may cause a severe skin reaction that can be fatal. This could occur even if you have taken acetaminophen in the past and had no reaction. Stop taking this medicine and call your doctor right away if you have skin redness or a rash that spreads and causes blistering and peeling. Call your doctor at once if you have: ? noisy breathing, sighing, shallow breathing; ?? a light-headed feeling, like you might pass out; ?? liver problems--nausea, upper stomach pain, tiredness, loss of appetite, dark urine, josie-colored stools, jaundice (yellowing of the skin or eyes); or ?? low cortisol levels-- nausea, vomiting, loss of appetite, dizziness, worsening tiredness or weakness. Seek medical attention right away if you have symptoms of serotonin syndrome, such as: agitation, hallucinations, fever, sweating, shivering, fast heart rate, muscle stiffness, twitching, loss of coordination, nausea, vomiting, or diarrhea. Serious side effects may be more likely in older adults and those who are overweight, malnourished, or debilitated. Long-term use of opioid medication may affect fertility (ability to have children) in men or women. It is not known whether opioid effects on fertility are permanent. Common side effects include: ? dizziness, drowsiness, feeling tired; ?? nausea, vomiting, stomach pain; ?? constipation; or ?? headache. This is not a complete list of side effects and others may occur. Call your doctor for medical advice about side effects. You may report side effects to FDA at 6-072-NRX-5079. What other drugs will affect acetaminophen and hydrocodone? You may have breathing problems or withdrawal symptoms if you start or stop taking certain other medicines. Tell your doctor if you also use an antibiotic, antifungal medication, heart or blood pressure medication, seizure medication, or medicine to treat HIV or hepatitis C. Opioid medication can interact with many other drugs and cause dangerous side effects or . Be sure your doctor knows if you also use: ? cold or allergy medicines, bronchodilator asthma/COPD medication, or a diuretic ('water pill'); ?? medicines for motion sickness, irritable bowel syndrome, or overactive bladder; ?? other narcotic medications--opioid pain medicine or prescription cough medicine; ?? a sedative like Valium--diazepam, alprazolam, lorazepam, Xanax, Klonopin, Versed, and others; ?? drugs that make you sleepy or slow your breathing--a sleeping pill, muscle relaxer, medicine to treat mood disorders or mental illness; ?? drugs that affect serotonin levels in your body--a stimulant, or medicine for depression, Parkinson's disease, migraine headaches, serious infections, or nausea and vomiting. This list is not complete. Other drugs may affect acetaminophen and hydrocodone, including prescription and hujp-tuj-fvepafs medicines, vitamins, and herbal products. Not all possible interactions are listed here. Where can I get more information? Your doctor or pharmacist can provide more information about acetaminophen and hydrocodone. Remember, keep this and all other medicines out of the reach of children, never share your medicines with others, and use this medication only for the indication prescribed. Every effort has been made to ensure that the information provided by [employer]') is accurate, up-to-date, and complete, but no guarantee is made to that effect. Drug information contained herein may be time sensitive. [employer] information has been compiled for use by healthcare practitioners and consumers in the [place] and therefore [employer] does not warrant that uses outside of the [place] are appropriate, unless specifically indicated otherwise. [employer] drug information does not endorse drugs, diagnose patients or recommend therapy. [employer] drug information is an informational resource designed to assist licensed healthcare practitioners in caring for their patients and/or to serve consumers viewing this service as a supplement to, and not a substitute for, the expertise, skill, knowledge and judgment of healthcare practitioners. The absence of a warning for a given drug or drug combination in no way should be construed to indicate that the drug or drug combination is safe, effective or appropriate for any given patient. [facility] does not assume any responsibility for any aspect of healthcare administered with the aid of information [facility] provides. The information contained herein is not intended to cover all possible uses, directions, precautions, warnings, drug interactions, allergic reactions, or adverse effects. If you have questions about the drugs you are taking, check with your doctor, nurse or pharmacist. Copyright 0263-2048 [facility]. Version: 15.02. Revision Date: 05/26/2018. polyethylene glycol 3350 (aracelis ee ETH il een GLYE kol) ClearLax, GaviLAX, Gialax, GlycoLax, MiraLax, [id number], [employer] ClearLax What is the most important information I should know about polyethylene glycol 3350? You should not use this medicine if you have a bowel obstruction or intestinal blockage. If you have any of these conditions, you could have dangerous or life-threatening side effects from polyethylene glycol 3350. Do not use polyethylene glycol 3350 more than once per day. Call your doctor if you are still constipated or irregular after using this medication for 7 days in a row. What is polyethylene glycol 3350? Polyethylene glycol 3350 is a laxative solution that increases the amount of water in the intestinal tract to stimulate bowel movements. Polyethylene glycol 3350 is used as a laxative to treat occasional constipation or irregular bowel movements. Polyethylene glycol 3350 may also be used for purposes not listed in this medication guide. What should I discuss with my healthcare provider before taking polyethylene glycol 3350? You should not use this medicine if you are allergic to polyethylene glycol, or if you have a bowel obstruction or intestinal blockage. If you have any of these conditions, you could have dangerous or life-threatening side effects from polyethylene glycol 3350. People with eating disorders (such as anorexia or bulimia) should not use this medication without the advice of a doctor. To make sure this medicine is safe for you, tell your doctor if you have: ? nausea, vomiting, or severe stomach pain; ?? ulcerative colitis; ?? irritable bowel syndrome; ?? kidney disease; or ?? if you have had a sudden change in bowel habits that has lasted 2 weeks or longer. FDA category C. It is not known whether polyethylene glycol 3350 will harm an unborn baby. Tell your doctor if you are or plan to become while using this medication. It is not known whether polyethylene glycol 3350 passes into breast milk or if it could harm a nursing baby. Tell your doctor if you are breast-feeding a baby. How should I take polyethylene glycol 3350? Follow all directions on your prescription label. Do not use this medicine in larger or smaller amounts or for longer than recommended. To use the powder form of this medicine, measure your dose with the medicine cap on the bottle. This cap should contain dose griffith on the inside of it. Pour the powder into 4 to 8 ounces of a cold or hot beverage such as water, juice, soda, coffee, or tea. Stir this mixture and drink it right away. Do not save for later use. Polyethylene glycol 3350 should produce a bowel movement within 1 to 3 days of using the medication. Polyethylene glycol 3350 normally causes loose or even watery stools. Do not use polyethylene glycol 3350 more than once per day. Call your doctor if you are still constipated or irregular after using this medication for 7 days in a row. Store at room temperature away from moisture and heat. What happens if I miss a dose? Take the missed dose as soon as you remember. Skip the missed dose if it is almost time for your next scheduled dose. Do not take extra medicine to make up the missed dose. What happens if I overdose? Seek emergency medical attention or call the Poison Help line at . What should I avoid while taking polyethylene glycol 3350? Follow your doctor's instructions about any restrictions on food, beverages, or activity. What are the possible side effects of polyethylene glycol 3350? Get emergency medical help if you have signs of an allergic reaction: hives; difficult breathing; swelling of your face, lips, tongue, or throat. Stop taking this medicine and call your doctor at once if you have: ? severe or bloody diarrhea; ?? rectal bleeding; ?? blood in your stools; or ?? severe and worsening stomach pain. Common side effects may include: ? bloating, gas, upset stomach; ?? dizziness; or ?? increased sweating. This is not a complete list of side effects and others may occur. Call your doctor for medical advice about side effects. You may report side effects to FDA at 3-916-MKY0991. What other drugs will affect polyethylene glycol 3350? Other drugs may interact with polyethylene glycol 3350, including prescription and gkeg-ncf-spoagkl medicines, vitamins, and herbal products. Tell each of your health care providers about all medicines you use now and any medicine you start or stop using. Where can I get more information? Your pharmacist can provide more information about polyethylene glycol 3350. Remember, keep this and all other medicines out of the reach of children, never share your medicines with others, and use this medication only for the indication prescribed. Every effort has been made to ensure that the information provided by [employer]') is accurate, up-to-date, and complete, but no guarantee is made to that effect. Drug information contained herein may be time sensitive. [employer] information has been compiled for use by healthcare practitioners and consumers in the [place] and therefore [employer] does not warrant that uses outside of the [place] are appropriate, unless specifically indicated otherwise. [employer] drug information does not endorse drugs, diagnose patients or recommend therapy. [employer] drug information is an informational resource designed to assist licensed healthcare practitioners in caring for their patients and/or to serve consumers viewing this service as a supplement to, and not a substitute for, the expertise, skill, knowledge and judgment of healthcare practitioners. The absence of a warning for a given drug or drug combination in no way should be construed to indicate that the drug or drug combination is safe, effective or appropriate for any given patient. [employer] does not assume any responsibility for any aspect of healthcare administered with the aid of information [employer] provides. The information contained herein is not intended to cover all possible uses, directions, precautions, warnings, drug interactions, allergic reactions, or adverse effects. If you have questions about the drugs you are taking, check with your doctor, nurse or pharmacist. Copyright 4745-8878 [employer]. Version: 2.04. Revision Date: 10/24/2016. lisinopril ([place]se [place] pril) Prinivil, Qbrelis, Zestril What is the most important information I should know about lisinopril? Do not use if you are , and tell your doctor right away if you become . If you have diabetes, do not use lisinopril together with any medication that contains aliskiren (a blood pressure medicine). Do not take lisinopril within 36 hours before or after taking medicine that contains sacubatril (such as Entresto). What is lisinopril? Lisinopril is an PENELOPE inhibitor that is used to treat high blood pressure (hypertension) in adults and children who are at least 6 years old. Lisinopril is also used to treat congestive heart failure in adults, or to improve survival after a heart attack. Lisinopril may also be used for purposes not listed in this medication guide. What should I discuss with my healthcare provider before taking lisinopril? You should not use lisinopril if you are allergic to it, or if you: ? have a history of angioedema; ?? recently took a heart medicine called sacubatril; or ?? are allergic to any other PENELOPE inhibitor, such as benazepril, captopril, enalapril, fosinopril, moexipril, perindopril, quinapril, ramipril, or trandolapril. Do not take lisinopril within 36 hours before or after taking medicine that contains sacubatril (such as Entresto). If you have diabetes, do not use lisinopril together with any medication that contains aliskiren (a blood pressure medicine). You may also need to avoid taking lisinopril with aliskiren if you have kidney disease. You should not use lisinopril if you have hereditary angioedema. Tell your doctor if you have ever had: ? kidney disease (or if you are on dialysis); ?? liver disease; or ?? high levels of potassium in your blood. Do not use if you are , and tell your doctor right away if you become . Lisinopril can cause injury or to the unborn baby if you take the medicine during your second or third trimester. You should not breast-feed while using this medicine. How should I take lisinopril? Follow all directions on your prescription label and read all medication guides or instruction sheets. Your doctor may occasionally change your dose. Use the medicine exactly as directed. Drink plenty of water each day while you are taking this medicine. Lisinopril can be taken with or without food. Measure liquid medicine carefully. Use the dosing syringe provided, or use a medicine dose-measuring device (not a kitchen spoon). Your blood pressure will need to be checked often. Your kidney function and electrolytes may also need to be checked. Call your doctor if you are sick with vomiting or diarrhea, or if you are sweating more than usual. You can easily become dehydrated while taking lisinopril. This can lead to very low blood pressure, a serious electrolyte imbalance, or kidney failure. If you need surgery, tell the surgeon ahead of time that you are using lisinopril. If you have high blood pressure, keep using this medicine even if you feel well. High blood pressure often has no symptoms. You may need to use blood pressure medicine for the rest of your life. Store at room temperature away from moisture and heat. Do not freeze the oral liquid. What happens if I miss a dose? Take the medicine as soon as you can, but skip the missed dose if it is almost time for your next dose. Do not take two doses at one time. What happens if I overdose? Seek emergency medical attention or call the Poison Help line at . What should I avoid while taking lisinopril? Drinking alcohol can further lower your blood pressure and may increase certain side effects of lisinopril. Avoid becoming overheated or dehydrated during exercise, in hot weather, or by not drinking enough fluids. Lisinopril can decrease sweating and you may be more prone to heat stroke. Do not use potassium supplements or salt substitutes, unless your doctor has told you to. Avoid getting up too fast from a sitting or lying position, or you may feel dizzy. What are the possible side effects of lisinopril? Get emergency medical help if you have signs of an allergic reaction: hives; severe stomach pain, difficult breathing; swelling of your face, lips, tongue, or throat. Call your doctor at once if you have: ? a light-headed feeling, like you might pass out; ?? little or no urination; ?? fever, sore throat; ?? high potassium--nausea, weakness, tingly feeling, chest pain, irregular heartbeats, loss of movement; ?? kidney problems--little or no urination, swelling in your feet or ankles, feeling tired or short of breath; or ?? liver problems--nausea, upper stomach pain, itching, tired feeling, loss of appetite, dark urine, josie-colored stools, jaundice (yellowing of the skin or eyes). Common side effects may include: ? headache, dizziness; ?? cough; or ?? chest pain. This is not a complete list of side effects and others may occur. Call your doctor for medical advice about side effects. You may report side effects to FDA at 0-836-RAA-3111. What other drugs will affect lisinopril? Tell your doctor about all your other medicines, especially: ? a diuretic or 'water pill'; ?? lithium; ?? gold injections to treat arthritis; ?? insulin or oral diabetes medicine; ?? a potassium supplement; ?? medicine to prevent organ transplant rejection--everolimus, sirolimus, tacrolimus, temsirolimus; or ?? NSAIDs (nonsteroidal anti-inflammatory drugs)--aspirin, ibuprofen (Advil, Motrin), naproxen (Aleve), celecoxib, diclofenac, indomethacin, meloxicam, and others. This list is not complete. Other drugs may affect lisinopril, including prescription and xerg-bnv-sggbpgh medicines, vitamins, and herbal products. Not all possible drug interactions are listed here. Where can I get more information? Your pharmacist can provide more information about lisinopril. Remember, keep this and all other medicines out of the reach of children, never share your medicines with others, and use this medication only for the indication prescribed. Every effort has been made to ensure that the information provided by [employer]') is accurate, up-to-date, and complete, but no guarantee is made to that effect. Drug information contained herein may be time sensitive. [employer] information has been compiled for use by healthcare practitioners and consumers in the [place] and therefore [employer] does not warrant that uses outside of the [place] are appropriate, unless specifically indicated otherwise. [employer] drug information does not endorse drugs, diagnose patients or recommend therapy. [employer] drug information is an informational resource designed to assist licensed healthcare practitioners in caring for their patients and/or to serve consumers viewing this service as a supplement to, and not a substitute for, the expertise, skill, knowledge and judgment of healthcare practitioners. The absence of a warning for a given drug or drug combination in no way should be construed to indicate that the drug or drug combination is safe, effective or appropriate for any given patient. [facility] does not assume any responsibility for any aspect of healthcare administered with the aid of information [facility] provides. The information contained herein is not intended to cover all possible uses, directions, precautions, warnings, drug interactions, allergic reactions, or adverse effects. If you have questions about the drugs you are taking, check with your doctor, nurse or pharmacist. Copyright [id number] [facility] Version: 15.. Revision Date: 05/19/2018. docusate (oral/rectal) (DOK ue sate) Colace, Diocto, Dioeze, Doc-Q-Lace, Docu, Docu Soft, Doculase, Docuprene, Docusil, Docusoft S, DocuSol, DOK, DSS, Dulcolax Stool Softener, Enemeez Mini, Dale-Tin, Octycine-250, Pedia-Lax Stool Softener, Sharpe Stool Softener, Promolaxin, Silace, Surfak Stool Softener, Nora-Q-Lax, Vacuant What is the most important information I should know about docusate? You should not use docusate if you have a blockage in your intestines. Do not use docusate while you are sick with nausea, vomiting, or severe stomach pain. You should not take mineral oil while using docusate. What is docusate? Docusate is a stool softener. It makes bowel movements softer and easier to pass. Docusate is used to treat or prevent constipation, and to reduce pain or rectal damage caused by hard stools or by straining during bowel movements. Docusate may also be used for purposes not listed in this medication guide. What should I discuss with my healthcare provider before using docusate? You should not use docusate if you are allergic to it, or if you have: ? nausea, vomiting, or severe stomach pain; ?? a blockage in your intestines; or ?? chronic stomach pain that has not been checked by a doctor. You should not take mineral oil while using docusate. Ask a doctor or pharmacist if it is safe for you to take docusate: ? if you are on a low-salt diet; or ?? if you have recently had a sudden change in your bowel habits lasting for longer than 2 weeks. FDA category C. It is not known whether docusate will harm an unborn baby. Do not use this medicine without a doctor's advice if you are . It is not known whether docusate passes into breast milk or if it could harm a nursing baby. Do not use this medicine without a doctor's advice if you are breast-feeding a baby. Do not give this medicine to a child younger than 6 years old without the advice of a doctor. How should I use docusate? Use exactly as directed on the label, or as prescribed by your doctor. Do not use in larger or smaller amounts or for longer than recommended. Take this medicine with a full glass of water. Drink plenty of liquids while you are taking docusate. Do not crush, chew, break, or open a docusate capsule or tablet. Swallow it whole. Measure liquid medicine with the dosing syringe provided, or with a special dose-measuring spoon or medicine cup. If you do not have a dose-measuring device, ask your pharmacist for one. Mix the liquid with 6 to 8 ounces of milk, fruit juice, or infant formula and drink the mixture right away. After taking docusate by mouth (tablets, capsules, liquid), you should have a bowel movement within 12 to 72 hours. Do not take docusate rectal enema by mouth. It is for use only in your rectum. Wash your hands before and after using docusate enema. Try to empty your bowel and bladder just before using the enema. Remove the cap from the enema applicator tip. Lie down on your left side with your knees bent, and gently insert the tip of the enema applicator into the rectum. Squeeze the tube to empty the entire contents into the rectum. Throw away the tube, even if there is still some medicine left in it. For best results, hold in the enema for as long as possible, or until you have a bowel movement. The rectal enema should produce a bowel movement within 2 to 15 minutes. Do not use docusate for longer than 7 days unless your doctor has told you to. Call your doctor if your symptoms do not improve, or if you have not had a bowel movement within 1 to 3 days. Overuse of a stool softener can lead to serious medical problems. Store at room temperature away from moisture and heat. What happens if I miss a dose? Since docusate is used when needed, you may not be on a dosing schedule. If you are on a schedule, use the missed dose as soon as you remember. Skip the missed dose if it is almost time for your next scheduled dose. Do not use extra medicine to make up the missed dose. What happens if I overdose? Seek emergency medical attention or call the Poison Help line at . Overdose symptoms may include nausea, vomiting or stomach pain. What should I avoid while using docusate? Avoid using laxatives or other stool softeners unless your doctor has told you to. What are the possible side effects of docusate? Get emergency medical help if you have any of these signs of an allergic reaction: hives; difficult breathing; swelling of your face, lips, tongue, or throat. Stop using docusate and call your doctor at once if you have: ? pounding heartbeats or fluttering in your chest; ?? a light-headed feeling, like you might pass out; ?? rectal bleeding or irritation; ?? numbness or a rash around your rectum; ?? vomiting, severe diarrhea or stomach cramps; or ?? continued constipation, or no bowel movement. Common side effects may include: ? dizziness, weakness; ?? gas, bloating, mild diarrhea; ?? rectal irritation; or ?? sweating. This is not a complete list of side effects and others may occur. Call your doctor for medical advice about side effects. You may report side effects to FDA at 6-000-YRC-6225. What other drugs will affect docusate? Other drugs may interact with docusate, including prescription and upfl-kwg-dmbowfi medicines, vitamins, and herbal products. Tell each of your health care providers about all medicines you use now and any medicine you start or stop using. Where can I get more information? Your pharmacist can provide more information about docusate. Remember, keep this and all other medicines out of the reach of children, never share your medicines with others, and use this medication only for the indication prescribed. Every effort has been made to ensure that the information provided by [employer]') is accurate, up-to-date, and complete, but no guarantee is made to that effect. Drug information contained herein may be time sensitive. [employer] information has been compiled for use by healthcare practitioners and consumers in the [place] and therefore [employer] does not warrant that uses outside of the [place] are appropriate, unless specifically indicated otherwise. [employer] drug information does not endorse drugs, diagnose patients or recommend therapy. [employer] drug information is an informational resource designed to assist licensed healthcare practitioners in caring for their patients and/or to serve consumers viewing this service as a supplement to, and not a substitute for, the expertise, skill, knowledge and judgment of healthcare practitioners. The absence of a warning for a given drug or drug combination in no way should be construed to indicate that the drug or drug combination is safe, effective or appropriate for any given patient. [employer] does not assume any responsibility for any aspect of healthcare administered with the aid of information [employer] provides. The information contained herein is not intended to cover all possible uses, directions, precautions, warnings, drug interactions, allergic reactions, or adverse effects. If you have questions about the drugs you are taking, check with your doctor, nurse or pharmacist. Copyright 4003-0624 [employer]. Version: 3.03. Revision Date: 09/02/2013. CIGARETTE SMOKING: The facts are clear, cigarette smoking will shorten your life. Smoking can cause many illnesses along the way. As a healthcare provider, we recommend that you stop smoking. Assistance with quitting is available by contacting 8-937-QEIH-NOW. This is a free resource providing counseling, support, and referral. Or you may contact your personal physician. 4 WAYS TO GET AHEAD OF SEPSIS SEPSIS is a MEDICAL EMERGENCY. Time matters! Infections put you and your family at risk for a life-threatening condition called sepsis. Sepsis is the body???s extreme response to an infection. It is life-threatening, and without timely treatment, sepsis can rapidly lead to tissue damage, organ failure, and . Sepsis happens when an infection you already have???in your skin, lungs, urinary tract or somewhere else???triggers a chain reaction throughout your body. 1 PREVENT INFECTIONS Take good care of chronic conditions. Talk to your doctor about getting the recommended vaccines. 2 PRACTICE GOOD HYGIENE Wash your hands frequently. Keep cuts or open sores clean and covered until they are healed. 3 KNOW THE SYMPTOMS Confusion or disorientation Shortness of breath High heart rate Fever, shivering, or feeling very cold Extreme pain or discomfort Clammy or sweaty skin 4 ACT FAST Get medical care IMMEDIATELY if you suspect sepsis or if you have an infection that???s not getting better or is getting worse. To learn more about sepsis and how to prevent infections, visit www.cdc.gov/sepsis. STROKE is an EMERGENCY [employer] ACT F.A.S.T! FACE ?? Facial droop ?? Uneven smile ARM ?? Arm numbness ?? Arm weakness SPEECH ?? Slurred speech ?? Difficulty speaking or understanding TIME ?? Call 911 and get to the hospital immediately Have the ambulance go to the nearest stroke center. STROKE Risk Factors High blood pressure High cholesterol Heart Disease Diabetes Smoking Heavy alcohol use Physical inactivity and obesity Atrial Fibrillation (irregular heartbeat) Family history of stroke Reminder: Be sure to sign up for the [employer] patient portal, which gives you 11/02 access to your medical information ??? including these discharge instructions ??? using your computer, smartphone, or tablet. Just go to HQ plus to get started. Questions? Call . [facility] would like to thank you for allowing us to assist you with your healthcare needs. PAWEL Townsend LARRY GILBERT, (or sales representative cash registers) have received the above patient education materials/instructions and have verbalized understanding: Patient Signature _ Date/Time Patient Day Care Assistant Signature (if needed) Date/Time Clinician/Hospital Day Care Assistant Signature (if needed) Date/Time Electronically signed by Interface, [facility] Conversion [employer] at 11/04/2022 10:06 AM CDT documented in this encounter Plan of Treatment Not on file documented as of this encounter Visit Diagnoses Not on filedocumented in this encounter
--- OUTSIDE RECORDS SUMMARY | 2025-05-24 09:56 | XMS_ITS | Encounter Summary ---
Author Organization [employer] ([place], [place], [place], [place], [place]) Address [address] [place] [address] Care Team Providers Care Marketing Producer Name Role Phone Unavailable Primary Care Provider Unavailabl e Encounter Details Date Type Department Care Team (Late st Contact Info) Description 08/29/2018 Transcribed Document [facility] [place] [facility] [place] [address] ProviderCindi MD [address] [place] [address] Social History Tobacco Use Types [...] Conversion Note - Historical ProviderMD - 08/29/2018 8:28 AM CAN LABELER Patient: RAFAT ARMAS Age: 72 Years Sex: Male : 1945 Subjective Post OP SB resection Intake & Output Intake & Output Totals Last 24 Hours (7a-7a) Intake (32 Events) Continuous Infusions (825 mL) Medications (626.07 mL) Output (4 Events) Ferrer Catheter (1170 mL) Urine Voided (Volume) (100 mL) Input Total: 1451.07 mL Output Total: 1270 mL Balance: 181.07 mL Vital Signs T: 37.1 ??C TMIN: 36.8 ??C TMAX: 37.1 ??C HR: 82(Monitored) RR: 18 BP: 151/85 SpO2: 97% Physical Exam ABD softer wound OK NO BF VTE Risk Total Score VTE Prophylaxis - Surgical Heparin 5,000 Units, SubCutaneous, Inj, [id number], Routine, Start 08/26/18 20:00:00 EST (LILY VILLAFANA) Sequential Compression Device Start: 08/26/18 19:58:00 EST, Bilateral, Length: Knee High, While patient is in bed, Continuous Order (LILY VILLAFANA) Sequential Compression Device Start: 08/26/18 19:58:00 EST, Bilateral, Continuous Order (LILY VILLAFANA) Assessment/Plan Increase activity DC FC await BF check labs Cutaneous abscess, unspecified L02.91, Cutaneous abscess, unspecified L02.91 Orders: BMP Basic Metabolic Panel Culture AFB and Stain Culture Anaerobic Misc Nursing Order Urinary Catheter Removal Medications Inpatient acetaminophen-HYDROcodone 325 mg-5 mg oral tablet, 1 Tab, Oral, Q4H, PRN Colace, 100 mg= 1 Cap, Oral, BID Flagyl, 500 mg= 1 Tab, Oral, TID heparin, 5000 Units= 1 mL, SubCutaneous, [id number] insulin lispro sliding scale, Scale A:, SubCutaneous, AC and at Bedtime MiraLax, 17 Gram= 1 Packet, Oral, Daily, PRN Rocephin Sodium Chloride 0.9% intravenous solution 1,000 mL, 1000 mL, IntraVENous Tylenol, 650 mg= 2 Tab, Oral, Q4H, PRN Zofran, 4 mg= 2 mL, IV Push, Q4H, PRN Home Flomax 0.4 mg oral capsule, 0.4 mg= 1 Cap, Oral, Daily hydrOXYzine pamoate 25 mg oral capsule, 25 mg= 1 Cap, Oral, At Bedtime, PRN Routine Labs - Last 24 Hours No qualifying data available No qualifying data available. Imaging Results (Last 24 Hours) No Radiology Results Found Problem List/Past Medical History Ongoing Kidney stones Historical No qualifying data Procedure/Surgical History CHOLECYSTECTOMY, collarbone sx, knee sx, rotator cuff sx. Allergies sulfa drugs Electronically signed by Jill Squires Conversion Information Resources Director Cerner at 11/04/2022 10:12 AM CDT documented in this encounter Plan of Treatment Not on file documented as of this encounter Visit Diagnoses Not on filedocumented in this encounter
--- OUTSIDE RECORDS SUMMARY | 2025-05-24 09:56 | XMS_ITS | Encounter Summary ---
Author Organization [employer] ([place], [place], [place], [place], [place]) Address [address] [place] [address] Care Team Providers Care Senior Naval Parachutist Name Role Phone Unavailable Primary Care Provider Unavailabl e Encounter Details Date Type Department Care Team (Late st Contact Info) Description 08/29/2018 Transcribed Document [facility] [place] [facility] [place] [address] ProviderCindi MD [address] [place] [address] Social History Tobacco Use Types [...] Conversion Note - Historical ProviderMD - 08/29/2018 4:00 AM SPORTS PSYCHOLOGIST Height and Weight, Routine Entered On: 08/31/2018 7:19 EST Performed On: 08/29/2018 4:00 EST by Fern Rice [facility] Unit Coord Height and Weight, Routine Routine Weight Source : Standing scale Routine Weight Entry Format : [place] Routine Weight, Pounds : 216 lb Routine Weight, Ounces : 4 oz Routine Weight Calculation : 98.3 kg Height Source : Stated Height Entry Format : [place] Height, Feet : 6 ft Height, Inches : 0 Inch Clinical Height : 182.88 cm Body Surface Area (BSA), Routine : 2.2 m2 Body Mass Index (BMI), Routine : 29.39 kg/m2 Fern [facility] - 08/31/2018 7:18 EST Electronically signed by T[facility] Conversion Research Assistant Cerner at 11/04/2022 10:28 AM CDT documented in this encounter Plan of Treatment Not on file documented as of this encounter Visit Diagnoses Not on filedocumented in this encounter
--- OUTSIDE RECORDS SUMMARY | 2025-05-24 09:56 | XMS_ITS | Encounter Summary ---
Author Organization [facility] ([place], [place], [place], [place], [place]) Address [address] [place] [address] Care Team Providers Care Health And Safety Director Name Role Phone Unavailable Primary Care Provider Unavailabl e Encounter Details Date Type Department Care Team (Late st Contact Info) Description 08/30/2018 Transcribed Document [facility] [place] Family Medicine [address] [place] [address] ProviderCindi MD [address] [place] [address] Social History Tobacco Use Types [...] Note - Historical ProviderMD - 08/30/2018 5:00 AM PROFESSOR OF MATHEMATICS Chart Check - Review Order Profile Entered On: 08/30/2018 4:02 EST Performed On: 08/30/2018 5:00 EST by JORGE ALBERTO CARDONA RN Chart Check Chart Reviewed Date and Time : 08/30/2018 4:00 EST Powerplans Initiated/Discontinued as Appropriate : Yes All Active Orders Reviewed : Yes JORGE ALBERTO CARDONA RN - 08/30/2018 4:01 EST documented in this encounter Plan of Treatment Not on file documented as of this encounter Visit Diagnoses Not on filedocumented in this encounter
--- OUTSIDE RECORDS SUMMARY | 2025-05-24 09:56 | XMS_ITS | Encounter Summary ---
Author Organization [employer] ([place], [place], [place], [place], [place]) Address [address] [place] [address] Care Team Providers Care Program Production Specialist Name Role Phone Unavailable Primary Care Provider Unavailabl e Encounter Details Date Type Department Care Team (Late st Contact Info) Description 09/02/2018 Transcribed Document [facility] [place] [facility] [place] [address] ProviderCindi MD [facility] [place] [address] Social History Tobacco Use Types [...] Conversion Note - Cindi ProviderMD - 09/02/2018 1:31 PM DIRECTOR VISUAL [address] [place] [address] Patient Copy Patient Information: Name: RAKAN ARMAS Current Date: 09/02/2018 13:31:19 : 1945 Patient [facility] [facility] [address] Patient Attending Physician: MEGHAN DAVIS MD-INT Primary Care Provider: BASILIO LUIS Primary Care Provider Discharge Diagnosis: Weight on Admission: 210 lb, 0 oz Weight at Discharge: 210 lb, 0.01 oz Comment: Follow-up Instructions: With: Address: When: LADARIUS HENSON [address] [facility], [address] [place], [place] [phone] Business (1) 9:00 AM Comments: Appointment has been made With: Address: [facility] [address] [place], [place] [phone] Business (1) Within 2 to 3 days [...] in place to recieve abx at home. Immunizations Documented During Stay: No Immunizations Found [...] 01/12/2004 Document Revised: 01/25/2017 Document Reviewed: 04/30/2014 [employer] Patient Education ? 2017 [employer]. Exploratory Laparotomy, Adult Introduction Exploratory laparotomy is [...] including vitamins, herbs, eye drops, creams, and msvh-geo-phqwdcy medicines. ??? Any problems you or family [...] 2017 Elsevier Medication Leaflets: amlodipine (ken vasquez) Marija What is the most important information I [...] may report side effects to FDA at 9-295-FGG-7629. What other drugs will affect amlodipine? Tell your doctor about all your current medicines and any you start or stop using, especially: ? nitroglycerin; ?? simvastatin (Zocor, Simcor, Vytorin); or ?? any other heart or blood pressure medications. This list is not complete. Other drugs may interact with amlodipine, including prescription and pprg-bpo-tkcmrgn medicines, vitamins, and herbal products. Not all [...] to ensure that the information provided by [employer]. ('[employer]') is accurate, up-to-date, and complete, but no guarantee is made to that effect. Drug information contained herein may be time sensitive. [employer] information has been compiled for use by healthcare practitioners and consumers in the [place] and therefore [employer] does not warrant that uses outside of the [place] are appropriate, unless specifically indicated otherwise. [employer] drug information does not endorse drugs, diagnose patients or recommend therapy. [employer] drug information is an informational resource designed [...] effective or appropriate for any given patient. [employer] does not assume any responsibility for any aspect of healthcare administered with the aid of information [employer] provides. The information contained herein is not intended to cover all possible uses, directions, precautions, warnings, drug interactions, allergic reactions, or adverse effects. If you have questions about the drugs you are taking, check with your doctor, nurse or pharmacist. Copyright 7978-4496 [employer]. Version: 14.01. Revision Date: 10/29/2016. acetaminophen and hydrocodone (a SEET a MIN oh fen and sonny droe KONichol done) Hycet, Lorcet, [place], Verdrocet, Vicodin, Xodol, Zamicet What is the [...] may report side effects to FDA at 6-137-SQA-9541. What other drugs will affect acetaminophen and [...] affect acetaminophen and hydrocodone, including prescription and tlgj-ona-tndftyn medicines, vitamins, and herbal products. Not all [...] to ensure that the information provided by [employer]. ('[employer]') is accurate, up-to-date, and complete, but no guarantee is made to that effect. Drug information contained herein may be time sensitive. [employer] information has been compiled for use by healthcare practitioners and consumers in the [place] and therefore [employer] does not warrant that uses outside of the [place] are appropriate, unless specifically indicated otherwise. [employer] drug information does not endorse drugs, diagnose patients or recommend therapy. [employer] drug information is an informational resource designed [...] effective or appropriate for any given patient. [employer] does not assume any responsibility for any aspect of healthcare administered with the aid of information [facility] provides. The information contained herein is not intended to cover all possible uses, directions, precautions, warnings, drug interactions, allergic reactions, or adverse effects. If you have questions about the drugs you are taking, check with your doctor, nurse or pharmacist. Copyright 4231-1231 [employer]. Version: 15.02. Revision Date: 05/26/2018. polyethylene glycol 3350 (aracelis ee ETH il een GLYE kol) ClearLax, GaviLAX, Gialax, GlycoLax, MiraLax, BND5642, [employer] ClearLax What is the most important [...] may report side effects to FDA at 3-700-XLL-1110. What other drugs will affect polyethylene glycol 3350? Other drugs may interact with polyethylene glycol 3350, including prescription and roqi-qaq-yokaozf medicines, vitamins, and herbal products. Tell each [...] to ensure that the information provided by [employer]. ('[employer]') is accurate, up-to-date, and complete, but no guarantee is made to that effect. Drug information contained herein may be time sensitive. [employer] information has been compiled for use by healthcare practitioners and consumers in the [place] and therefore [employer] does not warrant that uses outside of the [place] are appropriate, unless specifically indicated otherwise. [employer] drug information does not endorse drugs, diagnose patients or recommend therapy. [employer] drug information is an informational resource designed [...] effective or appropriate for any given patient. [employer] does not assume any responsibility for any aspect of healthcare administered with the aid of information [employer] provides. The information contained herein is not intended to cover all possible uses, directions, precautions, warnings, drug interactions, allergic reactions, or adverse effects. If you have questions about the drugs you are taking, check with your doctor, nurse or pharmacist. Copyright 1328-9813 [employer]. Version: 2.04. Revision Date: 10/24/2016. lisinopril (lyse [...] may report side effects to FDA at 3-883-CYB-1440. What other drugs will affect lisinopril? Tell [...] drugs may affect lisinopril, including prescription and lyek-als-nwjjues medicines, vitamins, and herbal products. Not all [...] to ensure that the information provided by [employer]. ('[employer]') is accurate, up-to-date, and complete, but no guarantee is made to that effect. Drug information contained herein may be time sensitive. [employer] information has been compiled for use by healthcare practitioners and consumers in the [place] and therefore [employer] does not warrant that uses outside of the [place] are appropriate, unless specifically indicated otherwise. [employer] drug information does not endorse drugs, diagnose patients or recommend therapy. [employer] drug information is an informational resource designed [...] effective or appropriate for any given patient. [employer] does not assume any responsibility for any aspect of healthcare administered with the aid of information [employer] provides. The information contained herein is not intended to cover all possible uses, directions, precautions, warnings, drug interactions, allergic reactions, or adverse effects. If you have questions about the drugs you are taking, check with your doctor, nurse or pharmacist. Copyright 9436-7855 [employer]. Version: 15.01. Revision Date: 05/19/2018. docusate (oral/rectal) (DOK ue [...] 8 ounces of milk, fruit juice, or formula and drink the mixture right away. [...] may report side effects to FDA at 5-814-OJU-0844. What other drugs will affect docusate? Other drugs may interact with docusate, including prescription and iyuo-znb-qssfpzb medicines, vitamins, and herbal products. Tell each [...] to ensure that the information provided by [employer]. ('[employer]') is accurate, up-to-date, and complete, but no guarantee is made to that effect. Drug information contained herein may be time sensitive. [employer] information has been compiled for use by healthcare practitioners and consumers in the [place] and therefore [employer] does not warrant that uses outside of the [place] are appropriate, unless specifically indicated otherwise. [employer] drug information does not endorse drugs, diagnose patients or recommend therapy. [employer] drug information is an informational resource designed [...] effective or appropriate for any given patient. [employer] does not assume any responsibility for any aspect of healthcare administered with the aid of information [employer] provides. The information contained herein is not intended to cover all possible uses, directions, precautions, warnings, drug interactions, allergic reactions, or adverse effects. If you have questions about the drugs you are taking, check with your doctor, nurse or pharmacist. Copyright 4604-6213 [employer]. Version: 3.03. Revision Date: 09/02/2013. CIGARETTE SMOKING: The facts are clear, cigarette smoking will shorten your life. Smoking can cause many illnesses along the way. As a healthcare provider, we recommend that you stop smoking. Assistance with quitting is available by contacting 9-359-VDPF-NOW. This is a free resource providing counseling, [...] Be sure to sign up for the [employer] patient portal, which gives you 11/02 access to your medical information ??? including these discharge instructions ??? using your computer, smartphone, or tablet. Just go to [employer] to get started. Questions? Call . [facility] would like to thank you for allowing us to assist you with your healthcare needs. PAWEL Townsend LARRY GILBERT, (or uniforms sales representative) have received the above patient education materials/instructions and have verbalized understanding: Patient Signature _ Date/Time Patient Pastry Wrapper Signature (if needed) Date/Time Clinician/Hospital Pastry Wrapper Signature (if needed) Date/Time documented in this encounter Plan of Treatment Not on file documented as of this encounter Visit Diagnoses Not on filedocumented in this encounter
--- OUTSIDE RECORDS SUMMARY | 2025-05-24 09:56 | XMS_ITS | Encounter Summary ---
Author Organization [employer] ([place], [place], [place], [place], [place]) Address [address] [place] [address] Care Team Providers Care Services Mgr Name Role Phone Unavailable Primary Care Provider Unavailabl e Encounter Details Date Type Department Care Team (Late st Contact Info) Description 09/02/2018 Transcribed Document [facility] [place] [facility] [place] [address] ProviderCindi MD [facility] [place] [address] Social History Tobacco Use Types [...] Conversion Note - Cindi ProviderMD - 09/02/2018 1:26 PM DISTRICT EXTENSION SERVICE AGENT [address] [place] [address] Patient Copy Patient Information: Name: RAFAT ARMAS Current Date: 09/02/2018 13:26:09 : 1945 Patient [place] [address] Patient Attending Physician: MEGHAN DAVIS MD-INT Primary Care Provider: BASILIO LUIS Primary Care Provider Discharge Diagnosis: Weight on Admission: 210 lb, 0 oz Weight at Discharge: 210 lb, 0.01 oz Comment: Follow-up Instructions: With: Address: When: LADARIUS HENSON [address] [facility], [address] [place], [place] [phone] Business (1) 9:00 AM Comments: Appointment has been made With: Address: [facility] [address] [place], [place] [phone] Business (1) Within 2 to 3 days [...] cramping, rapid heartbeat, difficulty sleeping, and nervousness. CIGARETTE SMOKING: The facts are clear, cigarette smoking will shorten your life. Smoking can cause many illnesses along the way. As a healthcare provider, we recommend that you stop smoking. Assistance with quitting is available by contacting 3-593-FONA-NOW. This is a free resource providing counseling, [...] Be sure to sign up for the [employer] patient portal, which gives you 11/02 access to your medical information ??? including these discharge instructions ??? using your computer, smartphone, or tablet. Just go to [employer] to get started. Questions? Call . [facility] would like to thank you for allowing us to assist you with your healthcare needs. PAWEL Townsend LARRY GILBERT, (or sales representative church furniture) have received the above patient education materials/instructions and have verbalized understanding: Patient Signature _ Date/Time Patient Casino Operations Supervisor Signature (if needed) Date/Time Clinician/Hospital Casino Operations Supervisor Signature (if needed) Date/Time documented in this encounter Plan of Treatment Not on file documented as of this encounter Visit Diagnoses Not on filedocumented in this encounter
--- OUTSIDE RECORDS SUMMARY | 2025-05-24 09:56 | XMS_ITS | Encounter Summary ---
Author Organization [employer] ([place], [place], [place], [place], [place]) Address [address] [place] [address] Care Team Providers Care Metal Organ Pipe Maker Name Role Phone Unavailable Primary Care Provider Unavailabl e Encounter Details Date Type Department Care Team (Late st Contact Info) Description 09/02/2018 Transcribed Document [facility] [place] Family Medicine [address] [place] [address] ProviderCindi MD [address] [place] [address] Social History Tobacco Use Types [...] Conversion Note - Historical ProviderMD - 09/02/2018 5:00 AM ORTHOPEDIC PODIATRIST Chart Check - Review Order Profile Entered On: 09/02/2018 3:43 EST Performed On: 09/02/2018 5:00 EST by Maria D Nolasco Chart Check Chart Reviewed Date and Time : 09/02/2018 3:43 EST Powerplans Initiated/Discontinued as Appropriate : Yes All Active Orders Reviewed : Yes Maria D Nolasco - 09/02/2018 3:43 EST documented in this encounter Plan of Treatment Not on file documented as of this encounter Visit Diagnoses Not on filedocumented in this encounter
--- OUTSIDE RECORDS SUMMARY | 2025-05-24 09:56 | XMS_ITS | Encounter Summary ---
Author Organization [employer] ([place], [place], [place], [place], [place]) Address [address] [place] [address] Care Team Providers Care Silk Screen Operator Name Role Phone Unavailable Primary Care Provider Unavailabl e Encounter Details Date Type Department Care Team (Late st Contact Info) Description 08/29/2018 Transcribed Document [facility] [place] Medicine [facility] [place] [address] ProviderCindi MD [facility] [place] [id number] Social History Tobacco Use Types Packs/Day Years Used Date Smoking Tobacco: Never Assessed Sex and Gender Information Value Date Recorded Sex Assigned at Male 01/16/2022 11:42 AM CDT Legal Sex Male 11:42 AM CDT Gender Identity Male 01/16/2022 11:42 AM CDT Sexual Orientation Not on file documented as of this encounter Miscellaneous Notes * [employer]ner Conversion Note - Historical ProviderMD - 08/29/2018 10:52 AM HOT SEALING MACHINE OPERATOR Care Management Assessment/Plan Entered On: 08/29/2018 10:53 EST Performed On: 08/29/2018 10:52 EST by ESTHER GRIFFIN Care Management Note Care Management Note : Chart reviewed. Per notes, remains NPO, waiting bowel function to return. Ferrer to be dc'd today. IVF's infusing. CM will follow. Care Management Note Report : ESTHER GRIFFIN - 08/28/18 11:30:40 Pt had [...] this time. RRS is high @ 60 GRIFFIN, ESTHER - 08/28/18 11:33:44 Pt had colon surgery [...] ESTHER GRIFFIN - 08/27/18 11:09:14 Received from [facility] due to intra-abdominal abscess, being admitted with the same. Pt off the floor for surgery during IDT rounds. CM will follow. Documentation Status Complete : Yes GABY ESTHER - 08/29/2018 10:52 EST Electronically signed by Tavia [facility] Conversion Basket Braider Cerner at 11/04/2022 10:16 AM CDT documented in this encounter Plan of Treatment Not on file documented as of this encounter Visit Diagnoses Not on filedocumented in this encounter
--- OUTSIDE RECORDS SUMMARY | 2025-05-24 09:56 | XMS_ITS | Encounter Summary ---
Author Organization [employer] ([place], [place], [place], [place], [place]) Address [address] [place] [address] Care Team Providers Care Oracle Programmer Name Role Phone Unavailable Primary Care Provider Unavailabl e Encounter Details Date Type Department Care Team (Late st Contact Info) Description 09/01/2018 Transcribed Document [facility] Radiology [address] [place] [address] Gianni Castro MD [address] [place] [address] [place] [address] Social History Tobacco Use Types Packs/Day Years Used Date Smoking Tobacco: Never Assessed Sex and Gender Information Value Date Recorded Sex Assigned at Male 01/16/2022 11:42 AM CDT Legal Sex Male 11:42 AM CDT Gender Identity Male 01/16/2022 11:42 AM CDT Sexual Orientation Not on file documented as of this encounter Miscellaneous Notes * Cerner Conversion Note - Gianni Castro MD - 09/01/2018 8:56 AM EST Patient: RAFAT ARMAS Age: 72 years Sex: Male : 1945 Associated Diagnoses: None Author: GIANNI CASTRO MD-INT Subjective 72 yo male admitted for abd pain and possible abscess ct showed perforation and abscess s/p small bowel resection and abscess drainge 09/01 Pt is awake and alert. Resting in bed. BP elevated. Tolerating diet. No BM but passing gas,. No Fever. No Dyspnea. No CP. Health Status Allergies: Allergic Reactions (Selected) Severity Not Documented Sulfa drugs- No reactions were documented. Current medications: (Selected) Inpatient Medications Ordered Colace: 100 mg, Oral, BID MiraLax: 17 Gram, Oral, Daily, PRN: Constipation Normal Saline Flush: 10 mL, IntraCATHeter, Q12H Sodium Chloride 0.9% intravenous solution 1,000 mL: [...] ampicillin-sulbactam: 3 Gram, 200 mL/Hr, IV Piggyback, [id number] cloNIDine 50 mcg + dexamethasone 4 mg + bupivacaine-EPINEPHrine 0.25%-1:200,000 injectable solution...: 50 mcg, 0.5 mL, 0 mL/Hr, Nerve Root Block, 1-Time heparin: 5,000 Units, SubCutaneous, [id number] insulin lispro sliding scale: Scale A:, SubCutaneous, [...] hrs) Last Charted Minimum Maximum Temp 98.7 (SEP 01 06:06) 98 (AUG 31 15:45) 98 (AUG 31 15:45) Mon HR 80 (SEP 01 06:06) 62 (AUG 31 12:10) 81 (AUG 31 15:45) Resp Rate 16 (SEP 01 06:06) 16 (SEP 01 00:00) 18 (AUG 10 19:40) SBP H 160 (B 06:06) 125 (FEB 10 15:45) H 168 (AUG 31 11:10) DBP H 98 (SEP 01 06:06) 86 (B 10 15:45) H 98 (AUG 31 11:10) MAP 117 (B 06:06) 96 (B 15:45) 140 (AUG 31 11:10) SpO2 96 (SEP 01 06:06) 96 (B 08:00) 97 (SEP 01 00:00) General: Alert and oriented, No acute distress. Eye: Extraocular movements are intact. HENT: Oral mucosa is moist. Neck: Supple, Non-tender. Respiratory: Respirations are non-labored. Breath sounds: Bilateral, Diminished. Cardiovascular: Normal rate, No murmur, No gallop. Gastrointestinal: Soft, Normal bowel sounds, s/p surgery - Dressing noted.. Musculoskeletal: No tenderness, No deformity. Integumentary: Warm, Intact, No pallor. Neurologic: Alert, Oriented, No focal deficits. Results Review Lab and test: Labs (Last four charted values) WBC 8.6 (B 11) 8.6 (B 10) H 10.8 (B 09) H 13.0 (B 08) HB L 12.1 (B 11) L 11.5 (B 10) L 11.6 (B 09) L 12.7 (B 08) HCT L 36.7 (B 11) L 35.4 (B 10) L 36.9 (B 09) L 39.3 (FEB 08) Plt 252 (B 11) 236 (FEB 10) 231 (FEB 09) 243 (B 08) Na 139 (B 09) 137 (B 07) 139 (B 06) 140 (B 05) K 4.1 (B 09) 4.7 (B 07) 4.3 (B 06) 4.1 (B 05) Cl 107 (B 09) 105 (B 07) 107 (B 06) 106 (B 05) CO2 23 (B 09) 25 (FEB 07) 24 (AUG 27) 26 (AUG 26) BUN 16 (AUG 30) 20 (AUG 28) H 23 (AUG 27) H 23 (AUG 26) Cr 0.80 (AUG 30) 1.10 (AUG 28) 1.30 (AUG 27) 1.29 (AUG 05) Glu R 77 (AUG 30) H 137 (AUG 28) 98 (AUG 27) 104 (AUG 26) Ca L 7.3 (AUG 30) L 7.8 (AUG 28) L 7.7 (AUG 27) L 7.8 (AUG 26) PT 11.9 (AUG 26) 11.9 (AUG 26) INR 1.1 (AUG 26) 1.1 (AUG 26) AST 18 (AUG 28) 35 (AUG 27) [...] No Radiology Results Found Diagnosis / problem Perforation of proximal jejunum and mesenteric bowel, s/p resection Sepsis POA resolved Intra-abd abscess BPH / HTN Plan: Continue IV ABX PT/OT Follow Labs. DC PLAN: Moshe in 1-2 days on PO ABX. D/W Patient. documented in this encounter Plan of Treatment Not on file documented as of this encounter Visit Diagnoses Not on filedocumented in this encounter
--- OUTSIDE RECORDS SUMMARY | 2025-05-24 09:57 | XMS_ITS | Encounter Summary ---
Author Organization [facility] ([place], [place], [place], [place], [place]) Address [address] [place] [address] Care Team Providers Care Mock Up Assembler Name Role Phone Unavailable Primary Care Provider Unavailabl e Encounter Details Date Type Department Care Team (Late st Contact Info) Description 08/28/2018 Transcribed Document [facility] Family Medicine [address] [place] [address] ProviderCindi MD [address] [place] [address] Social History Tobacco Use Types Packs/Day Years Used Date Smoking Tobacco: Never Assessed Sex and Gender Information Value Date Recorded Sex Assigned at Male 01/16/2022 11:42 AM CDT Legal Sex Male 11:42 AM CDT Gender Identity Male 01/16/2022 11:42 AM CDT Sexual Orientation Not on file documented as of this encounter Miscellaneous Notes * Cerner Conversion Note - Cindi ProviderMD - 08/28/2018 8:34 AM [employer] 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
--- OUTSIDE RECORDS SUMMARY | 2025-05-24 09:57 | XMS_ITS | Encounter Summary ---
Author Organization [employer] ([place], [place], [place], [place], [place]) Address [address] [place] [address] Care Team Providers Care Planetarium Technician Name Role Phone Unavailable Primary Care Provider Unavailabl e Encounter Details Date Type Department Care Team (Late st Contact Info) Description 08/27/2018 Transcribed Document [facility] [place] [facility] [place] [address] ProviderCindi MD [facility] [place] [address] Social History Tobacco Use Types [...] Conversion Note - Cindi ProviderMD - 08/27/2018 10:00 AM BOOTH CASHIER Patient: RAFAT ARMAS Age: 72 years Sex: Male : 1945 Associated Diagnoses: None Author: ZOEY BERGER MD Subjective 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 72 yo male was admitted for abd pain and possible abscess ct showed perforation and abscess saw him today in pre-op and family in there also awake, no cp or sob, said he had abd pain x 3 weeks ROS: no fever, no cp or osb, feel nause and abd pain Health Status Allergies: Allergic Reactions (Selected) Severity Not Documented Sulfa drugs- No reactions were documented., Allergies (1) Active Reaction sulfa drugs None Documented Current medications: (Selected) Inpatient Medications Ordered Colace: 100 mg, Oral, BID Flagyl: 500 mg, 100 mL, 100 mL/Hr, IV Piggyback, Q8HInt MiraLax: 17 Gram, Oral, Daily, PRN: Constipation Protonix: 40 mg, IV Push, Daily Sodium Chloride 0.9% intravenous solution 1,000 mL: 75 mL/Hr, IntraVENous Tylenol: 650 mg, Oral, Q4H, PRN: Pain (Mild 1-3) Zofran: 4 mg, IV Push, Q4H, PRN: Nausea Zosyn + Sodium Chloride 0.9% intravenous solution 100 mL: 3.375 Gram, 33.33 mL/Hr, IV Piggyback, Q6HInt acetaminophen-HYDROcodone 325 mg-5 mg oral tablet: 1 Tab, Oral, Q4H, PRN: Pain (Mild 1-3) heparin: 5,000 Units, SubCutaneous, [id number] insulin lispro sliding scale: Scale A:, SubCutaneous, [...] Cap, PRN, Oral, At Bedtime , Medications (11) Active Scheduled: (6) docusate sodium 100 mg cap 100 mg 1 Cap, Oral, BID heparin 5,000 units/1 mL inj 5,000 Units 1 mL, SubCutaneous, [id number] insulin lispro 1 unit/0.01 mL inj Scale A:, SubCutaneous, AC and at Bedtime metroNIDAZOLE 500 mg 100 mL, IV Piggyback, Q8HInt pantoprazole 40 mg inj 40 mg, IV Push, Daily piperacillin-tazobactam + NaCl 0.9% 100 mL 3.375 [...] 24 hrs) Last Charted Minimum Maximum Temp 97.5 (AUG 27:06) 97.5 (AUG 27 14:06) 98.6 (AUG 26 22:10) Mon HR 63 (AUG 27 14:06) 60 (AUG 27 07:00) 69 (AUG 27 13:00) Periph HR 69 (AUG 27 09:31) 69 (AUG 27 09:31) 69 (AUG 27 09:31) Resp Rate 20 (AUG 27 13:40) 16 (AUG 27 07:00) 20 (AUG 27 12:50) SBP 117 (AUG 27:) 107 (AUG 27 07:00) 129 (AUG 27 09:31) DBP 71 (AUG 27 14:06) 69 (AUG 27 03:45) 76 (AUG 27 12:55) MAP 91 (AUG 27 14:06) 80 (AUG 27 07:00) 96 (AUG 27 12:40) SpO2 98 (AUG 27 14:06) L 87 (AUG 27 03:45) 100 (AUG 27 12:45) General: Alert and oriented, Mild distress. Neck: Supple, Non-tender, No jugular venous distention. Respiratory: Respirations are non-labored, Breath sounds are equal, Symmetrical chest wall expansion, No chest wall tenderness. Cardiovascular: Normal rate, No murmur, No gallop. Gastrointestinal: Soft, Normal bowel sounds, tender diffuse sore. Musculoskeletal: No tenderness, No deformity. Integumentary: Warm, Intact, No pallor. Neurologic: Alert, Oriented, No focal deficits. Psychiatric: Cooperative, anxiety, Not appropriate mood & affect. Results Review Lab and test: Labs (Last four charted values) WBC 9.1 (AUG 27) H 11.0 (AUG 26) H 11.8 (AUG 26) HB L 12.1 (AUG 27) L 13.4 (FEB 05) L 13.6 (B 05) HCT L 37.9 (B 06) 42.7 (B 05) 42.4 (B 05) Plt 244 (B 06) 271 (B 05) 282 (B 05) Na 139 (B 06) 140 (B 05) 138 (B 05) K 4.3 (B 06) 4.1 (B 05) 4.0 (B 05) Cl 107 (AUG 27) 106 (AUG 05) 105 (AUG 05) CO2 24 (AUG 27) 26 (AUG 26) 26 (AUG 26) BUN H 23 (AUG 27) H 23 (AUG 05) H 24 (AUG 26) Cr 1.30 (AUG 27) 1.29 (AUG 05) 1.24 (AUG 05) Glu R 98 (AUG 27) 104 (AUG 05) H 107 (AUG 05) Ca L 7.7 (AUG 27) L 7.8 (AUG 26) L 7.9 (AUG 26) PT 11.9 (AUG 26) 11.9 (AUG 26) INR 1.1 (AUG 26) 1.1 (AUG 05) AST 35 (AUG 27) H 74 (AUG 26) H 73 (AUG 26) ALT 41 (AUG 27) 53 (AUG 05) 47 (AUG 05) ALK P 124 (AUG 27) H 163 (AUG 26) H 157 (AUG 05) T Bili H 1.5 (AUG 27) H 1.6 (AUG 05) H 1.6 (AUG 05) PTN L 5.4 (AUG 06) L 6.3 (AUG 05) L 6.1 (AUG 26) ALB L 1.9 (AUG 06) L 2.2 (AUG 05) L 2.1 (AUG 26) Radiology Results (Last 48 hours) [id number] -- 08/26/2018 18:06 CT Abdomen Pelvis W [...] problem perforation of proximal jejunum and mesenteric air and abscess. sepsis on admit intra-abd abscess BPH Plan: 1. see above medication list for treatment. 2. agree to OR today 3. cont iv abx 4. pain control 5. f/u culture 6. heparin hold now 7. d/w pat and family Electronically signed by Jill Squires Conversion Database Development Project Manager Cerner at 11/04/2022 10:30 AM CDT documented in this encounter Plan of Treatment Not on file documented as of this encounter Visit Diagnoses Not on filedocumented in this encounter
--- OUTSIDE RECORDS SUMMARY | 2025-05-24 09:57 | XMS_ITS | Encounter Summary ---
Author Organization [employer] ([place], [place], [place], [place], [place]) Address [address] [place] [address] Care Team Providers Care Tubing Assembler Name Role Phone Unavailable Primary Care Provider Unavailabl e Encounter Details Date Type Department Care Team (Late st Contact Info) Description 08/27/2018 Transcribed Document [facility] Family Medicine [facility] [place] [address] ProviderCindi MD [address] [place] [address] Social History Tobacco Use Types [...] Conversion Note - Cindi ProviderMD - 08/27/2018 9:31 AM CULINARY ART TEACHER Procedural Documentation Entered On: 08/27/2018 9:40 EST Performed On: 08/27/2018 9:31 EST by EVERT ISSA Procedure Documentation Procedure to be Performed : tap block Time Out Pause Time : 08/27/2018 9:25 EST All Activity Suspended : Yes Team Verbally Confirms Information : Correct patient identity, Consent form is present and accurate, Correct patient position Procedure Performed : tap block per DR. moyer using US Proper Use of Sterile Apparel per Policy : Yes Procedure Case Attendee : QIAN MOYER MD Procedure Case Attendee Role : Anesthesiologist Procedure Case Attendee Role 2 : digital art director Case Attendee 2 : EVERT ISSA Procedure Case Attendee Role 3 : digital art director Case Attendee 3 : KAREN IRAHETA, EVERT MOORE - 08/27/2018 9:31 EST Postprocedure Documentation Current Time : 9:31 EST EVERT ISSA - 08/27/2018 9:31 EST Anitha Level I Post Anesthesia Assessment Anitha I Activity Status : Moves 4 extremities voluntarily or on command Anitha l Respiratory Component : Able to deep breathe and cough freely Anitha I Circulation Component : BP 20% of preanesthetic level Anitha I Consciousness : Arouses on calling Anitha l Oxygen Saturation : Needs oxygen to maintain > 92% Anitha l Score : 8 EVERT ISSA - 08/27/2018 9:31 EST Vital Measurements Pulse Method : Non-Invasive BP Device Peripheral Pulse Rate : 69 bpm Pulse Rhythm : Regular Respiratory Rate : 17 Breaths/Min Blood Pressure Location : Arm, right upper Blood Pressure Source : Non-Invasive BP Device Blood Pressure Position : Supine Systolic Blood Pressure : 129 mmHg Diastolic Blood Pressure : 71 mmHg Oxygen Saturation : 97 % Oxygen Flow Rate : 3 Liter/Min EVERT ISSA - 08/27/2018 9:31 EST Oxygen Therapy Oxygen Titrated : No Oxygen Therapy Mode : Nasal cannula Oxygen Flow Rate : 3 Liter/Min Pulse Oximeter Probe Site : Hand, right O2 Saturation Monitoring Frequency : Continuous Oxygen Humidification : None EVERT ISSA - 08/27/2018 9:31 EST Electronically signed by Jill Squires Conversion Naval Surface Fire Support Planner Cerner at 11/04/2022 10:24 AM CDT documented in this encounter Plan of Treatment Not on file documented as of this encounter Visit Diagnoses Not on filedocumented in this encounter
--- OUTSIDE RECORDS SUMMARY | 2025-05-24 09:57 | XMS_ITS | Patient Health Record ---
[facility] Organization [facility] Address [address] [facility] [address] [place] [id number] Care Team Providers Care Pumper Hand Name Role Phone Zach Muro Primary Care Provider Landry Jacobsen Unavailable [phone] Alma Watters Unavailable [phone] Allergies Allergen (clinical drug ingredient) Drug/Non Drug [...] - 38 plat 133 100 - 400 P-Uric Acid Reviewed date:12/30/2024 12:22:33 PM Interpretation:8.3 Performing Lab: Notes/Report: Test performed by [facility] [address] [place] [address] , [address], [place] [address] Benji Sharma MD, [employer]er CLIA: [id number] Uric Acid 8.3 3.4-8.0 mg/dL CBC Fingerstick (in house) Reviewed date:05/10/2025 01:32:35 [...] - 38 plat 127 100 - 400 H-CMP Reviewed date:09/24/2024 01:53:38 PM Interpretation: Performing Lab: Notes/Report: NA 133 136-145 mmol/L K 4.0 3.5-5.1 mmoL/L CL 101 98-107 mmol/L CO2 26 22.0-30.0 mmol/L GAP 10.0 5-15 mEq/L BUN 21 9-20 mg/dl CREATT 1.40 0.66-1.25 mg/dl CRCLE 58 50-200 mL/min GFRAA 59 >60 ML/MIN Delta: 47 on -1499 EGFR 49 >60 ml/min GLU 139 74-100 mg/dl Delta: 111 on 0 09/23/24 CA 8.1 8.4-10.2 mg/dl BILIT 1.1 0.2-1.3 mg/dl AST 34 17-59 U/L ALT 21 12-78 U/L TP 6.2 6.3-8.2 g/dl ALB 3.4 3.5-5.0 g/dl Delta: 3.9 on 0 09/23/24-1499 GLOB 2.8 1.3-3.2 g/dL AGRATIO 1.2 1.1-1.8 ALP 80 38-126 U/L H-CBC Reviewed date:09/24/2024 01:53:49 PM Interpretation: Performing Lab: Notes/Report: WBC 7.6 4.8-10.8 K/mm3 RBC 4.21 4.60-6.20 M/mm3 HGB 11.8 14.1-18.0 g/dL HCT 35.4 42.0-52.0 % MCV 84.1 80-94 fl MCH 28.0 27.0-31.2 pg MCHC 33.3 31.8-35.4 g/dL RDW 14.1 11.5-17.5 % PLT 120 142-424 K/mm3 MPV 10.1 7.4-10.4 fl NE% 80.8 37.0-80.0 % LY% 10.3 10-50 % MO% 8.2 1.7-9.3 % EO% 0.0 0.1-12.0 % BA% 0.3 0.1-2.0 % NE# 6.1 1.8-7.8 K/mm3 LY# 0.8 0.7-4.5 K/mm3 MO# 0.6 0.1-1.0 K/mm3 EO# 0.0 0.0-0.4 K/mm3 BA# 0.0 0-0.2 K/mm3 H-CMP Reviewed date:09/25/2024 08:35:50 AM Interpretation: Performing Lab: Notes/Report: NA 135 136-145 mmol/L K 3.4 3.5-5.1 mmoL/L CL 105 98-107 mmol/L CO2 25 22.0-30.0 mmol/L GAP 8.4 5-15 mEq/L BUN 20 9-20 mg/dl CREATT 1.20 0.66-1.25 mg/dl CRCLE 66 50-200 mL/min GFRAA 71 >60 ML/MIN Delta: 59 on EGFR 58 >60 ml/min GLU 95 74-100 mg/dl Delta: 139 on 0 09/24/24 CA 8.0 8.4-10.2 mg/dl BILIT 0.8 0.2-1.3 mg/dl AST 38 17-59 U/L ALT 17 12-78 U/L TP 5.6 6.3-8.2 g/dl ALB 3.1 3.5-5.0 g/dl GLOB 2.5 1.3-3.2 g/dL AGRATIO 1.2 1.1-1.8 ALP 65 38-126 U/L H-CBC Reviewed date:09/25/2024 08:35:50 AM Interpretation: Performing Lab: Notes/Report: WBC 4.6 4.8-10.8 K/mm3 Delta: 7.6 on 09/24/24 RBC 3.93 4.60-6.20 M/mm3 HGB 11.1 14.1-18.0 g/dL HCT 33.1 42.0-52.0 % MCV 84.2 80-94 fl MCH 28.2 27.0-31.2 pg MCHC 33.5 31.8-35.4 g/dL RDW 13.9 11.5-17.5 % PLT 120 142-424 K/mm3 MPV 10.3 7.4-10.4 fl NE% 53.8 37.0-80.0 % LY% 33.7 10-50 % MO% 11.2 1.7-9.3 % EO% 0.7 0.1-12.0 % BA% 0.4 0.1-2.0 % NE# 2.5 1.8-7.8 K/mm3 LY# 1.5 0.7-4.5 K/mm3 MO# 0.5 0.1-1.0 K/mm3 EO# 0.0 0.0-0.4 K/mm3 BA# 0.0 0-0.2 K/mm3 Medications Medication SIG (Take, Route, Fr equency, Duration) Notes Start Date End Date Status Allopurinol 100 MG 1 tablet Orally Once a day; Duration: 30 days Active Immunizations Vaccine Route Administration Date Status Comme nts COVID 19 Moderna Unknown 08/31/2020 Administered COVID 19 Moderna Unknown 09/28/2020 Administered COVID 19 Moderna Unknown 05/30/2021 Administered Problems Problem Type SNOMED Code ICD Code Onset Dates Problem Status W/U Status Risk Notes Problem Anemia (426883152) Anemia (D64.9) Active confirmed Problem Cardiac dysrhythmia (725011928) Cardiac dysrhythmia (I49.9) Active confirmed Problem Paroxysmal atrial fibrillation (963092309) Paroxysmal atrial fibrillation (I48.0) Active confirmed Problem Balanitis (91715565) Balanitis (N48.1) Active confirmed Problem Paresthesia (finding) (34972287) Paresthesias (R20.2) Active confirmed Problem Recurrent falls (322164801) Frequent falls (R29.6) Active confirmed Problem Transient ischemic attack (285122137) TIA (transient ischemic attack) (G45.9) Active confirmed Problem Acute gout (201015105) Acute gout (M10.9) Active confirmed Problem Lower urinary tract symptoms due to benign prostatic hypertrophy (58195725982473) Benign prostatic hyperplasia with lower urinary tract symptoms (N40.1) Active confirmed Problem Gout (56139193) Acute gout of left foot, unspecified cause (M10.9) Active confirmed Problem History of excision of intestinal structure (662501690) 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1 an d Episode of syncope R55 [place] [facility] [address] [place] [id number] 12/28/2024 Alma Watters Acute gout M10.9 and BMI 28.0-28.9,adult Z68.28 [facility] [facility] [place] [facility] [address] [place] [id number] 05/10/2025 Alma Watters Abdominal pain R10.9 and Upper respiratory symptom R09.89 [facility] [facility] [place] [facility] [address] [place] [id number] 05/29/2024 R Chao Bhaskar Acute gout of left foot, unspecified cause M10.9 [facility] [facility] [place] [facility] [address] [place] [id number] 09/25/2024 R Chao Bhaskar [facility] [address] [facility] [address] [place] [id number] 11/16/2024 R Chao Bhaskar Acute gout of left foot, unspecified cause M10.9 [facility] [address] [facility] [address] [place] [id number] 11/16/2024 R Chao Chengt Acute gout of left foot, unspecified cause M10.9 [facility] [address] [facility] [address] [place] [id number] 12/30/2024 R Chao [place] [facility] [facility] [place] [facility] [address] [facility] [address] [place] [id number] 04/08/2025 R Chao Muro [facility] [address] [facility] [address] [place] [id number] 04/08/2025 R Chao Chengt Assessments Encounter Date Diagnosis (ICD Code) Assessment Notes Treatment Notes Treatment Clinical Notes Section Notes 10/06/2024 Episode of syncope (ICD-10 - R55) 10/06/2024 Influenza A (ICD-10 - J10.1) 11/16/2024 Acute gout of left foot, unspecified cause (ICD-10 - M10.9) 11/16/2024 Acute gout of left foot, unspecified cause (ICD-10 - M10.9) 12/28/2024 BMI 28.0-28.9,adult (ICD-10 - Z68.28) 12/28/2024 Acute gout (ICD-10 - M10.9) Get a uric acid level today to check since one has not been done in awhile. Start Medrol dose pack and continue Indomethicin for gout. Updated medication list and instructed to take a baby aspirin since he quit his eliquis. Continue to monitor BP as he has quit those medications as well. Follow up as needed 05/10/2025 Abdominal pain (ICD-10 - R10.9) 05/10/2025 Upper respiratory symptom (ICD-10 - R09.89) fluids, rest, supportive measures for fever/symptom relief gargles q2h while awake with hot salt water 05/29/2024 Acute gout of left foot, unspecified cause (ICD-10 - M10.9) 09/23/2024 Vasovagal syncope (ICD-10 - R55) Patient was sent to the ER for further evaluation and was eventually admitted to [facility] with dehydration/JAYESH and influenza A 09/23/2024 Acute URI (ICD-10 - J06.9) 09/23/2024 Frequent falls (ICD-10 - R29.6) 10/06/2024 Other Discharge summary with available lab/diagnostic imaging results obtained and reviewed. Discharge medication list reconciled. Appropriate counseling provided. Moderate Complexity 04/08/2025 Other CancelRx Response got Denied on 2025-04-09 07:58:25 for 'Indomethacin 50 MG Capsule'Pharmacy Notes: Unable to Cancel Rx. Please contact Pharmacy Plan Of Treatment Pending Test Test Name Order Date CT scan : Abdomen and pelvis with contra st 05/10/2025 Insurance Providers Payer Name Payer Address Payer Phone Subscriber Number Group Number Insured Name Patient Relationship to Insured Coverage Start Date Coverage End Date [facility] P O [place]ETH [id number] JOI OCHOA [id number] RAKAN ARMAS Self - patient is the insured Medications Administered Medication Instructions Date of Administration Dosage Notes Benadryl 08/11/2018 25 mg Depo- Medrol 40 mg/ml 11/08/2009 1.5 mL Depo- Medrol 40 mg/ml 05/25/2013 1.5 mL Dexamethasone 09/28/2008 1 mL Dexamethasone 09/20/2009 1 mL Dexamethasone 08/11/2018 1 mL Dexamethasone 05/11/2019 1 mL Dexamethasone 08/11/2019 1 mL Morphine 2010 5 mg phenergan 25 mg/ml 2010 25 mg Medical (General) History Medical History History ICD Code Cardiac dysrhythmia - followed by cardio logy Atrial fibrillation, Dx: 2023 CVA, Dx: 2022 via MRI by neurology Surgical History Surgery Date(Month/Year) Knee Rotator Cuff Repair esophagogastrodenscopy for e osinophilic esophagitis, Dr. Bird, 03/16/11, 12/2006 Cholecystectomy 05/2009 C-scope/Dr. Fernando/ adenomatous polyp 0 03/2018 Microperforation with mesent tom abscess requiring small bowel resection-Dr Keita 08/2018 Hospitalization History Reason Date(Month/Year)
--- OUTSIDE RECORDS SUMMARY | 2025-05-24 09:57 | XMS_ITS | Encounter Summary ---
Author Organization Note ([place], [place], [place], [place], [place]) Address [address] [place] [address] Care Team Providers Care Auto Engine Mechanic Name Role Phone Unavailable Primary Care Provider Unavailabl e Encounter Details Date Type Department Care Team (Late st Contact Info) Description 08/29/2018 Transcribed Document [facility] Family Medicine [address] [place] [address] ProviderCindi MD [address] [place] [address] Social History Tobacco Use Types [...] Conversion Note - Historical ProviderMD - 08/29/2018 5:00 AM PRINTER OPERATOR Chart Check - Review Order Profile Entered On: 08/29/2018 5:25 EST Performed On: 08/29/2018 5:00 EST by Diony Meade RN Chart Check Chart Reviewed Date and Time : 08/29/2018 5:00 EST Powerplans Initiated/Discontinued as Appropriate : Yes All Active Orders Reviewed : Yes Diony Meade RN - 08/29/2018 5:25 EST documented in this encounter Plan of Treatment Not on file documented as of this encounter Visit Diagnoses Not on filedocumented in this encounter
--- OUTSIDE RECORDS SUMMARY | 2025-05-24 09:57 | XMS_ITS | Encounter Summary ---
Author Organization [employer] ([place], [place], [place], [place], [place]) Address [address] [place] [address] Care Team Providers Care [employer] Buffer Name Role Phone Unavailable Primary Care Provider Unavailabl e Encounter Details Date Type Department Care Team (Late st Contact Info) Description 08/28/2018 Transcribed Document [facility] [place] [facility] [place] [address] ProviderCindi MD [address] [place] [address] Social History Tobacco Use Types [...] Conversion Note - Historical ProviderMD - 08/28/2018 4:00 AM SYSTEMS LEAD Height and Weight, Routine Entered On: 08/28/2018 6:26 EST Performed On: 08/28/2018 4:00 EST by Carolina Tovar [facility] Unit Coord Height and Weight, Routine Routine Weight Source : Bed scale Routine Weight Entry Format : Holt Routine Weight, Pounds : 215 lb Routine Weight, Ounces : 0.97 oz Routine Weight Calculation : 97.75 kg Height Source : Stated Height Entry Format : Holt Height, Feet : 6 ft Height, Inches : 0 Inch Clinical Height : 182.88 cm Body Surface Area (BSA), Routine : 2.2 m2 Body Mass Index (BMI), Routine : 29.23 kg/m2 Carolina Tovar [facility] - 08/28/2018 6:25 EST Electronically signed by [facility] Conversion Academic Manager [employer]ner at 11/04/2022 10:18 AM CDT documented in this encounter Plan of Treatment Not on file documented as of this encounter Visit Diagnoses Not on filedocumented in this encounter
--- OUTSIDE RECORDS SUMMARY | 2025-05-24 09:57 | XMS_ITS | Encounter Summary ---
Author Organization [employer] ([place], [place], [place], [place], [place]) Address [address] [place] [address] Care Team Providers Care Programmer Analyst Health It Name Role Phone Unavailable Primary Care Provider Unavailabl e Encounter Details Date Type Department Care Team (Late st Contact Info) Description 08/28/2018 Transcribed Document [facility] [place] Family Medicine [address] [place] [address] ProviderCindi MD [address] [id number] Social History Tobacco Use Types Packs/Day Years Used Date Smoking Tobacco: Never Assessed Sex and Gender Information Value Date Recorded Sex Assigned at Male 01/16/2022 11:42 AM CDT Legal Sex Male 11:42 AM CDT Gender Identity Male 01/16/2022 11:42 AM CDT Sexual Orientation Not on file documented as of this encounter Miscellaneous Notes * [employer] Conversion Note - Historical ProviderMD - 08/28/2018 10:00 AM 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
--- OUTSIDE RECORDS SUMMARY | 2025-05-24 09:57 | XMS_ITS | Encounter Summary ---
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 Patient: RAFAT ARMAS Age: 72 Years Sex: Male : 1945 Subjective Post OP SB resection for mesenteric abscess Intake & Output Intake & Output Totals Last 24 Hours (7a-7a) Intake (26 Events) Continuous Infusions (525 mL) Medications (471.11 mL) Surgical Services Intake (850 mL) Output (4 Events) Ferrer Catheter (1450 mL) Surgical Services Urine Output (250 mL) Input Total: 1846.11 mL Output Total: 1700 mL Balance: 146.11 mL Vital Signs T: 36.4 ??C TMIN: 36.4 ??C TMAX: 37 ??C HR: 61(Monitored) RR: 14 BP: 125/78 SpO2: 98% HT: 182.88 cm WT: 97.75 kg BMI: 29.23 Physical Exam ABD soft sore woun d Ok VTE Risk Total Score VTE Prophylaxis - Surgical Heparin 5,000 Units, SubCutaneous, Inj, [id number], Routine, Start 08/26/18 20:00:00 EST (LILY VILLAFANA) Sequential Compression Device Start: 08/26/18 19:58:00 EST, Bilateral, Length: Knee High, While patient is in bed, Continuous Order (LILY VILLAFANA) Sequential Compression Device Start: 08/26/18 19:58:00 EST, Bilateral, Continuous Order (LILY VILLAFANA) Assessment/Plan Increase activity NPO until BF WBC 15K cont abx await significant BF Cutaneous abscess, unspecified L02.91, Cutaneous abscess, unspecified L02.91 Orders: Ambulate Culture AFB and Stain Culture Anaerobic Culture Body Fluid and Stain Culture Wound and Stain Misc Nursing Order Misc Nursing Order NPO (immediate) OT Evaluation and Treatment Pathology Tissue Request PT Evaluation and Treatment SURGICAL PATHOLOGY REPORT Medications Inpatient acetaminophen-HYDROcodone 325 mg-5 mg oral tablet, 1 Tab, Oral, Q4H, PRN Colace, 100 mg= 1 Cap, Oral, BID Flagyl, 500 mg= 100 mL, IV Piggyback, Q8HInt heparin, 5000 Units= 1 mL, SubCutaneous, [id number] insulin lispro sliding scale, Scale A:, SubCutaneous, AC and at Bedtime MiraLax, 17 Gram= 1 Packet, Oral, Daily, PRN Protonix, 40 mg, IV Push, Daily Sodium Chloride 0.9% intravenous solution 1,000 mL, 1000 mL, IntraVENous Tylenol, 650 mg= 2 Tab, Oral, Q4H, PRN Zofran, 4 mg= 2 mL, IV Push, Q4H, PRN Zosyn + Sodium Chloride 0.9% intravenous solution 100 mL Home Flomax 0.4 mg oral capsule, 0.4 mg= 1 Cap, Oral, Daily hydrOXYzine pamoate 25 mg oral capsule, 25 mg= 1 Cap, Oral, At Bedtime, PRN Routine Labs - Last 24 Hours No qualifying data available Albumin Level: 1.8 Gram/dL Low Alk Phos: 118 Units/Liter ALT: 34 Units/Liter Anion Gap: 12 AST: 18 Units/Liter Bilirubin Total: 0.9 mg/dL Calcium Level: 7.8 mg/dL Low Protein Total: 5.6 Gram/dL Low Imaging Results (Last 24 Hours) Radiology Results (Last 48 hours) [id number] -- 08/26/2018 18:06 CT Abdomen Pelvis W [...] via this is suggestive of a perforatedviscus. Problem List/Past Medical History Ongoing Kidney stones Historical No qualifying data Procedure/Surgical History CHOLECYSTECTOMY, collarbone sx, knee sx, rotator cuff sx. Allergies sulfa drugs documented in this encounter Plan of Treatment Not on file documented as of this encounter Visit Diagnoses Not on filedocumented in this encounter
[2025-05-24 10:13] LABS: Blood Urea Nitrogen 19 mg/dl (9-20); Creatinine,Serum 1.40 mg/dl (0.66-1.25); Estimated Glomerular Filt Rate 49 ml/min (>60); GFR (African American) 59 ML/MIN (>60)
[2025-05-24] MEDS: IOPAMIDOL-370 (76%);100ML BOTTLE 75 ML IV (10:59)
[2025-05-24] MEDS: SODIUM CHLORIDE 0.9% 10ML SYR (RAD ONLY) 10 ML IV (10:59)
== END 2025-05-24 23:59 | disposition home or self-care (01) ==
LOC: RAD 09:46
PROVIDERS: PCP Family Medicine; Visit Provider Nurse Practitioner Family
DX: K76.0 Fatty (change of) liver, not elsewhere classified (principal); R10.9 Unspecified abdominal pain; R93.3 Abnormal findings on diagnostic imaging of other parts of digestive tract
CPT/HCPCS: 36415; 74177; 82565; 84520; Q9967